=== PATIENT | male | born 1960 | race Caucasian/White ===

== ENCOUNTER 2022-12-08 09:49 | Emergency (ER) | payer BC, SELFPAY ==
[2022-12-08] VITALS (42 sets, daily range): BP systolic 120–163; BP diastolic 79–106; PULSE 69–93; RESP 18; TEMP 36.1–36.8; O2SAT 90–100; BMI 25.5
--- NOTE | 2022-12-08 10:28 | CRLHL7_ITS ---
For Patients: As a result of the Century Cures Act, medical imaging exams and procedure reports are released immediately into your electronic medical record. You may view this report before your referring provider. If you have questions, please contact your health care provider. CHEST 2 VIEWS INDICATION: Short of breath. IMPRESSION: Normal heart size and vascular pattern. Lungs are clear. No pneumothorax or pleural effusion. Dictated by Feliciano Ryan MD @ 12/08/2022 11:45:50 AM (Electronically Signed)
--- NOTE | 2022-12-08 10:32 | ED.CHESTPAIN ---
HPI - Chest Pain General Chief Complaint: Chest Pain Stated Complaint: Chest pain Time Seen by Provider: 12/08/22 10:22 Source: patient Mode of arrival: ambulatory Limitations: no limitations History of Present Illness HPI narrative: 62-year-old male presenting to the ER today with chest pain. He states that he was on his break at work when the chest pain developed. He stated that it got worse when he had to walk to his locker, he changed back into his uniform and then he walked up the stairs back to his work area and that is when the pain really kicked in. He was able to take a sublingual nitro and rest and in about 10 minutes the pain had subsided. He states that after he walked into the ER the pain came back a little bit but now that he has been resting it has subsided once again. The pain does not cause him to feel diaphoretic or short of breath. He does not feel dizzy or lightheaded. He states that he has coronary artery disease with a stent placed in 2003 and another placed in 2010 he has not had cardiology follow-up since 2010. He also has peripheral vascular disease with stenting in his leg and in his abdomen. He is on Plavix and Xarelto. Medical history is also significant for diabetes, peripheral neuropathy and tobacco use disorder. Patient rates his pain right now as a 1/10. He states that it has been years since he has had to take a sublingual nitro. Related Data Home Medications Medication Instructions Recorded Confirmed clopidogrel 75 mg tablet 75 mg PO DAILY 12/08/22 12/08/22 empagliflozin 10 mg tablet 10 mg PO DAILY 12/08/22 12/08/22 (Jardiance) ferrous sulfate 325 mg (65 mg 325 mg PO Q OTHER DAY 12/08/22 12/08/22 iron) tablet (Feosol) fexofenadine 60 mg tablet (Lilia 60 mg PO DAILY 12/08/22 12/08/22 Allergy) gabapentin 300 mg capsule 300 mg PO BID 12/08/22 12/08/22 glipizide 10 mg tablet, extended 10 mg PO DAILY 12/08/22 12/08/22 release 24 hr lisinopril 20 mg tablet 20 mg PO DAILY 12/08/22 12/08/22 pravastatin 40 mg tablet 40 mg PO DAILY 12/08/22 12/08/22 rivaroxaban 2.5 mg tablet (Xarelto) 2.5 mg PO BID 12/08/22 12/08/22 Allergies Allergy/AdvReac Type Severity Reaction Status Date / Time metformin AdvReac Intermediate Diarrhea Verified 12/08/22 10:11 Review of Systems Status of ROS Reports: 10 or more systems reviewed and unremarkable except as noted in History and below [facility] Social History Smoking Status: Current every day smoker What tobacco products do you use: cigarettes Do you use any of these nicotine containing products: None How often do you have a drink containing alcohol: 4 or more times a week How many standard drinks containing alcohol do you have on a typical day: 3 or 4 AUDIT-C Alcohol total score: 5 Non-prescribed substance use: denies use service: No Exam Narrative Exam Narrative: Well-nourished well-developed patient in no acute distress. Alert and oriented. Answers questions appropriately. Mood and affect are appropriate. Thoughts are goal oriented and rational. No tangential or magical thinking noted. Patient speaks in full sentences without needing to catch their breath. HEENT: Normocephalic atraumatic. Pupils are equally round reactive to light. Extraocular muscles are intact. Conjunctivae are moist without any icterus noted. Moist mucous membranes. Posterior pharynx is normal. Neck is soft without any lymphadenopathy or thyromegaly. No masses are appreciated. Cardiovascular: Heart is regular rate and rhythm S1 and S2 are present without any murmurs. Lungs: Clear to auscultation bilaterally no wheezes rhonchi or rales are appreciated. Patient takes deep breaths without any discomfort. Abdomen: Soft and nontender nondistended with normal bowel sounds. No guarding or rebound. No masses or organomegaly appreciated. Extremities: Bilateral lower extremities are without edema. Skin: Well perfused without any obvious rashes. Const Vital Signs, click to edit/add: Vital Signs - 24 hr 12/08/22 10:11 12/08/22 10:26 12/08/22 10:28 Temperature 97 F L Pulse Rate 76 Pulse Rate [Pulse Oximeter] 77 Respiratory Rate 18 Blood Pressure Blood Pressure [Right Upper Arm] 140/88 H Pulse Oximetry 97 100 97 Oxygen Delivery Method Room Air 12/08/22 10:30 12/08/22 10:32 12/08/22 10:43 Temperature Pulse Rate 83 81 91 Pulse Rate [Pulse Oximeter] Respiratory Rate Blood Pressure 149/105 H 120/80 Blood Pressure [Right Upper Arm] Pulse Oximetry 97 99 90 Oxygen Delivery Method 12/08/22 10:44 12/08/22 10:45 12/08/22 11:00 Temperature Pulse Rate 93 77 Pulse Rate [Pulse Oximeter] 93 Respiratory Rate 18 Blood Pressure Blood Pressure [Right Upper Arm] 120/80 Pulse Oximetry 94 93 96 Oxygen Delivery Method Room Air 12/08/22 11:01 12/08/22 11:17 12/08/22 11:21 Temperature Pulse Rate 82 74 78 Pulse Rate [Pulse Oximeter] Respiratory Rate Blood Pressure 136/79 141/84 H Blood Pressure [Right Upper Arm] Pulse Oximetry 96 97 95 Oxygen Delivery Method 12/08/22 11:30 12/08/22 11:41 12/08/22 11:45 Temperature Pulse Rate 74 74 78 Pulse Rate [Pulse Oximeter] Respiratory Rate Blood Pressure 145/80 H Blood Pressure [Right Upper Arm] Pulse Oximetry 97 97 99 Oxygen Delivery Method 12/08/22 12:00 12/08/22 12:00 12/08/22 12:01 Temperature Pulse Rate 79 75 Pulse Rate [Pulse Oximeter] 76 Respiratory Rate Blood Pressure 163/88 H Blood Pressure [Right Upper Arm] 163/88 H Pulse Oximetry 95 97 98 Oxygen Delivery Method Room Air 12/08/22 12:08 12/08/22 12:15 12/08/22 12:21 Temperature 98.3 F Pulse Rate 73 74 Pulse Rate [Pulse Oximeter] Respiratory Rate Blood Pressure 150/84 H Blood Pressure [Right Upper Arm] Pulse Oximetry 96 97 Oxygen Delivery Method 12/08/22 12:30 12/08/22 12:41 12/08/22 12:45 Temperature Pulse Rate 71 87 89 Pulse Rate [Pulse Oximeter] Respiratory Rate Blood Pressure 154/106 H Blood Pressure [Right Upper Arm] Pulse Oximetry 96 93 97 Oxygen Delivery Method 12/08/22 13:00 12/08/22 13:01 12/08/22 13:15 Temperature Pulse Rate 73 74 Pulse Rate [Pulse Oximeter] Respiratory Rate Blood Pressure 153/89 H Blood Pressure [Right Upper Arm] Pulse Oximetry 96 96 98 Oxygen Delivery Method 12/08/22 13:21 12/08/22 13:30 12/08/22 13:45 Temperature Pulse Rate 78 75 80 Pulse Rate [Pulse Oximeter] Respiratory Rate Blood Pressure 158/99 H Blood Pressure [Right Upper Arm] Pulse Oximetry 99 96 96 Oxygen Delivery Method 12/08/22 13:46 12/08/22 14:00 12/08/22 14:04 Temperature Pulse Rate 76 75 75 Pulse Rate [Pulse Oximeter] Respiratory Rate Blood Pressure Blood Pressure [Right Upper Arm] Pulse Oximetry 96 98 96 Oxygen Delivery Method 12/08/22 14:15 12/08/22 14:24 12/08/22 14:30 Temperature Pulse Rate 86 81 73 Pulse Rate [Pulse Oximeter] Respiratory Rate Blood Pressure Blood Pressure [Right Upper Arm] Pulse Oximetry 96 96 97 Oxygen Delivery Method 12/08/22 14:45 12/08/22 15:00 12/08/22 15:15 Temperature Pulse Rate 81 79 71 Pulse Rate [Pulse Oximeter] Respiratory Rate Blood Pressure Blood Pressure [Right Upper Arm] Pulse Oximetry 98 98 97 Oxygen Delivery Method 12/08/22 15:24 12/08/22 15:25 12/08/22 15:30 Temperature Pulse Rate 73 69 Pulse Rate [Pulse Oximeter] Respiratory Rate Blood Pressure 149/86 H Blood Pressure [Right Upper Arm] 149/86 H Pulse Oximetry 94 97 Oxygen Delivery Method 12/08/22 15:45 Temperature Pulse Rate 71 Pulse Rate [Pulse Oximeter] Respiratory Rate Blood Pressure Blood Pressure [Right Upper Arm] Pulse Oximetry 96 Oxygen Delivery Method Course Course Hospital Course: Patient is history and symptoms are certainly worrisome for coronary artery disease. Upon arrival he is given aspirin and sublingual nitro was ordered p.r.n.. EKG, read by me, shows normal sinus rhythm with a pulse of 83. Troponin is unremarkable. CBC showing mild pancytopenia. Shortly after arrival he did have increasing chest discomfort, sublingual nitro was given and his discomfort was relieved. Patient's lactate was 2.0, 1 L of normal saline was given. He remained hemodynamically stable. Repeat EKG unchanged showing normal sinus rhythm. Repeat troponin remained normal. I did consult with Dr. Mackenzie, cardiology at [facility], recommended the patient be transferred to a cardiac bed with potential angiogram secondary to unstable angina. 4-8 hour wait for a bed. Serial troponins at this time have all been normal and patient has been asymptomatic. [facility] Vital Signs Vital signs: Initial Vital Signs Temperature 97 F L 12/08/22 10:11 Temperature Source Temporal Artery Scan 12/08/22 10:11 Pulse Rate 77 12/08/22 10:11 Respiratory Rate 18 12/08/22 10:11 Blood Pressure 140/88 H 12/08/22 10:11 Blood Pressure Mean 105 12/08/22 10:11 Blood Pressure Position Sitting 12/08/22 10:11 Pulse Oximetry 97 12/08/22 10:11 Oxygen Delivery Method Room Air 12/08/22 10:11 Vital Signs Temperature 97 F L 12/08/22 10:11 Pulse Rate 77 12/08/22 10:11 Respiratory Rate 18 12/08/22 10:11 Blood Pressure 140/88 H 12/08/22 10:11 Pulse Oximetry 97 12/08/22 10:11 Oxygen Delivery Method Room Air 12/08/22 10:11 Temperature 98.3 F 12/08/22 12:08 Pulse Rate 71 12/08/22 15:45 Respiratory Rate 18 12/08/22 10:44 Blood Pressure 149/86 H 12/08/22 15:25 Pulse Oximetry 96 12/08/22 15:45 Oxygen Delivery Method Room Air 12/08/22 12:00 MDM - Chest Pain MDM Narrative Medical decision making narrative: 62-year-old male history of coronary artery disease, peripheral vascular disease, tobacco use disorder presenting with unstable angina. Patient will be transferred to [place] for further management. Medical Records Data Attestation: I reviewed the patient's medical records. Lab Data Attestation: I reviewed the patient's lab results. Labs: Lab Results 12/08/22 12/08/22 12/08/22 Range/Units 10:20 10:20 10:20 WBC 3.54 L (4.50-11.00) K/uL RBC 3.90 L (4.30-5.90) m/uL Hgb 13.1 L (13.5-17.5) gm/dL Hct 38.1 (37.0-53.0) % MCV 98 (80-100) fL MCH 34 (26-34) pg MCHC 34 (32-36) gm/dL RDW Coeff of Douglas 14.4 (11.5-15.5) % Plt Count 132 L (140-440) K/uL Neut % (Auto) 48.8 (42.0-72.0) % Lymph % (Auto) 30.2 (20-44) % Weston % (Auto) 16.7 H (0.0-11.0) % Eos % (Auto) 3.4 (0.0-7.0) % Baso % (Auto) 0.6 (0.0-3.0) % Neut # (Auto) 1.70 (1.7-7.0) K/uL Lymph # (Auto) 1.10 (0.90-2.90) K/uL Weston # (Auto) 0.60 (0.00-0.90) K/UL Eos # (Auto) 0.10 (0.00-0.50) K/uL Baso # (Auto) 0.00 (0.00-0.30) K/uL Abs Immat Gran (auto) 0.00 (0.00-0.30) K/uL Imm/Tot Granulo (auto) 0.3 % Sodium Cancelled 136 Potassium Cancelled 3.6 Chloride Cancelled Carbon Dioxide Anion Gap BUN Creatinine Estimated Creat Clear Estimated GFR Glucose Lactate (0.5-1.9) mmol/L Calcium Total Bilirubin (0.1-1.5) mg/dL Direct Bilirubin (0.0-0.5) mg/dL AST (12-35) U/L ALT (4-50) U/L Alkaline Phosphatase (40-150) U/L Troponin I (0.01-0.04) ng/mL Total Protein (6.0-8.3) g/dL Albumin (3.3-5.0) g/dL POC Troponin I (0.01-0.04) ng/ml 12/08/22 12/08/22 12/08/22 Range/Units 10:20 10:20 10:20 WBC (4.50-11.00) K/uL RBC (4.30-5.90) m/uL Hgb (13.5-17.5) gm/dL Hct (37.0-53.0) % MCV (80-100) fL MCH (26-34) pg MCHC (32-36) gm/dL RDW Coeff of Douglas (11.5-15.5) % Plt Count (140-440) K/uL Neut % (Auto) (42.0-72.0) % Lymph % (Auto) (20-44) % Weston % (Auto) (0.0-11.0) % Eos % (Auto) (0.0-7.0) % Baso % (Auto) (0.0-3.0) % Neut # (Auto) (1.7-7.0) K/uL Lymph # (Auto) (0.90-2.90) K/uL Weston # (Auto) (0.00-0.90) K/UL Eos # (Auto) (0.00-0.50) K/uL Baso # (Auto) (0.00-0.30) K/uL Abs Immat Gran (auto) (0.00-0.30) K/uL Imm/Tot Granulo (auto) % Sodium Potassium Chloride 105 Carbon Dioxide Cancelled 26 Anion Gap Cancelled BUN Cancelled 11 Creatinine Cancelled Estimated Creat Clear Estimated GFR Glucose Lactate (0.5-1.9) mmol/L Calcium Total Bilirubin (0.1-1.5) mg/dL Direct Bilirubin (0.0-0.5) mg/dL AST (12-35) U/L ALT (4-50) U/L Alkaline Phosphatase (40-150) U/L Troponin I (0.01-0.04) ng/mL Total Protein (6.0-8.3) g/dL Albumin (3.3-5.0) g/dL POC Troponin I (0.01-0.04) ng/ml 12/08/22 12/08/22 12/08/22 Range/Units 10:20 10:20 10:20 WBC (4.50-11.00) K/uL RBC (4.30-5.90) m/uL Hgb (13.5-17.5) gm/dL Hct (37.0-53.0) % MCV (80-100) fL MCH (26-34) pg MCHC (32-36) gm/dL RDW Coeff of Douglas (11.5-15.5) % Plt Count (140-440) K/uL Neut % (Auto) (42.0-72.0) % Lymph % (Auto) (20-44) % Weston % (Auto) (0.0-11.0) % Eos % (Auto) (0.0-7.0) % Baso % (Auto) (0.0-3.0) % Neut # (Auto) (1.7-7.0) K/uL Lymph # (Auto) (0.90-2.90) K/uL Weston # (Auto) (0.00-0.90) K/UL Eos # (Auto) (0.00-0.50) K/uL Baso # (Auto) (0.00-0.30) K/uL Abs Immat Gran (auto) (0.00-0.30) K/uL Imm/Tot Granulo (auto) % Sodium Potassium Chloride Carbon Dioxide Anion Gap BUN Creatinine 1.0 Estimated Creat Clear Cancelled 76.00 Estimated GFR Cancelled 86 Glucose Cancelled Lactate (0.5-1.9) mmol/L Calcium Total Bilirubin (0.1-1.5) mg/dL Direct Bilirubin (0.0-0.5) mg/dL AST (12-35) U/L ALT (4-50) U/L Alkaline Phosphatase (40-150) U/L Troponin I (0.01-0.04) ng/mL Total Protein (6.0-8.3) g/dL Albumin (3.3-5.0) g/dL POC Troponin I (0.01-0.04) ng/ml 12/08/22 12/08/22 12/08/22 Range/Units 10:20 10:20 10:29 WBC (4.50-11.00) K/uL RBC (4.30-5.90) m/uL Hgb (13.5-17.5) gm/dL Hct (37.0-53.0) % MCV (80-100) fL MCH (26-34) pg MCHC (32-36) gm/dL RDW Coeff of Douglas (11.5-15.5) % Plt Count (140-440) K/uL Neut % (Auto) (42.0-72.0) % Lymph % (Auto) (20-44) % Weston % (Auto) (0.0-11.0) % Eos % (Auto) (0.0-7.0) % Baso % (Auto) (0.0-3.0) % Neut # (Auto) (1.7-7.0) K/uL Lymph # (Auto) (0.90-2.90) K/uL Weston # (Auto) (0.00-0.90) K/UL Eos # (Auto) (0.00-0.50) K/uL Baso # (Auto) (0.00-0.30) K/uL Abs Immat Gran (auto) (0.00-0.30) K/uL Imm/Tot Granulo (auto) % Sodium Potassium Chloride Carbon Dioxide Anion Gap BUN Creatinine Estimated Creat Clear Estimated GFR Glucose 173 H Lactate 2.0 H (0.5-1.9) mmol/L Calcium Cancelled 8.6 Total Bilirubin 1.0 (0.1-1.5) mg/dL Direct Bilirubin 0.3 (0.0-0.5) mg/dL AST 33 (12-35) U/L ALT 21 (4-50) U/L Alkaline Phosphatase 89 (40-150) U/L Troponin I < 0.01 L (0.01-0.04) ng/mL Total Protein 7.0 (6.0-8.3) g/dL Albumin 3.5 (3.3-5.0) g/dL POC Troponin I 0.00 L (0.01-0.04) ng/ml 12/08/22 12/08/22 Range/Units 11:53 13:30 WBC (4.50-11.00) K/uL RBC (4.30-5.90) m/uL Hgb (13.5-17.5) gm/dL Hct (37.0-53.0) % MCV (80-100) fL MCH (26-34) pg MCHC (32-36) gm/dL RDW Coeff of Douglas (11.5-15.5) % Plt Count (140-440) K/uL Neut % (Auto) (42.0-72.0) % Lymph % (Auto) (20-44) % Weston % (Auto) (0.0-11.0) % Eos % (Auto) (0.0-7.0) % Baso % (Auto) (0.0-3.0) % Neut # (Auto) (1.7-7.0) K/uL Lymph # (Auto) (0.90-2.90) K/uL Weston # (Auto) (0.00-0.90) K/UL Eos # (Auto) (0.00-0.50) K/uL Baso # (Auto) (0.00-0.30) K/uL Abs Immat Gran (auto) (0.00-0.30) K/uL Imm/Tot Granulo (auto) % Sodium Potassium Chloride Carbon Dioxide Anion Gap BUN Creatinine Estimated Creat Clear Estimated GFR Glucose Lactate (0.5-1.9) mmol/L Calcium Total Bilirubin (0.1-1.5) mg/dL Direct Bilirubin (0.0-0.5) mg/dL AST (12-35) U/L ALT (4-50) U/L Alkaline Phosphatase (40-150) U/L Troponin I (0.01-0.04) ng/mL Total Protein (6.0-8.3) g/dL Albumin (3.3-5.0) g/dL POC Troponin I 0.00 L 0.02 (0.01-0.04) ng/ml Imaging Data Chest x-ray: Attestation: I have reviewed the pertinent imaging results. Radiologist's impression: CHEST 2 VIEWS INDICATION: Short of breath. IMPRESSION: Normal heart size and vascular pattern. Lungs are clear. No pneumothorax or pleural effusion. ECG Data Attestation: I personally reviewed and interpreted this ECG as follows: Discharge Plan Discharge Clinical Impression: Angina pectoris, unstable Patient Disposition: [facility] Condition: Stable Prescriptions: No Action pravastatin 40 mg tablet 40 mg PO DAILY glipizide 10 mg tablet extended release 24hr 10 mg PO DAILY lisinopril 20 mg tablet 20 mg PO DAILY clopidogrel 75 mg tablet 75 mg PO DAILY gabapentin 300 mg capsule 300 mg PO BID Jardiance 10 mg tablet 10 mg PO DAILY Xarelto 2.5 mg tablet 2.5 mg PO BID fexofenadine [Lilia Allergy] 60 mg tablet 60 mg PO DAILY ferrous sulfate [Feosol] 325 mg (65 mg iron) tablet 325 mg PO Q OTHER DAY Stand Alone Forms: MyHealth Info Instructions
--- OUTSIDE RECORDS SUMMARY | 2022-12-08 10:36 | XMS_ITS | Continuity of Care Document ---
Author Name Unknown Organization [facility] Address [address] [place] [address] Phone Care Team Providers Care Television Mechanic Name Role Phone Lucio Kapoor MD Unavailable Unavailable Allergies, Adverse Reactions, Alerts Substance Reaction Status Criticality No Known Allergies Active No Inform ation Medications Medication Instructions Dosage Effective Dates (start - stop) Status Comments METOPROLOL SUCCINATE (unknown strength) Not Available - Active PRAVASTATIN SODIUM (unknown strength) Not Available - Active GLIPIZIDE (unknown strength) Not Available - Active LISINOPRIL (unknown strength) Not Available - Active METFORMIN HCL (unknown strength) Not Available - Active PRILOSEC (unknown strength) Not Available - Active AJAY (unknown strength) Not Available - Active Procedures Procedure Date Postop Followup Visit X-Ray Exam Lwr Spine, Min 4 Views Low Back Disk Surgery/Decompress 2014 Pa Assist Low Back Disk Surgery/Decompre ss Office/Outpatient Visit,Est, Mod 2014 Office/Outpatient Visit,New, Mod 2014 Advance Directives Directive Yes / No Effective Date File Name No Information Encounters Encounter Description Practice Location Reason(s) For Visit Diagnoses Date Provider Providers Copied on Encounter [facility], [address], [place], [id number] , [place] tel:[phone] [facility] No Information Jun-0 3-201 7 Antwon Valdes. [facility], [address], [address], [place], [id number] , [place]. tel: [phone] [facility], [address], [place], [place], [id number] , [place] tel: [phone] [facility] Arthrodesis statusOverweigh t Antwon Stanleyothy. [facility], [address], [address], [place], [place], [id number] , [place]. tel: [phone] Referring Provider: Susan Vernon [facility] [address], [place], [address]. tel:[phone] [facility], [address], [place], [id number] , [place] tel: [phone] [facility] No Information Antwon Lucio. [facility], [address], [address], [place], [place], [id number] , [place]. tel: [phone] Referring Provider: Susan Vernon [facility] [address], [place], [address]. tel:[phone] Office/Outpa tient Visit,Est, Mod [facility], [address], [place], [place], [id number] , [place] tel: [phone] [facility] OVERWEIGHTHyper tension, UnspecifiedLumb ar HNPSpinal stenosis of lumbar region with neurogenic claudication Antwon Valdes. [facility] [place], [address], [address], [place], [place], [id number] , [place]. tel: [phone] Referring Provider: Susan Vernon [facility] [address], [place], [address]. tel:[phone] Office/Outpa tient Visit,New, Mod [facility], [address], [place], [place], [id number] , [place] tel: [phone] [facility] Bulging lumbar discSpinal stenosis of lumbar region with neurogenic claudicationLum bar DDD 201 5 Emily Carpenter. [facility], [address], [address], [place], [place], [id number] , [place]. [phone] Referring Provider: Susan Vernon, [facility] [address] [place], [address]. tel:[phone] Family History Family Member Type Diagnosis Age At Onset No Information Payers Payer name Insurance type Covered green party ID Authoriza tihansel(s) Preferred [employer] Admin [facility] [id number] Social History Type Description Quantity Date Captured Comments Sex Male Smoking Status No Information Chief Complaint And Reason For Visit No Information Reason For Referral Reason For Referral No Information History Of Present Illness Encounter Date Complaint History Of Prese nt Illness No Information Functional Status Date Functional Assessmen t No Information Instructions Date Instruction Additional Infor lori Weight Management Related to [facility] Weight management: R efer to Referral to General Practitioner timeframe: 1 Month. Related to Overweight Weight Management Related to Ove eit Exercise education Related to Un specified Essential Hypertension Assessments Type Assessment Date No Information Patient Care Teams Name Effective Dates (start - stop) Status Members No Information
[2022-12-08 10:37] LABS: Basophils Percent Auto 0.6 % (0.0-3.0); Eosinophils Percent Auto 3.4 % (0.0-7.0); Hematocrit 38.1 % (37.0-53.0); Hemoglobin* 13.1 gm/dL (13.5-17.5); Immature Granulocytes Pct Auto 0.3 %; Lymphocytes Percent Auto 30.2 % (20-44); Mean Corpuscular HGB Conc 34 gm/dL (32-36); Mean Corpuscular Hemoglobin 34 pg (26-34); Mean Corpuscular Volume 98 fL (80-100); Monocytes Percent Auto 16.7 % (0.0-11.0); Neutrophils Percent Auto 48.8 % (42.0-72.0); Platelet Count* 132 K/uL (140-440); RDW Coefficient of Variation % 14.4 % (11.5-15.5); White Blood Count* 3.54 K/uL (4.50-11.00)
--- OUTSIDE RECORDS SUMMARY | 2022-12-08 10:37 | XMS_ITS | Continuity of Care Document ---
Author Name Unknown Organization [facility] Address [address] [place] [address] Phone Care Team Providers Care Fishing Line Winding Machine Operator Name Role Phone Lucio Kapoor MD Unavailable [...] [facility], [address], [place], [id number] , [place] tel:[phone] [facility] No Information Jun-0 3-201 7 Antwon Valdes. [facility], [address], [address], [place], [id number] , [place]. tel: [phone] [facility], [address], [place], [place], [id number] , [place] tel: [phone] [facility] Arthrodesis statusOverweigh t Antwon Stanleyothy. [facility] [place], [address], [address], [place], [place], [id number] , [place]. tel: [phone] Referring Provider: Susan Vernon [facility] [address], [place], [address]. tel:[phone] [facility], [address], [place], [id number] , [place] tel: [phone] [facility] No Information Antwon Lucio. [facility] [place], [address], [address], [place], [place], [id number] , [place]. tel: [phone] Referring Provider: Susan Vernon [facility] [address], [place], [address]. tel:[phone] Office/Outpa tient Visit,Est, Mod [facility], [address], [place], [place], [id number] , [place] tel: [phone] [facility] OVERWEIGHTHyper tension, UnspecifiedLumb ar HNPSpinal stenosis of lumbar region with neurogenic claudication Antwon Valdes. [facility] [place], [address], [address], [place], [place], [id number] , [place]. tel: [phone] Referring Provider: Susan Vernon [facility] [address], [place], [address]. tel:[phone] Office/Outpa tient Visit,New, Mod [facility], [address], [place], [place], [id number] , [place] tel: [phone] [facility] Bulging lumbar discSpinal stenosis of lumbar region with neurogenic claudicationLum bar DDD 201 5 Emily Carpenter. [facility], [address], [address], [place], [place], [id number] , [place]. [phone] Referring Provider: Susan Vernon, [facility] [address] [place], [address]. tel:[phone] Family History Family Member Type Diagnosis Age At Onset No Information Payers Payer name Insurance type Covered democrat ID Authoriza tihansel(s) [employer] Admin [facility] [id number] Social History Type Description Quantity Date Captured [...] lori [facility] Management [facility]: R efer to Referral to General Practitioner timeframe: 1 Month. Related to Overweight Weight Management Related to Ove eit Exercise education Related to Un specified Essential Hypertension Assessments Type Assessment Date No Information Patient Care Teams Name Effective Dates (start - stop) Status Members No Information
[2022-12-08 10:39] LABS: Slide Review Reflex No
[2022-12-08] MEDS: NITROGLYCERIN 0.4 MG TAB.SUBL SUBLINGUAL (10:39)
--- NOTE | 2022-12-08 10:40 | ED.NURSE ---
pt was experiencing more chest pain, gave nitro.
[2022-12-08] MEDS: ASPIRIN 81 MG TAB.CHEW 324 MG PO (10:43)
[2022-12-08] MEDS: 0.9 % SODIUM CHLORIDE 1000 ml 1,000 ML IV (10:52)
[2022-12-08 10:53] LABS: Albumin* 3.5 g/dL (3.3-5.0); Chloride* 105 mmol/L (96-114); Sodium* 136 mmol/L (135-149)
[2022-12-08 10:54] LABS: Potassium* 3.6 mmol/L (3.6-5.1)
[2022-12-08 10:56] LABS: Alkaline Phosphatase* 89 U/L (40-150); Aspartate Amino Transferase* 33 U/L (12-35); Bilirubin Direct* 0.3 mg/dL (0.0-0.5); Blood Urea Nitrogen* 11 mg/dL (7-30); Carbon Dioxide* 26 mmol/L (20-32); Estimated Glomerular Filt Rate 86 ml/min; Glucose* 173 mg/dL (60-115)
[2022-12-08 10:57] LABS: Alanine Aminotransferase* 21 U/L (4-50); Calcium* 8.6 mg/dL (8.4-10.6)
[2022-12-08 11:30] LABS: Troponin I* < 0.01 ng/mL (0.01-0.04)
[2022-12-08 13:47] LABS: Troponin, Point-of-Care* 0.02 ng/ml (0.01-0.04)
--- NOTE | 2022-12-08 14:03 | ED.NURSE ---
Report called to Joie HOGUE at [facility].
--- NOTE | 2022-12-08 16:04 | ED.NURSE ---
Nasim called to give update on bed availability.
--- NOTE | 2022-12-08 16:49 | ED.NURSE ---
Pt was beginning to get agitated because he felt that he could go home and come back to the hospital in the morning, instead of waiting for the ambulance ride to [place]. He decided to leave AMA, pt was cooperative with allowing IV to be removed. He was counseled to come back to the ER if symptoms start to worsen.
== END 2022-12-08 16:39 | disposition left against medical advice (07) ==
PROVIDERS: Emergency Provider Family Medicine; PCP Family Medicine
DX: I20.0 Unstable angina (principal)
CPT/HCPCS: 36415; 71046; 80048; 80076; 83605; 84484; 85025; 93005; 94761; 96360; 99285; A9270; J7030

== ENCOUNTER 2024-06-02 13:05 | Inpatient (IN) | payer BC, SELFPAY ==
[2024-06-02] VITALS (30 sets, daily range): BP systolic 119–157; BP diastolic 72–105; PULSE 82–114; RESP 20–34; TEMP 36.9–37.6; O2SAT 87–95; BMI 23.6; BMI 22.9
--- OUTSIDE RECORDS SUMMARY | 2024-06-02 13:07 | XMS_ITS | Clinical Summary ---
Author Organization [employer] [facility] Address [place], [place] [address] Care Team Providers Care Credit Reporter Name Role Phone Frederick Duran MD Unavailable [phone] David Alcala MD Primary Care Provider [phone] Damon Belcher MD Unavailable [phone] Allergies Active Allergy Reactions Criticality Noted Date Comments Metformin Diarrhea Low 07/30/2021 Medications fexofenadine (DANITA) 180 mg tablet Take 1 tablet by mouth once daily. 30 tablet 11 10/31/19 10 Active ferrous sulfate, 65 mg elemental, tablet Take 325 mg by mouth once every other day. Active aspirin (ECOTRIN) 81 mg enteric coated tabletIndications :Popliteal artery occlusion, left (HC) Take 1 Tablet (81 mg) by mouth once daily. 0 11/06/19 22 Active nitroglycerin (NITROSTAT) 0.4 mg sublingual tabletIndications :Atherosclerosis of coronary artery, unspecified vessel or lesion type, unspecified whether angina present, unspecified whether [place] or transplanted heart,History of coronary artery stent placement 3 DOSE LIMIT PER CHEST PAIN EPISODE. 25 Tablet 3 02/21/20 23 Active clopidogreL (PLAVIX) 75 mg tabletIndications :Peripheral arterial disease (HC) Take 1 Tablet (75 mg) by mouth once daily. 90 Tablet 3 08/09/19 24 Active empagliflozin (Jardiance) 10 mg tabletIndications :Diabetes mellitus without complication (HC) Take 1 Tablet (10 mg) by mouth once daily. 90 Tablet 3 08/09/19 24 Active glipiZIDE extended-release (GLUCOTROL XL) 10 mg Extended-Release tabletIndications :Diabetes mellitus without complication (HC) Take 1 Tablet (10 mg) by mouth once daily before a meal. 90 Tablet 3 08/09/19 24 Active lisinopriL (PRINIVIL; ZESTRIL) 20 mg tabletIndications :Hypertension, unspecified type,History of coronary artery stent placement Take 1 Tablet (20 mg) by mouth once daily. 90 Tablet 3 10/16/19 24 Active pravastatin (PRAVACHOL) 40 mg tabletIndications :Diabetes mellitus without complication (HC),Hypertriglyc eridemia TAKE 1 TABLET BY MOUTH AT BEDTIME 90 Tablet 3 10/22/19 24 Active acetaminophen (TYLENOL EXTRA STRGTH) 500 mg tabletIndications :pain Take 2 Tablets (1,000 mg) by mouth every 6 hours if needed for Pain. Max acetaminophen dose: 4000mg in 24 hrs. 11/14/19 24 Active gabapentin (NEURONTIN) 300 mg capsuleIndication s:Displacement of intervertebral disc of lumbosacral region Take 1 capsule (300 mg) by mouth daily. Take a second capsule on work days. 180 Capsule 1 05/01/19 25 Active rivaroxaban (Xarelto) 2.5 mg tabletIndications :peripheral arterial occlusive disease Take 1 Tablet (2.5 mg) by mouth two times daily with meals. 180 Tablet 3 02/12/20 24 Active omeprazole (PRILOSEC) 20 mg Delayed-Release capsuleIndication s:Gastroesophagea l reflux disease without esophagitis Take 1 Capsule (20 mg) by mouth once daily before a meal. 90 Capsule 05/24/19 25 Active omeprazole (PRILOSEC) 20 mg Delayed-Release capsuleIndication s:Gastroesophagea l reflux disease without esophagitis Take 1 Capsule (20 mg) by mouth once daily before a meal. 90 Capsule 3 08/09/19 24 025 Discontin ued(*Avai lability/ Formulary change/Co st of medicatio n) Active Problems Problem Noted Date Diagnosed Date Chest pain 12/14/2022 Hypokalemia 11/13/2022 Normocytic anemia 05/29/2020 Abdominal aortic aneurysm (AAA) 05/27/2020 Peripheral arterial disease 05/26/2020 Overview (05/26/2020): May 2020: Occluded popliteal artery with cellulitis. Acquired trigger finger of left middle finger Overview (12/21/2018): October 2017: left middle finger trigger finger cortisone injection by Dr. Westbrook. Good benefit until March 2018, then recurrence. Nov 2018: Repeat left middle finger cortisone injection for trigger finger. 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 Kapoor Tobacco use disorder 12/22/2014 Overview (12/22/2014): 1 pack a day- for 30 years Hx of Rhabdomyolysis 07/27/2010 Overview (07/27/2010): With combination of high dose statin and lopid Drug-induced hepatitis 07/27/2010 Overview (06/26/2015): Secondary to statin+lopid Vitamin D deficiency 06/08/2010 Type 2 diabetes mellitus wit h diabetic peripheral angiopathy without gangrene, without long-term current use of insulin 11/20/2006 Overview (12/22/2014): 12/19/14 Hgb A1c: 6.3 Glucotrol and glipizide HTN (hypertension) 02/16/2005 Overview (12/22/2014): Metoprolol GERD 08/17/2004 CAD S/P percutaneous coronary angioplasty 2003 Overview (12/22/2014): 2003 PTCA and 2010 stent distal (LAD) Hyperlipidemia 11/12/2003 Overview (12/22/2014): Pravachol RHINITIS - ALLERGIC 12/16/2002 Overview (12/22/2014): danita Critical lower limb ischemia Popliteal artery occlusion, left PAD (peripheral artery disease) Resolved Problems Problem Noted Date Diagnosed Date Resolved Date Cellulitis of left lower extremity 05/27/2020 01/31/2023 Hyponatremia 07/27/2010 12/22/2014 Epistaxis 02/18/2005 10/04/2005 STATUS POST PERC TRANSLUM CORON ANGIO 11/12/2003 12/22/2014 Allergy, unspecified not elsewhere classified 11/16/19 00 12/22/2014 DISORDER, STOMACH FUNCTION NOS 11/16/1999 10/04/2005 ONYCHOMYCOSIS 10/04/2005 Encounters Date Type Department Care Team Description 05/23/2024 Refill [facility] [address] [place] [address] David Alcala MD Refill Request (Omeprazole/) 03/22/2024 8:30 AM [employer] SITE MANAGER Office Visit [facility] [address] [place] [address] Ruchi Espitia MD Follow Up (recurrent left popliteal artery occlusion atherectomy and angioplasty) 03/22/2024 6:48 AM [employer] SITE MANAGER - 03/22/2024 11:59 PM [employer] SITE MANAGER Hospital Encounter [facility] [address] [place] [address] Ruchi Espitia MD PAD (peripheral artery disease) (HC) 03/22/2024 Travel from Last 3 Months Immunizations Name Administration Dates Next Due Hepatitis B (Adult) 06/26/2015,01/14/2013 Influenza, IIV3 (Age >=3 years) 03/28/2010 Influenza, IIV4 01/09/2013 Pneumococcal Conj 20-valent (Prevnar 20) 023 Tdap 07/27/2022,05/21/2012 Zoster (Shingrix-RZV, recombinant) 07/27/2022, Family History Medical History Relation Name Comments COPD Father Dementia Mother Heart Disease Paternal Grandfather PA Relation Name Status Comments Father Mother Paternal Grandfather Social History Tobacco Use Types Packs/Day Years Used Date Smoking Tobacco: Every Day Cigarettes 1 46.4 Started: 12/22/1977 Passive Smoke Exposure: Current Smokeless Tobacco: Never Tobacco Cessation:Ready to Q uit: No; Counseling Given: Yes Comments:declined Alcohol Use Standard Drinks/Week Comments Yes 12 (1 standard drink = 0.6 oz pu re alcohol) PHQ-2 Answer Date Recorded PHQ-2 TOTAL SCORE 0 01/31/2023 Financial Resource Strain Answer Date R ecorded Difficulty of Paying Living Expenses Not on file 05/01/2021 Difficulty of Paying Living Expenses Not on file 05/01/2021 Interpersonal Safety Answer Date Record ed Are you being hit, kicked, p ushed or yelled at (see row info)? Unable to assess, family/SO in room. 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 Not on file Not on file Obstetrics History Last Filed Vital Signs Vital Sign Reading Time Taken Comments Blood Pressure 148/79 03/22/2024 8:23 AM [employer] SITE MANAGER Pulse 63 03/22/2024 8:20 AM [employer] SITE MANAGER Temperature 36.7 C (98 F) 11/14/2023 5:55 AM CDT Respiratory Rate 16 11/14/2023 12:0 4 PM CDT Oxygen Saturation 96% 03/22/2024 8:20 AM [employer] SITE MANAGER Inhaled Oxygen Concentration - - Weight 71.5 kg (157 lb 10.1 oz) 03/22/2024 8:20 AM [employer] SITE MANAGER Height 172.7 cm (5' 7.99) 03/22/2024 8:20 AM CS T Body Mass Index 23.97 03/22/2024 8:20 AM [employer] SITE MANAGER Plan of Treatment Upcoming Encounters Date Type Department Care Team (Late st Contact Info) Description 06/28/2024 7:00 AM [employer] SITE MANAGER Appointment [facility] [address] [place] [address] 06/28/2024 7:45 AM [employer] SITE MANAGER Appointment [facility] [address] [facility] [address] [place] [address] 06/28/2024 8:30 AM [employer] SITE MANAGER Office Visit [facility] [address] [place] [address] Ruchi Espitia MD [address] [place] [address] [place] [address] Health Maintenance Due Date Last Done Comments Colonoscopy through age 75 2007 RSV vaccine for adults or (1 - Risk 60-74 years 1-dose series) [address] (for lung CA) ag e 50-80 12/15/2023 12/14/2022 COVID-19 vaccine series (2023- season) 2023 Influenza for age 50-64 12/31/2023 02/15/20 13 (Completed outside of [facility]), 01/09/2013, 03/28/2010 Depression screening for age 12+ 02/01/2024 01/31/2023, 01/31/2023, 02/23/2021, Additional history exists BMI (ht and wt on same day) for age 18+ 03/22/2025 03/22/2024, 02/12/2024, 12/22/2023, Additional history exists Lipids for age 45-75 01/07/2028 01/06/2023, 01/06/2023, 02/22/2021, Additional history exists Tetanus booster 07/27/2032 07/27/2022, 05/21/2012 Hepatitis C screening for ag e 18-79 Completed 01/23/2020 Pneumococcal series for age 50+ Completed Tdap Completed 07/27/2022, 05/21/2012 Zoster (shingles) series for age 50+ Completed 07/27/2022, 01/23/2020 HIV for age 15-65 Completed 11/14/2022 Goals Goal Patient Goal Type Associated Problems Recent Progress Patient-Stated? Author BLOOD PRESSURE-MA INTAINS BP LESS THAN 130/80 Blood Pressure No Susan Vernon MD Procedures Procedure Name Priority Date/Time Associated Diagnosis Comments US ANKLE BRACHIAL INDEX BILATERAL Routine 03/22/2024 8:08 AM [employer] SITE MANAGER PAD (peripheral artery disease) (HC) US ARTERIAL LOWER EXTREMITY LEFT Routine 03/22/2024 8:07 AM [employer] SITE MANAGER PAD (peripheral artery disease) (HC) LIPID PANEL W REFLEX MEASURED LDL Routine 01/06/2023 2:09 PM CDT CAD S/P percutaneous coronary angioplasty RAPID HIV SCREEN Timed 11/14/2022 7:38 AM CDT ANTI HCV Routine 01/23/2020 9:44 AM CDT Need for hepatitis C screening test from Last 3 Months or Most Recently Relevant to Health Maintenance Results * US ANKLE BRACHIAL INDEX BILATERAL (03/22/2024 8:08 AM [employer] SITE MANAGER) Anatomical Region Laterality Modality ANKLES, ANKLE L, ANKLE R Ultraso und 03/22/2024 6:48 AM [employer] SITE MANAGER Narrative 03/22/2024 11:14 AM [employer] SITE MANAGER VASCULAR ULTRASOUND REPORT OLIVIA JIANG : 1960 Study Date: 03/22/2024 6:48:00 AM Age: 63 years Tech: STEPHANY Gender: M Referring MD: RUCHI ESPITIA Site: [facility] Study performed: Lower extremity resting JEANCARLOS, (bilateral). Indication for study: Follow-up HISTOPATH TECH/stent/bypass TECHNIQUE: Lower/upper extremity arteries were examined per exam protocol by duplex ultrasound, color-flow and spectral Doppler. Peak systolic velocities (PSV), Doppler waveform quality, velocity ratios and vessel size in cm, were documented at protocol specific sites. Physiologic data including segmental pressures, ankle/brachial index (JEANCARLOS), digit PPG recordings, laser Doppler flowmetry, transcutaneous oximetry, and digit temperatures were documented at sites per exam protocol and test requirements. IMPRESSION: 1. Resting ankle-brachial index is normal on the right at 1.13 and is normal on the left at 1.08. 2. Toe-brachial index is normal on the right at 0.77 and toe-brachial index is normal on the left at 0.75. COMPARISON: Compared to prior study 12/18/2023, there is no significant change. FINDINGS: Right toe/brachial index indicates normal range. Left toe/brachial index indicates normal range. Pressures +-----+ +--------+ +-----+ RIGHT (mmHg) LEFT (mmHg) +-----+ +--------+ +-----+ Index 159 Brachial 154 Index +-----+ +--------+ +-----+ 1.13 179 HISTOPATH TECH 172 1.08 +-----+ +--------+ +-----+ 1.03 164 DPA 163 1.03 +-----+ +--------+ +-----+ 0.77 123 Digit 1 120 0.75 +-----+ +--------+ +-----+ Ruchi Espitia MD. Electronically signed on 03/22/2024 11:14:45 AM This study was performed and interpreted by a service accredited by the Intersocietal Accreditation Commission (IAC/Vascular), [email or web address] Report generated by [employer]. Final Procedure Note Ruchi Espitia MD - 03/22/2024 VASCULAR ULTRASOUND REPORT OLIVIA JIANG : 1960 Study Date: 03/22/2024 6:48:00 AM Age: 63 years Tech: LMS Gender: M Referring MD: RUCHI ESPITIA Site: [facility] Study performed: Lower extremity resting JEANCARLOS, (bilateral). Indication for study: Follow-up HISTOPATH TECH/stent/bypass TECHNIQUE: Lower/upper extremity arteries were examined per exam protocol by duplexultrasound, color-flow and spectral Doppler. Peak systolic velocities(PSV), Doppler waveform quality, velocity ratios and vessel size in cm,were documented at protocol specific sites. Physiologic data includingsegmental pressures, ankle/brachial index (JEANCARLOS), digit PPG recordings,laser Doppler flowmetry, transcutaneous oximetry, and digit temperatureswere documented at sites per exam protocol and test requirements. IMPRESSION: 1. Resting ankle-brachial index is normal on the right at 1.13 and isnormal on the left at 1.08. 2. Toe-brachial index is normal on the right at 0.77 and toe-brachialindex is normal on the left at 0.75. COMPARISON: Compared to prior study 12/18/2023, there is no significant change. FINDINGS: Right toe/brachial index indicates normal range. Left toe/brachial index indicates normal range. Pressures +-----+ +--------+ +-----+ RIGHT (mmHg) LEFT (mmHg) +-----+ +--------+ +-----+ Index 159 Brachial 154 Index +-----+ +--------+ +-----+ 1.13 179 HISTOPATH TECH 172 1.08 +-----+ +--------+ +-----+ 1.03 164 DPA 163 1.03 +-----+ +--------+ +-----+ 0.77 123 Digit 1 120 0.75 +-----+ +--------+ +-----+ Ruchi Espitia MD. Electronically signed on 03/22/2024 11:14:45 AM This study was performed and interpreted by a service accredited by theIntersocietal Accreditation Commission (IAC/Vascular),[email or web address] Report generated by [employer]. Final us Ruchi Espitia MD US Final Result * US ARTERIAL LOWER EXTREMITY LEFT (03/22/2024 8:07 AM [employer] SITE MANAGER) Anatomical Region Laterality Modality LEGS, LEG L Ultrasound 03/22/2024 7:22 AM [employer] SITE MANAGER Narrative 03/22/2024 11:17 AM [employer] SITE MANAGER VASCULAR ULTRASOUND REPORT OLIVIA JIANG : 1960 Study Date: 03/22/2024 7:22:37 AM Age: 63 years Tech: LMS Gender: M Referring MD: RUCHI ESPITIA Site: [facility] Study performed: Lower extremity duplex US, (left), arterial. Indication for study: Follow-up HISTOPATH TECH/stent/bypass TECHNIQUE: Lower/upper extremity arteries were examined per exam protocol by duplex ultrasound, color-flow and spectral Doppler. Peak systolic velocities (PSV), Doppler waveform quality, velocity ratios and vessel size in cm, were documented at protocol specific sites. Physiologic data including segmental pressures, ankle/brachial index (JEANCARLOS), digit PPG recordings, laser Doppler flowmetry, transcutaneous oximetry, and digit temperatures were documented at sites per exam protocol and test requirements. IMPRESSION: 1. No evidence of inflow disease involving the left lower extremity. Patent left common iliac artery stent without stenosis. 2. Moderate (50-74%) stenosis of the left mid superficial femoral artery. 3. Patent left popliteal artery stent without hemodynamically significant stenosis. 4. Moderate (50-74%) stenosis of the left distal popliteal artery. COMPARISON: Compared to prior study 12/18/2023, there is no significant change. FINDINGS: Patent left popliteal stent with elevated velocities in the distal stent. Patent left common ililac artery stent with difficult visualization of stent edges. There is 50-74% stenosis in the left mid superficial femoral artery. There is 50-74% stenosis in the left distal popliteal artery. There is 50-74% stenosis in the left dorsalis pedis artery. +--------+ +--------+-----+ LEFT Velocity cm/s Stenosis Ratio +--------+ +--------+-----+ EIA PRX 106 EIA MID 123 EIA DST 104 +--------+ +--------+-----+ QA ENGINEER DST 81 +--------+ +--------+-----+ PFA 52 +--------+ +--------+-----+ SFA PRX 134 +--------+ +--------+-----+ SFA MID 256 50-74% 2.4 +--------+ +--------+-----+ SFA DST 117 +--------+ +--------+-----+ MAYRA DST 230 50-74% 2.3 +--------+ +--------+-----+ TPT 127 +--------+ +--------+-----+ HISTOPATH TECH DST 83 +--------+ +--------+-----+ MAIN MID 41 +--------+ +--------+-----+ MARY PRX 119 +--------+ +--------+-----+ MARY DST 94 +--------+ +--------+-----+ DPA 209 50-74% 2.2 +--------+ +--------+-----+ Criteria: Stenosis V. Ratio Mild <50% <2.0 Moderate 50-74% > or = 2.0 Severe 75-99% > or = 4.0 Occluded 100% no detectable flow STENT Stent Location Left: Popliteal stent. + + +---------+--------+-----+ LEFT Velocity cm/s Phasicity Stenosis Ratio + + +---------+--------+-----+ PRE Stent 59 + + +---------+--------+-----+ PRX Stent Edge 79 + + +---------+--------+-----+ PRX Stent 67 + + +---------+--------+-----+ MID Stent 160 + + +---------+--------+-----+ DST Stent 155 + + +---------+--------+-----+ DST Stent Edge 159 + + +---------+--------+-----+ POST Stent 177 + + +---------+--------+-----+ Stent Location Left #2: Common iliac artery. +---------+ +---------+--------+-----+ LEFT Velocity (cm/s) Phasicity Stenosis Ratio +---------+ +---------+--------+-----+ PRX Stent 131 +---------+ +---------+--------+-----+ MID Stent 125 +---------+ +---------+--------+-----+ DST Stent 101 +---------+ +---------+--------+-----+ Ruchi Espitia MD. Electronically signed on 03/22/2024 11:17:50 AM This study was performed and interpreted by a service accredited by the Intersocietal Accreditation Commission (IAC/Vascular), [email or web address] Report generated by [employer]. Final Procedure Note Ruchi Espitia MD - 03/22/2024 VASCULAR ULTRASOUND REPORT OLIVIA JIANG : 1960 Study Date: 03/22/2024 7:22:37 AM Age: 63 years Tech: [facility] Gender: M Referring MD: RUCHI ESPITIA Site: [facility] Study performed: Lower extremity duplex US, (left), arterial. Indication for study: Follow-up HISTOPATH TECH/stent/bypass TECHNIQUE: Lower/upper extremity arteries were examined per exam protocol by duplexultrasound, color-flow and spectral Doppler. Peak systolic velocities(PSV), Doppler waveform quality, velocity ratios and vessel size in cm,were documented at protocol specific sites. Physiologic data includingsegmental pressures, ankle/brachial index (JEANCARLOS), digit PPG recordings,laser Doppler flowmetry, transcutaneous oximetry, and digit temperatureswere documented at sites per exam protocol and test requirements. IMPRESSION: 1. No evidence of inflow disease involving the left lower extremity.Patent left common iliac artery stent without stenosis. 2. Moderate (50-74%) stenosis of the left mid superficial femoralartery. 3. Patent left popliteal artery stent without hemodynamically significantstenosis. 4. Moderate (50-74%) stenosis of the left distal popliteal artery. COMPARISON: Compared to prior study 12/18/2023, there is no significant change. FINDINGS: Patent left popliteal stent with elevated velocities in the distalstent. Patent left common ililac artery stent with difficult visualization ofstent edges. There is 50-74% stenosis in the left mid superficial femoral artery. Thereis 50- 74% stenosis in the left distal popliteal artery. There is 50-74%stenosis in the left dorsalis pedis artery. +--------+ +--------+-----+ LEFT Velocity cm/s Stenosis Ratio +--------+ +--------+-----+ EIA PRX 106 EIA MID 123 EIA DST 104 +--------+ +--------+-----+ QA ENGINEER DST 81 +--------+ +--------+-----+ PFA 52 +--------+ +--------+-----+ SFA PRX 134 +--------+ +--------+-----+ SFA MID 256 50-74% 2.4 +--------+ +--------+-----+ SFA DST 117 +--------+ +--------+-----+ MAYRA DST 230 50-74% 2.3 +--------+ +--------+-----+ TPT 127 +--------+ +--------+-----+ HISTOPATH TECH DST 83 +--------+ +--------+-----+ MAIN MID 41 +--------+ +--------+-----+ MARY PRX 119 +--------+ +--------+-----+ MARY DST 94 +--------+ +--------+-----+ DPA 209 50-74% 2.2 +--------+ +--------+-----+ Criteria: Stenosis V. Ratio Mild <50% <2.0 Moderate 50-74% > or = 2.0 Severe 75-99% > or = 4.0 Occluded 100% no detectable flow STENT Stent Location Left: Popliteal stent. + + +---------+--------+-----+ LEFT Velocity cm/s Phasicity Stenosis Ratio + + +---------+--------+-----+ PRE Stent 59 + + +---------+--------+-----+ PRX Stent Edge 79 + + +---------+--------+-----+ PRX Stent 67 + + +---------+--------+-----+ MID Stent 160 + + +---------+--------+-----+ DST Stent 155 + + +---------+--------+-----+ DST Stent Edge 159 + + +---------+--------+-----+ POST Stent 177 + + +---------+--------+-----+ Stent Location Left #2: Common iliac artery. +---------+ +---------+--------+-----+ LEFT Velocity (cm/s) Phasicity Stenosis Ratio +---------+ +---------+--------+-----+ PRX Stent 131 +---------+ +---------+--------+-----+ MID Stent 125 +---------+ +---------+--------+-----+ DST Stent 101 +---------+ +---------+--------+-----+ Ruchi Espitia MD. Electronically signed on 03/22/2024 11:17:50 AM This study was performed and interpreted by a service accredited by theIntersocietal Accreditation Commission (IAC/Vascular),[email or web address]/vascular Report generated by [employer]. Final us Ruchi Espitia MD US Final Result * (ABNORMAL) LIPID PANEL W REFLEX MEASURED LDL (01/06/2023 2:09 PM CDT) CHOLESTEROL,TOTAL 130 100 - 199 mg/dL 01/06/2023 3:03 PM [facility] Comment: Cholesterol, Total Reference Ranges Desirable <200 mg/dL Borderline 200-239 mg/dL High >=240 mg/dL TRIGLYCERIDES 413(H) <150 mg/dL 01/06/2023 3:03 PM [facility] HDL CHOLESTEROL 29(L) >40 mg/dL 3 3:03 PM [facility] NON-HDL CHOLESTEROL 101 <145 mg/dl 01/06/2023 3:03 PM [facility] CHOL/HDL RATIO 4.48 <4.50 01/06/2023 3:03 PM [facility] LDL CHOLESTEROL 3 3:03 PM [facility] Comment:Invalid LDL when Tri g >400. VLDL CHOLESTEROL COMMENT 01/06/2023 3:03 PM [facility] Comment:Unable to calculate VLDL. PROVIDER ORDERED STATUS RANDOM 01/06/2023 3:03 PM [facility] Blood BLOOD SPECIMEN / Unknown Venipuncture / Unknown 01/06/2023 2:09 PM CDT 01/06/2023 2:09 PM CDT us Isabel Jordan PA CHEMISTRY Final Res ult [facility] [place] [id number] [address] [place] [address] * RAPID HIV SCREEN (11/14/2022 7:38 AM CDT) RAPID HIV SCREEN Non-React perri Non-Reactiv e, Invalid 11/14/2022 8:20 AM CDT [facility] Comment:A NONREACTIVE test r esult means that HIV-1 or HIV-2 antibodies and HIV-1 p24 antigen were not detected in the specimen. Blood BLOOD SPECIMEN / Unknown Venipuncture / Unknown 11/14/2022 7:38 AM CDT 11/14/2022 7:47 AM CDT us Esa Lyles MD CHEMISTRY Final Result Performing Organization Address City/[facility]/ZIP Co de Phone Number [facility] [place] [id number] [address] [place] [address] * ANTI HCV (01/23/2020 9:44 AM CDT) Pathologist [facility] [facility] C ANTIBODY Non-React perri Non-React perri 01/23/2020 4:57 PM CDT [facility] Comment:Antibodies to HCV no t detected; does not exclude the possibility of exposure to HCV. Blood BLOOD SPECIMEN / Unknown Venipuncture / Unknown 01/23/2020 9:44 AM CDT 01/23/2020 9:44 AM CDT us Cass Samayoa MD SEND OUTS Final R esult [facility] [address] [place] [address], [place] from Last 3 Months or Most Recently Relevant to Health Maintenance Insurance [facility] Advance Directives * Full Code (Latest Code Status on File) Date Activated Date Inactivated Comments 12/19/2022 2:38 PM 12/19/2022 9:19 PM Question Answer Comments Code Status Discussion: Reviewed Preferences * Full Code Date Activated Date Inactivated Comments 12/14/2022 6:09 AM 12/15/2022 1:27 PM Question Answer Comments Code Status Discussion: Reviewed Preferences * Full Code Date Activated Date Inactivated Comments 11/13/2022 4:37 AM 11/17/2022 10:03 AM Question Answer Comments Code Status Discussion: Reviewed Preferences * Full Code Date Activated Date Inactivated Comments 05/27/2020 1:52 PM 05/29/2020 1:01 PM Question Answer Comments Code Status Discussion: Discussed * Full Code Date Activated Date Inactivated Comments 12/25/2014 6:00 PM 12/26/2014 12:58 PM Care Teams Credit Reporter Relationship Specialty [place] [address] [place] [address] PCP - General Family Practice 02/22/21 Frederick Duran MD [address] [place] [address] Consulting Physician Cardiovascular Disease 02/20/15 [place] [id number] [place] [address] Cardiovascular Disease 10/23/23
--- OUTSIDE RECORDS SUMMARY | 2024-06-02 13:07 | XMS_ITS | Continuity of Care Document ---
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 Role Phone Lucio Kapoor MD Unavailable Unavailable Allergies, Adverse Reactions, Alerts Substance Reaction Status Criticality No Known Allergies Active No Inform ation Medications Medication Instructions Dosage Effective Dates (start - stop) Status Comments AJAY (unknown strength) Not Available - Active PRILOSEC (unknown strength) Not Available - Active METFORMIN HCL (unknown strength) Not Available - Active LISINOPRIL (unknown strength) Not Available - Active GLIPIZIDE (unknown strength) Not Available - Active PRAVASTATIN SODIUM (unknown strength) Not Available - Active METOPROLOL SUCCINATE (unknown strength) Not Available - Active Procedures [...] Diagnoses Date Provider Providers Copied on Encounter [facility], [address], [place], [id number] , [place] tel:[phone] [facility] No Information Jun-0 3-201 7 Antwon Valdes. [facility], [address] [place] [address], [address], [place], [id number] , [place]. tel: [phone] [facility], [address], [place], [id number] , [place] tel: [phone] [facility] Arthrodesis statusOverweight Antwon Valdes. [facility], [address], [address], [place], [place], [id number] , [place]. tel: [phone] [facility], [address], [place], [place], [id number] , [place] tel: [phone] [facility] No Information Antwon Valdes. [facility], [facility] [address] [place] [address], [address], [place], [id number] , [place]. tel: [phone] Office/Outpa tient Visit,Est, Mod [facility], [address], [place], [id number] , [place] tel: [phone] [facility] OVERWEIGHTHyperte nsion, UnspecifiedLumbar HNPSpinal stenosis of lumbar region with neurogenic claudication Antwon Valdes. [facility], [address] [place] [address], [address], [place], [id number] , [place]. tel: [phone] Office/Outpa tient Visit,New, Mod [facility], [address], [place], [place], [id number] , [place] tel: [phone] [facility] Bulging lumbar discSpinal stenosis of lumbar region with neurogenic claudicationLumba r DDD 5 Panvica Jayden. [facility], [facility] [address] [place] [address], [address], [place], [place], [id number] , [place]. tel: [phone] Family History Family Member Type Diagnosis Age At Onset No Information Payers Payer name Insurance type Covered libertarian ID Authoriza tion(s) No Information Social History Type Description Quantity Date Captured Comments Sex Male Smoking Status No Information Chief Complaint And Reason For Visit No Information Reason For Referral Reason For Referral No Information History Of Present Illness Encounter Date Complaint History Of Prese nt Illness No Information Functional Status Date Functional Assessmen t No Information Instructions Date Instruction Additional Infor lori Weight management: R efer to Referral to General Practitioner timeframe: 1 Month. Related to Overweight Weight Management Related to Ove rweight Exercise education Related to Un specified Essential Hypertension Weight Management Related to Ove [facility] Assessments Type Assessment Date No Information Patient Care Teams Name Effective Dates (start - stop) Status Members No Information
--- NOTE | 2024-06-02 13:29 | CRLHL7_ITS ---
For Patients: As a result of the Century Cures Act, medical imaging exams and procedure reports are released immediately into your electronic medical record. You may view this report before your referring provider. If you have questions, please contact your health care provider. INDICATION: Weakness, cough TECHNIQUE: Chest radiograph 1 view COMPARISON: 12/08/2022 FINDINGS: Mediastinum: The mediastinum is normal in appearance. The cardiac silhouette is at upper limits of normal in size. Lung: Ill-defined left perihilar ground-glass opacities are noted. The left lateral costophrenic sulcus is partially excluded. No pneumothorax is identified. Bone and Soft tissue: Unremarkable for age. IMPRESSION: 1. Ill-defined left perihilar ground-glass opacities are noted. Findings may be due to asymmetric pulmonary edema or atypical infection. Dictated by Kiel Chavez MD @ 06/02/2024 1:52:59 PM Dictated by: Kiel Chavez MD @ 06/02/2024 13:53:00 (Electronically Signed)
[2024-06-02 13:45] LABS: HCO3 VBG 22 mmol/L (21-28); Lactate Sepsis w/Reflex* 3.5 mmol/L (0.5-1.9); PCO2 VBG 28 mmHG (40-50); PO2 VBG 51.5 mmHG (25-47); pH VBG 7.505 (7.32-7.43)
--- NOTE | 2024-06-02 13:45 | ED.GENADULT ---
HPI - General Adult General Date Seen: 06/02/24 Chief complaint: Weakness Stated complaint: weakness Time Seen by Provider: 06/02/24 13:06 Source: patient and family History of Present Illness HPI narrative: Patient is a 63-year-old male here with his for evaluation of weakness, fainting, possible fevers, diarrhea, cough. He lives at home with his , she says that they work opposite schedule so she actually has not been around him too much in the past few days. She says she has also been sick with fever and cough, she thinks maybe they both have norovirus. She has not had any diarrhea. Neither of them have had any vomiting beyond 1 episode of vomiting that he reported several days ago. She notes he seems weaker and somewhat confused today. He says he has woken up on the floor the past couple of mornings, it is unclear to me whether he is falling out of bed or getting out of bed and passing out. He says he is not feeling lightheaded when he stands up, and he always wakes up in the same place on the floor. He does have a history of coronary artery disease, seen most recently here in 2022 with unstable angina, transferred to [place] where he says 2 additional stents were placed. He has a history of DVT and PE, he is on Eliquis for that and takes Plavix as well. He does have a history of diabetes. Blood sugar here was 150. He specifically denies chest pain, shortness of breath, abdominal pain, urinary symptoms. He has some bruising on both knees and on his left great toe, does not have a lot of pain in those areas but notes that his sensation is diminished chronically due to his diabetes. He smokes cigarettes, denies other substance use aside from daily alcohol. He denies prior withdrawal. Related Data Home Medications ?Medication ?Instructions ?Recorded ?Confirmed clopidogrel 75 mg tablet 75 mg PO DAILY 12/08/22 06/02/24 empagliflozin 10 mg tablet 10 mg PO DAILY 12/08/22 06/02/24 (Jardiance) ferrous sulfate 325 mg (65 mg 325 mg PO Q OTHER DAY 12/08/22 06/02/24 iron) tablet (Feosol) fexofenadine 60 mg tablet (Lilia 60 mg PO DAILY 12/08/22 06/02/24 Allergy) gabapentin 300 mg capsule 300 mg PO BID PRN 12/08/22 06/02/24 glipizide 10 mg tablet, extended 10 mg PO DAILY 12/08/22 06/02/24 release 24 hr lisinopril 20 mg tablet 20 mg PO DAILY 12/08/22 06/02/24 pravastatin 40 mg tablet 40 mg PO DAILY 12/08/22 06/02/24 rivaroxaban 2.5 mg tablet (Xarelto) 2.5 mg PO BID 12/08/22 06/02/24 omeprazole 20 mg capsule,delayed 20 mg PO DAILY 06/02/24 06/02/24 release Allergies Allergy/AdvReac Type Severity Reaction Status Date / Time metformin AdvReac Intermediate Diarrhea Verified 06/02/24 13:09 Review of Systems Status of ROS: Reports: 10 or more systems reviewed and unremarkable except as noted in History and below [facility] Medical History (Updated 06/02/24 @ 17:42 by Leonor Yoder MD) Drug-induced hepatitis ?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.6 - Toxic liver disease with hepatitis, not elsewhere classified (ICD-10) ?T50.905A - Adverse effect of unspecified drugs, medicaments and biological substances, initial encounter (ICD-10) Acute anterior wall MS ?I21.09 - ST elevation (STEMI) myocardial infarction involving other coronary artery of anterior wall (ICD-10) History of rhabdomyolysis due to statin ?Z87.39 - Personal history of other diseases of the musculoskeletal system and connective tissue (ICD-10) Tobacco use disorder ?F17.200 - Nicotine dependence, unspecified, uncomplicated (ICD-10) Displacement of lumbar intervertebral disc without myelopathy ?M51.26 - Other intervertebral disc displacement, lumbar region (ICD-10) Critical lower limb ischemia ?I70.229 - Atherosclerosis of [place] arteries of extremities with rest pain, unspecified extremity (ICD-10) Popliteal artery occlusion, left ?I70.202 - Unspecified atherosclerosis of [place] arteries of extremities, left leg (ICD-10) Abdominal aortic aneurysm ?I71.40 - Abdominal aortic aneurysm, without rupture, unspecified (ICD-10) Normocytic anemia ?D64.9 - Anemia, unspecified (ICD-10) Type 2 diabetes mellitus with peripheral angiopathy ?E11.51 - Type 2 diabetes mellitus with diabetic peripheral angiopathy without gangrene (ICD-10) Hypertension ?I10 - Essential (primary) hypertension (ICD-10) GERD (gastroesophageal reflux disease) ?K21.9 - Gastro-esophageal reflux disease without esophagitis (ICD-10) Hyperlipidemia ?E78.5 - Hyperlipidemia, unspecified (ICD-10) CAD (coronary artery disease) ?I25.10 - Atherosclerotic heart disease of [place] coronary artery without angina pectoris (ICD-10) Surgical History (Updated 06/02/24 @ 16:59 by Leonor Yoder MD) H/O vasectomy ?Z98.52 - Vasectomy status (ICD-10) History of cerebral angiography ?Z98.890 - Other specified postprocedural states (ICD-10) History of PTCA ?Z98.61 - Coronary angioplasty status (ICD-10) History of coronary artery stent placement ?Z95.5 - Presence of coronary angioplasty implant and graft (ICD-10) History of back surgery ?Z98.890 - Other specified postprocedural states (ICD-10) Family History (Updated 06/02/24 @ 17:07 by Leonor Yoder MD) Mother Dementia Father COPD (chronic obstructive pulmonary disease) Paternal Grandfather Myocardial infarction Social History What is your current living situation?: I presently have a place to live Problems where you live: no known problems Problems where you live details: no In the past 12 months, utilities in danger of being shut off: no In past 12 months, lack of transportation kept you from medical appts, meetings, work, or getting things needed for daily living: no In the past 12 mos, have been you worried that your food would run out before you had money to buy more?: never true In the past 12 mos, the food you bought just didn't last and you didn't have money to buy more?: never true Highest level of school completed/degree received: high school graduate Smoking Status: Current every day smoker What tobacco products do you use: cigarettes Do you use any of these nicotine containing products: None How often do you have a drink containing alcohol: 4 or more times a week How many standard drinks containing alcohol do you have on a typical day: 5 or 6 How often do you have six or more drinks on one occasion: Daily or almost daily AUDIT-C Alcohol total score: 10 Non-prescribed substance use: denies use Caffeine: No How often does anyone, including family, friends and others, physically hurt you: never How often does anyone, including family, friends and others, insult or talk down to you: never How often does anyone, including family, friends and others, threaten you with harm: never How often does anyone, including family, friends and others, scream or curse at you: never service: No Exam Narrative: Exam Narrative: Vital signs reviewed In general, alert mid aged male, mildly labored breathing. Head: Normocephalic, atraumatic. Eyes: Sclera clear. Pupils equal and reactive. ENT: Mucous membranes moist. Neck: Supple without adenopathy. Heart: Regular rate and rhythm without murmur. Lungs: He is tachypneic, mildly labored although he denies shortness of breath. Breath sounds are somewhat decreased on the right compared to the left, no significant adventitious sounds aside from occasional wheeze on the right. Abdomen: Soft, nontender to palpation. Extremities: Well perfused, pulses intact. No significant edema. He has redness on both knees but no effusion, tenderness, range of motion is full. On his left great toe there is bruising noted at the base of his nail. Neurologic: He is alert, answers most questions correctly. He is oriented to person and place. He does seem mildly confused at time. Speech is fluent, moves all extremities equally. Skin: Warm, dry well perfused. Affect: Normal. Const: Vital Signs, click to edit/add: Vital Signs - 24 hr 06/02/24 13:08 06/02/24 13:09 06/02/24 13:09 Temperature 99.7 F H Pulse Rate 108 H 108 H Pulse Rate [Pulse Oximeter] 110 H Respiratory Rate 30 H Blood Pressure 121/76 Blood Pressure [Le ft Arm] Blood Pressure [Le ft Upper Arm] 121/76 Pulse Oximetry 93 95 95 Oxygen Delivery Me thod Room Air 06/02/24 13:15 06/02/24 13:29 06/02/24 13:30 Temperature Pulse Rate 114 H 107 H Pulse Rate [Pulse Oximeter] Respiratory Rate Blood Pressure Blood Pressure [Le ft Arm] Blood Pressure [Le ft Upper Arm] Pulse Oximetry 93 89 92 Oxygen Delivery Me thod 06/02/24 13:32 06/02/24 13:45 06/02/24 14:00 Temperature Pulse Rate 113 H 106 H 110 H Pulse Rate [Pulse Oximeter] Respiratory Rate 32 H Blood Pressure 137/74 Blood Pressure [Le ft Arm] Blood Pressure [Le ft Upper Arm] Pulse Oximetry 93 94 94 Oxygen Delivery Me od Room Air 06/02/24 14:02 06/02/24 14:15 06/02/24 14:30 Temperature Pulse Rate 108 H 106 H 106 H Pulse Rate [Pulse Oximeter] Respiratory Rate 32 H Blood Pressure 130/93 H Blood Pressure [Le ft Arm] Blood Pressure [Le ft Upper Arm] Pulse Oximetry 93 93 [facility] 06/02/24 14:32 06/02/24 14:45 06/02/24 15:08 Temperature Pulse Rate 104 H 103 H 105 H Pulse Rate [Pulse Oximeter] Respiratory Rate 32 H Blood Pressure 137/86 Blood Pressure [Le ft Arm] Blood Pressure [Le ft Upper Arm] Pulse Oximetry 91 90 94 Oxygen Delivery [facility] Room Air 06/02/24 15:10 06/02/24 15:15 06/02/24 15:30 Temperature Pulse Rate 102 H 101 H 103 H Pulse Rate [Pulse Oximeter] Respiratory Rate 32 H Blood Pressure 135/105 H Blood Pressure [Le ft Arm] Blood Pressure [Le ft Upper Arm] Pulse Oximetry 94 94 92 Oxygen Delivery [facility] Room Air 06/02/24 15:32 06/02/24 15:45 06/02/24 16:00 Temperature Pulse Rate 102 H 98 98 Pulse Rate [Pulse Oximeter] Respiratory Rate 32 H Blood Pressure 157/92 H Blood Pressure [Le ft Arm] Blood Pressure [Le ft Upper Arm] Pulse Oximetry 91 91 91 Oxygen Delivery Me [facility] Room Air 06/02/24 16:02 06/02/24 16:15 06/02/24 16:30 Temperature Pulse Rate 100 99 107 H Pulse Rate [Pulse Oximeter] Respiratory Rate 32 H Blood Pressure 148/77 H Blood Pressure [Le ft Arm] Blood Pressure [Le ft Upper Arm] Pulse Oximetry 91 89 87 L [facility] 06/02/24 16:45 06/02/24 17:07 Temperature 98.5 F Pulse Rate 97 Pulse Rate [Pulse Oximeter] 95 Respiratory Rate 34 H Blood Pressure Blood Pressure [Le ft Arm] 153/96 H Blood Pressure [Le ft Upper Arm] Pulse Oximetry 87 L 94 Oxygen Delivery Me thod Room Air Documenting provider has reviewed patient's vital signs: yes Course Course ED Course: Differential diagnosis is broad and includes infectious, cardiac, metabolic processes. Will place an IV and give a L normal saline. His temp is 99.7?, he is tachycardic and tachypneic. Consider sepsis from pulmonary, abdominal, urinary source. Evaluate for acute coronary syndrome, congestive heart failure, myocarditis. Evaluate for dehydration, DKA, or other metabolic conditions. Laboratory analysis is notable for a normal white blood cell count, left shift with 87% neutrophils, lactate of 3.5 and procalcitonin of 37. Point of care troponin is 0.15, will check that in 90 minutes. 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 An EKG showed a sinus tachycardia, ventricular rate of 109. There is significant baseline artifact but I do not see any obvious acute ST segment changes or concerning T-waves. A chest x-ray by my review showed some perihilar infiltrate or fluid, this is read by Radiology as asymmetric pulmonary edema versus atypical pneumonia. His LFTs are notable for a bilirubin of 2.2, direct bilirubin of 1.2, AST is 354 ALT is 56 and alk-phos is normal. Overall, this is likely related to alcohol, but a biliary source for his symptoms needs to be considered as well. I have ordered a CT of the chest abdomen pelvis to evaluate for possible infectious etiology, treating with broad-spectrum antibiotics, additional normal saline to total 2100 mL. Blood alcohol is negative. He is not showing signs of active withdrawal. Viral panel is pending at this time. His magnesium and potassium were both low, 2.8 potassium 1.1 magnesium. I have ordered replacement for both of these. His viral panel was positive for influenza A. His blood pressure after fluids is 157/92, tachycardia is resolved with a pulse of 98. He remains tachypneic. Repeat troponin was 0.26. I did discuss his case with cardiology on-call at [facility]. He agrees this is likely demand ischemia. Would recommend transfer for marked increase in troponin or change in his EF on echo. Otherwise, treat underlying source of infection/sepsis. He does have an elevated BNP here of 7700, no known diagnosis of congestive heart failure and no worsening shortness of breath with fluids, however we do not have an echo here on him. Given 2 g of magnesium IV, to 10 mg aliquots of potassium, Zosyn. I did do x-rays of his knees and toe. He has a fracture of his distal phalanx on the toe we lauren-taped that. Knees look negative by my review as well as Radiology review. Vital Signs Vital signs: Initial Vital Signs Pulse Rate 108 H 06/02/24 13:08 Pulse Oximetry 93 06/02/24 13:08 Vital Signs Pulse Rate 108 H 06/02/24 13:08 Pulse Oximetry 93 06/02/24 13:08 Temperature 98.5 F 06/02/24 19:00 Pulse Rate 95 06/02/24 19:00 Respiratory Rate 34 H 06/02/24 19:00 Blood Pressure 153/96 H 06/02/24 19:00 Pulse Oximetry 94 06/02/24 19:00 Oxygen Delivery Method Room Air 06/02/24 19:00 Medications Administered Medications: Discontinued Medications Generic Name Dose Route Start Last Admin Trade Name Freq PRN Reason Stop Dose Admin Sodium Chloride 1,000 mls @ 1,000 mls/hr 06/02/24 13:30 06/02/24 15:00 0.9 % Sodium Chloride 1000 Ml IV 06/02/24 14:29 Infused .Q1H VICTOR M Infusion Sodium Chloride 1,000 mls @ 1,000 mls/hr 06/02/24 14:30 06/02/24 15:10 0.9 % Sodium Chloride 1000 Ml IV 06/02/24 15:29 1,000 mls/hr .Q1H VICTOR M Administration Piperacillin Sod/Tazobactam 100 mls @ 100 mls/hr 06/02/24 14:29 06/02/24 16:35 Sod 3.375 gm/ Sodium Chloride IVPB 06/02/24 14:30 Infused ONCE ONE Infusion Potassium Chloride 10 meq in 100 mls @ 100 mls/hr 06/02/24 14:30 06/02/24 16:40 Potassium Chloride IVPB 06/02/24 16:59 100 mls/hr Q90M VICTOR M Administration Magnesium Sulfate 2 gm in 50 mls @ 25 mls/hr 06/02/24 14:32 06/02/24 17:06 Magnesium Iv IVPB 06/02/24 16:31 Infused ONCE ONE Infusion Medical Decision Making Lab Data Lab results reviewed: Yes I reviewed the patient's lab results Labs: Lab Results 06/02/24 06/02/24 06/02/24 Range/Units 13:35 13:50 15:25 WBC 8.39 (4.50-11.00) K/uL RBC 4.01 L (4.30-5.90) m/uL Hgb 14.2 (13.5-17.5) gm/dL Hct 38.7 (37.0-53.0) % MCV 97 (80-100) fL MCH 35 H (26-34) pg MCHC 37 H (32-36) gm/dL RDW Coeff of [place] 13.9 (11.5-15.5) % Plt Count 56 L (140-440) K/uL Neut % (Auto) 87.1 H (42.0-72.0) % Lymph % (Auto) 2.6 L (20-44) % Cannon % (Auto) 9.7 (0.0-11.0) % Eos % (Auto) 0.0 (0.0-7.0) % Baso % (Auto) 0.1 (0.0-3.0) % Neut # (Auto) 7.30 H (1.7-7.0) K/uL Lymph # (Auto) 0.20 L (0.90-2.90) K/uL Cannon # (Auto) 0.80 (0.00-0.90) K/UL Eos # (Auto) 0.00 (0.00-0.50) K/uL Baso # (Auto) 0.01 (0.00-0.30) K/uL Abs Immat Gran (auto) 0.04 (0.00-0.30) K/uL Imm/Tot Granulo (auto) 0.5 % VBG pH 7.505 H (7.32-7.43) VBG pCO2 28 L (40-50) mmHG VBG pO2 51.5 H (25-47) mmHG VBG HCO3 22 (21-28) mmol/L Sodium 129 L (135-149) mmol/L Potassium 2.8 L* (3.6-5.1) mmol/L Chloride 97 (96-114) mmol/L Carbon Dioxide 20 (20-32) mmol/L Anion Gap 12 (7-15) mEq/L BUN 11 (7-30) mg/dL Creatinine 1.1 (0.5-1.5) mg/dL Estimated Creat Clear 68.23 Estimated GFR 76 ml/min Glucose 146 H (60-115) mg/dL Lactate 3.5 H (0.5-1.9) mmol/L Calcium 7.6 L (8.4-10.6) mg/dL Magnesium 1.1 L (1.5-2.6) mg/dL Total Bilirubin 2.2 H (0.1-1.5) mg/dL Direct Bilirubin 1.2 H (0.0-0.5) mg/dL AST 354 H (12-35) U/L ALT 56 H (4-50) U/L Alkaline Phosphatase 132 (40-150) U/L C-Reactive Protein 5.5 H (0.5-1.0) mg/dL NT-Pro-B Natriuret Pep 7740 pg/mL Total Protein 6.5 (6.0-8.3) g/dL Albumin 3.2 L (3.3-5.0) g/dL Procalcitonin 37.30 H (<0.50) ng/mL Urine Color Yellow (Yellow) Urine Appearance Clear (Clear) Urine pH 6.0 (5.0-8.5) Ur Specific [place] 1.015 (1.000-1.030) Urine Protein 3+ A (Negative) Urine Glucose (UA) 1+ A (Negative) Urine Ketones Negative (Negative) Urine Blood 3+ A (Negative) Urine Nitrite Negative (Negative) Urine Bilirubin 1+ A (Negative) Urine Urobilinogen 0.2 (0.2-1.0) Ur Leukocyte Esterase Negative (Negative) Urine RBC 10-25 A (0-2) Urine WBC 2-5 (0-5) Ur Squamous Epith Cells None (None-Few) Other Sediment Moderate A (None) Urine Bacteria Moderate A (None) Coarse Granular Casts Moderate A (None) Urine Yeast Few A (None) Ethyl Alcohol < 0.01 L (0.01-0.03) % SARS-CoV-2 (PCR) Negative SARS-CoV-2 (Negative) Influenza Type A (PCR) POSITIVE PCR FLU A A (Negative) Influenza Type B (PCR) Negative PCR FLU B (Negative) RSV (PCR) Negative PCR RSV (Negative) POC Troponin I 0.15 H (0.01-0.04) ng/ml 06/02/24 06/02/24 Range/Units 15:45 15:46 WBC (4.50-11.00) K/uL RBC (4.30-5.90) m/uL Hgb (13.5-17.5) gm/dL Hct (37.0-53.0) % MCV (80-100) fL MCH (26-34) pg MCHC (32-36) gm/dL RDW Coeff of [place] (11.5-15.5) % Plt Count (140-440) K/uL Neut % (Auto) (42.0-72.0) % Lymph % (Auto) (20-44) % Cannon % (Auto) (0.0-11.0) % Eos % (Auto) (0.0-7.0) % Baso % (Auto) (0.0-3.0) % Neut # (Auto) (1.7-7.0) K/uL Lymph # (Auto) (0.90-2.90) K/uL [place] # (Auto) (0.00-0.90) K/UL Eos # (Auto) (0.00-0.50) K/uL Baso # (Auto) (0.00-0.30) K/uL Abs Immat Gran (auto) (0.00-0.30) K/uL Imm/Tot Granulo (auto) % VBG pH (7.32-7.43) VBG pCO2 (40-50) mmHG VBG pO2 (25-47) mmHG VBG HCO3 (21-28) mmol/L Sodium (135-149) mmol/L Potassium (3.6-5.1) mmol/L Chloride (96-114) mmol/L Carbon Dioxide (20-32) mmol/L Anion Gap (7-15) mEq/L BUN (7-30) mg/dL Creatinine (0.5-1.5) mg/dL Estimated Creat Clear Estimated GFR ml/min Glucose (60-115) mg/dL Lactate 1.8 (0.5-1.9) mmol/L Calcium (8.4-10.6) mg/dL Magnesium (1.5-2.6) mg/dL Total Bilirubin (0.1-1.5) mg/dL Direct Bilirubin (0.0-0.5) mg/dL AST (12-35) U/L ALT (4-50) U/L Alkaline Phosphatase (40-150) U/L C-Reactive Protein (0.5-1.0) mg/dL NT-Pro-B Natriuret Pep pg/mL Total Protein (6.0-8.3) g/dL Albumin (3.3-5.0) g/dL Procalcitonin (<0.50) ng/mL Urine Color (Yellow) Urine Appearance (Clear) Urine pH (5.0-8.5) Ur Specific [place] (1.000-1.030) Urine Protein (Negative) Urine Glucose (UA) (Negative) Urine Ketones (Negative) Urine Blood (Negative) Urine Nitrite (Negative) Urine Bilirubin (Negative) Urine Urobilinogen (0.2-1.0) Ur Leukocyte Esterase (Negative) Urine RBC (0-2) Urine WBC (0-5) Ur Squamous Epith Cells (None-Few) Other Sediment (None) Urine Bacteria (None) Coarse Granular Casts (None) Urine Yeast (None) Ethyl Alcohol (0.01-0.03) % SARS-CoV-2 (PCR) (Negative) Influenza Type A (PCR) (Negative) Influenza Type B (PCR) (Negative) RSV (PCR) (Negative) POC Troponin I 0.26 H (0.01-0.04) ng/ml Imaging Data Chest x-ray: Attestation: I have reviewed the pertinent imaging results. Radiologist's impression: [place] [address] Diagnostic Imaging Report Patient: Nolberto Frye MR#: [id number] : 1960 Acct:[id number] Loc: ED Service Date: 06/02/[address]: Ordering Physician: Shavonne Henderson M.D. Date of Service: 06/02/24 Procedure(s): XR chest 1V portable Accession Number(s): [id number] cc: Shavonne Henderson M.D.; David Alcala M.D.~ For Patients: As a result of the Cures Act, medical imaging exams and procedure reports are released immediately into your electronic medical record. You may view this report before your referring provider. If you have questions, please contact your health care provider. INDICATION: Weakness, cough TECHNIQUE: Chest radiograph 1 view COMPARISON: 12/08/2022 FINDINGS: Mediastinum: The mediastinum is normal in appearance. The cardiac silhouette is at upper limits of normal in size. Lung: Ill-defined left perihilar ground-glass opacities are noted. The left lateral costophrenic sulcus is partially excluded. No pneumothorax is identified. Bone and Soft tissue: Unremarkable for age. IMPRESSION: 1. Ill-defined left perihilar ground-glass opacities are noted. Findings may be due to asymmetric pulmonary edema or atypical infection. Dictated by Kiel Chavez MD @ 06/02/2024 1:52:59 PM Dictated by: Kiel Chavez MD @ 06/02/2024 13:53:00 CT Chest/Ab/Pelvis: Attestation: I have reviewed the pertinent imaging results. Radiologist's impression: [place] [address] Diagnostic Imaging Report Patient: Nolberto Frye MR#: [id number] : 1960 Acct:[id number] Loc: ED Service Date: 06/02/[address]: Ordering Physician: Shavonne Henderson M.D. Date of Service: 06/02/24 Procedure(s): CT chest abdomen pelv w con Accession Number(s): [id number] cc: Shavonne Henderson M.D.; David Alcala M.D.~ For Patients: As a result of the 21st Century Cures Act, medical imaging exams and procedure reports are released immediately into your electronic medical record. You may view this report before your referring provider. If you have questions, please contact your health care provider. INDICATION: Sepsis TECHNIQUE: CT chest, abdomen and pelvis acquired with 76 mL Isovue 370 contrast. Multiplanar axial, coronal, and sagittal reformats are included. MIP images. COMPARISON: None. FINDINGS: CHEST: Cardiovascular structures: Heart size is normal. Thoracic aorta and main pulmonary artery are normal in caliber. Dense coronary artery calcification. Mediastinum and jacobo: No mass or adenopathy. Lungs and pleura: Bilateral patchy ground-glass opacities with interlobular septal thickening. Tree-in-bud opacities best seen in the right lower lobe findings likely infectious/inflammatory Chest wall and axilla: No mass or adenopathy. ABDOMEN AND PELVIS: Liver: fatty appearance to the liver. Gallbladder and bile ducts: Cholelithiasis Pancreas: Unremarkable. Spleen: Unremarkable. Adrenal glands: Unremarkable. Kidneys: Left renal cyst. Perinephric stranding urothelial thickening bilaterally no obstructing stones are seen. Punctate nonobstructing left renal calculus. GI tract: Unremarkable. Diverticulosis. Vascular structures: Dense atherosclerotic calcification of the abdominal aorta with ectasia measuring up to 2.7 centimeters. Left common iliac stent. Lymph nodes: Unremarkable. Miscellaneous: Small fat containing inguinal hernias. Pelvic Organs: Enlarged prostate gland. Bones: No suspicious bone lesions. Unremarkable for age. IMPRESSION: 1. Patchy ground-glass opacities bilaterally with interlobular septal thickening. Tree-in-bud opacities right lower lobe findings likely infectious/inflammatory. 2. Bilateral perinephric stranding with urothelial thickening correlate for UTI. Please note that all CT scans at this facility use dose modulation, iterative reconstruction, and/or weight-based dosing when appropriate to reduce radiation dose to as low as reasonably achievable. Dictated by Katherine Melendez MD @ 06/02/2024 3:43:19 PM Bilateral knee x-rays: Attestation: I have reviewed the pertinent imaging results. Radiologist's impression: [place] [address] Diagnostic Imaging Report Patient: Nolberto Frye MR#: [id number] : 1960 Acct:[id number] Loc: ED Service Date: 06/02/[address]: Ordering Physician: Shavonne Henderson M.D. Date of Service: 06/02/24 Procedure(s): XR knee BI 1 or 2V Accession Number(s): [id number] cc: Shavonne Henderson M.D.; David Alcala M.D.~ For Patients: As a result of the Century Cures Act, medical imaging exams and procedure reports are released immediately into your electronic medical record. You may view this report before your referring provider. If you have questions, please contact your health care provider. INDICATION: Knee injury from Fall TECHNIQUE: Knee radiograph 4 views bilateral COMPARISON: None FINDINGS: Bone: No acute fractures or aggressive bone lesions are identified. Joint: The medial, lateral, and patellofemoral compartments are unremarkable. No significant knee effusion is seen. Soft tissue: Unremarkable. No radiopaque foreign bodies are seen. Severe vascular calcifications are noted bilaterallly with a metallic stent noted in the left popliteal artery. IMPRESSION: 1. No acute osseous injuries or abnormalities are noted. If there is concern for a patellar injury, assessment with sunrise view is recommended. Dictated by: Kiel Chavez MD @ 06/02/2024 14:39:49 Left great toe: Attestation: I have reviewed the pertinent imaging results. Radiologist's impression: [place] [address] Diagnostic Imaging Report Patient: Nolberto Frye MR#: [id number] : 1960 Acct:[id number] Loc: ED Service Date: 06/02/[address]: Ordering Physician: Shavonne Henderson M.D. Date of Service: 06/02/24 Procedure(s): XR great toe LT Accession Number(s): [id number] cc: Shavonne Henderson M.D.; David Alcala M.D.~ For Patients: As a result of the Cures Act, medical imaging exams and procedure reports are released immediately into your electronic medical record. You may view this report before your referring provider. If you have questions, please contact your health care provider. INDICATION: Toe Injury TECHNIQUE: Toe radiograph 3 views left COMPARISON: None FINDINGS: Bone: There is a transverse fracture at the base of the 1st distal phalanx. Minimal periostitis is present along the shaft of the 2nd proximal phalanx. 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 Soft tissue: Mild vascular calcifications are noted. No radiopaque foreign bodies are seen. IMPRESSION: 1. There is a transverse fracture at the base of the 1st distal phalanx. Dictated by Kiel Chavez MD @ 06/02/2024 2:38:02 PM Dictated by: Kiel Chavez MD @ 06/02/2024 14:38:16 Discharge Plan Discharge Clinical Impression: Sepsis, Pneumonia, Influenza A Patient Disposition: Admitted As Observation
[2024-06-02 13:46] LABS: Basophils Absolute Auto 0.01 K/uL (0.00-0.30); Basophils Percent Auto 0.1 % (0.0-3.0); Hematocrit 38.7 % (37.0-53.0); Hemoglobin* 14.2 gm/dL (13.5-17.5); Immature Granulocytes Abs Auto 0.04 K/uL (0.00-0.30); Immature Granulocytes Pct Auto 0.5 %; Lymphocytes Percent Auto 2.6 % (20-44); Mean Corpuscular HGB Conc 37 gm/dL (32-36); Mean Corpuscular Hemoglobin 35 pg (26-34); Mean Corpuscular Volume 97 fL (80-100); Monocytes Percent Auto 9.7 % (0.0-11.0); Neutrophils Percent Auto 87.1 % (42.0-72.0); Platelet Count* 56 K/uL (140-440); RDW Coefficient of Variation % 13.9 % (11.5-15.5); Red Blood Count 4.01 m/uL (4.30-5.90); White Blood Count* 8.39 K/uL (4.50-11.00)
--- NOTE | 2024-06-02 13:48 | CRLHL7_ITS ---
For Patients: As a result of the Century Cures Act, medical imaging exams and procedure reports are released immediately into your electronic medical record. You may view this report before your referring provider. If you have questions, please contact your health care provider. INDICATION: Knee injury from Fall TECHNIQUE: Knee radiograph 4 views bilateral COMPARISON: None FINDINGS: Bone: No acute fractures or aggressive bone lesions are identified. Joint: The medial, lateral, and patellofemoral compartments are unremarkable. No significant knee effusion is seen. Soft tissue: Unremarkable. No radiopaque foreign bodies are seen. Severe vascular calcifications are noted bilaterallly with a metallic stent noted in the left popliteal artery. IMPRESSION: 1. No acute osseous injuries or abnormalities are noted. If there is concern for a patellar injury, assessment with sunrise view is recommended. Dictated by: Kiel Chavez MD @ 06/02/2024 14:39:49 (Electronically Signed)
--- NOTE | 2024-06-02 13:48 | CRLHL7_ITS ---
For Patients: As a result of the Cures Act, medical imaging exams and procedure reports are released immediately into your electronic medical record. You may view this report before your referring provider. If you have questions, please contact your health care provider. INDICATION: Toe Injury TECHNIQUE: Toe radiograph 3 views left COMPARISON: None FINDINGS: Bone: There is a transverse fracture at the base of the 1st distal phalanx. Minimal periostitis is present along the shaft of the 2nd proximal phalanx. 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 Soft tissue: Mild vascular calcifications are noted. No radiopaque foreign bodies are seen. IMPRESSION: 1. There is a transverse fracture at the base of the 1st distal phalanx. Dictated by Kiel Chavez MD @ 06/02/2024 2:38:02 PM Dictated by: Kiel Chavez MD @ 06/02/2024 14:38:16 (Electronically Signed)
--- OUTSIDE RECORDS SUMMARY | 2024-06-02 13:48 | XMS_ITS | Continuity of Care Document ---
Author Organization [facility] Address [address] [place] [address] Phone Care Team Providers Care Neurological Physiotherapist Name Role Phone Lucio Kapoor MD Unavailable [...] Copied on Encounter [facility], [address], [place], [id number] , [place] tel:[phone] [facility] No Information Jun-[phone] Antwon Valdes. [facility], [address] [place] [address], [address], [place], [id number] , [place]. tel: [phone] [facility], [address], [place], [id number] , [place] tel: [phone] [facility] Arthrodesis statusOverweight Antwon Valdes. [facility] [place], [address], [address], [place], [place], [id number] , [place]. tel: [phone] [facility], [address], [place], [place], [id number] , [place] tel: [phone] [facility] No Information Antwon Valdes. [facility] [place], [facility] [address] [place] [address], [address], [place], [id number] , [place]. tel: [phone] Office/Outpa tient Visit,Est, Mod [facility], [address], [place], [id number] , [place] tel: [phone] [facility] OVERWEIGHTHyperte nsion, UnspecifiedLumbar HNPSpinal stenosis of lumbar region with neurogenic claudication Antwon Valdes. [facility] [place], [address] [place] [address], [address], [place], [id number] , [place]. tel: [phone] Office/Outpa tient Visit,New, Mod [facility], [address], [place], [place], [id number] , [place] tel: [phone] [facility] Bulging lumbar discSpinal stenosis of lumbar region with neurogenic claudicationLumba r DDD 5 Panvica Jayden. [facility] [place], [facility] [address] [place] [address], [address], [place], [place], [id number] , [place]. tel: [phone] Family History Family Member Type Diagnosis Age At Onset No Information Payers Payer name Insurance type Covered alliance party ID Authoriza tion(s) No Information Social History [...] Infor lori Weight Management Related to [facility] Weight management: R efer to Referral to General Practitioner timeframe: 1 Month. Related to Overweight Weight Management [facility] to [facility] Exercise education Related to Un specified Essential Hypertension Assessments Type Assessment Date No Information Patient Care Teams Name Effective Dates (start - stop) Status Members No Information
--- OUTSIDE RECORDS SUMMARY | 2024-06-02 13:48 | XMS_ITS | Clinical Summary ---
Author Organization [facility] Address [place], [place] [address] Care Team Providers Care Burr Picker Name Role Phone Frederick Duran MD Unavailable [phone] David Alcala MD Primary Care Provider [phone] Damon Belcher MD Unavailable [phone] Allergies Active Allergy Reactions Criticality Noted Date [...] type, unspecified whether angina present, unspecified whether [place] or transplanted heart,History of coronary artery stent [...] Type Department Care Team Description 05/23/2024 Refill [facility] [address] [place] [address] David Alcala MD Refill Request (Omeprazole/) 03/22/2024 8:30 AM FILM COATER Office Visit 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) 03/22/2024 6:48 AM FILM COATER - 03/22/2024 11:59 PM FILM COATER Hospital Encounter [facility] [address] [place] [address] Ruchi Espitia MD PAD (peripheral artery disease) (HC) 03/22/2024 Travel from Last 3 Months Immunizations Name Administration Dates Next Due Hepatitis B (Adult) 06/26/2015,01/14/2013 Influenza, IIV3 (Age >=3 years) 03/28/2010 Influenza, IIV4 01/09/2013 Pneumococcal Conj 20-valent (Prevnar 20) 023 Tdap 07/27/2022,05/21/2012 Zoster (Shingrix-RZV, recombinant) 07/27/2022, Family History Medical History Relation Name Comments COPD Father Dementia Mother Heart Disease Paternal Grandfather [place] Relation Name Status Comments Father Mother Paternal [...] on file Legal Sex Male 5:24 AM FILM COATER Gender Identity Not on file Sexual Orientation Not on file 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 Not on file Not on file Not on file Obstetrics History Last Filed Vital Signs Vital Sign Reading Time Taken Comments Blood Pressure 148/79 03/22/2024 8:23 AM FILM COATER Pulse 63 03/22/2024 8:20 AM FILM COATER Temperature 36.7 C (98 F) 11/14/2023 5:55 AM CDT Respiratory Rate 16 11/14/2023 12:0 4 PM CDT Oxygen Saturation 96% 03/22/2024 8:20 AM FILM COATER Inhaled Oxygen Concentration - - Weight 71.5 kg (157 lb 10.1 oz) 03/22/2024 8:20 AM FILM COATER Height 172.7 cm (5' 7.99) 03/22/2024 8:20 AM CS T Body Mass Index 23.97 03/22/2024 8:20 AM FILM COATER Plan of Treatment Upcoming Encounters Date Type Department Care Team (Late st Contact Info) Description 06/28/2024 7:00 AM FILM COATER Appointment [facility] [address] [place] [address] 06/28/2024 7:45 AM FILM COATER Appointment [facility] [address] [facility] [address] [place] [address] 06/28/2024 8:30 AM FILM COATER Office Visit [facility] [address] [place] [address] Ruchi Espitia MD [address] [place] [address] [place] [address] Health Maintenance Due Date Last Done Comments Colonoscopy through age 75 2007 RSV vaccine for adults or (1 - Risk 60-74 years 1-dose series) [address] (for lung CA) ag e 50-80 12/15/2023 12/14/2022 COVID-19 vaccine series (2023- season) 2023 Influenza for age 50-64 12/31/2023 02/15/20 13 (Completed outside of [facility]), 01/09/2013, 03/28/2010 Depression screening for age 12+ [...] BRACHIAL INDEX BILATERAL Routine 03/22/2024 8:08 AM FILM COATER PAD (peripheral artery disease) (HC) US ARTERIAL LOWER EXTREMITY LEFT Routine 03/22/2024 8:07 AM FILM COATER PAD (peripheral artery disease) (HC) LIPID PANEL W REFLEX MEASURED LDL Routine 01/06/2023 2:09 PM CDT CAD S/P percutaneous coronary angioplasty RAPID HIV SCREEN Timed 11/14/2022 7:38 AM CDT ANTI HCV Routine 01/23/2020 9:44 AM CDT Need for hepatitis C screening test from Last 3 Months or Most Recently Relevant to Health Maintenance Results * US ANKLE BRACHIAL INDEX BILATERAL (03/22/2024 8:08 AM FILM COATER) Anatomical Region Laterality Modality ANKLES, ANKLE L, ANKLE R Ultraso und 03/22/2024 6:48 AM FILM COATER Narrative 03/22/2024 11:14 AM FILM COATER VASCULAR ULTRASOUND REPORT OLIVIA JIANG : 1960 Study Date: 03/22/2024 6:48:00 AM Age: 63 years Tech: STEPHANY Gender: M Referring MD: RUCHI ESPITIA Site: [facility] Study performed: Lower extremity resting JEANCARLOS, (bilateral). Indication for study: Follow-up IT COMMUNICATIONS MANAGER/stent/bypass TECHNIQUE: Lower/upper extremity arteries were examined per [...] 154 Index +-----+ +--------+ +-----+ 1.13 179 IT COMMUNICATIONS MANAGER 172 1.08 +-----+ +--------+ +-----+ 1.03 164 DPA 163 1.03 +-----+ +--------+ +-----+ 0.77 123 Digit 1 120 0.75 +-----+ +--------+ +-----+ Ruchi Espitia MD. Electronically signed on 03/22/2024 11:14:45 AM This study was performed and interpreted by a service accredited by the Intersocietal Accreditation Commission (IAC/Vascular), www.intersocietal.org/vascular Report generated by [employer]. Final Procedure Note Ruchi Espitia MD - 03/22/2024 VASCULAR ULTRASOUND REPORT OLIVIA JIANG : 1960 Study Date: 03/22/2024 6:48:00 AM Age: 63 years Tech: LMS Gender: M Referring MD: RUCHI ESPITIA Site: [facility] Study performed: Lower extremity resting JEANCARLOS, (bilateral). Indication for study: Follow-up IT COMMUNICATIONS MANAGER/stent/bypass TECHNIQUE: Lower/upper extremity arteries were examined per [...] 154 Index +-----+ +--------+ +-----+ 1.13 179 IT COMMUNICATIONS MANAGER 172 1.08 +-----+ +--------+ +-----+ 1.03 164 DPA 163 1.03 +-----+ +--------+ +-----+ 0.77 123 Digit 1 120 0.75 +-----+ +--------+ +-----+ Ruchi Espitia MD. Electronically signed on 03/22/2024 11:14:45 AM This study was performed and interpreted by a service accredited by theIntersocietal Accreditation Commission (IAC/Vascular),www.intersocietal.org/vascular Report generated by [employer]. Final us Ruchi Espitia MD US Final Result * US ARTERIAL LOWER EXTREMITY LEFT (03/22/2024 8:07 AM FILM COATER) Anatomical Region Laterality Modality LEGS, LEG L Ultrasound 03/22/2024 7:22 AM FILM COATER Narrative 03/22/2024 11:17 AM FILM COATER VASCULAR ULTRASOUND REPORT OLIVIA JIANG : 1960 Study Date: 03/22/2024 7:22:37 AM Age: 63 years Tech: LMS Gender: M Referring MD: RUCHI ESPITIA Site: [facility] Study performed: Lower extremity duplex US, (left), arterial. Indication for study: Follow-up IT COMMUNICATIONS MANAGER/stent/bypass TECHNIQUE: Lower/upper extremity arteries were examined per [...] MID 123 EIA DST 104 +--------+ +--------+-----+ PLANT MAINTENANCE MECHANIC DST 81 +--------+ +--------+-----+ PFA 52 +--------+ +--------+-----+ SFA PRX 134 +--------+ +--------+-----+ SFA MID 256 50-74% 2.4 +--------+ +--------+-----+ SFA DST 117 +--------+ +--------+-----+ MAYRA DST 230 50-74% 2.3 +--------+ +--------+-----+ TPT 127 +--------+ +--------+-----+ IT COMMUNICATIONS MANAGER DST 83 +--------+ +--------+-----+ MAIN MID 41 [...] Accreditation Commission (IAC/Vascular), www.intersocietal.org/vascular Report generated by [employer]. Final Procedure Note Ruchi Espitia MD - 03/22/2024 VASCULAR ULTRASOUND REPORT OLIVIA JIANG : 1960 Study Date: 03/22/2024 7:22:37 AM Age: 63 years Tech: [facility] Gender: M Referring MD: RUCHI ESPITIA Site: [facility] V[facility] Study performed: Lower extremity duplex US, (left), arterial. Indication for study: Follow-up IT COMMUNICATIONS MANAGER/stent/bypass TECHNIQUE: Lower/upper extremity arteries were examined per [...] MID 123 EIA DST 104 +--------+ +--------+-----+ PLANT MAINTENANCE MECHANIC DST 81 +--------+ +--------+-----+ PFA 52 +--------+ +--------+-----+ SFA PRX 134 +--------+ +--------+-----+ SFA MID 256 50-74% 2.4 +--------+ +--------+-----+ SFA DST 117 +--------+ +--------+-----+ AMYRA DST 230 50-74% 2.3 +--------+ +--------+-----+ TPT 127 +--------+ +--------+-----+ IT COMMUNICATIONS MANAGER DST 83 +--------+ +--------+-----+ MAIN MID 41 [...] theIntersocietal Accreditation Commission (IAC/Vascular),www.intersocietal.org/vascular Report generated by [employer]. Final us Ruchi Espitia MD US Final Result * (ABNORMAL) LIPID PANEL W REFLEX MEASURED LDL (01/06/2023 2:09 PM CDT) CHOLESTEROL,TOTAL 130 100 - 199 mg/dL 01/06/2023 3:03 PM [facility] Comment: Cholesterol, Total Reference Ranges Desirable <200 mg/dL Borderline 200-239 mg/dL High >=240 mg/dL TRIGLYCERIDES 413(H) <150 mg/dL 01/06/2023 3:03 PM [facility] HDL CHOLESTEROL 29(L) >40 mg/dL 3 3:03 PM [facility] NON-HDL CHOLESTEROL 101 <145 mg/dl 01/06/2023 3:03 PM [facility] CHOL/HDL RATIO 4.48 <4.50 01/06/2023 3:03 PM [facility] LDL CHOLESTEROL 3 3:03 PM [facility] Comment:Invalid LDL when Tri g >400. VLDL CHOLESTEROL COMMENT 01/06/2023 3:03 PM [facility] Comment:Unable to calculate VLDL. PROVIDER ORDERED STATUS RANDOM 01/06/2023 3:03 PM [facility] Blood BLOOD SPECIMEN / Unknown Venipuncture / Unknown 01/06/2023 2:09 PM CDT 01/06/2023 2:09 PM CDT us Isabel Jordan PA CHEMISTRY Final Res ult [facility] [place] [address] [address] [address] [place] [address] * RAPID HIV SCREEN (11/14/2022 7:38 AM CDT) RAPID HIV SCREEN Non-React perri Non-Reactiv e, Invalid 11/14/2022 8:20 AM CDT [facility] Comment:A NONREACTIVE test r esult means that HIV-1 or HIV-2 antibodies and HIV-1 p24 antigen were not detected in the specimen. Blood BLOOD SPECIMEN / Unknown Venipuncture / Unknown 11/14/2022 7:38 AM CDT 11/14/2022 7:47 AM CDT us Esa Lyles MD CHEMISTRY Final Result Performing Organization Address City/[facility]/ZIP Co de Phone Number [facility] S[address] [address] [address] [address] [place] [address] * ANTI HCV (01/23/2020 9:44 AM CDT) Pathologist [facility] HEPATITIS C ANTIBODY Non-React perri Non-React perri 01/23/2020 4:57 PM CDT [facility] [employer] [facility] Comment:Antibodies to HCV no t detected; does not exclude the possibility of exposure to HCV. Blood BLOOD SPECIMEN / Unknown Venipuncture / Unknown 01/23/2020 9:44 AM CDT 01/23/2020 9:44 AM CDT us Cass Samayoa MD SEND OUTS Final R esult [facility] [address] [place] [address], [place] from Last 3 Months or Most Recently Relevant to Health Maintenance Insurance [facility] Advance Directives * Full Code (Latest Code [...] 6:00 PM 12/26/2014 12:58 PM Care Teams Burr Picker Relationship Specialty [place] [address] [place] [address] PCP - General Family Practice 02/22/21 Frederick Duran MD [address] [place] [address] Consulting Physician Cardiovascular Disease 02/20/15 [place] [address] [place] [address] Cardiovascular Disease 10/23/23
[2024-06-02] MEDS: 0.9 % SODIUM CHLORIDE 1000 ml 1,000 ML IV ×2 (13:58→15:10)
--- NOTE | 2024-06-02 13:58 | ED.NURSE ---
Dr. Henderson notified poc trop result.
[2024-06-02 14:03] LABS: Chloride* 97 mmol/L (96-114); Sodium* 129 mmol/L (135-149)
[2024-06-02 14:04] LABS: Albumin* 3.2 g/dL (3.3-5.0)
[2024-06-02 14:06] LABS: Creatinine* 1.1 mg/dL (0.5-1.5); Est. Creatinine Clearance* 68.23; Estimated Glomerular Filt Rate 76 ml/min
[2024-06-02 14:07] LABS: Anion Gap 12 mEq/L (7-15); Aspartate Amino Transferase* 354 U/L (12-35); Bilirubin Direct* 1.2 mg/dL (0.0-0.5); Bilirubin Total* 2.2 mg/dL (0.1-1.5); Blood Urea Nitrogen* 11 mg/dL (7-30); Calcium* 7.6 mg/dL (8.4-10.6); Carbon Dioxide* 20 mmol/L (20-32); Glucose* 146 mg/dL (60-115); Magnesium* 1.1 mg/dL (1.5-2.6); Total Protein* 6.5 g/dL (6.0-8.3)
[2024-06-02 14:08] LABS: Alanine Aminotransferase* 56 U/L (4-50); Alkaline Phosphatase* 132 U/L (40-150)
[2024-06-02 14:09] LABS: C Reactive Protein* 5.5 mg/dL (0.5-1.0)
[2024-06-02 14:12] LABS: Slide Review Reflex No
[2024-06-02 14:14] LABS: Troponin, Point-of-Care* 0.15 ng/ml (0.01-0.04)
[2024-06-02 14:24] LABS: Potassium* 2.8 mmol/L (3.6-5.1)
[2024-06-02 14:31] LABS: Ethanol* < 0.01 % (0.01-0.03)
--- NOTE | 2024-06-02 14:31 | CRLHL7_ITS ---
For Patients: As a result of the Century Cures Act, medical imaging exams and procedure reports are released immediately into your electronic medical record. You may view this report before your referring provider. If you have questions, please contact your health care provider. INDICATION: Sepsis TECHNIQUE: CT chest, abdomen and pelvis acquired with 76 mL Isovue 370 contrast. Multiplanar axial, coronal, and sagittal reformats are included. MIP images. COMPARISON: None. FINDINGS: CHEST: Cardiovascular structures: Heart size is normal. Thoracic aorta and main pulmonary artery are normal in caliber. Dense coronary artery calcification. Mediastinum and jacobo: No mass or adenopathy. Lungs and pleura: Bilateral patchy ground-glass opacities with interlobular septal thickening. Tree-in-bud opacities best seen in the right lower lobe findings likely infectious/inflammatory Chest wall and axilla: No mass or adenopathy. ABDOMEN AND PELVIS: Liver: fatty appearance to the liver. Gallbladder and bile ducts: Cholelithiasis Pancreas: Unremarkable. Spleen: Unremarkable. Adrenal glands: Unremarkable. Kidneys: Left renal cyst. Perinephric stranding urothelial thickening bilaterally no obstructing stones are seen. Punctate nonobstructing left renal calculus. GI tract: Unremarkable. Diverticulosis. Vascular structures: Dense atherosclerotic calcification of the abdominal aorta with ectasia measuring up to 2.7 centimeters. Left common iliac stent. Lymph nodes: Unremarkable. Miscellaneous: Small fat containing inguinal hernias. Pelvic Organs: Enlarged prostate gland. Bones: No suspicious bone lesions. Unremarkable for age. IMPRESSION: 1. Patchy ground-glass opacities bilaterally with interlobular septal thickening. Tree-in-bud opacities right lower lobe findings likely infectious/inflammatory. 2. Bilateral perinephric stranding with urothelial thickening correlate for UTI. Please note that all CT scans at this facility use dose modulation, iterative reconstruction, and/or weight-based dosing when appropriate to reduce radiation dose to as low as reasonably achievable. Dictated by Katherine Melendez MD @ 06/02/2024 3:43:19 PM (Electronically Signed)
[2024-06-02 14:46] LABS: PCR FLU A POSITIVE PCR FLU A (Negative); PCR FLU B Negative PCR FLU B (Negative); PCR RSV Negative PCR RSV (Negative); SARS PCR* Negative SARS-CoV-2 (Negative)
[2024-06-02 14:48] LABS: NT Pro B Type NatriureticPept* 7740 pg/mL
[2024-06-02] MEDS: MAGNESIUM IV 2 GM/50 ML PIGGYBACK IVPB (15:10)
[2024-06-02] MEDS: POTASSIUM CHLORIDE 10 MEQ/100 ML PIGGYBACK 100 MEQ IVPB ×2 (15:17→16:40)
[2024-06-02] MEDS: PIPERACILLIN/TAZOBACTAM 3.375 GM in 0.9 % SODIUM CHLORIDE Mini-bag 100 ML IVPB ×2 (15:35→21:38)
[2024-06-02 15:37] LABS: Appearance Urine Clear (Clear); Bilirubin Urine 1+ (Negative); Blood Urine 3+ (Negative); Color Urine Yellow (Yellow); Glucose Urine 1+ (Negative); Ketones Urine Negative (Negative); Leukocyte Esterase Urine Negative (Negative); Nitrite Urine Negative (Negative); Protein Urine 3+ (Negative); Specific Gravity Urine 1.015 (1.000-1.030); Urobilinogen Urine 0.2 (0.2-1.0)
[2024-06-02 15:49] LABS: Bacteria Urine Moderate; Other Sediment Urine Moderate
[2024-06-02 15:50] LABS: Coarse Granular Casts Urine Moderate
[2024-06-02 15:56] LABS: Lactate Sepsis 2 Hour 1.8 mmol/L (0.5-1.9)
[2024-06-02 16:06] LABS: Troponin, Point-of-Care* 0.26 ng/ml (0.01-0.04)
--- NOTE | 2024-06-02 16:55 | ED.NURSE ---
Report given to MS RN.
--- NOTE | 2024-06-02 17:38 | P.IMHP_ITS ---
Hospitalist- H&P: HPI History of Present Illness Time Seen by Provider: 17:20 Date Seen: 06/02/24 Chief complaint: weakness Narrative: Nolberto Frye is a 63 year old male with a history of coronary artery disease, hypertension, hyperlipidemia, critical lower limb ischemia from left popliteal artery occlusion for which he is on Eliquis and Plavix, anemia, type 2 diabetes mellitus, tobacco use disorder, and GERD who came to the ER for concerns of weakness and cough. He is a poor historian, but is able to give me some history. His lives with him, however she works a different shift than him and so they do not see each other much. Juan Diego tells me he started feeling nauseous on the evening and developed a cough around that time as well. Monday he had 1 emesis which was brown, but he had just had Dr. Beauchamp. He denies cof fee-ground emesis or bright red blood. He also developed diarrhea on Monday that was loose, without bright red blood or melena. He denies fevers or chills. He notes that the cough kept getting worse and for a few mornings he would wake up on the floor, having fallen sometime in the night out of bed. When he would get up to use the bathroom, he did not feel weak or dizzy and he did not have any falls while awake, moving around the house. This morning when he woke up, he was again on the floor and his could not help him get up because he was too weak. They called EMS. He denies chest pain or shortness of breath. He denies any pain in his extremities, but notes that he has significant neuropathy and does not feel much there anyway. notes patient appears to have some brain fog. Review of Systems Status of ROS: Reports: 10 or more systems reviewed and unremarkable except as noted in History and below [facility] Medical History (Updated 06/02/24 @ 20:44 by Leonor Yoder MD) Drug-induced hepatitis ?K71.6 - Toxic liver disease with hepatitis, not elsewhere classified (ICD- 10) ?T50.905A - Adverse effect of unspecified drugs, medicaments and biological substances, initial encounter (ICD-10) Acute anterior wall NV ?I21.09 - ST elevation (STEMI) myocardial infarction involving other coronary artery of anterior wall (ICD-10) History of rhabdomyolysis due to statin ?Z87.39 - Personal history of other diseases of the musculoskeletal system and connective tissue (ICD-10) Tobacco use disorder ?F17.200 - Nicotine dependence, unspecified, uncomplicated (ICD-10) Displacement of lumbar intervertebral disc without myelopathy ?M51.26 - Other intervertebral disc displacement, lumbar region (ICD-10) Critical lower limb ischemia ?I70.229 - Atherosclerosis of [place] arteries of extremities with rest pain, unspecified extremity (ICD-10) Popliteal artery occlusion, left ?I70.202 - Unspecified atherosclerosis of [place] arteries of extremities, left leg (ICD-10) Abdominal aortic aneurysm ?I71.40 - Abdominal aortic aneurysm, without rupture, unspecified (ICD-10) Normocytic anemia ?D64.9 - Anemia, unspecified (ICD-10) Type 2 diabetes mellitus with peripheral angiopathy ?E11.51 - Type 2 diabetes mellitus with diabetic peripheral angiopathy without gangrene (ICD-10) Hypertension ?I10 - Essential (primary) hypertension (ICD-10) GERD (gastroesophageal reflux disease) ?K21.9 - Gastro-esophageal reflux disease without esophagitis (ICD-10) Hyperlipidemia ?E78.5 - Hyperlipidemia, unspecified (ICD-10) CAD (coronary artery disease) ?I25.10 - Atherosclerotic heart disease of [place] coronary artery without angina pectoris (ICD-10) Surgical History (Updated 06/02/24 @ 16:59 by Leonor Yoder MD) H/O vasectomy ?Z98.52 - Vasectomy status (ICD-10) History of cerebral angiography ?Z98.890 - Other specified postprocedural states (ICD-10) History of PTCA ?Z98.61 - Coronary angioplasty status (ICD-10) History of coronary artery stent placement ?Z95.5 - Presence of coronary angioplasty implant and graft (ICD-10) History of back surgery ?Z98.890 - Other specified postprocedural states (ICD-10) Family History (Updated 06/02/24 @ 17:07 by Leonor Yoder MD) Mother Dementia Father COPD (chronic obstructive pulmonary disease) Paternal Grandfather Myocardial infarction Social History (Updated 06/02/24 @ 20:07 by Leonor Yoder MD) Narrative: , , Kyra, is here with him. 30+ pack year smoking history, currently smoking just over a pack per day. Drinks at least 6 drinks daily, some beer, some hard liquor. Never had DUI/DWI. Never tried quitting or had a period of sobriety. Denies any problems from alcohol. Last drink was last night. Denies recreational drug use. What is your current living situation?: I presently have a place to live Problems where you live: no known problems Problems where you live details: no In the past 12 months, utilities in danger of being shut off: no In past 12 months, lack of transportation kept you from medical appts, meetings, work, or getting things needed for daily living: no In the past 12 mos, have been you worried that your food would run out before you had money to buy more?: never true In the past 12 mos, the food you bought just didn't last and you didn't have money to buy more?: never true Highest level of school completed/degree received: high school graduate Smoking Status: Current every day smoker What tobacco products do you use: cigarettes Do you use any of these nicotine containing products: None How often do you have a drink containing alcohol: 4 or more times a week How many standard drinks containing alcohol do you have on a typical day: 5 or 6 How often do you have six or more drinks on one occasion: Daily or almost daily AUDIT-C Alcohol total score: 10 Non-prescribed substance use: denies use Caffeine: No How often does anyone, including family, friends and others, physically hurt you : never How often does anyone, including family, friends and others, insult or talk down to you: never How often does anyone, including family, friends and others, threaten you with harm: never How often does anyone, including family, friends and others, scream or curse at you: never service: No Meds Home Medications and Allergies Home Medications ?Medication ?Instructions ?Recorded ?Confirmed ?Type clopidogrel 75 mg tablet 75 mg PO DAILY 12/08/22 06/02/24 History empagliflozin 10 mg tablet 10 mg PO DAILY 12/08/22 06/02/24 History (Jardiance) ferrous sulfate 325 mg (65 mg 325 mg PO Q OTHER DAY 12/08/22 06/02/24 History iron) tablet (Feosol) fexofenadine 60 mg tablet (Lilia 60 mg PO DAILY 12/08/22 06/02/24 History Allergy) gabapentin 300 mg capsule 300 mg PO BID PRN 12/08/22 06/02/24 History glipizide 10 mg tablet, extended 10 mg PO DAILY 12/08/22 06/02/24 History release 24 hr lisinopril 20 mg tablet 20 mg PO DAILY 12/08/22 06/02/24 History pravastatin 40 mg tablet 40 mg PO DAILY 12/08/22 06/02/24 History rivaroxaban 2.5 mg tablet (Xarelto) 2.5 mg PO BID 12/08/22 06/02/24 History omeprazole 20 mg capsule,delayed 20 mg PO DAILY 06/02/24 06/02/24 History release Allergies Allergy/AdvReac Type Severity Reaction Status Date / Time metformin AdvReac Intermediate Diarrhea Verified 06/02/24 13:09 Exam Narrative: Exam Narrative: General: No acute distress despite being mildly tachypneic. Appears comfortable and able to talk in complete sentences without difficulty. Awake alert oriented x3. HEENT: Normocephalic atraumatic, pupils equally round and reactive to light and accommodation. Oropharynx clear. Mucous membranes are moist. No cervical lymphadenopathy, thyromegaly or carotid bruits. No JVD. Cardiovascular: Regular rate and rhythm. No murmurs, gallops, or rubs. Chest: Tachypneic, no accessory muscle use. Appears to be breathing comfortably. Rhonchi at the right base. No wheezes or crackles. Abdomen: Bowel sounds present. Soft, nondistended, nontender. No hepatosplenomegaly or masses. Extremities: No edema, no cyanosis or clubbing. Skin: Multiple bruises overall extremities. Skin abrasions on both elbows and knees, right knee has a long horizontal abrasion anteriorly. Knees are especially ecchymotic. Left great toe has ecchymosis and is lauren-taped to the 2nd toe. No jaundice, no pallor, no rashes. Neuro: Grossly intact. No focal deficits. Const: Vital Signs, click to edit/add: Vital Signs - 24 hr 06/02/24 13:08 06/02/24 13:09 06/02/24 13:09 Temperature 99.7 F H Pulse Rate 108 H 108 H Pulse Rate [Pulse Oximeter] 110 H Respiratory Rate 30 H Blood Pressure 121/76 Blood Pressure [Le ft Upper Arm] 121/76 Pulse Oximetry 93 95 95 Oxygen Delivery Me thod Room Air 06/02/24 13:15 06/02/24 13:29 06/02/24 13:30 Temperature Pulse Rate 114 H 107 H Pulse Rate [Pulse Oximeter] Respiratory Rate Blood Pressure Blood Pressure [Le ft Upper Arm] Pulse Oximetry 93 89 92 Oxygen Delivery Me thod 06/02/24 13:32 06/02/24 13:45 06/02/24 14:00 Temperature Pulse Rate 113 H 106 H 110 H Pulse Rate [Pulse Oximeter] Respiratory Rate 32 H Blood Pressure 137/74 Blood Pressure [Le ft Upper Arm] Pulse Oximetry 93 94 94 Oxygen Delivery Me od Room Air 06/02/24 14:02 06/02/24 14:15 06/02/24 14:30 Temperature Pulse Rate 108 H 106 H 106 H Pulse Rate [Pulse Oximeter] Respiratory Rate 32 H Blood Pressure 130/93 H Blood Pressure [Le ft Upper Arm] Pulse Oximetry 93 93 91 Oxygen Delivery Me od Room Air 06/02/24 14:32 06/02/24 14:45 06/02/24 15:08 Temperature Pulse Rate 104 H 103 H 105 H Pulse Rate [Pulse Oximeter] Respiratory Rate 32 H Blood Pressure 137/86 Blood Pressure [Le ft Upper Arm] Pulse Oximetry 91 90 94 Oxygen Delivery Me od Room Air 06/02/24 15:10 06/02/24 15:15 06/02/24 15:30 Temperature Pulse Rate 102 H 101 H 103 H Pulse Rate [Pulse Oximeter] Respiratory Rate 32 H Blood Pressure 135/105 H Blood Pressure [Le ft Upper Arm] Pulse Oximetry 94 94 92 Oxygen Delivery Me od Room Air 06/02/24 15:32 06/02/24 15:45 06/02/24 16:00 Temperature Pulse Rate 102 H 98 98 Pulse Rate [Pulse Oximeter] Respiratory Rate 32 H Blood Pressure 157/92 H Blood Pressure [Le ft Upper Arm] Pulse Oximetry 91 91 91 Oxygen Delivery Me od Room Air 06/02/24 16:02 06/02/24 16:15 06/02/24 16:30 Temperature Pulse Rate 100 99 107 H Pulse Rate [Pulse Oximeter] Respiratory Rate 32 H Blood Pressure 148/77 H Blood Pressure [Le ft Upper Arm] Pulse Oximetry 91 89 87 L Oxygen Delivery Me thod 06/02/24 16:45 Temperature Pulse Rate 97 Pulse Rate [Pulse Oximeter] Respiratory Rate Blood Pressure Blood Pressure [Le ft Upper Arm] Pulse Oximetry 87 L Oxygen Delivery [facility] Hospitalist - H&P: Result Labs Labs: Short CBC 06/02/24 Range/Units 13:35 WBC 8.39 (4.50-11.00) K/uL Hgb 14.2 (13.5-17.5) gm/dL Hct 38.7 (37.0-53.0) % Plt Count 56 L (140-440) K/uL BMP 06/02/24 13:35 Sodium 129 L Potassium 2.8 L* Chloride 97 Carbon Dioxide 20 BUN 11 Creatinine 1.1 Glucose 146 H Calcium 7.6 L Liver Function 06/02/24 Range/Units 13:35 Total Bilirubin 2.2 H (0.1-1.5) mg/dL Direct Bilirubin 1.2 H (0.0-0.5) mg/dL AST 354 H (12-35) U/L ALT 56 H (4-50) U/L Alkaline Phosphatase 132 (40-150) U/L Albumin 3.2 L (3.3-5.0) g/dL Urine 06/02/24 Range/Units 15:25 Urine Color Yellow (Yellow) Urine Appearance Clear (Clear) Urine pH 6.0 (5.0-8.5) Ur Specific [place] 1.015 (1.000-1.030) Urine Protein 3+ A (Negative) Urine Glucose (UA) 1+ A (Negative) 06/02/2024 EKG: Sinus tachycardia, 109 beats per minute. Inferior infarct, age undetermined. Ordering Physician: Shavonne Henderson M.D. Date of Service: 06/02/24 Procedure(s): XR chest 1V portable Accession Number(s): [id number] cc: Shavonne Henderson M.D.; David Alcala M.D.~ For Patients: As a result of the Century Cures Act, medical imaging exams and procedure reports are released immediately into your electronic medical record. You may view this report before your referring provider. If you have questions, please contact your health care provider. INDICATION: Weakness, cough TECHNIQUE: Chest radiograph 1 view COMPARISON: 12/08/2022 FINDINGS: Mediastinum: The mediastinum is normal in appearance. The cardiac silhouette is at upper limits of normal in size. Lung: Ill-defined left perihilar ground-glass opacities are noted. The left lateral costophrenic sulcus is partially excluded. No pneumothorax is identified. Bone and Soft tissue: Unremarkable for age. IMPRESSION: 1. Ill-defined left perihilar ground-glass opacities are noted. Findings may be due to asymmetric pulmonary edema or atypical infection. Dictated by Kiel Chavez MD @ 06/02/2024 1:52:59 PM Dictated by: Kiel Chavez MD @ 06/02/2024 13:53:00 (Electronically Signed) Ordering Physician: Shavonne Henderson M.D. Date of Service: 06/02/24 Procedure(s): XR knee BI 1 or 2V Accession Number(s): [id number] cc: Shavonne Henderson M.D.; David Alcala M.D.~ For Patients: As a result of the Cures Act, medical imaging exams and procedure reports are released immediately into your electronic medical record. You may view this report before your referring provider. If you have questions, please contact your health care provider. INDICATION: Knee injury from Fall TECHNIQUE: Knee radiograph 4 views bilateral COMPARISON: None FINDINGS: Bone: No acute fractures or aggressive bone lesions are identified. Joint: The medial, lateral, and patellofemoral compartments are unremarkable. No significant knee effusion is seen. Soft tissue: Unremarkable. No radiopaque foreign bodies are seen. Severe vascular calcifications are noted bilaterallly with a metallic stent noted in the left popliteal artery. IMPRESSION: 1. No acute osseous injuries or abnormalities are noted. If there is concern for a patellar injury, assessment with sunrise view is recommended. Dictated by: Kiel Chavez MD @ 06/02/2024 14:39:49 (Electronically Signed) Ordering Physician: Shavonne Henderson M.D. Date of Service: 06/02/24 Procedure(s): XR great toe LT Accession Number(s): [id number] cc: Shavonne Henderson M.D.; David Alcala M.D.~ For Patients: As a result of the Cures Act, medical imaging exams and procedure reports are released immediately into your electronic medical record. You may view this report before your referring provider. If you have questions, please contact your health care provider. INDICATION: Toe Injury TECHNIQUE: Toe radiograph 3 views left COMPARISON: None FINDINGS: Bone: There is a transverse fracture at the base of the 1st distal phalanx. Minimal periostitis is present along the shaft of the 2nd proximal phalanx. 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 Soft tissue: Mild vascular calcifications are noted. No radiopaque foreign bodies are seen. IMPRESSION: 1. There is a transverse fracture at the base of the 1st distal phalanx. Dictated by Kiel Chavez MD @ 06/02/2024 2:38:02 PM Dictated by: Kiel Chavez MD @ 06/02/2024 14:38:16 (Electronically Signed) Ordering Physician: Shavonne Henderson M.D. Date of Service: 06/02/24 Procedure(s): CT chest abdomen pelv w con Accession Number(s): [id number] cc: Shavonne Henderson M.D.; David Alcala M.D.~ For Patients: As a result of the Cures Act, medical imaging exams and procedure reports are released immediately into your electronic medical record. You may view this report before your referring provider. If you have questions, please contact your health care provider. INDICATION: Sepsis TECHNIQUE: CT chest, abdomen and pelvis acquired with 76 mL Isovue 370 contrast. Multiplanar axial, coronal, and sagittal reformats are included. MIP images. COMPARISON: None. FINDINGS: CHEST: Cardiovascular structures: Heart size is normal. Thoracic aorta and main pulmonary artery are normal in caliber. Dense coronary artery calcification. Mediastinum and jacobo: No mass or adenopathy. Lungs and pleura: Bilateral patchy ground-glass opacities with interlobular septal thickening. Tree-in-bud opacities best seen in the right lower lobe findings likely infectious/inflammatory Chest wall and axilla: No mass or adenopathy. ABDOMEN AND PELVIS: Liver: fatty appearance to the liver. Gallbladder and bile ducts: Cholelithiasis Pancreas: Unremarkable. Spleen: Unremarkable. Adrenal glands: Unremarkable. Kidneys: Left renal cyst. Perinephric stranding urothelial thickening bilaterally no obstructing stones are seen. Punctate nonobstructing left renal calculus. GI tract: Unremarkable. Diverticulosis. Vascular structures: Dense atherosclerotic calcification of the abdominal aorta with ectasia measuring up to 2.7 centimeters. Left common iliac stent. Lymph nodes: Unremarkable. Miscellaneous: Small fat containing inguinal hernias. Pelvic Organs: Enlarged prostate gland. Bones: No suspicious bone lesions. Unremarkable for age. IMPRESSION: 1. Patchy ground-glass opacities bilaterally with interlobular septal thickening. Tree-in-bud opacities right lower lobe findings likely infectious/inflammatory. 2. Bilateral perinephric stranding with urothelial thickening correlate for UTI. Please note that all CT scans at this facility use dose modulation, iterative reconstruction, and/or weight-based dosing when appropriate to reduce radiation dose to as low as reasonably achievable. Dictated by Katherine Melendez MD @ 06/02/2024 3:43:19 PM (Electronically Signed) Assessment and Plan Assessment and plan (1) Sepsis: Problem comment: - Severe sepsis: HR>90, RR>20, elevated lactate, no hypotension - source: Influenza a infection and suspected bacterial pneumonia - elevated lactate resolved after appropriate 2 L fluid bolus given in emergency department. Patient has elevated proBNP, so I will not be giving any further bolus at this time unless there is a change in condition - blood cultures and urine culture obtained in the emergency department - zosyn started in ER, will continue this Status: Acute (2) Acute hypoxemic respiratory failure: Problem comment: - secondary to influenza a and pneumonia - treat with supplemental oxygen and treat underlying causes as below Status: Acute (3) Influenza A: Problem comment: - Start tamiflu, no renal adjustment needed Status: Acute (4) Pneumonia: Problem comment: - suspect this is bacterial on top of influenza, however could be a viral pneumonia - patient was septic upon presentation and is therefore being treated with IV antibiotics - continue Zosyn for pneumonia with sepsis as there is also concern for the possibility of urinary tract infection. If he does well, could be transition to ceftriaxone and azithromycin tomorrow Status: Acute (5) Acute respiratory alkalosis: Problem comment: - treat as above and recheck VBG in the morning Status: Acute (6) Type 2 NV (myocardial infarction): Problem comment: - demand ischemia, peak troponin was 0.26 - patient is already on Plavix and Eliquis, so I will not had aspirin. Patient already takes pravastatin, however I am holding this due to elevated liver function tests. Support blood pressure if needed and treat sepsis to improve cardiac demand Status: Acute (7) CAD (coronary artery disease): Problem comment: - 2003 PTCA - 2010 stent distal (LAD) - 2022 four stents to LAD at [facility] Status: Chronic (8) Hypokalemia: Problem comment: - 2.8 on admission, 2.9 on recheck after 1 dose of IV potassium - treat hypo magnesemia - monitor on telemetry - patient now able to take oral, we will switch to oral potassium replacement and recheck in the morning Status: Acute (9) Hypomagnesemia: Problem comment: - present on admission, likely contributed to weakness, resolved with IV replacement given in the emergency department Status: Resolved (10) Type 2 diabetes mellitus with peripheral angiopathy: Problem comment: 01/2024 HgbA1C 5.3 Continue Jardiance and glipizide, add mealtimei and evening Accu-Cheks along with insulin sliding scale Status: Chronic (11) Chronic alcohol use: Problem comment: - no history of withdrawal or seizure - start CIWA protocol - discussed heavy alcohol use and concern for elevated liver function test as possible sequela of alcohol use, , recommended abstinence, patient is not ready to think about alcohol cessation Status: Chronic (12) Tobacco use disorder: Problem comment: - 1 pack a day- for 30 years - discussed tobacco cessation, patient is in pre contemplation stage - since troponin is now trending downward, will start nicotine patch to try to prevent irritability and desire to leave AMA Status: Chronic (13) Elevated LFTs: Problem comment: - suspect from acute illness, demand ischemia, and alcohol use - hold pravastatin Status: Acute (14) Critical lower limb ischemia: Problem comment: - PCP note 02/12/24 He is currently not taking Xarelto and was instructed to consult his vascular specialist about the necessity of continuing both Xarelto and Plavix. - Dr. Espitia (vascular surgeon) note 03/23/24 I consider him high risk. continue with aggressive medical therapy including dual antiplatelet therapy and low-dose (PAD dose) Xarelto at 2.5 mg twice daily. - continue Xarelto and Plavix Status: Chronic Plan Additionally patient has abnormal urinalysis and perinephric stranding bilaterally on CT. Patient also has cholelithiasis and elevated LFTs and nausea. Patient has no urinary symptoms and is on Zosyn for sepsis and pn eumonia. Await urine culture. I do not think this patient has cholecystitis as there is no CT evidence of it and he does not have an elevated white count or right upper quadrant pain. I think nausea is explained by influenza a and elevated LFTs are likely secondary to alcohol use, also probably compounded by pravastatin use and possibly also related to demand ischemia. Monitor LFTs and consider further imaging with right upper quadrant ultrasound if these are getting worse or if right upper quadrant pain develops. Total Time Spent Total Time Spent: Time spent: Today I spent 75 minutes seeing the patient, discussing the patient with ER staff, reviewing Expanse and EPIC notes/diagnostics, discussing the care plan with our care team that includes social work, PT/OT, pharmacy, RT, long-term and documenting my impressions and plan in the medical record. MEDICAL NECESSITY FOR HOSPITALIZATION Anticipated midnights in the hospital: 2-3 Admitting diagnosis: Sepsis, influenza a infection, pneumonia, severe electrolyte abnormalities, demand ischemia, acute hypoxemic respiratory failure Risk of morbidity and mortality: high Acuity is characterized as high and reflected in: This patient has history of severe coronary artery disease with multiple interventions for such along with history of critical limb ischemia and now has demand ischemia in the setting of sepsis, acute hypoxemic respiratory failure due to influenza a and pneumonia. Patient also has history of type 2 diabetes, current ongoing alcohol use and tobacco use. These comorbidities specifically would increase the risk during treatment and potentially prolonged treatment length. This patient will require hospital services as outlined in the assessment and plan in order to stabilize and be safely discharged to a lower level of care. Because of the risk and acuity as described above, this patient cannot be managed at a lower level of care. LENGTH OF STAY: 2 IP ? Anticipated LOS>2 midnights due to acuity of clinical presentation requiring inpatient level of care
[2024-06-02 18:40] LABS: Chloride* 103 mmol/L (96-114); Sodium* 132 mmol/L (135-149)
[2024-06-02 18:43] LABS: Anion Gap 9 mEq/L (7-15); Carbon Dioxide* 20 mmol/L (20-32); Est. Creatinine Clearance* 75.05; Estimated Glomerular Filt Rate 86 ml/min
[2024-06-02 18:44] LABS: Blood Urea Nitrogen* 11 mg/dL (7-30); Calcium* 7.5 mg/dL (8.4-10.6); Glucose* 147 mg/dL (60-115)
[2024-06-02 18:51] LABS: Potassium* 2.9 mmol/L (3.6-5.1)
[2024-06-02 18:56] LABS: Troponin I* 0.14 ng/mL (0.01-0.04)
[2024-06-02] MEDS: THIAMINE 100 MG TABLET PO (20:02)
[2024-06-02] MEDS: POTASSIUM BICARB 25 MEQ EFFERVESCENT TAB PO ×2 (20:02→21:49)
[2024-06-02] MEDS: OSELTAMIVIR PHOSPHATE 75 MG CAPSULE PO (21:40)
[2024-06-02] MEDS: NICOTINE 21 MG PATCH 1 PATCH TRANSDERMA (21:40)
[2024-06-02] MEDS: FERROUS SULFATE 325 MG TABLET PO (21:40)
--- NOTE | 2024-06-02 23:44 | PC.NURSE ---
Pt arrived to floor at 1707, alert, oriented and vitally stable. Upon arrival, pt had dried feces on buttocks, thighs and urine soaked bedding. Staff cleaned pt using wipes, replaced brief, changed gown and bedding. Pt states no pain. Cough is productive per pt. Pt moves via 1-2a pivot, tolerates ok, does get wobbly after standing. Bilaterally knees have abrasions, are red and swollen. Left great toe is broken, lauren taped. Bruising on right side, ribs and hip. Pt in bed with alarms on, appears to be resting, call light within reach.
[2024-06-03] VITALS (14 sets, daily range): BP systolic 127–164; BP diastolic 79–105; PULSE 80–114; RESP 20–30; TEMP 36.2–37.7; O2SAT 90–93
[2024-06-03] MEDS: PIPERACILLIN/TAZOBACTAM 3.375 GM in 0.9 % SODIUM CHLORIDE Mini-bag 100 ML IVPB ×4 (02:32→20:36)
[2024-06-03 06:08] LABS: HCO3 VBG 25 mmol/L (21-28); Ionized Calcium* 1.05 mmol/L (1.11-1.30); PCO2 VBG 33 mmHG (40-50); PO2 VBG 40.6 mmHG (25-47); pH VBG 7.498 (7.32-7.43)
[2024-06-03 06:24] LABS: Hematocrit 36.2 % (37.0-53.0); Hemoglobin* 12.8 gm/dL (13.5-17.5); Immature Granulocytes Abs Auto 0.06 K/uL (0.00-0.30); Mean Corpuscular HGB Conc 35 gm/dL (32-36); Mean Corpuscular Hemoglobin 35 pg (26-34); Mean Corpuscular Volume 98 fL (80-100); Monocytes Percent Auto 6.8 % (0.0-11.0); Neutrophils Percent Auto 84.2 % (42.0-72.0); Platelet Count* 50 K/uL (140-440); RDW Coefficient of Variation % 14.1 % (11.5-15.5); Red Blood Count 3.71 m/uL (4.30-5.90); Slide Review Reflex No; White Blood Count* 6.22 K/uL (4.50-11.00)
[2024-06-03 06:29] LABS: Albumin* 2.7 g/dL (3.3-5.0); Chloride* 102 mmol/L (96-114)
[2024-06-03 06:30] LABS: Sodium* 133 mmol/L (135-149)
--- NOTE | 2024-06-03 06:30 | PC.NURSE ---
End of shift [id number]: alert, orientated and cooperative. VSS. scoring 0s on CIWAS. Incontinent of bowel and bladder. Pt had multiple incontinent liquid stools overnight. Pt reports ?i don?t have any control?. multiple bruises and scrapes noted all over pt?s body. RYAN knees scrapped up and open to air. Denies pain. Pt does not use call light appropriately and sets off bed alarm.
[2024-06-03 06:32] LABS: Bilirubin Total* 1.7 mg/dL (0.1-1.5); Creatinine* 0.8 mg/dL (0.5-1.5); Est. Creatinine Clearance* 74.65; Estimated Glomerular Filt Rate 101 ml/min
[2024-06-03 06:33] LABS: Alanine Aminotransferase* 79 U/L (4-50); Alkaline Phosphatase* 107 U/L (40-150); Anion Gap 7 mEq/L (7-15); Aspartate Amino Transferase* 395 U/L (12-35); Blood Urea Nitrogen* 14 mg/dL (7-30); Calcium* 7.5 mg/dL (8.4-10.6); Carbon Dioxide* 24 mmol/L (20-32); Glucose* 89 mg/dL (60-115); Magnesium* 1.9 mg/dL (1.5-2.6); Total Protein* 5.7 g/dL (6.0-8.3)
[2024-06-03 06:58] LABS: C Reactive Protein* 15.1 mg/dL (0.5-1.0); Troponin I* 0.07 ng/mL (0.01-0.04)
--- NOTE | 2024-06-03 08:14 | P.IMPN_ITS ---
Progress Note: A&P Assessment and plan (1) Sepsis: Problem details: - Severe sepsis: HR>90, RR>20, elevated lactate, no hypotension - source: Influenza a infection and suspected bacterial pneumonia - elevated lactate resolved after appropriate 2 L fluid bolus given in emergency department. Patient has elevated proBNP, so I will not be giving any further bolus at this time unless there is a change in condition - blood cultures and urine culture pending - zosyn started in ER, will continue this Status: Acute (2) Acute hypoxemic respiratory failure: Problem details: - secondary to influenza a and pneumonia - BNP 7740, echocardiogram pending - treat with supplemental oxygen and treat underlying causes as below Status: Acute (3) Acute respiratory alkalosis: Problem details: - treat as above - VBG pH 7.498, pCO2 33, PO2 40.6, HC03 25 Status: Acute (4) Influenza A: Problem details: - Start tamiflu, no renal adjustment needed Status: Acute (5) Pneumonia: Problem details: - suspect this is bacterial on top of influenza, procalcitonin 37, strep pneumo/Legionella ordered - patient was septic upon presentation and is therefore being treated with IV antibiotics - continue Zosyn with plan to transition to ceftriaxone and azithromycin pending culture results - Mucinex, incentive spirometry, aerobika Status: Acute (6) Type 2 FL (myocardial infarction): Problem details: - demand ischemia, peak troponin was 0.26 -> 0.07 - patient is already on Plavix and Eliquis, so I will not had aspirin. Patient already takes pravastatin, however I am holding this due to elevated liver function tests. Support blood pressure if needed and treat sepsis to improve cardiac demand Status: Acute (7) CAD (coronary artery disease): Problem details: - 2003 PTCA - 2010 stent distal (LAD) - 2022 four stents to LAD at [facility] Status: Chronic (8) Hypokalemia: Problem details: - 2.8 on admission, 2.9 on recheck -> 3.0 - treat hypo magnesemia - monitor on telemetry - continue oral replacement, monitoring Status: Acute (9) Hypomagnesemia: Problem details: - present on admission, likely contributed to weakness, resolved with IV replacement given in the emergency department - 1.1 ->2.0 -> 1.9 - second dose IV mag given comorbidities, ongoing respiratory distress Status: Resolved (10) Type 2 diabetes mellitus with peripheral angiopathy: Problem details: 01/2024 HgbA1C 5.3 Continue Jardiance and glipizide, add mealtimei and evening Accu-Cheks along with insulin sliding scale Status: Chronic (11) Chronic alcohol use: Problem details: - no history of withdrawal or seizure - [facility] protocol - discussed heavy alcohol use and concern for elevated liver function test as possible sequela of alcohol use, recommended abstinence, patient is not ready to think about alcohol cessation Status: Chronic (12) Tobacco use disorder: Problem details: - 1 pack a day- for 30 years - discussed tobacco cessation, has no plans to quit - since troponin is now trending downward, will start nicotine patch to try to prevent irritability and desire to leave AMA Status: Chronic (13) Elevated LFTs: Problem details: - suspect from acute illness, demand ischemia, and alcohol use - CT shows fatty liver - total bilirubin trending down, AST/ALT elevated, monitor - hold pravastatin - outpatient follow-up with GI Status: Acute (14) Critical lower limb ischemia: Problem details: - PCP note 02/12/24 He is currently not taking Xarelto and was instructed to consult his vascular specialist about the necessity of continuing both Xarelto and Plavix. - Dr. Espitia (vascular surgeon) note 03/23/24 I consider him high risk. continue with aggressive medical therapy including dual antiplatelet therapy and low-dose (PAD dose) Xarelto at 2.5 mg twice daily. - continue Xarelto and Plavix Status: Chronic (15) Thrombocytopenia: Problem details: -acute on chronic, currently 50, likely in setting of chronic alcohol use, chronic anticoagulation -continue Xarelto for now -monitor Status: Acute (16) Bacteriuria: Problem details: -UA clear, nitrites and LE negative, WBC 2-5, moderate bacteria -CT shows Bilateral perinephric stranding with urothelial thickening correlate for UTI -UC pending, covered with antibiotics for now Status: Acute Time Spent With Patient Total time spent: Total time spent caring for the patient today was 45 minutes. This includes time spent for the visit reviewing the chart, time spent during the visit, time spent after the visit and documentation and planning in coordination of care. Subjective Date Seen: 06/03/24 Interval history: Patient is seen with at bedside. Reports feeling better than on admission. Did not sleep well so is still tired. Thinks his breathing is improving however remains tachypneic. Has had a dry and a productive cough. Denies chest pain. Has remained afebrile. Mild intermittent nausea without vomiting. Tolerating foods but oral medications make him nauseous. CIWA scores overnight 0. Noted to be mildly tremulous this morning. Electrolytes slowly improving. Exam Narrative: Exam Narrative: PHYSICAL EXAM General: Pleasant, conversant, NAD HEENT: Normocephalic, atraumatic, sclera white, EOMI, oral mucosa moist Cardiovascular: Mildly irregular. No pitting edema Pulmonary: Diffusely diminished, no expiratory wheezes, mild dyspnea Neurological: Alert, answering questions appropriately, cranial nerves intact, no focal findings Extremities: No gross joint deformity or swelling. AROMI. Neurovascularly intact Skin: Warm, dry. Const: Vital Signs, click to edit/add: Vital Signs - 24 hr 06/02/24 13:08 06/02/24 13:09 06/02/24 13:09 Temperature 99.7 F H Pulse Rate 108 H 108 H Pulse Rate [Pulse Oximeter] 110 H Respiratory Rate 30 H Blood Pressure 121/76 Blood Pressure [Le ft Arm] Blood Pressure [Le ft Upper Arm] 121/76 Pulse Oximetry 93 95 [facility] 06/02/24 13:15 06/02/24 13:29 06/02/24 13:30 Temperature Pulse Rate 114 H 107 H Pulse Rate [Pulse Oximeter] Respiratory Rate Blood Pressure Blood Pressure [Le ft Arm] Blood Pressure [Le ft Upper Arm] Pulse Oximetry 93 89 92 Oxygen Delivery Me thod 06/02/24 13:32 06/02/24 13:45 06/02/24 14:00 Temperature Pulse Rate 113 H 106 H 110 H Pulse Rate [Pulse Oximeter] Respiratory Rate 32 H Blood Pressure 137/74 Blood Pressure [Le ft Arm] Blood Pressure [Le ft Upper Arm] Pulse Oximetry 93 94 94 [facility] 06/02/24 14:02 06/02/24 14:15 06/02/24 14:30 Temperature Pulse Rate 108 H 106 H 106 H Pulse Rate [Pulse Oximeter] Respiratory Rate 32 H Blood Pressure 130/93 H Blood Pressure [Le ft Arm] Blood Pressure [Le ft Upper Arm] Pulse Oximetry 93 93 91 [facility] 06/02/24 14:32 06/02/24 14:45 06/02/24 15:08 Temperature Pulse Rate 104 H 103 H 105 H Pulse Rate [Pulse Oximeter] Respiratory Rate 32 H Blood Pressure 137/86 Blood Pressure [Le ft Arm] Blood Pressure [Le ft Upper Arm] Pulse Oximetry 91 90 94 [facility] 06/02/24 15:10 06/02/24 15:15 06/02/24 15:30 Temperature Pulse Rate 102 H 101 H 103 H Pulse Rate [Pulse Oximeter] Respiratory Rate 32 H Blood Pressure 135/105 H Blood Pressure [Le ft Arm] Blood Pressure [Le ft Upper Arm] Pulse Oximetry 94 94 92 [facility] 06/02/24 15:32 06/02/24 15:45 06/02/24 16:00 Temperature Pulse Rate 102 H 98 98 Pulse Rate [Pulse Oximeter] Respiratory Rate 32 H Blood Pressure 157/92 H Blood Pressure [Le ft Arm] Blood Pressure [Le ft Upper Arm] Pulse Oximetry 91 91 91 Oxygen Delivery [facility] Room Air 06/02/24 16:02 06/02/24 16:15 06/02/24 16:30 Temperature Pulse Rate 100 99 107 H Pulse Rate [Pulse Oximeter] Respiratory Rate 32 H Blood Pressure 148/77 H Blood Pressure [Le ft Arm] Blood Pressure [Le ft Upper Arm] Pulse Oximetry 91 89 87 L [facility] 06/02/24 16:45 06/02/24 17:07 06/02/24 17:07 Temperature 98.5 F Pulse Rate 97 Pulse Rate [Pulse Oximeter] 95 Respiratory Rate 34 H 34 H Blood Pressure Blood Pressure [Le ft Arm] 153/96 H Blood Pressure [Le ft Upper Arm] Pulse Oximetry 87 L 94 94 Oxygen Delivery [facility] Room Air Room Air 06/02/24 17:35 06/02/24 17:35 06/02/24 17:42 Temperature 98.5 F Pulse Rate 84 Pulse Rate [Pulse Oximeter] 95 Respiratory Rate 34 H Blood Pressure Blood Pressure [Le ft Arm] 153/96 H Blood Pressure [Le ft Upper Arm] Pulse Oximetry 94 94 Oxygen Delivery [facility] Room Air 06/02/24 19:00 06/02/24 23:30 06/02/24 23:31 Temperature 98.5 F 98.4 F 98.4 F Pulse Rate Pulse Rate [Pulse Oximeter] 95 82 82 Respiratory Rate 34 H 20 20 Blood Pressure Blood Pressure [Le ft Arm] 153/96 H 119/72 119/72 Blood Pressure [Le ft Upper Arm] Pulse Oximetry 94 93 93 Oxygen Delivery Me thod Room Air Room Air Room Air 06/03/24 00:23 06/03/24 00:36 06/03/24 03:08 Temperature 98.4 F Pulse Rate 86 Pulse Rate [Pulse Oximeter] 81 Respiratory Rate 20 30 H Blood Pressure Blood Pressure [Le ft Arm] 134/79 Blood Pressure [Le ft Upper Arm] Pulse Oximetry 93 91 Oxygen Delivery Me thod Room Air Room Air 06/03/24 03:09 06/03/24 07:46 Temperature 98.4 F Pulse Rate 82 Pulse Rate [Pulse Oximeter] 81 Respiratory Rate 30 H Blood Pressure Blood Pressure [Le ft Arm] 134/79 Blood Pressure [Le ft Upper Arm] Pulse Oximetry 91 Oxygen Delivery Me thod Room Air Labs Labs: Laboratory Results - last 24 hr 06/02/24 06/02/24 06/02/24 13:35 13:50 15:25 WBC 8.39 RBC 4.01 L Hgb 14.2 Hct 38.7 MCV 97 MCH 35 H MCHC 37 H RDW Coeff of [place] 13.9 Plt Count 56 L Neut % (Auto) 87.1 H Lymph % (Auto) 2.6 L [place] % (Auto) 9.7 Eos % (Auto) 0.0 Baso % (Auto) 0.1 Neut # (Auto) 7.30 H Lymph # (Auto) 0.20 L [place] # (Auto) 0.80 Eos # (Auto) 0.00 Baso # (Auto) 0.01 Abs Immat Gran (auto) 0.04 Imm/Tot Granulo (auto) 0.5 VBG pH 7.505 H VBG pCO2 28 L VBG pO2 51.5 H VBG HCO3 22 Sodium 129 L Potassium 2.8 L* Chloride 97 Carbon Dioxide 20 Anion Gap 12 BUN 11 Creatinine 1.1 Estimated Creat Clear 68.23 Estimated GFR 76 Glucose 146 H Lactate 3.5 H Calcium 7.6 L Ionized Calcium [place] Magnesium 1.1 L Total Bilirubin 2.2 H Direct Bilirubin 1.2 H AST 354 H ALT 56 H Alkaline Phosphatase 132 Troponin I C-Reactive Protein 5.5 H NT-Pro-B Natriuret Pep 7740 Total Protein 6.5 Albumin 3.2 L Procalcitonin 37.30 H Urine Color Yellow Urine Appearance Clear Urine pH 6.0 Ur Specific [place] 1.015 Urine Protein 3+ A Urine Glucose (UA) 1+ A Urine Ketones Negative Urine Blood 3+ A Urine Nitrite Negative Urine Bilirubin 1+ A Urine Urobilinogen 0.2 Ur Leukocyte Esterase Negative Urine RBC 10-25 A Urine WBC 2-5 Ur Squamous Epith Cells None Other Sediment Moderate A Urine Bacteria Moderate A Coarse Granular Casts Moderate A Urine Yeast Few A Ethyl Alcohol < 0.01 L SARS-CoV-2 (PCR) Negative SARS-CoV-2 Influenza Type A (PCR) POSITIVE PCR FLU A A Influenza Type B (PCR) Negative PCR FLU B RSV (PCR) Negative PCR RSV POC Troponin I 0.15 H 06/02/24 06/02/24 06/02/24 15:45 15:46 18:14 WBC RBC Hgb Hct MCV MCH MCHC RDW Coeff of [place] Plt Count Neut % (Auto) Lymph % (Auto) [place] % (Auto) Eos % (Auto) Baso % (Auto) Neut # (Auto) Lymph # (Auto) [place] # (Auto) Eos # (Auto) Baso # (Auto) Abs Immat Gran (auto) Imm/Tot Granulo (auto) VBG pH VBG pCO2 VBG pO2 VBG HCO3 Sodium 132 L Potassium 2.9 L* Chloride 103 Carbon Dioxide 20 Anion Gap 9 BUN 11 Creatinine 1.0 Estimated Creat Clear 75.05 Estimated GFR 86 Glucose 147 H Lactate 1.8 Calcium 7.5 L Ionized Calcium Mal[place] Magnesium 2.0 Total Bilirubin Direct Bilirubin AST ALT Alkaline Phosphatase Troponin I 0.14 H* C-Reactive Protein NT-Pro-B Natriuret Pep Total Protein Albumin Procalcitonin Urine Color Urine Appearance Urine pH Ur Specific [place] Urine Protein Urine Glucose (UA) Urine Ketones Urine Blood Urine Nitrite Urine Bilirubin Urine Urobilinogen Ur Leukocyte Esterase Urine RBC Urine WBC Ur Squamous Epith Cells Other Sediment Urine Bacteria Coarse Granular Casts Urine Yeast Ethyl Alcohol SARS-CoV-2 (PCR) Influenza Type A (PCR) Influenza Type B (PCR) RSV (PCR) POC Troponin I 0.26 H 06/03/24 05:54 WBC 6.22 RBC 3.71 L Hgb 12.8 L Hct 36.2 L MCV 98 MCH 35 H MCHC 35 RDW Coeff of [place] 14.1 Plt Count 50 L Neut % (Auto) 84.2 H Lymph % (Auto) 8.0 L [place] % (Auto) 6.8 Eos % (Auto) 0.0 Baso % (Auto) 0.0 Neut # (Auto) 5.20 Lymph # (Auto) 0.50 L [place] # (Auto) 0.40 Eos # (Auto) 0.00 Baso # (Auto) 0.00 Abs Immat Gran (auto) 0.06 Imm/Tot Granulo (auto) 1.0 VBG pH 7.498 H VBG pCO2 33 L VBG pO2 40.6 VBG HCO3 25 Sodium 133 L Potassium 3.0 L Chloride 102 Carbon Dioxide 24 Anion Gap 7 BUN 14 Creatinine 0.8 Estimated Creat Clear 74.65 Estimated GFR 101 Glucose 89 Lactate Calcium 7.5 L Ionized Calcium Mal[place] 1.05 L Magnesium 1.9 Total Bilirubin 1.7 H Direct Bilirubin AST 395 H ALT 79 H Alkaline Phosphatase 107 Troponin I 0.07 H* C-Reactive Protein 15.1 H NT-Pro-B Natriuret Pep Total Protein 5.7 L Albumin 2.7 L Procalcitonin Urine Color Urine Appearance Urine pH Ur Specific [place] Urine Protein Urine Glucose (UA) Urine Ketones Urine Blood Urine Nitrite Urine Bilirubin Urine Urobilinogen Ur Leukocyte Esterase Urine RBC Urine WBC Ur Squamous Epith Cells Other Sediment Urine Bacteria Coarse Granular Casts Urine Yeast Ethyl Alcohol SARS-CoV-2 (PCR) Influenza Type A (PCR) Influenza Type B (PCR) RSV (PCR) POC Troponin I
[2024-06-03] MEDS: lisinopriL 20 MG TABLET PO (08:27)
[2024-06-03] MEDS: FOLIC ACID 1 MG TABLET PO (08:27)
[2024-06-03] MEDS: glipiZIDE XL 5 MG TAB 10 MG PO (08:27)
[2024-06-03] MEDS: OMEPRAZOLE 20 MG CAPSULE DR PO (08:27)
[2024-06-03] MEDS: THIAMINE 100 MG TABLET PO (08:27)
[2024-06-03] MEDS: EMPAGLIFLOZIN 10 MG TABLET PO (08:28)
[2024-06-03] MEDS: SODIUM CHLORIDE 0.9 % (FLUSH) 10 ML SYRINGE 5 ML IVF ×2 (08:28→20:36)
[2024-06-03] MEDS: OSELTAMIVIR PHOSPHATE 75 MG CAPSULE PO ×2 (08:28→20:35)
[2024-06-03] MEDS: CLOPIDOGREL 75 MG TABLET PO (08:28)
[2024-06-03] MEDS: MAGNESIUM IV 2 GM/50 ML PIGGYBACK IVPB (10:03)
[2024-06-03 11:35] LABS: Legionella pneumo Ag Urine L. pneumo Negative (Negative); S pneumo Ag Urine S. pneumo Negative (Negative)
[2024-06-03] MEDS: guaiFENesin 600 MG TAB.ER.12H PO ×2 (11:49→20:35)
[2024-06-03] MEDS: FUROSEMIDE 10 MG/ML inj 40 MG IVP (11:49)
--- NOTE | 2024-06-03 14:12 | NUTR.NU ---
RDN with diet education related to current diet order. Patient admitted for influenza A positive, pneumonia, and sepsis. Past medical history includes but not limited to coronary artery disease, hypertension, hyperlipidemia, type 2 diabetes mellitus, tobacco use disorder, and GERD. Current weight 150lb; height 5ft 8in; BMI 22.8 kg/m2. Per patient, weight has been stable recently. Current diet order is Heart Healthy. Meal intakes of 25% and 85% since admit. RDN visited with patient whom reports his appetite is improving. He was offered diet education related to heart healthy diet, however he declined at this time. RDN will continue to monitor and follow-up prn.
--- NOTE | 2024-06-03 19:40 | PC.NURSE ---
End of shift [id number] - Pt alert, oriented, agreeable. Appears easily agitated, but calms quickly with conversation. Stated to RN that he would prefer to be home and not in the hospital. Pt up with x2 assist at start of shift, PT encouraged use of walker and pt transitioned to assist of x1 with walker/gait belt. Pt needed frequent reminders about using the call light for ambulation, pt largely non-receptive to education. Able to stand at bedside and use urinal independently at start of shift, experienced episode of decreased ability to manage bedside urinal during shift. No other cognitive or behavioral changes noted at that time. Pt appeared to regain independence with bedside urinal and became receptive to staff assistance for ambulating to bathroom at end of shift. Tolerating RA and regular diet. Denied pain, SOB, n/v. Family at bedside during shift. Appears to be resting comfortably at end of shift with call light within reach.
[2024-06-03 20:14] LABS: CDIFFEPI 027 PRESUMPTIVE NEGATIVE (Negative)
[2024-06-03] MEDS: NICOTINE 21 MG PATCH 1 PATCH TRANSDERMA (20:37)
[2024-06-03 20:42] LABS: C.Difficile POSITIVE (Negative)
--- NOTE | 2024-06-03 22:50 | PC.NURSE ---
End of shift [id number]: Pt AxOx4, cooperative, and pleasant. Scored 0 on CIWA. A1 GB W. Bed alarm in place due to impulsivity. Pt denies pain/SOB/nausea. Tolerating RA well. Pt appears resting watching television with call light in reach. ?
[2024-06-03] MEDS: ACETAMINOPHEN 500 MG TABLET PO (23:20)
[2024-06-04] VITALS (23 sets, daily range): BP systolic 105–153; BP diastolic 60–93; PULSE 81–105; RESP 24–50; TEMP 36.3–37.7; O2SAT 90–97
[2024-06-04] MEDS: PIPERACILLIN/TAZOBACTAM 3.375 GM in 0.9 % SODIUM CHLORIDE Mini-bag 100 ML IVPB ×4 (02:24→20:42)
[2024-06-04] MEDS: SODIUM CHLORIDE 0.9 % (FLUSH) 10 ML SYRINGE 5 ML IVF ×6 (03:16→22:29)
[2024-06-04] MEDS: LORazepam 2 MG/ML inj IVP ×9 (03:17→22:29)
[2024-06-04 07:09] LABS: HCO3 VBG 25 mmol/L (21-28); PCO2 VBG 32 mmHG (40-50); PO2 VBG 55.2 mmHG (25-47); pH VBG 7.505 (7.32-7.43)
[2024-06-04 07:12] LABS: Hematocrit 37.8 % (37.0-53.0); Hemoglobin* 13.5 gm/dL (13.5-17.5); Mean Corpuscular HGB Conc 36 gm/dL (32-36); Mean Corpuscular Hemoglobin 35 pg (26-34); Mean Corpuscular Volume 97 fL (80-100); White Blood Count* 5.41 K/uL (4.50-11.00)
--- NOTE | 2024-06-04 07:26 | PC.NURSE ---
Addendum entered by Maria Esther Chauhan 06/04/24 07:50: around 0715 pt started trying to get out of bed again, and was disoriented, CIWA scored 13, PRN Adivan given. Original Note: End of shift note [id number]: Pt was alert and oriented x3 at beginning of shift, around 0250 pt started to become restless and anxious. Got pt up A1 with walker to recliner which helped but then 15-20 mins later pt started fidgeting with tele, phone and items on pt?s table and setting off chair alarm, was confused and had garbled/incoherent speech?per CIWA protocol scoring 9-13 PRN Adivan was given x2 throughout shift. Pt is currently back in bed, when transferring pt from recliner back to bed pt gait was unsteady and pt had difficulties following directions required A2. Pt had minimal output overnight, updated MD Llamas and on coming RN. going to order IV fluids.
[2024-06-04 07:29] LABS: Chloride* 99 mmol/L (96-114)
[2024-06-04 07:30] LABS: Sodium* 132 mmol/L (135-149)
[2024-06-04 07:32] LABS: Alkaline Phosphatase* 118 U/L (40-150); Anion Gap 9 mEq/L (7-15); Aspartate Amino Transferase* 342 U/L (12-35); Bilirubin Direct* 1.3 mg/dL (0.0-0.5); Carbon Dioxide* 24 mmol/L (20-32); Creatinine* 0.8 mg/dL (0.5-1.5); Estimated Glomerular Filt Rate 101 ml/min; Total Protein* 6.4 g/dL (6.0-8.3)
[2024-06-04 07:33] LABS: Alanine Aminotransferase* 93 U/L (4-50); Blood Urea Nitrogen* 13 mg/dL (7-30); Calcium* 7.9 mg/dL (8.4-10.6); Glucose* 55 mg/dL (60-115)
[2024-06-04 07:43] LABS: Platelet Count* 48 K/uL (140-440); Slide Review Reflex Yes
[2024-06-04 08:04] LABS: C Reactive Protein* 15.4 mg/dL (0.5-1.0)
[2024-06-04] MEDS: POTASSIUM CHLORIDE 10 MEQ CAPSULE ER 60 MEQ PO (09:02)
[2024-06-04] MEDS: FOLIC ACID 1 MG TABLET PO (09:07)
[2024-06-04] MEDS: guaiFENesin 600 MG TAB.ER.12H PO ×2 (09:07→20:42)
[2024-06-04] MEDS: glipiZIDE XL 5 MG TAB 10 MG PO (09:07)
[2024-06-04] MEDS: MULTIVITAMIN/MINERALS 1 TABLET 1 TAB PO (09:07)
[2024-06-04] MEDS: OSELTAMIVIR PHOSPHATE 75 MG CAPSULE PO ×2 (09:07→20:43)
[2024-06-04] MEDS: THIAMINE 100 MG TABLET PO (09:07)
[2024-06-04] MEDS: CLOPIDOGREL 75 MG TABLET PO (09:08)
[2024-06-04] MEDS: OMEPRAZOLE 20 MG CAPSULE DR PO (09:08)
[2024-06-04] MEDS: lisinopriL 20 MG TABLET PO (09:08)
[2024-06-04] MEDS: EMPAGLIFLOZIN 10 MG TABLET PO (09:08)
[2024-06-04 09:20] LABS: Slide Review Acceptable Review (Acceptable)
[2024-06-04] MEDS: POTASSIUM CHLORIDE 10 MEQ CAPSULE ER 40 MEQ PO ×2 (10:17→17:29)
[2024-06-04] MEDS: VANCOMYCIN 125 MG CAPSULE PO ×4 (10:19→20:43)
[2024-06-04] MEDS: 0.9 % SODIUM CHLORIDE 500 ML 500 ML IV (13:11)
--- NOTE | 2024-06-04 13:21 | P.IMPN_ITS ---
Progress Note: A&P Assessment and plan (1) Sepsis: Problem details: - Severe sepsis: HR>90, RR>20, elevated lactate, no hypotension - source: Influenza a infection and suspected bacterial pneumonia - elevated lactate resolved after appropriate 2 L fluid bolus given in emergency department. Patient has elevated proBNP, so I will not be giving any further bolus at this time unless there is a change in condition - blood cultures and urine culture pending - zosyn started in ER, will continue this Status: Acute (2) Acute hypoxemic respiratory failure: Problem details: - secondary to influenza a and pneumonia - BNP 7740, echocardiogram pending - treat with supplemental oxygen and treat underlying causes as below Status: Acute (3) Influenza A: Problem details: - Start tamiflu, no renal adjustment needed Status: Acute (4) Pneumonia: Problem details: - suspect this is bacterial on top of influenza, procalcitonin 37, strep pneumo/Legionella ordered - patient was septic upon presentation and is therefore being treated with IV antibiotics - continue Zosyn with plan to transition to ceftriaxone and azithromycin pending culture results - Mucinex, incentive spirometry, aerobika Status: Acute (5) C. difficile diarrhea: Problem details: +ve C diff Started PO vanco 125 QID on 06/04. Status: Acute (6) Acute respiratory alkalosis: Problem details: - treat as above - VBG pH 7.498, pCO2 33, PO2 40.6, HC03 25 Status: Acute (7) Type 2 WV (myocardial infarction): Problem details: - demand ischemia, peak troponin was 0.26 -> 0.07 - patient is already on Plavix and Eliquis, so I will not had aspirin. Patient already takes pravastatin, however I am holding this due to elevated liver function tests. Support blood pressure if needed and treat sepsis to improve cardiac demand Status: Acute (8) CAD (coronary artery disease): Problem details: - 2003 PTCA - 2011 stent distal (LAD) - 2022 four stents to LAD at [facility] Status: Chronic (9) Hypokalemia: Problem details: - 2.8 on admission, 2.9 on recheck -> 3.0 - treat hypo magnesemia - monitor on telemetry - continue oral replacement, monitoring Status: Acute (10) Hypomagnesemia: Problem details: - present on admission, likely contributed to weakness, resolved with IV replacement given in the emergency department - 1.1 ->2.0 -> 1.9 - second dose IV mag given comorbidities, ongoing respiratory distress Status: Resolved (11) Type 2 diabetes mellitus with peripheral angiopathy: Problem details: 01/2024 HgbA1C 5.3 Continue Jardiance and glipizide, add mealtimei and evening Accu-Cheks along with insulin sliding scale Status: Chronic (12) Chronic alcohol use: Problem details: - no history of withdrawal or seizure - [facility] protocol - discussed heavy alcohol use and concern for elevated liver function test as possible sequela of alcohol use, recommended abstinence, patient is not ready to think about alcohol cessation Status: Chronic (13) Tobacco use disorder: Problem details: - 1 pack a day- for 30 years - discussed tobacco cessation, has no plans to quit - since troponin is now trending downward, will start nicotine patch to try to prevent irritability and desire to leave AMA Status: Chronic (14) Elevated LFTs: Problem details: - suspect from acute illness, demand ischemia, and alcohol use - CT shows fatty liver - total bilirubin trending down, AST/ALT elevated, monitor - hold pravastatin - outpatient follow-up with GI Status: Acute (15) Critical lower limb ischemia: Problem details: - PCP note 02/12/24 He is currently not taking Xarelto and was instructed to consult his vascular specialist about the necessity of continuing both Xarelto and Plavix. - Dr. Espitia (vascular surgeon) note 03/23/24 I consider him high risk. continue with aggressive medical therapy including dual antiplatelet therapy and low-dose (PAD dose) Xarelto at 2.5 mg twice daily. - continue Xarelto and Plavix Status: Chronic (16) Thrombocytopenia: Problem details: -acute on chronic, currently 50, likely in setting of chronic alcohol use, chronic anticoagulation -continue Xarelto for now -monitor Status: Acute (17) Bacteriuria: Problem details: -UA clear, nitrites and LE negative, WBC 2-5, moderate bacteria -CT shows Bilateral perinephric stranding with urothelial thickening correlate for UTI -UC pending, covered with antibiotics for now Status: Acute Time Spent With Patient Total time spent: Today I spent 50 minutes seeing the patient, reviewing Expanse and EPIC notes/diagnostics, discussing the care plan with our care time that includes social work, PT/OT, pharmacy, RT, chcf and documenting my impressions and plan in the medical record. Subjective Date Seen: 06/04/24 Interval history: Patient is seen with at bedside. Pt has been agitated overnight w/ high CIWA scores: 9, 13 and is having alcohol withdrawals, ativan given. C diff +ve All questions answered. Exam Narrative: Exam Narrative: Physical exam GENERAL: sleepy (took ativan), no acute distress. HEAD AND NECK: Atraumatic, normocephalic CARDIOVASCULAR: RRR. Normal S1, S2. No murmurs. RESPIRATORY: Clear to auscultation B/L. Good air entry B/L. GASTROINTESTINAL: Not distended, not tender to palpation. Const: Vital Signs, click to edit/add: Vital Signs - 24 hr 06/03/24 17:25 06/03/24 17:25 06/03/24 17:25 Temperature Pulse Rate 114 H Pulse Rate [Pulse Oximeter] 86 Respiratory Rate 28 H 28 H Blood Pressure [Le ft Arm] 127/100 H Pulse Oximetry 91 91 Oxygen Delivery De thod Room Air Room Air 06/03/24 19:00 06/03/24 19:40 06/03/24 23:15 Temperature 97.2 F L 99.8 F H Pulse Rate Pulse Rate [Pulse Oximeter] 94 99 Respiratory Rate 22 26 H Blood Pressure [Le ft Arm] 136/99 H 150/90 H Pulse Oximetry 93 92 90 Oxygen Delivery De thod Room Air Room Air 06/03/24 23:20 06/03/24 23:20 06/03/24 23:20 Temperature 99.8 F H 99.8 F H Pulse Rate 97 Pulse Rate [Pulse Oximeter] 99 Respiratory Rate 26 H Blood Pressure [Le ft Arm] 150/90 H Pulse Oximetry 90 Oxygen Delivery De thod Room Air 06/03/24 23:20 06/03/24 23:20 06/04/24 02:25 Temperature 97.6 F Pulse Rate Pulse Rate [Pulse Oximeter] 99 Respiratory Rate 26 H 26 H Blood Pressure [Le ft Arm] Pulse Oximetry 90 Oxygen Delivery De thod Room Air 06/04/24 02:48 06/04/24 02:48 06/04/24 03:55 Temperature 97.6 F 97.6 F 97.7 F Pulse Rate Pulse Rate [Pulse Oximeter] 97 97 86 Respiratory Rate 24 24 28 H Blood Pressure [Le ft Arm] 131/82 131/82 127/77 Pulse Oximetry 93 93 93 Oxygen Delivery Me thod Room Air Room Air Room Air 06/04/24 05:05 06/04/24 06:10 06/04/24 06:59 Temperature 97.7 F Pulse Rate Pulse Rate [Pulse Oximeter] 89 81 Respiratory Rate 24 26 H 30 H Blood Pressure [Le ft Arm] 130/60 Pulse Oximetry 92 Oxygen Delivery Me thod 06/04/24 07:00 06/04/24 07:00 06/04/24 08:52 Temperature 97.8 F Pulse Rate Pulse Rate [Pulse Oximeter] 100 100 Respiratory Rate 30 H 30 H 30 H Blood Pressure [Le ft Arm] 147/88 H Pulse Oximetry 93 97 Oxygen Delivery Me od Room Air Room Air 06/04/24 09:00 06/04/24 10:00 06/04/24 10:07 Temperature 97.4 F L 97.4 F L 97.4 F L Pulse Rate Pulse Rate [Pulse Oximeter] 98 98 98 Respiratory Rate 24 24 25 H Blood Pressure [Le ft Arm] 131/77 131/77 131/77 Pulse Oximetry 92 92 92 [facility] Room [facility] Room Air 06/04/24 11:00 06/04/24 12:00 06/04/24 13:00 Temperature 99.6 F 97.8 F 97.8 F Pulse Rate Pulse Rate [Pulse Oximeter] 104 H 105 H 105 H Respiratory Rate 30 H 30 H 30 H Blood Pressure [Le ft Arm] 146/79 H 153/93 H 153/93 H Pulse Oximetry 91 92 92 Oxygen Delivery Me thod Room Air Room Air Room Air Labs Labs: Laboratory Results - last 24 hr 06/03/24 06/04/24 Unknown 07:03 WBC 5.41 RBC 3.90 L Hgb 13.5 Hct 37.8 MCV 97 MCH 35 H MCHC 36 Plt Count 48 L* Diff Slide Review Acceptable Review VBG pH 7.505 H VBG pCO2 32 L VBG pO2 55.2 H VBG HCO3 25 Sodium 132 L Potassium Chloride 99 Carbon Dioxide 24 Anion Gap 9 BUN 13 Creatinine 0.8 Estimated Creat Clear 70.70 Estimated GFR 101 Glucose 55 L Calcium 7.9 L Magnesium 2.0 Total Bilirubin 2.0 H Direct Bilirubin 1.3 H AST 342 H ALT 93 H Alkaline Phosphatase 118 C-Reactive Protein 15.4 H Total Protein 6.4 Albumin 3.0 L Procalcitonin 42.30 H Stl C. diff Tox B Gene POSITIVE A* Stl C. diff [id number] PRESUMPTIVE NEGATIVE
[2024-06-04 16:48] LABS: INR 1.02 (0.91-1.10)
[2024-06-04 16:49] LABS: Potassium* 3.1 mmol/L (3.6-5.1)
--- NOTE | 2024-06-04 18:49 | PC.NURSE ---
Ciwa's done Q1. PRN Ativan administered w/relief. See eMAR. Patient unable to be awake to eat, when awake has no interest in food. BG completed, sliding scale used, no insulin administered. Patient up to chair and commode throughout shift. Patient had 1 large loose BM, incont. and brief changed throughout shift.
[2024-06-04] MEDS: DEXTROSE 50 % SYRINGE IVP (19:37)
[2024-06-04] MEDS: FERROUS SULFATE 325 MG TABLET PO (20:42)
[2024-06-04] MEDS: NICOTINE 21 MG PATCH 1 PATCH TRANSDERMA (20:44)
[2024-06-05] VITALS (28 sets, daily range): BP systolic 120–156; BP diastolic 69–101; PULSE 80–106; RESP 30–52; TEMP 36.3–37.3; O2SAT 88–96
[2024-06-05] MEDS: DEXTROSE 50 % SYRINGE IVP (00:11)
[2024-06-05 00:18] LABS: HCO3 VBG 26 mmol/L (21-28); Ionized Calcium* 1.08 mmol/L (1.11-1.30); PCO2 VBG 33 mmHG (40-50); pH VBG 7.497 (7.32-7.43)
[2024-06-05 00:43] LABS: Albumin* 2.8 g/dL (3.3-5.0)
[2024-06-05 00:44] LABS: Chloride* 107 mmol/L (96-114); Potassium* 3.3 mmol/L (3.6-5.1); Sodium* 135 mmol/L (135-149)
[2024-06-05 00:46] LABS: Alkaline Phosphatase* 119 U/L (40-150); Anion Gap 3 mEq/L (7-15); Aspartate Amino Transferase* 249 U/L (12-35); Blood Urea Nitrogen* 11 mg/dL (7-30); Carbon Dioxide* 25 mmol/L (20-32); Creatinine* 0.8 mg/dL (0.5-1.5); Estimated Glomerular Filt Rate 101 ml/min; Total Protein* 6.1 g/dL (6.0-8.3)
[2024-06-05 00:47] LABS: Alanine Aminotransferase* 81 U/L (4-50); Calcium* 8.1 mg/dL (8.4-10.6); Glucose* 53 mg/dL (60-115)
[2024-06-05] MEDS: 5 % DEXTROSE IN LAC RINGER'S 1,000 ML 125 ML IV ×3 (00:51→10:30)
[2024-06-05] MEDS: LORazepam 2 MG/ML inj IVP ×5 (01:23→10:26)
[2024-06-05] MEDS: CALCIUM GLUC 1,000MG/50 ML 1,000 MG/50 ML BAG 100 MG IVPB ×2 (01:59→10:26)
[2024-06-05] MEDS: PIPERACILLIN/TAZOBACTAM 3.375 GM in 0.9 % SODIUM CHLORIDE Mini-bag 100 ML IVPB ×4 (02:44→21:18)
[2024-06-05] MEDS: SODIUM CHLORIDE 0.9 % (FLUSH) 10 ML SYRINGE 5 ML IVF ×3 (02:44→08:27)
[2024-06-05] MEDS: VANCOMYCIN 1.25 GM/250 ML 1.25 GM/250 ML PIGGYBACK IVPB (03:55)
[2024-06-05 06:46] LABS: Ionized Calcium* 1.09 mmol/L (1.11-1.30)
[2024-06-05 07:03] LABS: Mean Corpuscular HGB Conc 34 gm/dL (32-36); Mean Corpuscular Hemoglobin 35 pg (26-34); Mean Corpuscular Volume 101 fL (80-100); Red Blood Count 3.46 m/uL (4.30-5.90); White Blood Count* 3.65 K/uL (4.50-11.00)
[2024-06-05 07:10] LABS: Platelet Count* 49 K/uL (140-440); Slide Review Reflex No
[2024-06-05 07:45] LABS: Albumin* 2.7 g/dL (3.3-5.0)
[2024-06-05 07:46] LABS: Chloride* 109 mmol/L (96-114); Potassium* 3.3 mmol/L (3.6-5.1); Sodium* 136 mmol/L (135-149)
[2024-06-05 07:48] LABS: Anion Gap 5 mEq/L (7-15); Aspartate Amino Transferase* 215 U/L (12-35); Bilirubin Direct* 1.2 mg/dL (0.0-0.5); Bilirubin Total* 1.9 mg/dL (0.1-1.5); Carbon Dioxide* 22 mmol/L (20-32); Creatinine* 0.8 mg/dL (0.5-1.5); Est. Creatinine Clearance* 71.23; Estimated Glomerular Filt Rate 101 ml/min; Total Protein* 5.8 g/dL (6.0-8.3)
[2024-06-05 07:49] LABS: Alanine Aminotransferase* 75 U/L (4-50); Alkaline Phosphatase* 102 U/L (40-150); Blood Urea Nitrogen* 9 mg/dL (7-30); Calcium* 8.1 mg/dL (8.4-10.6); Glucose* 121 mg/dL (60-115)
[2024-06-05 08:32] LABS: ABG PCO2 35 mmHG (35-45); Base Excess ABG 1.8 mmol/L (-3.0-3.0); HCO3 ABG 25 mmol/L (21-28); Oxygen Saturation ABG 92 % (92-100); PO2 ABG 57.5 mmHG (80-105); TCO2 ABG 23 mmol/l (21-30); pH ABG 7.47 (7.35-7.45)
[2024-06-05] MEDS: POTASSIUM CHLORIDE 10 MEQ/100 ML PIGGYBACK 100 MEQ IVPB ×4 (08:38→11:50)
[2024-06-05] MEDS: FUROSEMIDE 10 MG/ML inj 40 MG IVP (08:38)
[2024-06-05] MEDS: PHENobarbitaL 260 MG in 0.9 % SODIUM CHLORIDE 100 ml 100 ML 208 MG IVPB (08:39)
--- NOTE | 2024-06-05 08:39 | PC.NURSE ---
End of shift note [id number]: Pt oriented to self only. Afebrile. Upon initial assessment around 2314, RN noted pt's RR was 48-50 per min and CIWA was 11, updated MD Yoder on pt condition change due to RR being in the 30s the day prior, orders given to take a blood sugar. Pt's blood sugar was 58, orders given to give Dextrose 50% 25mg, calcium gluconate, and start D5 in lactated ringers. Chest x-ray and VBG labs also ordered. Pt's CIWA scores have been 5-13 throughout night managed with Adivan per protocol and scheduled Adivan. Pt was placed on 1.5L of O2 to maintains stats of 90% and above. Pt was repositioned throughout night. Pt did not void until around 0740. RN and on coming RN in room pt went around 250 ml.
--- NOTE | 2024-06-05 09:26 | CRLHL7_ITS ---
For Patients: As a result of the Century Cures Act, medical imaging exams and procedure reports are released immediately into your electronic medical record. You may view this report before your referring provider. If you have questions, please contact your health care provider. Indication: RULE OUT PNEUMOTHORAX Technique: AP view of the chest. Comparison: 06/05/2024. Findings: Low lung volumes. Normal cardiomediastinal silhouette aside from coronary artery calcification. Similar to slightly increased moderate to severe bilateral airspace opacities and interstitial prominence. No pleural effusions or visualized pneumothorax. Impression: Similar to slightly increased moderate to severe bilateral airspace opacities and interstitial prominence. Findings may represent multifocal infection, pulmonary edema, or diffuse alveolar damage. Dictated by Steve Boggs MD @ 06/05/2024 10:20:39 AM (Electronically Signed)
[2024-06-05 11:17] LABS: Lactate* 1.2 mmol/L (0.5-1.9)
[2024-06-05 12:03] LABS: Troponin I* 0.02 ng/mL (0.01-0.04)
[2024-06-05] MEDS: metroNIDAZOLE 500 MG/100 ML PIGGYBACK 100 MG IVPB ×2 (12:56→20:01)
--- NOTE | 2024-06-05 15:41 | PM.DS1 ---
DS: Providers Provider Date Seen: 06/05/24 Date of admission: 06/02/24 17:35 Primary care physician: David Alcala MD Admitting Clinician: Leonor Yoder MD Consults: 06/02/24 18:15 Consult to Occupational Therapy [CONS] Routine Comment: Reason(s) for OT Consult:: Evaluate and Treat Any Restrictions?:: No Restrictions Consult to Physical Therapy [CONS] Routine Comment: Reason(s) for PT Consult:: Evaluate and Treat Any Restrictions?:: No Restrictions Attending Physician on discharge: Marcy Do MD DS: Diagnosis Discharge Diagnosis (1) Sepsis: Status: Acute Problem details: - Severe sepsis: HR>90, RR>20, elevated lactate, no hypotension - source: Influenza a infection and suspected bacterial pneumonia - elevated lactate resolved after appropriate 2 L fluid bolus given in emergency department. Patient has elevated proBNP, so I will not be giving any further bolus at this time unless there is a change in condition - blood cultures and urine culture pending - zosyn started in ER, will continue this - CXR worsening airspace disease 2/5 just aftermidnight, clinically worsening EtOH withdrawal, Vancomycin added (2) Acute hypoxemic respiratory failure: Status: Acute Problem details: - secondary to influenza a and pneumonia - BNP 7740, echocardiogram pending - treat with supplemental oxygen and treat underlying causes as below - CXR worsening airspace disease 2/5 just aftermidnight, clinically worsening EtOH withdrawal, Vancomycin added - Pt has been hyperventelating for about 48 hrs, ABGs 06/05 #:30 PM: 7.48/37/71/27/96% - Put on Bipap on 06/05 am (3) Influenza A: Status: Acute Problem details: - Start tamiflu, no renal adjustment needed (4) Pneumonia: Status: Acute Problem details: - suspect this is bacterial on top of influenza, procalcitonin 37, strep pneumo/Legionella ordered - patient was septic upon presentation and is therefore being treated with IV antibiotics - continue Zosyn with plan to transition to ceftriaxone and azithromycin pending culture results - Mucinex, incentive spirometry, aerobika - CXR worsening airspace disease 2/5 just aftermidnight, clinically worsening EtOH withdrawal, Vancomycin added (5) C. difficile diarrhea: Status: Acute Problem details: +ve C diff Started PO vanco 125 QID on 06/04. 06/05 Pt sedated on Bipap, Cannot give oral meds, started metronidazole IV (6) Critical lower limb ischemia: Status: Chronic Problem details: - PCP note 02/12/24 He is currently not taking Xarelto and was instructed to consult his vascular specialist about the necessity of continuing both Xarelto and Plavix. - Dr. Espitia (vascular surgeon) note 03/23/24 I consider him high risk. continue with aggressive medical therapy including dual antiplatelet therapy and low-dose (PAD dose) Xarelto at 2.5 mg twice daily. - Holding Xarelto and Plavix 06/05 for PLT 49 -1 unit plt transfusiom on 06/05 and then start heparin drip (without bolus). (7) Acute respiratory alkalosis: Status: Acute Problem details: - treat as above (8) Type 2 CT (myocardial infarction): Status: Acute Problem details: - demand ischemia, peak troponin was 0.26 -> 0.07 - patient is already on Plavix and Eliquis, so I will not had aspirin. Patient already takes pravastatin, however I am holding this due to elevated liver function tests. Support blood pressure if needed and treat sepsis to improve cardiac demand (9) CAD (coronary artery disease): Status: Chronic Problem details: - 2003 PTCA - 2010 stent distal (LAD) - 2022 four stents to LAD at [facility] (10) Hypokalemia: Status: Acute Problem details: - 2.8 on admission, 2.9 on recheck -> 3.0 - treat hypo magnesemia - monitor on telemetry - continue oral replacement, monitoring (11) Hypomagnesemia: Status: Resolved Problem details: - present on admission, likely contributed to weakness, resolved with IV replacement given in the emergency department - 1.1 ->2.0 -> 1.9 - second dose IV mag given comorbidities, ongoing respiratory distress (12) Type 2 diabetes mellitus with peripheral angiopathy: Status: Chronic Problem details: 01/2024 HgbA1C 5.3 Continue Jardiance and glipizide, add mealtimei and evening Accu-Cheks along with insulin sliding scale (13) Chronic alcohol use: Status: Chronic Problem details: - no history of withdrawal or seizure - [facility] protocol - discussed heavy alcohol use and concern for elevated liver function test as possible sequela of alcohol use, recommended abstinence, patient is not ready to think about alcohol cessation -Started scheduled ativan on 06/04 -One dose of phenobarb 260 2/5 AM (14) Tobacco use disorder: Status: Chronic Problem details: - 1 pack a day- for 30 years - discussed tobacco cessation, has no plans to quit - since troponin is now trending downward, will start nicotine patch to try to prevent irritability and desire to leave AMA (15) Elevated LFTs: Status: Acute Problem details: - suspect from acute illness, demand ischemia, and alcohol use - CT shows fatty liver - total bilirubin trending down, AST/ALT elevated, monitor - hold pravastatin - outpatient follow-up with GI (16) Thrombocytopenia: Status: Acute Problem details: -acute on chronic, currently 50, likely in setting of chronic alcohol use, chronic anticoagulation -continue Xarelto for now -monitor (17) Bacteriuria: Status: Acute Problem details: -UA clear, nitrites and LE negative, WBC 2-5, moderate bacteria -CT shows Bilateral perinephric stranding with urothelial thickening correlate for UTI -UC pending, covered with antibiotics for now DS: Summary Hospital Course Hospital Course: Pt admitted for pneumonia the, flu a and C diff diarrhea. We started treatment with IV antibiotics and CIWA protocol with scheduled Ativan but patient developed severe EtOH withdrawal, Hyperventilating, currently, impending respiratory failure, may need intubation and treatment with propofol (currently on Bipap). I contacted [facility] ICU provider as we dont have the appropriate level of care, pt is 1st on their waiting list. Time Spent with Patient Time attestation: Total time spent providing and/or coordinating discharge services: 75 min Exam Narrative: Exam Narrative: Physical exam GENERAL: Patient is in respiratory distress, hyperventilating on BiPAP HEAD AND NECK: Atraumatic, normocephalic CARDIOVASCULAR: Tachycardic. Normal S1, S2. No murmurs. RESPIRATORY: Coarse breating on auscultation B/L. Good air entry B/L. GASTROINTESTINAL: Not distended NEUROLOGY: Sedated MSK: Warm LE B/L, +ve pulses, normal color Const: Vital Signs, click to edit/add: Vital Signs - 24 hr 06/04/24 17:00 06/04/24 17:59 06/04/24 19:00 Temperature 99.6 F 99.6 F 99.9 F H Pulse Rate Pulse Rate [Pulse Oximeter] 104 H 96 94 Respiratory Rate 30 H 24 48 H Blood Pressure [Le ft Arm] 153/73 H 134/83 134/86 Pulse Oximetry 92 90 91 Oxygen Delivery Me thod Room Air Room Air Room Air Oxygen Flow Rate Fraction of Inspir ed Oxygen 06/04/24 19:00 06/04/24 20:00 06/04/24 22:00 Temperature 99.8 F H 99.5 F Pulse Rate Pulse Rate [Pulse Oximeter] 101 H 93 Respiratory Rate 50 H 48 H Blood Pressure [Le ft Arm] 135/85 105/71 Pulse Oximetry 91 90 93 Oxygen Delivery Me thod Room Air Room Air Oxygen Flow Rate Fraction of Inspir ed Oxygen 06/04/24 23:00 06/04/24 23:00 06/04/24 23:00 Temperature Pulse Rate 92 Pulse Rate [Pulse Oximeter] Respiratory Rate 50 H 50 H Blood Pressure [Le ft Arm] Pulse Oximetry 90 Oxygen Delivery Me thod Nasal Cannula Oxygen Flow Rate 1 Fraction of Inspir ed Oxygen 06/04/24 23:30 06/05/24 00:00 06/05/24 01:00 Temperature 98.6 F 97.8 F 97.6 F Pulse Rate Pulse Rate [Pulse Oximeter] 95 102 H 90 Respiratory Rate 50 H 52 H 48 H Blood Pressure [Le ft Arm] 124/78 125/83 120/69 Pulse Oximetry 91 88 91 Oxygen Delivery Me thod Room Air Room Air Room Air Oxygen Flow Rate Fraction of Inspir ed Oxygen 06/05/24 02:00 06/05/24 03:00 06/05/24 04:00 Temperature 98.9 F 98.3 F 99.1 F Pulse Rate Pulse Rate [Pulse Oximeter] 91 91 93 Respiratory Rate 48 H 50 H 48 H Blood Pressure [Le ft Arm] 129/79 123/92 H 128/96 H Pulse Oximetry 92 90 90 Oxygen Delivery Me thod Nasal Cannula Nasal Cannula Nasal Cannula Oxygen Flow Rate 1 1 1.5 Fraction of Inspir ed Oxygen 06/05/24 05:00 06/05/24 06:00 06/05/24 07:00 Temperature 98.2 F 98.3 F Pulse Rate Pulse Rate [Pulse Oximeter] 80 83 90 Respiratory Rate 48 H 42 H 48 H Blood Pressure [Le ft Arm] 122/78 132/84 140/101 H Pulse Oximetry 90 91 93 Oxygen Delivery Me thod Nasal Cannula Room Air Room Air Oxygen Flow Rate 1.5 1.5 Fraction of Inspir ed Oxygen 06/05/24 08:15 06/05/24 08:21 06/05/24 08:21 Temperature 97.4 F L Pulse Rate 80 Pulse Rate [Pulse Oximeter] 83 Respiratory Rate 40 H 40 H Blood Pressure [Le ft Arm] 152/84 H Pulse Oximetry 92 92 Oxygen Delivery Me thod Room Air Room Air Oxygen Flow Rate Fraction of Inspir ed Oxygen 06/05/24 08:30 06/05/24 08:30 06/05/24 08:30 Temperature Pulse Rate Pulse Rate [Pulse Oximeter] Respiratory Rate 38 H Blood Pressure [Le ft Arm] Pulse Oximetry 92 Oxygen Delivery Me thod Room Air BiPAP Oxygen Flow Rate Fraction of Inspir ed Oxygen 40 21 40 06/05/24 10:33 06/05/24 10:47 06/05/24 12:00 Temperature Pulse Rate Pulse Rate [Pulse Oximeter] 91 97 Respiratory Rate 36 H 30 H Blood Pressure [Le ft Arm] 143/84 H 132/86 Pulse Oximetry 95 92 Oxygen Delivery Me thod BiPAP BiPAP Oxygen Flow Rate Fraction of Inspir ed Oxygen 35 06/05/24 14:00 Temperature Pulse Rate Pulse Rate [Pulse Oximeter] 99 Respiratory Rate 38 H Blood Pressure [Le ft Arm] 123/75 Pulse Oximetry 94 Oxygen Delivery Me thod BiPAP Oxygen Flow Rate Fraction of Inspir ed Oxygen DS: Data Data Completed and Pending Labs on day of discharge: Labs from last 24 hours 06/05/24 06/05/24 06/05/24 11:11 08:25 05:59 WBC 3.65 L RBC 3.46 L Hgb 12.0 L Hct 35.0 L MCV 101 H MCH 35 H MCHC 34 Plt Count 49 L* INR ABG pH 7.47 H ABG pCO2 35 ABG pO2 57.5 L ABG HCO3 25 ABG Total CO2 23 ABG O2 Saturation 92 ABG Base Excess 1.8 VBG pH VBG pCO2 VBG pO2 VBG HCO3 Sodium 136 Potassium 3.3 L Chloride 109 Carbon Dioxide 22 Anion Gap 5 L BUN 9 Creatinine 0.8 Estimated Creat Clear 71.23 Estimated GFR 101 Glucose 121 H Lactate 1.2 Calcium 8.1 L Ionized Calcium Mala 1.09 L Total Bilirubin 1.9 H Direct Bilirubin 1.2 H AST 215 H ALT 75 H Alkaline Phosphatase 102 Troponin I 0.02 Total Protein 5.8 L Albumin 2.7 L Blood Type A Positive Antibody Screen NEGATIVE 06/05/24 06/04/24 00:15 16:11 WBC RBC Hgb Hct MCV MCH MCHC Plt Count INR 1.02 ABG pH ABG pCO2 ABG pO2 ABG HCO3 ABG Total CO2 ABG O2 Saturation ABG Base Excess VBG pH 7.497 H VBG pCO2 33 L VBG pO2 55.0 H VBG HCO3 26 Sodium 135 Potassium 3.3 L 3.1 L Chloride 107 Carbon Dioxide 25 Anion Gap 3 L BUN 11 Creatinine 0.8 Estimated Creat Clear 70.70 Estimated GFR 101 Glucose 53 L Lactate Calcium 8.1 L Ionized Calcium Mala 1.08 L Total Bilirubin 2.0 H Direct Bilirubin AST 249 H ALT 81 H Alkaline Phosphatase 119 Troponin I Total Protein 6.1 Albumin 2.8 L Blood Type Antibody Screen Preliminary micro results at discharge 06/02/24 14:50 Blood Culture - Preliminary Blood NO GROWTH AFTER 72 HOURS 06/02/24 13:35 Blood Culture - Preliminary Blood NO GROWTH AFTER 72 HOURS Imaging Chest x-ray: My impression: For Patients: As a result of the Century Cures Act, medical imaging exams and procedure reports are released immediately into your electronic medical record. You may view this report before your referring provider. If you have questions, please contact your health care provider. Indication: RULE OUT PNEUMOTHORAX Technique: AP view of the chest. Comparison: 06/05/2024. Findings: Low lung volumes. Normal cardiomediastinal silhouette aside from coronary artery calcification. Similar to slightly increased moderate to severe bilateral airspace opacities and interstitial prominence. No pleural effusions or visualized pneumothorax. Impression: Similar to slightly increased moderate to severe bilateral airspace opacities and interstitial prominence. Findings may represent multifocal infection, pulmonary edema, or diffuse alveolar damage. Dictated by Steve Boggs MD @ 06/05/2024 10:20:39 AM Discharge Plan Discharge Disposition: [facility] Date of Admission: 06/02/24 17:35 Attending Provider on Discharge: Marcy Do Primary Care Provider: David Alcala Discharge Orders: Transfer of Care to Other Hospital (ORDER); Ordered 06/05/24 Ordered By: Marcy Do Additional Instructions: Severe EtOH withdrawal, Hyperventilating, pending respiratory failure, may need intubation and treatment with propofol (currently on Bipap). C diff +ve Oxygen: Yes Oxygen Delivery Method: Bipap Services not available here: ICU level of care, mechanical ventilation
[2024-06-05 15:44] LABS: ABG PCO2 37 mmHG (35-45); Base Excess ABG 3.7 mmol/L (-3.0-3.0); HCO3 ABG 27 mmol/L (21-28); Oxygen Saturation ABG 96 % (92-100); PO2 ABG 71.2 mmHG (80-105); TCO2 ABG 24 mmol/l (21-30); pH ABG 7.48 (7.35-7.45)
[2024-06-05] MEDS: THIAMINE 250 MG in 0.9 % SODIUM CHLORIDE 100 ml 100 ML 102.5 MG IVPB (16:17)
[2024-06-05] MEDS: LORazepam 2 MG/ML inj 1 MG IVP (16:33)
[2024-06-05] MEDS: VANCOMYCIN 1 GM/200 ML 1 GM/200 ML PIGGYBACK IVPB (16:39)
[2024-06-05 16:51] LABS: Partial Thromboplastin Time* 30 Seconds (23-33)
[2024-06-05 16:54] LABS: Hematocrit 40.8 % (37.0-53.0); Hemoglobin* 13.8 gm/dL (13.5-17.5); Mean Corpuscular HGB Conc 34 gm/dL (32-36); Mean Corpuscular Hemoglobin 34 pg (26-34); Mean Corpuscular Volume 101 fL (80-100); Platelet Count* 57 K/uL (140-440); Red Blood Count 4.03 m/uL (4.30-5.90); White Blood Count* 4.93 K/uL (4.50-11.00)
[2024-06-05 17:11] LABS: Slide Review Reflex No
[2024-06-05] MEDS: HEPARIN 25,000 UNIT/500 ML BAG 23 UNIT IV (18:44)
[2024-06-05 20:53] LABS: ABG PCO2 38 mmHG (35-45); Base Excess ABG 2.1 mmol/L (-3.0-3.0); HCO3 ABG 26 mmol/L (21-28); Oxygen Saturation ABG 95 % (92-100); PO2 ABG 69.4 mmHG (80-105); TCO2 ABG 23 mmol/l (21-30); pH ABG 7.45 (7.35-7.45)
--- NOTE | 2024-06-05 22:46 | PC.NURSE ---
Patient maintaining oxygen saturations in the mid 90's on BiPAP. See BiPAP intervention for details. Pt responding only to painful stimuli. Platelets infused. Heparin drip started. New IV started in pt's right Forearm. Lower extremities are warm to the touch with Pedal pulses present and thready.
--- NOTE | 2024-06-05 22:48 | PC.NURSE ---
Report given to NurseKatina at [place]. Patient will go to the [facility]. Unit PB 20. Rm 2030. Katina Suarez called to update of patient leaving our facility at [id number].
== END 2024-06-05 22:30 | disposition short-term general hospital (02) | DRG 720 ==
LOC: ED 16:48 → MEDSURG 17:06
PROVIDERS: Internal Medicine; Physician Assistant; Student in an Organized Health Care Education/Training Program; Admitting Provider Family Medicine; Emergency Provider Emergency Medicine; PCP Family Medicine; Visit Provider Family Medicine
DX: A41.9 Sepsis, unspecified organism (principal); J10.08 Influenza due to other identified influenza virus with other specified pneumonia; J15.9 Unspecified bacterial pneumonia; R65.20 Severe sepsis without septic shock; J96.01 Acute respiratory failure with hypoxia; E87.3 Alkalosis; F10.239 Alcohol dependence with withdrawal, unspecified; R06.4 Hyperventilation; A04.72 Enterocolitis due to Clostridium difficile, not specified as recurrent; K70.0 Alcoholic fatty liver; I21.A1 Myocardial infarction type 2; R82.71 Bacteriuria; E11.51 Type 2 diabetes mellitus with diabetic peripheral angiopathy without gangrene; R74.01 Elevation of levels of liver transaminase levels; E87.6 Hypokalemia; E83.42 Hypomagnesemia; D64.9 Anemia, unspecified; I10 Essential (primary) hypertension; F17.210 Nicotine dependence, cigarettes, uncomplicated; K21.9 Gastro-esophageal reflux disease without esophagitis; Z86.718 Personal history of other venous thrombosis and embolism; Z86.711 Personal history of pulmonary embolism; Z79.01 Long term (current) use of anticoagulants; E78.5 Hyperlipidemia, unspecified; I25.10 Atherosclerotic heart disease of native coronary artery without angina pectoris; I71.40 Abdominal aortic aneurysm, without rupture, unspecified; Z95.5 Presence of coronary angioplasty implant and graft
CPT/HCPCS: 36415; 36430; 36600; 51701; 71045; 71260; 73560; 73660; 74177; 80048; 80053; 80076; 81001; 82077; 82330; 82803; 82962; 83605; 83735; 83880; 84132; 84145; 84484; 85025; 85027; 85610; 85730; 86140; 86850; 86900; 86901; 87040; 87086; 87449; 87493; 87631; 87899; 93005; 93306; 94660; 94761; 97161; 97166; 97530; 97535; 99285; A9153; A9270; J0613; J1644; J1836; J1940; J2060; J2543; J2560; J3372; J3411; J3475; J3480; J7030; P9073; Q9967; S4990

== ENCOUNTER 2024-06-05 22:30 | Outpatient (CLI) | payer BC, SELFPAY | END 2024-06-05 22:31 | disposition home or self-care (01) | LOC: AMB 06-11 10:06 | PROVIDERS: PCP Family Medicine; Visit Provider Family Medicine | DX: A41.9 Sepsis, unspecified organism (principal); J96.01 Acute respiratory failure with hypoxia; J18.9 Pneumonia, unspecified organism; R06.03 Acute respiratory distress | CPT/HCPCS: A0425; A0434 ==

== ENCOUNTER 2024-07-06 09:04 | Emergency (ER) | payer BC, SELFPAY ==
--- OUTSIDE RECORDS SUMMARY | 2024-07-06 09:07 | XMS_ITS | Clinical Summary ---
Author Organization [facility] Address [facility] [place] [address] Care Team Providers Care Accounting Administrative Assistant Name Role Phone Frederick Duran MD Unavailable [phone] David Alcala MD Primary Care Provider [phone] Damon Belcher MD Unavailable [phone] [facility] Unavailable [phone] Allergies Active Allergy Reactions Criticality Noted Date Comments Metformin Diarrhea Low 07/30/2021 Medications fexofenadine (DANITA) 180 mg tablet Take 1 tablet by mouth once daily. 30 tablet 11 10/31/19 10 Active Additional Information Patient not taking.Informant: Patient's Recall, Reported on 07/01/2024 ferrous sulfate, 65 mg elemental, tablet Take 325 mg by mouth once every other day. Active aspirin (ECOTRIN) 81 mg enteric coated tabletIndications :Popliteal artery occlusion, left Take 1 Tablet (81 mg) by mouth once daily. 0 11/06/19 22 Active nitroglycerin (NITROSTAT) 0.4 mg sublingual tabletIndications :Atherosclerosis of coronary artery, unspecified vessel or lesion type, unspecified whether angina present, unspecified whether [place] or transplanted heart,History of coronary artery stent placement 3 DOSE LIMIT PER CHEST PAIN EPISODE. 25 Tablet 3 02/21/20 23 Active lisinopriL (PRINIVIL; ZESTRIL) 20 mg tabletIndications [...] meals. 180 Tablet 3 02/12/20 24 Active multivitamin pediatric chewable tabletIndications :Alcohol use Administer 1 Tablet via nasogastric tube once daily. 30 Tablet 5 9:59 AM MALT ROASTER 06/21/19 25 025 Active QUEtiapine (SEROQUEL) 50 mg tabletIndications :Insomnia, unspecified type Take 1 Tablet (50 mg) by mouth at bedtime. 90 Tablet 3 06/26/19 25 Active omeprazole (PRILOSEC) 20 mg Delayed-Release capsuleIndication s:Gastroesophagea l reflux disease without esophagitis Take 1 Capsule (20 mg) by mouth once daily before a meal. 90 Capsule 3 08/13/19 25 Active clopidogreL (PLAVIX) 75 mg tabletIndications :Peripheral arterial disease Take 1 Tablet (75 mg) by mouth once daily. 90 Tablet 3 07/31/19 25 Active empagliflozin (Jardiance) 10 mg tabletIndications :Diabetes mellitus without complication (HC) Take 1 Tablet (10 mg) by mouth once daily. 90 Tablet 3 07/31/19 25 Active glipiZIDE extended-release (GLUCOTROL XL) 10 mg Extended-Release tabletIndications :Diabetes mellitus without complication (HC) Take 1 Tablet (10 mg) by mouth once daily before a meal. 90 Tablet 3 07/31/19 25 Active clopidogreL (PLAVIX) 75 mg tabletIndications :Peripheral arterial disease Take 1 Tablet (75 mg) by mouth once daily. 90 Tablet 3 08/09/19 24 025 Discontin ued(Reord er (E-cancel not sent)) empagliflozin (Jardiance) 10 mg tabletIndications :Diabetes mellitus without complication (HC) Take 1 Tablet (10 mg) by mouth once daily. 90 Tablet 3 08/09/19 24 025 Discontin ued(Reord er (E-cancel not sent)) glipiZIDE extended-release (GLUCOTROL XL) 10 mg Extended-Release tabletIndications :Diabetes mellitus without complication (HC) Take 1 Tablet (10 mg) by mouth once daily before a meal. 90 Tablet 3 08/09/19 24 025 Discontin ued(Reord er (E-cancel not sent)) omeprazole (PRILOSEC) 20 mg Delayed-Release capsuleIndication s:Gastroesophagea l reflux disease without esophagitis Take 1 Capsule (20 mg) by mouth once daily before a meal. 90 Capsule 05/24/19 25 025 Discontin ued(Reord er (E-cancel not sent)) QUEtiapine (SEROQUEL) 50 mg tabletIndications :Insomnia, unspecified type Take 1 Tablet (50 mg) by mouth at bedtime. 30 Tablet 5 9:59 AM MALT ROASTER 06/21/19 25 025 Discontin ued(Reord er (E-cancel not sent)) nystatin powder (MYCOSTATIN) powderIndications :Fungal skin infection Apply 1 Strip topically to affected area(s) two times daily. 60 g 3 06/24/19 25 025 Discontin ued(*Aurea ent states no longer taking) Active Problems Problem Noted Date Diagnosed Date Acute hypoxemic respiratory failure 06/06/2024 Influenza A 06/06/2024 Pneumonia of both lungs due to infectious organi sm 06/06/2024 Coronary artery disease invo lving [place] coronary artery of [place] heart without angina pectoris 06/06/2024 Chest pain 12/14/2022 Hypokalemia 11/13/2022 Normocytic anemia [...] angioplasty 2003 Overview (12/22/2014): 2003 PTCA and 2011 stent distal (LAD) Hyperlipidemia 11/12/2003 Overview (12/22/2014): [...] Encounters Date Type Department Care Team Description 07/05/2024 5:00 AM MALT ROASTER Home Care Visit [address] [address] Shavonne Tomas RN SN - WOUND/OSTOMY CHART CONSULT 07/03/2024 Nurse Triage [facility] [address] [place] [address] David Alcala MD Diarrhea 07/02/2024 9:30 AM MALT ROASTER Home Care Visit [address] [address] Jennifer Cruz RN SN - HOME VISIT 07/02/[address] [address] Jennifer Cruz RN Home Care (Diarrhea) 07/01/2024 2:35 PM MALT ROASTER Phone Office Visit [facility] [address] [place] [address] David Alcala MD Form ([facility] ); Phone Visit (No vitals taken ) 07/01/2024 1:00 PM MALT ROASTER Home Care Visit [address] [address] Qi Aponte, PT PT - HOME VISIT 07/01/2024 Travel 06/28/2024 2:00 PM MALT ROASTER Home Care Visit [address] [address] Qi Aponte, PT PT - HOME VISIT 06/28/2024 8:30 AM MALT ROASTER Office Visit [facility] [address] [place] [address] Ruchi Espitia MD Follow Up (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) 06/28/2024 6:57 AM MALT ROASTER - 06/28/2024 11:59 PM MALT ROASTER Hospital Encounter [facility] [address] [place] [address] Ruchi Espitia MD PAD (peripheral artery disease) 06/28/2024 Orders Only [facility] [address] [place] [address] Princess Walker <No scans attached> 06/28/2024 Travel 06/27/2024 12:00 PM MALT ROASTER Home Care Visit [address] [address] Jennifer Cruz RN SN - HOME VISIT 06/27/2024 Telephone [facility] [address] [facility] [place] [address] David Alcala MD Form (ATTENDING PHYSICIAN'S STATEMENT) 06/26/2024 10:50 AM MALT ROASTER Office Visit [facility] [address] [place] [address] David Alcala MD Hospital F/U ([facility] on 06/02/2024) 06/26/2024 Travel 06/25/2024 9:00 AM MALT ROASTER Home Care Visit [address] [address] Pratima Higuera, PT PT - INITIAL ASSESSMENT 06/24/2024 7:15 AM MALT ROASTER Home Care Visit [address] [address] Shavonne Tomas, RN SN - WOUND/OSTOMY CHART CONSULT 06/24/[address] [address] Shavonne Tomas plastic cnc machine operator (Antifungal Powder needed) 06/24/2024 Patient Outreach [facility] [address] [place] [address] Jeni Tidwell, RN Primary RN Care Management; Hospital F/U (Acute hypoxemic respiratory failure/DOD: 06/21/24/LACE+: 63) 06/23/2024 9:30 AM MALT ROASTER Home Care Visit [address] [address] Flakita Naqvi RN SN - OASIS START OF CARE 06/23/2024 Plan of Care Documentation [address] [address] 06/19/2024 Travel 06/05/2024 11:42 PM MALT ROASTER - 06/21/2024 5:06 PM MALT ROASTER Hospital Encounter [facility] [address] [place] [address] Lesli Shannon, DO Smith, Chuy Womack, [facility] Nitish Landis MD Wolfe, Adam Charles, MD [facility] David Cohen MD Rose, Andrew, MD Insomnia, unspecified type (Primary Dx); Alcohol use; Acute hypoxemic respiratory failure (HC) Discharge Disposition: Home Health 06/05/2024 Orders Only [facility] Scanner 1 scan: (1-Ord) [facility], CHEST 1VIEW PORTABLE, 06/05/2024 06/05/2024 Orders Only [facility] Scanner 1 scan: (1-Ord) [place], CHEST 1VW, 06/05/2024 06/03/2024 11:00 AM MALT ROASTER Ancillary Procedure [facility] [address] [place] [address] 06/02/2024 Orders Only [facility] Scanner 1 scan: (1-Ord) [place], CHEST ABDOMEN PELV W CON, 06/02/2024 06/02/2024 Orders Only [facility] Scanner 1 scan: (1-Ord) [place], XR KNEE BI 1 OR 2V, 06/02/2024 06/02/2024 Orders Only [facility] Scanner 1 scan: (1-Ord) [place], XR GREAT TOE LT, 06/02/2024 06/02/2024 Orders Only [facility] Scanner 1 scan: (1-Ord) [place], XR CHEST 1V PORTABLE, 06/02/2024 05/23/2024 Refill [facility] [address] [facility] [place] [address] David Alcala MD Refill Request (Omeprazole/) from Last 3 Months Immunizations Immunization Administration Dates Next Due Hepatitis B (Adult) 06/26/2015,01/14/2013 Influenza, IIV3 (Age >=3 years) 03/28/2010 Influenza, IIV4 01/09/2013 Pneumococcal Conj 20-valent (Prevnar 20) 023 Tdap 07/27/2022,05/21/2012 Zoster (Shingrix-RZV, recombinant) 07/27/2022, Family History Medical History Relation Name Comments COPD Father Dementia Mother Heart Disease Paternal Grandfather ID Relation Name Status Comments Father Mother Paternal Grandfather Social History Tobacco Use Types Packs/Day Years Used Date Smoking Tobacco: Every Day Cigarettes 1 46.5 Started: 12/22/1977 Passive Smoke Exposure: Current Smokeless Tobacco: Never Tobacco Cessation:Ready to Q uit: No; Counseling Given: Yes Comments:declined Alcohol Use Standard Drinks/Week Comments Yes 12 (1 standard drink = 0.6 oz pu re alcohol) PHQ-2 Answer Date Recorded PHQ-2 TOTAL SCORE 0 07/01/2024 Social Connections Answer Date Recorded Do you often feel lonely or isolated from those around you? 0 06/19/2024 Financial Resource Strain Answer Date R ecorded Difficulty of Paying Living Expenses 3 06/19/2024 Difficulty of Paying Living Expenses Not on file 06/19/2024 Food Insecurity Answer Date Recorded Do you worry your food will run out before you are able to buy more? 1 06/19/2024 Transportation Needs Answer Date Record ed Does lack of transportation keep you from medica l appointments? 1 06/19/2024 Does lack of transportation keep you from work, meetings or getting things that you need? 1 06/19/2024 Housing Stability Answer Date Recorded What is your housing situation today? 1 06/19/2024 Interpersonal Safety Answer Date Record ed Are you being hit, kicked, p ushed or yelled at (see row info)? No 06/19/2024 Interpersonal Safety Abuse 12 - 18 Not on file 06/19/2024 Interpersonal Safety Ambulatory Vulnerability No t on file 06/19/2024 Utilities Answer Date Recorded Do you have trouble paying f or utilities (for example, heat, electricity, water, phone)? 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 file Not on file Not on file Obstetrics History Last Filed Vital Signs Vital Sign Reading Time Taken Comments Blood Pressure 120/70 07/02/2024 10:11 AM MALT ROASTER Pulse 86 07/02/2024 10:11 AM MALT ROASTER Temperature 36.6 C (97.8 F) 07/02/2024 10:11 AM MALT ROASTER Respiratory Rate 14 06/28/2024 8:28 AM MALT ROASTER Oxygen Saturation 97% 07/02/2024 10: 11 AM MALT ROASTER Inhaled Oxygen Concentration - - Weight 63.5 kg (139 lb 14.4 oz) 025 10:11 AM MALT ROASTER Height 172.7 cm (5' 8) 06/23/2024 9:30 AM MALT ROASTER Body Mass Index 21.27 06/23/2024 9:30 AM MALT ROASTER Plan of Treatment Upcoming Encounters Date Type Department Care Team (Late st Contact Info) Description 07/08/2024 12:00 PM CDT Home Care Visit [facility] [address] [place], [place] [id number] Qi Aponte T, PT [address] [place], [place] [id number] 07/09/2024 10:30 AM CDT Home Care Visit [address] [address] Jennifer Cruz RN [address] [place] [phone] 07/11/2024 12:00 PM CDT Home Care Visit [address] [address] Qi Aponte, PT [address] [place] [phone] 07/12/2024 4:00 AM CDT Home Care Visit [address] [address] Jennifer Cruz RN [address] [place] [phone] 07/18/2024 4:00 AM CDT Home Care Visit [address] [address] Jennifer Cruz RN [address] [place] [phone] 07/25/2024 4:00 AM CDT Home Care Visit [address] [address] Jennifer Cruz RN [address] [place] [phone] Health Maintenance Due Date Last Done Comments Colonoscopy through age 75 2007 RSV vaccine for adults or (1 - Risk 60-74 years 1-dose series) 2022 ([place]) Influenza for age 50-64 12/31/2023 (Completed outside of [facility]), 01/09/2013, 03/28/2010 COVID-19 vaccine series (2023- season) 2023 BMI (ht and wt on same day) for age 18+ 03/22/2025 03/22/2024, 02/12/2024, 12/22/2023, Additional history exists Low Dose CT (for lung CA) ag e 50-80 06/06/2025 06/06/2024, 12/14/2022 Depression screening for age 12+ 07/03/2025 07/03/2024, 07/02/2024, 07/01/2024, Additional history exists Lipids for age 45-75 [...] Name Priority Date/Time Associated Diagnosis Comments US ARTERIAL LOWER EXTREMITY LEFT Routine 06/28/2024 8:24 AM MALT ROASTER PAD (peripheral artery disease) US ANKLE BRACHIAL INDEX BILATERAL Routine 06/28/2024 8:12 AM MALT ROASTER PAD (peripheral artery disease) GLUCOSE METER Timed 06/21/2024 11:27 AM MALT ROASTER GLUCOSE METER Timed 06/21/2024 8:10 AM MALT ROASTER PHOSPHORUS Early AM 06/21/2024 7:02 AM MALT ROASTER MAGNESIUM Early AM 06/21/2024 7:02 AM MALT ROASTER HEMOGLOBIN Early AM 06/21/2024 7:02 AM MALT ROASTER BASIC METABOLIC PANEL Early AM 06/21/2024 7:02 AM MALT ROASTER GLUCOSE METER Timed 06/20/2024 9:58 PM MALT ROASTER GLUCOSE METER Timed 06/20/2024 5:14 PM MALT ROASTER POTASSIUM Timed 06/20/2024 3:59 PM MALT ROASTER PHOSPHORUS Timed 06/20/2024 3:59 PM MALT ROASTER MAGNESIUM Timed 06/20/2024 3:59 PM MALT ROASTER GLUCOSE METER Timed 06/20/2024 1:13 PM MALT ROASTER GLUCOSE METER Timed 06/20/2024 6:50 AM MALT ROASTER GLUCOSE METER Timed 06/19/2024 10:08 PM MALT ROASTER GLUCOSE METER Timed 06/19/2024 5:05 PM MALT ROASTER GLUCOSE METER Timed 06/19/2024 11:54 AM MALT ROASTER POTASSIUM Early AM 06/19/2024 10:28 AM MALT ROASTER GLUCOSE METER Timed 06/19/2024 8:22 AM MALT ROASTER PHOSPHORUS Early AM 06/19/2024 7:44 AM MALT ROASTER MAGNESIUM Early AM 06/19/2024 7:44 AM MALT ROASTER GLUCOSE METER Timed 06/19/2024 6:25 AM MALT ROASTER GLUCOSE METER Timed 06/19/2024 2:08 AM MALT ROASTER GLUCOSE METER Timed 2024 10:38 PM MALT ROASTER GLUCOSE METER Timed 2024 5:21 PM MALT ROASTER GLUCOSE METER Timed 2024 2:53 PM MALT ROASTER MAGNESIUM Early AM 2024 10:01 AM MALT ROASTER POTASSIUM Early AM 2024 10:01 AM MALT ROASTER PHOSPHORUS Early AM 2024 10:01 AM MALT ROASTER GLUCOSE METER Timed 2024 9:43 AM MALT ROASTER GLUCOSE METER Timed 2024 2:12 AM MALT ROASTER GLUCOSE METER Timed 2024 12:08 AM MALT ROASTER GLUCOSE METER Timed 06/17/2024 8:22 PM MALT ROASTER GLUCOSE METER Timed 06/17/2024 6:02 PM MALT ROASTER GLUCOSE METER Timed 06/17/2024 12:50 PM MALT ROASTER GLUCOSE METER Timed 06/17/2024 10:37 AM MALT ROASTER POTASSIUM Early AM 06/17/2024 7:54 AM MALT ROASTER PHOSPHORUS Early AM 06/17/2024 7:54 AM MALT ROASTER MAGNESIUM Early AM 06/17/2024 7:54 AM MALT ROASTER GLUCOSE METER Timed 06/17/2024 5:56 AM MALT ROASTER GLUCOSE METER Timed 06/17/2024 1:42 AM MALT ROASTER GLUCOSE METER Timed 06/16/2024 10:29 PM MALT ROASTER GLUCOSE METER Timed 06/16/2024 5:47 PM MALT ROASTER GLUCOSE METER Timed 06/16/2024 2:02 PM MALT ROASTER GLUCOSE METER Timed 06/16/2024 9:51 AM MALT ROASTER POTASSIUM Early AM 06/16/2024 5:56 AM MALT ROASTER MAGNESIUM Early AM 06/16/2024 5:56 AM MALT ROASTER PHOSPHORUS Early AM 06/16/2024 5:56 AM MALT ROASTER GLUCOSE METER Timed 06/16/2024 5:55 AM MALT ROASTER GLUCOSE METER Timed 06/16/2024 2:20 AM MALT ROASTER GLUCOSE METER Timed 06/15/2024 10:55 PM MALT ROASTER GLUCOSE METER Timed 06/15/2024 7:39 PM MALT ROASTER GLUCOSE METER Timed 06/15/2024 6:18 PM MALT ROASTER GLUCOSE METER Timed 06/15/2024 2:09 PM MALT ROASTER GLUCOSE METER Timed 06/15/2024 9:48 AM MALT ROASTER POTASSIUM Early AM 06/15/2024 6:40 AM MALT ROASTER PHOSPHORUS Early AM 06/15/2024 6:40 AM MALT ROASTER MAGNESIUM Early AM 06/15/2024 6:40 AM MALT ROASTER GLUCOSE METER Timed 06/15/2024 5:45 AM MALT ROASTER GLUCOSE METER Timed 06/15/2024 12:07 AM MALT ROASTER GLUCOSE METER Timed 06/14/2024 7:56 PM MALT ROASTER GLUCOSE METER Timed 06/14/2024 5:07 PM MALT ROASTER GLUCOSE METER Timed 06/14/2024 2:30 PM MALT ROASTER GLUCOSE METER Timed 06/14/2024 11:10 AM MALT ROASTER POTASSIUM Early AM 06/14/2024 11:00 AM MALT ROASTER PHOSPHORUS Early AM 06/14/2024 7:20 AM MALT ROASTER MAGNESIUM Early AM 06/14/2024 7:20 AM MALT ROASTER GLUCOSE METER Timed 06/14/2024 7:03 AM MALT ROASTER GLUCOSE METER Timed 06/14/2024 2:37 AM MALT ROASTER GLUCOSE METER Timed 06/13/2024 10:57 PM MALT ROASTER GLUCOSE METER Timed 06/13/2024 8:45 PM MALT ROASTER GLUCOSE METER Timed 06/13/2024 5:32 PM MALT ROASTER GLUCOSE METER Timed 06/13/2024 2:41 PM MALT ROASTER GLUCOSE METER Timed 06/13/2024 10:05 AM MALT ROASTER PHOSPHORUS Early AM 06/13/2024 6:53 AM MALT ROASTER POTASSIUM Early AM 06/13/2024 6:53 AM MALT ROASTER MAGNESIUM Early AM 06/13/2024 6:53 AM MALT ROASTER GLUCOSE METER Timed 06/13/2024 6:50 AM MALT ROASTER GLUCOSE METER Timed 06/13/2024 2:57 AM MALT ROASTER GLUCOSE METER Timed 06/13/2024 12:35 AM MALT ROASTER POTASSIUM Timed 06/12/2024 9:58 PM MALT ROASTER GLUCOSE METER Timed 06/12/2024 9:22 PM MALT ROASTER GLUCOSE METER Timed 06/12/2024 6:05 PM MALT ROASTER PHOSPHORUS Timed 06/12/2024 5:32 PM MALT ROASTER GLUCOSE METER Timed 06/12/2024 2:00 PM MALT ROASTER GLUCOSE METER Timed 06/12/2024 10:27 AM MALT ROASTER POTASSIUM Early AM 06/12/2024 6:25 AM MALT ROASTER PHOSPHORUS Early AM 06/12/2024 6:25 AM MALT ROASTER MAGNESIUM Early AM 06/12/2024 6:25 AM MALT ROASTER GLUCOSE METER Timed 06/12/2024 5:41 AM MALT ROASTER GLUCOSE METER Timed 06/12/2024 1:09 AM MALT ROASTER GLUCOSE METER Timed 06/11/2024 10:38 PM MALT ROASTER GLUCOSE METER Timed 06/11/2024 6:46 PM MALT ROASTER GLUCOSE METER Timed 06/11/2024 1:26 PM MALT ROASTER GLUCOSE METER Timed 06/11/2024 8:29 AM MALT ROASTER SCAN-CARDIAC STRIP 06/11/2024 7: 00 AM MALT ROASTER GLUCOSE METER Timed 06/11/2024 6:49 AM MALT ROASTER BASIC METABOLIC PANEL AL[place]ERT 06/11/2024 4:45 AM MALT ROASTER PHOSPHORUS Early AM 06/11/2024 4:45 AM MALT ROASTER MAGNESIUM Early AM 06/11/2024 4:45 AM MALT ROASTER CALCIUM IONIZED HOSPITAL DRAW ONLY Early AM 06/11/2024 4:45 AM MALT ROASTER POTASSIUM Early AM 06/11/2024 4:45 AM MALT ROASTER GLUCOSE METER Timed 06/11/2024 2:29 AM MALT ROASTER GLUCOSE METER Timed 06/10/2024 10:33 PM MALT ROASTER [facility] DRAW ONLY Timed 06/10/2024 7:08 PM MALT ROASTER GLUCOSE METER Timed 06/10/2024 5:59 PM MALT ROASTER SCAN-CARDIAC STRIP 06/10/2024 3: 27 PM MALT ROASTER CBC W PLT NO DIFF AL[place]ERT 06/10/2024 2:3 9 PM MALT ROASTER HEMOGLOBIN Timed 06/10/2024 2:39 PM MALT ROASTER GLUCOSE METER Timed 06/10/2024 1:49 PM MALT ROASTER GLUCOSE METER Timed 06/10/2024 8:21 AM MALT ROASTER BASIC METABOLIC PANEL AL[place]ERT 06/10/2024 5:53 AM MALT ROASTER POTASSIUM ALBERT 06/10/2024 5:53 AM MALT ROASTER CBC W PLT NO DIFF Early AM 06/10/2024 5:5 3 AM MALT ROASTER PHOSPHORUS Early AM 06/10/2024 5:53 AM MALT ROASTER MAGNESIUM Timed 06/10/2024 5:53 AM MALT ROASTER GLUCOSE METER Timed 06/10/2024 4:09 AM MALT ROASTER GLUCOSE METER Timed 06/09/2024 11:37 PM MALT ROASTER SCAN-CARDIAC STRIP 06/09/2024 11 :00 PM MALT ROASTER GLUCOSE METER Timed 06/09/2024 8:11 PM MALT ROASTER GLUCOSE METER Timed 06/09/2024 4:39 PM MALT ROASTER GLUCOSE METER Timed 06/09/2024 1:05 PM MALT ROASTER [facility] DRAW ONLY Timed 06/09/2024 12:08 PM MALT ROASTER POTASSIUM Timed 06/09/2024 12:08 PM MALT ROASTER GLUCOSE METER Timed 06/09/2024 8:01 AM MALT ROASTER BASIC METABOLIC PANEL AL[place]ERT 06/09/2024 4:44 AM MALT ROASTER PHOSPHORUS Timed 06/09/2024 4:44 AM MALT ROASTER MAGNESIUM Early AM 06/09/2024 4:44 AM MALT ROASTER POTASSIUM Early AM 06/09/2024 4:44 AM MALT ROASTER CK TOTAL Timed 06/09/2024 4:44 AM MALT ROASTER TRIGLYCERIDES Timed 06/09/2024 4:44 AM MALT ROASTER GLUCOSE METER Timed 06/09/2024 4:24 AM MALT ROASTER GLUCOSE METER Timed 06/08/2024 11:58 PM MALT ROASTER GLUCOSE METER Timed 06/08/2024 7:57 PM MALT ROASTER [facility] DRAW ONLY Timed 06/08/2024 4:56 PM MALT ROASTER GLUCOSE METER Timed 06/08/2024 3:49 PM MALT ROASTER SPUTUM CULTURE, STAIN Today 06/08/2024 3:43 PM MALT ROASTER GLUCOSE METER Timed 06/08/2024 11:44 AM MALT ROASTER PHOSPHORUS Timed 06/08/2024 11:25 AM MALT ROASTER GLUCOSE METER Timed 06/08/2024 8:43 AM MALT ROASTER BASIC METABOLIC PANEL Early AM 06/08/2024 5:29 AM MALT ROASTER CBC W PLT NO DIFF Early AM 06/08/2024 5:2 9 AM MALT ROASTER [facility] DRAW ONLY Early AM 06/08/2024 5:29 AM MALT ROASTER PHOSPHORUS Early AM 06/08/2024 5:29 AM MALT ROASTER MAGNESIUM Early AM 06/08/2024 5:29 AM MALT ROASTER GLUCOSE METER Timed 06/08/2024 4:04 AM MALT ROASTER GLUCOSE METER Timed 06/08/2024 12:39 AM MALT ROASTER GLUCOSE METER Timed 06/07/2024 7:31 PM MALT ROASTER SCAN-CARDIAC STRIP 06/07/2024 7: 08 PM MALT ROASTER GLUCOSE METER Timed 06/07/2024 4:21 PM MALT ROASTER POTASSIUM Timed 06/07/2024 2:44 PM MALT ROASTER SCAN CORRESP-LABORATORY RESULTS 06/07/2024 12:55 PM MALT ROASTER SCAN CORRESP-IMAGING 06/07/2024 12:55 PM MALT ROASTER SCAN CORRESP-EKG RESULTS 06/07/2024 12:54 PM MALT ROASTER GLUCOSE METER Timed 06/07/2024 12:36 PM MALT ROASTER [facility] DRAW ONLY Timed 06/07/2024 10:27 AM MALT ROASTER GLUCOSE METER Timed 06/07/2024 10:06 AM MALT ROASTER SCAN-CARDIAC STRIP 06/07/2024 7: 12 AM MALT ROASTER BASIC METABOLIC PANEL Early AM 06/07/2024 4:44 AM MALT ROASTER CBC W PLT NO DIFF Early AM 06/07/2024 4:4 4 AM MALT ROASTER MAGNESIUM Early AM 06/07/2024 4:44 AM MALT ROASTER PHOSPHORUS Early AM 06/07/2024 4:44 AM MALT ROASTER CK TOTAL Timed 06/07/2024 4:44 AM MALT ROASTER TRIGLYCERIDES Timed 06/07/2024 4:44 AM MALT ROASTER GLUCOSE METER Timed 06/07/2024 3:57 AM MALT ROASTER GLUCOSE METER Timed 06/07/2024 12:28 AM MALT ROASTER SCAN-CARDIAC STRIP 06/06/2024 11 :23 PM MALT ROASTER [facility] IONIZED [facility] DRAW ONLY Today 06/06/2024 11:08 PM MALT ROASTER MAGNESIUM Timed 06/06/2024 11:08 PM MALT ROASTER GLUCOSE METER Timed 06/06/2024 7:55 PM MALT ROASTER GLUCOSE METER Timed 06/06/2024 4:35 PM MALT ROASTER SCAN-CARDIAC STRIP 06/06/2024 2: 58 PM MALT ROASTER TROPONIN T (HS) ONE TIME Timed 06/06/2024 12:12 PM MALT ROASTER GLUCOSE METER Timed 06/06/2024 11:18 AM MALT ROASTER TROPONIN T (HS) ACUTE W/2HR REFLEX STAT 06/06/2024 9:29 AM MALT ROASTER GLUCOSE METER Timed 06/06/2024 8:24 AM MALT ROASTER MRSA/SA PCR Today 06/06/2024 8:23 AM MALT ROASTER SPUTUM CULTURE, STAIN Today 06/06/2024 8:15 AM MALT ROASTER SCAN-CARDIAC STRIP 06/06/2024 8: 00 AM MALT ROASTER US ABDOMEN LIMITED RUQ PORTABLE Routine 06/06/2024 7:51 AM MALT RO[employer]ER BLOOD GAS,VENOUS STAT 06/06/2024 6:10 AM M[employer] RO[employer]ER PHOSPHORUS ALBERT 06/06/2024 6:09 AM M[facility] RO[employer]ER POTASSIUM Timed 06/06/2024 6:09 AM M[employer] RO[employer]ER AMMONIA Today 06/06/2024 6:09 AM M[employer] RO[employer]ER TROPONIN T (HS) ONE TIME Timed 06/06/2024 6:09 AM M[facility] RO[employer]ER BLOOD CULTURE STAT 06/06/2024 6:[address] CHEST WO STAT 06/06/2024 5:[address] HEAD BRAIN WO STAT 06/06/2024 5:23 AM M[employer] RO[employer]ER GLUCOSE METER Timed 06/06/2024 4:20 AM M[employer] RO[employer]ER XR ABDOMEN 1 VIEW PORTABLE STAT 06/06/2024 4:16 AM MALT RO[employer]ER LEGIONELLA AND PNEUMOCOCCAL URINE ANTIGEN Add On 06/06/2024 3:51 AM M[employer] RO[employer]ER URINALYSIS MICROSCOPIC Timed 3:51 AM M[employer] RO[employer]ER URINE CULTURE Today 06/06/2024 3:51 AM M[employer] RO[employer]ER UA W/ SEDIMENT EXAM REFLEXED PER CRITERIA Today 06/06/2024 3:51 AM M[employer] RO[employer]ER XR ABDOMEN 1 VIEW PORTABLE STAT 06/06/2024 3:36 AM MALT RO[employer]ER INTUBATION Routine 06/06/2024 2:35 AM M[employer] RO[employer]ER GLUCOSE METER Timed 06/06/2024 1:56 AM M[employer] RO[employer]ER CBC WITH AUTO DIFFERENTIAL STAT 06/06/2024 1:37 AM M[employer] RO[employer]ER HEMOGLOBIN A1C Today 06/06/2024 1:37 AM M[employer] RO[employer]ER PROCALCITONIN Today 06/06/2024 1:37 AM M[employer] RO[employer]ER LACTATE VENOUS STAT 06/06/2024 1:37 AM M[employer] RO[employer]ER BLOOD GAS,VENOUS Today 06/06/2024 1:37 AM M[employer] RO[employer]ER PROTIME-INR STAT 06/06/2024 1:37 AM MALT ROASTER BLOOD CULTURE STAT 06/06/2024 1:37 AM MALT ROASTER CBC WITH AUTO DIFFERENTIAL STAT 06/06/2024 1:37 AM MALT ROASTER GLUCOSE METER Timed 06/06/2024 12:49 AM MALT ROASTER TROPONIN T (HS) ACUTE W/2HR REFLEX STAT 06/06/2024 12:49 AM MALT ROASTER PHENOBARBITAL Today 06/06/2024 12:49 AM MALT ROASTER CK TOTAL STAT 06/06/2024 12:49 AM MALT ROASTER LIPASE STAT 06/06/2024 12:49 AM MALT ROASTER CALCIUM IONIZED HOSPITAL DRAW ONLY STAT 06/06/2024 12:49 AM MALT ROASTER HEPATIC FUNCTION PANEL STAT 12:49 AM MALT ROASTER PHOSPHORUS STAT 06/06/2024 12:49 AM MALT ROASTER MAGNESIUM STAT 06/06/2024 12:49 AM MALT ROASTER BASIC METABOLIC PANEL STAT 06/06/2024 12:49 AM MALT ROASTER XR CHEST 1 VIEW PORTABLE STAT 06/06/2024 12:40 AM MALT ROASTER EKG 12 LEAD STAT 06/06/2024 12:37 AM MALT ROASTER SCAN-RADIOLOGY REPORT 06/06/2024 12:00 AM MALT ROASTER SCAN-RADIOLOGY REPORT 06/05/2024 12:00 AM MALT ROASTER SCAN-RADIOLOGY REPORT 06/05/2024 12:00 AM MALT ROASTER ECHO TTE COMPLETE WO CONTRAST Routine 06/03/2024 9:40 AM MALT ROASTER Elevated troponin History of CAD (coronary artery disease) History of ID (myocardial infarction) SCAN-CT INTERPRETATION 12:00 AM MALT ROASTER SCAN-RADIOLOGY REPORT 06/02/2024 12:00 AM MALT ROASTER SCAN-RADIOLOGY REPORT 06/02/2024 12:00 AM MALT ROASTER SCAN-RADIOLOGY REPORT 06/02/2024 12:00 AM MALT ROASTER LIPID PANEL W REFLEX MEASURED LDL Routine 01/06/2023 2:09 PM CDT CAD S/P percutaneous coronary angioplasty RAPID HIV SCREEN Timed 11/14/2022 7:38 AM CDT ANTI HCV Routine 01/23/2020 9:44 AM CDT Need for hepatitis C screening test from Last 3 Months or Most Recently Relevant to Health Maintenance Results * US ARTERIAL LOWER EXTREMITY LEFT (06/28/2024 8:24 AM MALT ROASTER) Anatomical Region Laterality Modality LEGS, LEG L Ultrasound 06/28/2024 7:02 AM MALT ROASTER Narrative 06/28/2024 11:50 AM MALT ROASTER VASCULAR ULTRASOUND REPORT OLIVIA JIANG : 1960 Study Date: 06/28/2024 7:02:10 AM Age: 64 years Tech: MJM/EMS Gender: M Referring MD: RUCHI ESPITIA Site: [facility] Study performed: Lower extremity duplex US, (left). Indication for study: Follow-up known PAD TECHNIQUE: Lower/upper extremity arteries were examined per [...] inflow disease involving the left lower extremity. 2. Evaluation of the lower left extremity shows 50-74% stenosis in the mid superficial femoral artery. 3. Patent left popliteal artery stent with >50% stenosis at distal stent. 4. Tibial vessels are patent without evidence of stenosis left lower extremity. COMPARISON: Compared to prior study 03/22/2024,. FINDINGS: No evidence of inflow disease involving the left lower extremity. Patent left popliteal artery stent with >50% stenosis at distal stent. Left distal tibial arteries demonstrate multiphasic flow. There is 50-74% stenosis in the left mid superficial femoral artery. +--------+ +--------+-----+ LEFT Velocity cm/s Stenosis Ratio +--------+ +--------+-----+ EIA DST 105 +--------+ +--------+-----+ MOLDER SETTER DST 76 +--------+ +--------+-----+ PFA 69 +--------+ +--------+-----+ SFA PRX 112 +--------+ +--------+-----+ SFA MID 198 50-74% 3.7 +--------+ +--------+-----+ SFA DST 84 +--------+ +--------+-----+ MAYRA MID 184 +--------+ +--------+-----+ MAYRA DST 165 1.6 +--------+ +--------+-----+ TPT 64 +--------+ +--------+-----+ ASSEMBLING FABRICATOR DST 58 +--------+ +--------+-----+ MAIN DST 33 +--------+ +--------+-----+ MARY DST 76 +--------+ +--------+-----+ DPA 31 +--------+ +--------+-----+ Criteria: Stenosis V. Ratio Mild <50% <2.0 Moderate 50-74% > or = 2.0 Severe 75-99% > or = 4.0 Occluded 100% no detectable flow STENT Stent Location Left: Popliteal artery. + + +---------+--------+-----+ LEFT Velocity cm/s Phasicity Stenosis Ratio + + +---------+--------+-----+ PRE Stent 52 + + +---------+--------+-----+ PRX Stent Edge 64 + + +---------+--------+-----+ PRX Stent 71 + + +---------+--------+-----+ MID Stent 57 + + +---------+--------+-----+ DST Stent 149 >50% 3.5 + + +---------+--------+-----+ DST Stent Edge 134 + + +---------+--------+-----+ POST Stent 184 1.4 + + +---------+--------+-----+ Damon Perez MD. Electronically signed on 06/28/2024 11:50:47 AM This study was performed and interpreted by a service accredited by the Intersocietal Accreditation Commission (IAC/Vascular), [email or web address] Report generated by [employer]. Final Procedure Note Damon Perez MD - 06/28/2024 VASCULAR ULTRASOUND REPORT OLIVIA JIANG : 1960 Study Date: 06/28/2024 7:02:10 AM Age: 64 years Tech: MJM/EMS Gender: M Referring MD: RUCHI ESPITIA Site: [facility] Study performed: Lower extremity duplex US, (left). Indication for study: Follow-up known PAD TECHNIQUE: Lower/upper extremity arteries were examined per [...] inflow disease involving the left lower extremity. 2. Evaluation of the lower left extremity shows 50-74% stenosis in themid superficial femoral artery. 3. Patent left popliteal artery stent with >50% stenosis at distalstent. 4. Tibial vessels are patent without evidence of stenosis left lowerextremity. COMPARISON: Compared to prior study 03/22/2024,. FINDINGS: No evidence of inflow disease involving the left lower extremity. Patentleft popliteal artery stent with >50% stenosis at distal stent. Leftdistal tibial arteries demonstrate multiphasic flow. There is 50-74% stenosis in the left mid superficial femoral artery. +--------+ +--------+-----+ LEFT Velocity cm/s Stenosis Ratio +--------+ +--------+-----+ EIA DST 105 +--------+ +--------+-----+ MOLDER SETTER DST 76 +--------+ +--------+-----+ PFA 69 +--------+ +--------+-----+ SFA PRX 112 +--------+ +--------+-----+ SFA MID 198 50-74% 3.7 +--------+ +--------+-----+ SFA DST 84 +--------+ +--------+-----+ MAYRA MID 184 +--------+ +--------+-----+ MAYRA DST 165 1.6 +--------+ +--------+-----+ TPT 64 +--------+ +--------+-----+ ASSEMBLING FABRICATOR DST 58 +--------+ +--------+-----+ MAIN DST 33 +--------+ +--------+-----+ MARY DST 76 +--------+ +--------+-----+ DPA 31 +--------+ +--------+-----+ Criteria: Stenosis V. Ratio Mild <50% <2.0 Moderate 50-74% > or = 2.0 Severe 75-99% > or = 4.0 Occluded 100% no detectable flow STENT Stent Location Left: Popliteal artery. + + +---------+--------+-----+ LEFT Velocity cm/s Phasicity Stenosis Ratio + + +---------+--------+-----+ PRE Stent 52 + + +---------+--------+-----+ PRX Stent Edge 64 + + +---------+--------+-----+ PRX Stent 71 + + +---------+--------+-----+ MID Stent 57 + + +---------+--------+-----+ DST Stent 149 >50% 3.5 + + +---------+--------+-----+ DST Stent Edge 134 + + +---------+--------+-----+ POST Stent 184 1.4 + + +---------+--------+-----+ Damon Perez MD. Electronically signed on 06/28/2024 11:50:47 AM This study was performed and interpreted by a service accredited by theIntersocietal Accreditation Commission (IAC/Vascular),[email or web address] Report generated by [employer]. Final us Ruchi Espitia MD Final Result * US ANKLE BRACHIAL INDEX BILATERAL (06/28/2024 8:12 AM MALT ROASTER) Anatomical Region Laterality Modality ANKLES, ANKLE L, ANKLE R Ultraso und 06/28/2024 6:54 AM MALT ROASTER Narrative 06/28/2024 11:48 AM MALT ROASTER VASCULAR ULTRASOUND REPORT OLIVIA JIANG : 1960 Study Date: 06/28/2024 6:54:00 AM Age: 64 years Tech: MJM/EMS Gender: M Referring : RUCHI ESPITIA Site: [facility] Study performed: Lower extremity resting JEANCARLOS, TBI, (bilateral). Indication for study: Follow-up known PAD TECHNIQUE: Lower/upper extremity arteries were examined per [...] index is normal on the right at 1.10 and is normal on the left at 1.04. 2. Toe-brachial index is abnormal on the right at 0.57 and toe-brachial index is normal on the left at 0.81. 3. Multiphasic arterial Doppler waveforms at the dorsalis pedis and posterior tibial distribution, bilaterally. COMPARISON: Compared to prior study 03/22/2024, there is no significant change. FINDINGS: Abnormal toe brachial index on the right. Left toe/brachial index indicates normal range. Pressures +-----+ +--------+ +-----+ RIGHT (mmHg) LEFT (mmHg) +-----+ +--------+ +-----+ Index 124 Brachial 124 Index +-----+ +--------+ +-----+ 1.10 136 ASSEMBLING FABRICATOR 129 1.04 +-----+ +--------+ +-----+ 1.10 137 DPA 128 1.03 +-----+ +--------+ +-----+ 0.57 71 Digit 1 101 0.81 +-----+ +--------+ +-----+ Damon Perez MD. Electronically signed on 06/28/2024 11:48:23 AM This study was performed and interpreted by a service accredited by the Intersocietal Accreditation Commission (IAC/Vascular), [email or web address] Report generated by [employer]. Final Procedure Note Damon Perez MD - 06/28/2024 VASCULAR ULTRASOUND REPORT OLIVIA JIANG : 1960 Study Date: 06/28/2024 6:54:00 AM Age: 64 years Tech: MJM/EMS Gender: M Referring MD: RUCHI ESPITIA Site: [facility] Study performed: Lower extremity resting JEANCARLOS, TBI, (bilateral). Indication for study: Follow-up known PAD TECHNIQUE: Lower/upper extremity arteries were examined per [...] index is normal on the right at 1.10 and isnormal on the left at 1.04. 2. Toe-brachial index is abnormal on the right at 0.57 and toe-brachialindex is normal on the left at 0.81. 3. Multiphasic arterial Doppler waveforms at the dorsalis pedis andposterior tibial distribution, bilaterally. COMPARISON: Compared to prior study 03/22/2024, there is no significant change. FINDINGS: Abnormal toe brachial index on the right. Left toe/brachial index indicates normal range. Pressures +-----+ +--------+ +-----+ RIGHT (mmHg) LEFT (mmHg) +-----+ +--------+ +-----+ Index 124 Brachial 124 Index +-----+ +--------+ +-----+ 1.10 136 ASSEMBLING FABRICATOR 129 1.04 +-----+ +--------+ +-----+ 1.10 137 DPA 128 1.03 +-----+ +--------+ +-----+ 0.57 71 Digit 1 101 0.81 +-----+ +--------+ +-----+ Damon Perez MD. Electronically signed on 06/28/2024 11:48:23 AM This study was performed and interpreted by a service accredited by theIntersocietal Accreditation Commission (IAC/Vascular),[email or web address] Report generated by [employer]. Final us Ruchi Espitia MD US Final Result * (ABNORMAL) GLUCOSE METER (06/21/2024 11:27 AM MALT ROASTER) Only the most recent of94 resultswithin the time period is included. GLUCOSE METER 244(H) 65 - 100 mg/dL 06/21/2024 11:34 AM MALT ROASTER [facility] [employer] [facility] Blood BLOOD SPECIMEN / Unknown 06/21/2024 11:27 AM MALT ROASTER 06/21/2024 11:34 AM MALT ROASTER Sven Zeng MD CHEMISTRY Final Result [facility] [address] [place] [address], * (ABNORMAL) Hemoglobin AM (06/21/2024 7:02 AM MALT ROASTER) Only the most recent of2 resultswithin the time period is included. HEMOGLOBIN 10.1(L) 13.5 - 17.5 g/dL 06/21/2024 7:50 AM MALT ROASTER [facility] MCV 99 80 - 100 fL 06/21/2024 7:50 AM MALT ROASTER [facility] Blood BLOOD SPECIMEN / Unknown Non-Lab Venipuncture / Unknown 06/21/2024 7:02 AM MALT ROASTER 06/21/2024 7:43 AM MALT ROASTER Sven Zeng MD HEMATOLOGY Final Result Performing Organization Address City/[facility] Co de Phone Number [facility] [address] [place] [address], [place] * (ABNORMAL) PHOSPHORUS (06/21/2024 7:02 AM MALT ROASTER) Only the most recent of19 resultswithin the time period is included. PHOSPHORUS 5.6(H) 2.5 - 4.5 mg/dL 06/21/2024 8:20 AM MALT ROASTER [facility] Blood BLOOD SPECIMEN / Unknown Non-Lab Venipuncture / Unknown 06/21/2024 7:02 AM MALT ROASTER 06/21/2024 7:43 AM MALT ROASTER us Sven Zeng MD CHEMISTRY Final Result Performing Organization Address [facility] Co de Phone Number [facility] [address] [place] [address], [place] * MAGNESIUM (06/21/2024 7:02 AM MALT ROASTER) Only the most recent of17 resultswithin the time period is included. MAGNESIUM 2.2 1.6 - 2.4 mg/dL 06/21/2024 8:20 AM MALT ROASTER [facility] Blood BLOOD SPECIMEN / Unknown Non-Lab Venipuncture / Unknown 06/21/2024 7:02 AM MALT ROASTER 06/21/2024 7:43 AM MALT ROASTER us Sven Zeng MD CHEMISTRY Final Result Performing Organization Address [facility] Co de Phone Number [facility] [address] [address], [place] * (ABNORMAL) Basic metabolic panel AM (06/21/2024 7:02 AM [facility]) Only the most recent of7 resultswithin the time period is included. SODIUM 134(L) 136 - 145 mmol/L 06/21/2024 8:20 AM [facility] POTASSIUM 4.8 3.5 - 5.1 mmol/L 06/21/2024 8:20 AM [facility] CHLORIDE 101 98 - 107 mmol/L 06/21/2024 8:20 AM [facility] CO2,TOTAL 21(L) 22 - 29 mmol/L 06/21/2024 8:20 AM [facility] ANION GAP 12 5 - 18 06/21/2024 8:20 AM [facility] GLUCOSE 109(H) 70 - 99 mg/dL 06/21/2024 8:20 AM [facility] CALCIUM 9.1 8.8 - 10.4 mg/dL 06/21/2024 8:20 AM [facility] Comment: Reference ranges for this test were updated on 03/05/2024 to reflect our healthy population more accurately. Reference range changes are not retroactively applied to results, but previous results using the same methodology can be interpreted in the context of the new reference range. BUN 37(H) 8 - 23 mg/dL 06/21/2024 8:20 AM [facility] CREATININE 1.13 0.70 - 1.20 mg/dL 06/21/2024 8:20 AM [facility] BUN/CREAT RATIO 33(H) 10 - 20 8:20 AM [facility] eGFR 73(L) >90 mL/min/1. 73m2 06/21/2024 8:20 AM [facility] Comment:As of 2021, eG FR is calculated by the CKD-EPI creatinine equation without race adjustment. eGFR can be influenced by muscle mass, exercise, and diet. The reported eGFR is an estimation only and is only applicable if the renal function is stable. Blood BLOOD SPECIMEN / Unknown Non-Lab Venipuncture / Unknown 06/21/2024 7:02 AM MALT ROASTER 06/21/2024 7:43 AM MALT ROASTER us Sven Zeng MD CHEMISTRY Final Result Performing Organization Address City/[facility]/ZIP Co de Phone Number [facility] [address] [address], [place] * (ABNORMAL) POTASSIUM (06/20/2024 3:59 PM MALT ROASTER) Only the most recent of16 resultswithin the time period is included. POTASSIUM 5.5(H) 3.5 - 5.1 mmol/L 06/20/2024 4:33 PM MALT ROASTER [facility] Blood BLOOD SPECIMEN / Unknown Butterfly / Unknown 06/20/2024 3:59 PM MALT ROASTER 06/20/2024 4:07 PM MALT ROASTER Chuy Smith [facility] CHEMISTRY Final R esult Performing Organization Address [facility] Co de Phone Number [facility] [address] [place] [address], [place] * SCAN-CARDIAC STRIP (06/11/2024 7:00 AM MALT ROASTER) Scanner OTHER Final Result * (ABNORMAL) CALCIUM IONIZED HOSPITAL DRAW ONLY (06/11/2024 4:45 AM MALT ROASTER) Only the most recent of8 resultswithin the time period is included. CALCIUM,IONIZE D 1.11(L) 1.15 - 1.27 mmol/L 06/11/2024 5:12 AM MALT ROASTER [facility] [employer] [facility] Blood BLOOD SPECIMEN / Unknown Butterfly / Unknown 06/11/2024 4:45 AM MALT ROASTER 06/11/2024 5:00 AM MALT ROASTER Alexander Beasley MD CHEMISTRY Final Resu lt Performing Organization Address City/[facility]/ZIP Co de Phone Number [facility] [address] [place] [address], [place] * SCAN-CARDIAC STRIP (06/10/2024 3:27 PM MALT ROASTER) us Scanner OTHER Final Result * (ABNORMAL) CBC W PLT NO DIFF (06/10/2024 2:39 PM MALT ROASTER) Only the most recent of4 resultswithin the time period is included. WHITE BLOOD COUNT 4.8 4.5 - 11.0 thou/cu mm 06/11/2024 6:04 AM [facility] RED BLOOD COUNT 3.16(L) 4.30 - 5.90 mil/cu mm 06/11/2024 6:04 AM [facility] HEMOGLOBIN 10.7(L) 13.5 - 17.5 g/dL 06/11/2024 6:04 AM [facility] HEMATOCRIT 32.4(L) 37.0 - 53.0 % 06/11/2024 6:04 AM [facility] MCV 102(H) 80 - 100 fL 06/11/2024 6:04 AM [facility] MCH 34.2(H) 26.0 - 34.0 pg 06/11/2024 6:04 AM [facility] MCHC 33.3 32.0 - 36.0 g/dL 06/11/2024 6:04 AM [facility] RDW 14.4 11.5 - 15.5 % 06/11/2024 6:04 AM [facility] PLATELET COUNT 155 140 - 440 thou/cu mm 06/11/2024 6:04 AM [facility] MPV 11.4(H) 6.5 - 11.0 fL 06/11/2024 6:04 AM [facility] NRBC 0.0 % 06/11/2024 6:04 AM [facility] ABS NRBC 0.0 thou /cu mm 06/11/2024 6:04 AM [facility] Blood BLOOD SPECIMEN / Unknown Butterfly / Unknown 06/10/2024 2:39 PM MALT ROASTER 06/10/2024 2:47 PM MALT ROASTER Alexander Beasley MD HEMATOLOGY Final Resu lt Performing Organization Address [facility] Co de Phone Number [facility] [address] [place] [address], [place] * SCAN-CARDIAC STRIP (06/09/2024 11:00 PM MALT ROASTER) Scanner OTHER Final Result * (ABNORMAL) TRIGLYCERIDES propofol (06/09/2024 4:44 AM MALT ROASTER) Only the most recent of2 resultswithin the time period is included. TRIGLYCERIDES 198(H) <150 mg/dL 06/09/2024 5:31 AM MALT ROASTER [facility] PROVIDER ORDERED STATUS RANDOM 06/09/2024 5:31 AM MALT ROASTER [facility] Blood BLOOD SPECIMEN / Unknown Butterfly / Unknown 06/09/2024 4:44 AM MALT ROASTER 06/09/2024 5:04 AM MALT ROASTER Chuy Smith [facility] CHEMISTRY Final R esult Performing Organization Address [facility] Co de Phone Number [facility] [address] [place] [address], [place] * CK TOTAL propofol (06/09/2024 4:44 AM MALT ROASTER) Only the most recent of3 resultswithin the time period is included. CK,TOTAL 54 39 - 308 IU/L 06/09/2024 5:31 AM MALT ROASTER [facility] Blood BLOOD SPECIMEN / Unknown Butterfly / Unknown 06/09/2024 4:44 AM MALT ROASTER 06/09/2024 5:04 AM MALT ROASTER Chuy Smith [facility] CHEMISTRY Final R esult Performing Organization Address City/[facility]/ZIP Co de Phone Number [facility] [address] [address], [place] * SPUTUM CULTURE, STAIN (06/08/2024 3:43 PM MALT ROASTER) Only the most recent of2 resultswithin the time period is included. CULTURE Usual crista 06/10/2024 7:22 AM MALT ROASTER [facility] GRAM STAIN 3+ PMNs 06/10/2024 7:22 AM MALT ROASTER [facility] GRAM STAIN 1+ RBCs 06/10/2024 7:22 AM MALT ROASTER [facility] GRAM STAIN No Epithelial cells 06/10/2024 7:22 AM MALT ROASTER [facility] GRAM STAIN No organisms seen 06/10/2024 7:22 AM MALT ROASTER [facility] Sputum SPECIMEN FROM ENDOTRACHEAL TUBE / Unknown Non-Blood / Unknown 06/08/2024 3:43 PM MALT ROASTER 06/08/2024 3:51 PM MALT ROASTER us Chuy Smith [facility] MICROBIOLOGY Final R esult Performing Organization Address [facility] Co de Phone Number [facility] [address] [address], [place] * SCAN-CARDIAC STRIP (06/07/2024 7:08 PM MALT ROASTER) us Scanner OTHER Final Result * SCAN CORRESP-LABORATORY RESULTS (06/07/2024 12:55 PM MALT ROASTER) Narrative 06/07/2024 12:55 PM MALT ROASTER Ordered by an unspecified provider. us Other Clinical Staff OTHER Final Resul t * SCAN CORRESP-IMAGING (06/07/2024 12:55 PM MALT ROASTER) Anatomical Region Laterality Modality Other Narrative 06/07/2024 12:55 PM MALT ROASTER Ordered by an unspecified provider. us Other Clinical Staff OTHER Final Resul t * SCAN CORRESP-EKG RESULTS (06/07/2024 12:54 PM MALT ROASTER) Narrative 06/07/2024 12:54 PM MALT ROASTER Ordered by an unspecified provider. us Other Clinical Staff OTHER Final Resul t * SCAN-CARDIAC STRIP (06/07/2024 7:12 AM MALT ROASTER) us Scanner OTHER Final Result * SCAN-CARDIAC STRIP (06/06/2024 11:23 PM MALT ROASTER) us Scanner OTHER Final Result * SCAN-CARDIAC STRIP (06/06/2024 2:58 PM MALT ROASTER) us Scanner OTHER Final Result * (ABNORMAL) TROPONIN T (HS) ONE TIME (06/06/2024 12:12 PM MALT ROASTER) Only the most recent of2 resultswithin the time period is included. TROPONIN T HS 19(H) 6-15 ng/L ng/L 06/06/2024 1:16 PM MALT ROASTER [facility] Blood BLOOD SPECIMEN / Unknown Butterfly / Unknown 06/06/2024 12:12 PM MALT ROASTER 06/06/2024 12:31 PM MALT ROASTER us Nitish Landis MD CHEMISTRY Final Result [facility] [address] [place] [address], * (ABNORMAL) TROPONIN T (HS) ACUTE W/2HR REFLEX (06/06/2024 9:29 AM MALT ROASTER) Only the most recent of2 resultswithin the time period is included. TROPONIN T HS 20(H) 6-15 ng/L ng/L 06/06/2024 10:00 AM MALT ROASTER [facility] Blood BLOOD SPECIMEN / Unknown Venipuncture / Unknown 06/06/2024 9:29 AM MALT ROASTER 06/06/2024 9:35 AM MALT ROASTER Narrative [facility] - 06/06/2024 10:00 AM MALT ROASTER hs-cTnT (Elecsys Troponin T Gen 5) concentration (s) above the sex-specific 99th percentile (16 ng/L or greater for males or 11 ng/L or greater for females) are indicative of myocardial injury. If initial hs-cTnT <=100 ng/L at presentation, a 0h/2h ABSOLUTE (ng/L) delta change (rising or falling) of >=10 ng/L suggests a significant change, whereas a 0h/2h delta change <=3 ng/L suggests no significant change. If initial hs-cTnT >100 ng/L at presentation, a 0h/2h/ RELATIVE (percent, %) delta change of 20% is suggested to distinguish patients with acute vs. chronic myocardial injury. There are multiple etiologies that can cause hs-cTnT increases above the 99th percentile (myocardial injury) other than acute myocardial infarction. Clinical context and careful clinical evaluation are critical for diagnosis and risk-stratification. The diagnosis of acute myocardial infarction requires a rising and/or falling pattern in hs-cTnT concentrations with at least one value above the sex-specific 99th percentile PLUS at least one of the following clinical criteria: ischemic symptoms, new or presumed new significant ST-T wave changes or new LBBB, development of pathological Q waves, imaging evidence of new loss of viable myocardium or new regional wall motion abnormality, or identification of intracoronary atherothrombosis or an acute angiographic culprit on coronary angiography. In appropriate low-risk patients with a non-ischemic electrocardiogram without active chest pain with a symptom onset >3-hours without recurrence, a single initial hs-cTnT<6 ng/L identifies patient with a very low risk in emergency department patient population. us Nitish Landis MD CHEMISTRY Final Result [facility] [address] [place] [address], * (ABNORMAL) MRSA/SA PCR (06/06/2024 8:23 AM MALT ROASTER) Pathologist [facility] MRSA DNA PCR Negative Negative 06/06/2024 10:09 AM MALT ROASTER [facility] STAPHYLOCOCCUS AUREUS PCR Positive(A) Negative 06/06/2024 10:09 AM MALT ROASTER [facility] [facility] Other SPECIMEN FROM INTERNAL NOSE / Unknown Non-Blood / Unknown 06/06/2024 8:23 AM MALT ROASTER 06/06/2024 8:34 AM MALT ROASTER Narrative [facility] - 06/06/2024 10:09 AM MALT ROASTER S. aureus detected; NOT MRSA. Test result does not preclude MRSA nasal colonization. False negative for MRSA could be obtained if MRSA present in the sample is below threshold of detection. us Chuy Smith [facility] MICROBIOLOGY Final R esult [facility] [address] [place] [address], [place] * SCAN-CARDIAC STRIP (06/06/2024 8:00 AM MALT ROASTER) us Scanner OTHER Final Result * US ABDOMEN LIMITED RUQ PORTABLE (06/06/2024 7:51 AM MALT ROASTER) Anatomical Region Laterality Modality Abdomen, LIVER, PANCREAS, GALLBLADDER, SPLEEN Ultrasound 06/06/2024 8:40 AM MALT ROASTER Impressions 06/06/2024 8:40 AM MALT ROASTER 1. Fatty liver 2. Cholelithiasis. 3. Normal bile ducts. 4. Distal abdominal aorta 3.0 cm in diameter. Dictated by Remberto Braxton MD @ 06/06/2024 8:40:03 AM (Electronically Signed) Narrative 06/06/2024 8:40 AM MALT ROASTER For Patients: As a result of the Century Cures Act, medical imaging exams and procedure reports are released immediately into your electronic medical record. You may view this report before your referring provider. If you have questions, please contact your health care provider. INDICATION: Abnormal liver function tests TECHNIQUE: Conventional two-dimensional grayscale ultrasound of the right upper quadrant. COMPARISON: None FINDINGS: Small stones are demonstrated in the gallbladder. No gallbladder wall thickening or pericholecystic fluid is demonstrated. The patient is reportedly not tender over the gallbladder. No biliary ductal dilation is evident. The common bile duct measures 4 mm. Fatty change is demonstrated in the liver. The liver is normal in size and shape. The pancreas is within normal limits. The right kidney is unremarkable. The distal abdominal aorta up to 3.0 cm in diameter. Procedure Note Remberto Braxton MD - 06/06/2024 For Patients: As a result of the Century Cures Act, medical imagingexams and procedure reports are released immediately into your electronicmedical record. You may view this report before your referring provider.If you have questions, please contact your health care provider. INDICATION: Abnormal liver function tests TECHNIQUE: Conventional two-dimensional grayscale ultrasound of the right upperquadrant. COMPARISON: None FINDINGS: Small stones are demonstrated in the gallbladder. No gallbladder wallthickening or pericholecystic fluid is demonstrated. The patient isreportedly not tender over the gallbladder. No biliary ductal dilation is evident. The common bile duct measures 4mm. Fatty change is demonstrated in the liver. The liver is normal in size andshape. The pancreas is within normal limits. The right kidney is unremarkable. The distal abdominal aorta up to 3.0 cm in diameter. IMPRESSION: 1. Fatty liver 2. Cholelithiasis. 3. Normal bile ducts. 4. Distal abdominal aorta 3.0 cm in diameter. Dictated by Remberto Braxton MD @ 06/06/2024 8:40:03 AM (Electronically Signed) Chuy Smith [facility] US Final R esult * (ABNORMAL) BLOOD GAS,VENOUS (06/06/2024 6:10 AM MALT ROASTER) Only the most recent of2 resultswithin the time period is included. PH, VENOUS 7.38 7.32 - 7.43 06/06/2024 6:26 AM MALT ROASTER [facility] PCO2, VENOUS 43 41 - 51 mmHg 06/06/2024 6:26 AM MALT ROASTER [facility] PO2, VENOUS 60(H) 35 - 40 mmHg 06/06/2024 6:26 AM MALT ROASTER [facility] HCO3,VENOUS 25 22 - 29 mmol/L 06/06/2024 6:26 AM MALT ROASTER [facility] BASE EXCESS, VENOUS, POCT 0.0 -2.0 - 3.0 06/06/2024 6:26 AM MALT ROASTER [facility] O2 SATURATION, VENOUS 90(H) 70 - 75 % 06/06/2024 6:26 AM MALT ROASTER [facility] PATIENT TEMPERATURE 37.0 Degrees C 06/06/2024 6:26 AM [facility] Blood VENOUS BLOOD SPECIMEN / Unknown Butterfly / Unknown 06/06/2024 6:10 AM MALT ROASTER 06/06/2024 6:22 AM MALT ROASTER [facility] Final R esult [facility] [address] [place] [address], [place] * Blood Culture (06/06/2024 6:09 AM MALT ROASTER) Only the most recent of2 resultswithin the time period is included. CULTURE No Growth. 06/11/2024 11:06 AM MALT ROASTER [facility] Blood BLOOD SPECIMEN / Unknown Butterfly / Unknown 06/06/2024 6:09 AM MALT ROASTER 06/06/2024 6:23 AM MALT ROASTER Narrative [facility] - 06/11/2024 11:06 AM MALT ROASTER Low volume blood culture received; possible false negative culture. Chuy Vu Valdovinosguilherme [facility] MICROBIOLOGY Final R esult Performing Organization Address City/[facility]/ZIP Co de Phone Number [facility] [address] [place] [address], [place] * AMMONIA (06/06/2024 6:09 AM MALT ROASTER) AMMONIA 40 11 - 51 umol/L 06/06/2024 6:50 AM MALT ROASTER [facility] Blood BLOOD SPECIMEN / Unknown Butterfly / Unknown 06/06/2024 6:09 AM MALT ROASTER 06/06/2024 6:22 AM MALT ROASTER Narrative [facility] - 06/06/2024 6:50 AM MALT ROASTER 1. Sulfasalazine and its metabolite Sulfapyridine at therapeutic concentrations may lead to falsely low results. 2. Temozolomide and its metabolite MTIC may lead to falsely elevated results, and its metabolite AIC may lead to falsely low results. us Chuy Smith [facility] CHEMISTRY Final R esult [facility] [address] [place] [address], [place] * CT CHEST WO (06/06/2024 5:23 AM MALT ROASTER) Anatomical Region Laterality Modality CHEST, THORAX, HEART Computed To mography 06/06/2024 5:57 AM MALT ROASTER Impressions 06/06/2024 5:57 AM MALT ROASTER 1. Tiny effusions bilaterally. Bilateral patchy ground-glass opacities more so upper lobe predominance with basilar bronchial wall thickening and ill-defined centrilobular opacities. Findings likely infectious/inflammatory. Please note that all CT scans at this facility use dose modulation, iterative reconstruction, and/or weight-based dosing when appropriate to reduce radiation dose to as low as reasonably achievable. Dictated by Katherine Melendez MD @ 06/06/2024 5:57:14 AM (Electronically Signed) Narrative 06/06/2024 5:57 AM MALT ROASTER For Patients: As a result of the Cures Act, medical imaging exams and procedure reports are released immediately into your electronic medical record. You may view this report before your referring provider. If you have questions, please contact your health care provider. INDICATION: Pneumonia complications suspected TECHNIQUE: CT chest without contrast. COMPARISON: CT 12/14/2022 FINDINGS: Lungs and pleura: Centrilobular emphysema. Tiny effusions bilaterally bilateral patchy ground-glass opacities basilar bronchial wall thickening wi with nodular opacities in the lower lobes left greater than right. Right basilar atelectasis left basilar atelectasis/consolidation. Heart and vasculature: 4.1 centimeter ascending thoracic aortic aneurysm. Dense coronary artery calcification. The heart is minimally prominent. Lymph nodes/mediastinum: No mediastinal, hilar, or axillary adenopathy. Chest wall: No masses. Upper abdomen: No significant findings. Bones: Unremarkable for age. Procedure Note Katherine Melendez MD - 06/06/2024 For Patients: As a result of the Century Cures Act, medical imagingexams and procedure reports are released immediately into your electronicmedical record. You may view this report before your referring provider.If you have questions, please contact your health care provider. INDICATION: Pneumonia complications suspected TECHNIQUE: CT chest without contrast. COMPARISON: CT 12/14/2022 FINDINGS: Lungs and pleura: Centrilobular emphysema. Tiny effusions bilaterallybilateral patchy ground-glass opacities basilar bronchial wall thickeningwi with nodular opacities in the lower lobes left greater than right.Right basilar atelectasis left basilar atelectasis/consolidation. Heart and vasculature: 4.1 centimeter ascending thoracic aortic aneurysm.Dense coronary artery calcification. The heart is minimally prominent. Lymph nodes/mediastinum: No mediastinal, hilar, or axillary adenopathy. Chest wall: No masses. Upper abdomen: No significant findings. Bones: Unremarkable for age. IMPRESSION: 1. Tiny effusions bilaterally. Bilateral patchy ground-glass opacitiesmore so upper lobe predominance with basilar bronchial wall thickening andill-defined centrilobular opacities. Findings likelyinfectious/inflammatory. Please note that all CT scans at this facility use dose modulation,iterative reconstruction, and/or weight-based dosing when appropriate toreduce radiation dose to as low as reasonably achievable. Dictated by Katherine Melendez MD @ 06/06/2024 5:57:14 AM (Electronically Signed) us Chuy Womack Bonifaciombguilherme [facility] CT Final R esult * CT HEAD BRAIN WO (06/06/2024 5:23 AM MALT ROASTER) Anatomical Region Laterality Modality HEAD, BRAIN Computed Tomogra phy 06/06/2024 5:46 AM MALT ROASTER Impressions 06/06/2024 5:46 AM MALT ROASTER No acute intracranial abnormality. Please note that all CT scans at this facility use dose modulation, iterative reconstruction, and/or weight-based dosing when appropriate to reduce radiation dose to as low as reasonably achievable. Dictated by Kim Klein MD @ 06/06/2024 5:46:26 AM (Electronically Signed) Narrative 06/06/2024 5:46 AM MALT ROASTER For Patients: As a result of the Cures Act, medical imaging exams and procedure reports are released immediately into your electronic medical record. You may view this report before your referring provider. If you have questions, please contact your health care provider. INDICATION: . TECHNIQUE: CT head without contrast. COMPARISON: None. FINDINGS: MASS EFFECT & VENTRICLES: No shift. The lateral ventricles are grossly symmetric. The ventricles, sulci and cisterns are normal. BRAIN: Mild cerebral volume loss. No acute transcortical infarct or hemorrhage is seen. Streak artifact from devices surrounding the head slightly limits evaluation. VASCULATURE: Calcification of the cavernous carotids and V4 segments of the vertebral arteries. EXTRA-AXIAL: Extra-axial spaces are normal. EXTRA-CRANIAL: Skull and facial bones are normal. Moderate scattered sinus mucosal thickening and mucous retention cysts. Mastoids are clear. Orbits are normal. Nasoenteric tube is present. Endotracheal tube is present. Procedure Note Kim Klein MD - 06/06/2024 For Patients: As a result of the Cures Act, medical imagingexams and procedure reports are released immediately into your electronicmedical record. You may view this report before your referring provider.If you have questions, please contact your health care provider. INDICATION: . TECHNIQUE: CT head without contrast. COMPARISON: None. FINDINGS: MASS EFFECT & VENTRICLES: No shift. The lateral ventricles are grosslysymmetric. The ventricles, sulci and cisterns are normal. BRAIN: Mild cerebral volume loss. No acute transcortical infarct orhemorrhage is seen. Streak artifact from devices surrounding the headslightly limits evaluation. VASCULATURE: Calcification of the cavernous carotids and V4 segments ofthe vertebral arteries. EXTRA-AXIAL: Extra-axial spaces are normal. EXTRA-CRANIAL: Skull and facial bones are normal. Moderate scatteredsinus mucosal thickening and mucous retention cysts. Mastoids are clear.Orbits are normal. Nasoenteric tube is present. Endotracheal tube ispresent. IMPRESSION: No acute intracranial abnormality. Please note that all CT scans at this facility use dose modulation,iterative reconstruction, and/or weight-based dosing when appropriate toreduce radiation dose to as low as reasonably achievable. Dictated by Kim Klein MD @ 06/06/2024 5:46:26 AM (Electronically Signed) us Chuy Munozyambu [facility] CT Final R esult * XR ABDOMEN 1 VIEW PORTABLE (06/06/2024 4:16 AM MALT ROASTER) Only the most recent of2 resultswithin the time period is included. Anatomical Region Laterality Modality Abdomen Digital Radiogra phy 06/06/2024 4:41 AM MALT ROASTER Narrative 06/06/2024 4:41 AM MALT ROASTER For Patients: As a result of the Cures Act, medical imaging exams and procedure reports are released immediately into your electronic medical record. You may view this report before your referring provider. If you have questions, please contact your health care provider. Indication: Enteric tube Technique: Abdomen radiograph 1 view. Comparison: Same day abdominal radiograph Findings: Bowel: Nonobstructive bowel gas pattern. Enteric tube is in unchanged position with tip in the gastric body and side port just past the GE junction. The amount of colonic stool is within normal limits. Other: No sign of free air. Osseous structures are unremarkable for age. Impression: Enteric tube is in unchanged position with side port just past the GE junction. Consider advancing by at least 5 centimeters. Dictated by Kim Klein MD @ 06/06/2024 4:41:29 AM (Electronically Signed) Procedure Note Kim Klein MD - 06/06/2024 For Patients: As a result of the Cures Act, medical imagingexams and procedure reports are released immediately into your electronicmedical record. You may view this report before your referring provider.If you have questions, please contact your health care provider. Indication: Enteric tube Technique: Abdomen radiograph 1 view. Comparison: Same day abdominal radiograph Findings: Bowel: Nonobstructive bowel gas pattern. Enteric tube is in unchangedposition with tip in the gastric body and side port just past the GEjunction. The amount of colonic stool is within normal limits. Other: No sign of free air. Osseous structures are unremarkable for age. Impression: Enteric tube is in unchanged position with side port just past the GEjunction. Consider advancing by at least 5 centimeters. Dictated by Kim Klein MD @ 06/06/2024 4:41:29 AM (Electronically Signed) Chuy Vu Smith [facility] GENERAL IMAGING Final R esult * LEGIONELLA AND PNEUMOCOCCAL URINE ANTIGEN (06/06/2024 3:51 AM MALT ROASTER) STREP PNEUMO ANTIGEN Negative 06/06/2024 1:58 PM MALT ROASTER [facility] Comment:Presumptive negative for pneumococcal pneumonia, suggesting no current or recent pneumococcal infection. Infection due to S. pneumoniae cannot be ruled out since the antigen present in the sample may be below the detection limit of the test. LEGIONELLA ANTIGEN Negative 06/06/2024 1:58 PM [facility]ALT ROASTER [facility] Comment:Negative for L.pneum ophila serogroup 1 antigen, suggesting no recent or current infection. Infection due to Legionella cannot be ruled out since other serogroups and species may cause disease, antigen may not be present in urine in early infection, and the level of antigen present may be below the detection limit of the test. Low test sensitivity in patients with mild pneumonia. Urine URINE SPECIMEN / Unknown Non-Blood / Unknown 06/06/2024 3:51 AM MALT ROASTER 06/06/2024 4:38 AM MALT ROASTER Nitish Landis MD MICROBIOLOGY Final Result [facility] [address] [place] [address], [place] * (ABNORMAL) URINALYSIS MICROSCOPIC (06/06/2024 3:51 AM MALT ROASTER) RBC 11-25(A) 0-2, None Seen /HPF 06/06/2024 5:09 AM MALT ROASTER [facility] WBC 0-2 0-2, 3-5, None Seen /HPF 06/06/2024 5:09 AM MALT ROASTER [facility] BACTERIA None Seen None Seen, Rare, Few Bacteria/ HPF 06/06/2024 5:09 AM MALT ROASTER [facility] EPITHELIAL CELLS None Seen None Seen, Few Epi/HPF 06/06/2024 5:09 AM MALT ROASTER [facility] HYALINE CASTS 6-10(A) 0-2, 3-5 /LPF 06/06/2024 5:09 AM MALT ROASTER [facility] Urine URINE SPECIMEN / Unknown Non-Blood / Unknown 06/06/2024 3:51 AM MALT ROASTER 06/06/2024 4:38 AM MALT ROASTER [facility] URINE Final R esult Performing Organization Address [facility] Co de Phone Number [facility] [address] [place] [address], [place] * Urine Culture (06/06/2024 3:51 AM MALT ROASTER) CULTURE No growth (<1,000 CFU/mL) 06/07/2024 8:54 AM MALT ROASTER [facility] Urine URINE SPECIMEN / Unknown Non-Blood / Unknown 06/06/2024 3:51 AM MALT ROASTER 06/06/2024 4:38 AM MALT ROASTER Chuy Womack Bonifacioguilherme [facility] MICROBIOLOGY Final R esult Performing Organization Address [facility] de Phone Number [facility] [address] [place] [address], [place] * (ABNORMAL) Urinalysis W Reflex Microscopic if Positive (06/06/2024 3:51 AM MALT ROASTER) COLOR Yellow Yellow Color 06/06/2024 5:09 AM MALT ROASTER [facility] CLARITY Clear Clear Clarity 06/06/2024 5:09 AM MALT ROASTER [facility] SPECIFIC GRAVITY,URINE >=1.030(A) 1.010, 1.015, 1.020, 1.025 06/06/2024 5:09 AM MALT ROASTER [facility] PH,URINE 5.5 6.0, 7.0, 8.0, 5.5, 6.5, 7.5, 8.5 06/06/2024 5:09 AM MALT ROASTER [facility] UROBILINOGEN,QU ALITATIVE Normal Normal EU/dl 06/06/2024 5:[address] [facility] PROTEIN, URINE >=300(A) Negative mg/dL 06/06/2024 5:[address] [facility] GLUCOSE, URINE >=1000(A) Negative mg/dL 06/06/2024 5:[address] [facility] KETONES,URINE 15(A) Negative mg/dL 06/06/2024 5:[address] [facility] BILIRUBIN,URINE Abnormal(A) Negative 06/06/19 25 5:[address] [facility] Comment:A variety of metabol ites and/or medications may result in a positive bilirubin result. Clinical correlation is recommended. OCCULT BLOOD,URINE Large(A) Negative 06/06/2024 5:[address] [facility] NITRITE Negative Negative 06/06/2024 5:[address] [facility] LEUKOCYTE ESTERASE Trace(A) Negative 06/06/2024 5:[address] [facility] Urine URINE SPECIMEN / Unknown Non-Blood / Unknown 06/06/2024 3:51 AM MALT ROASTER 06/06/2024 4:38 AM MALT ROASTER us Chuy Tillman URINE Final R esult [facility] [address] [place] [id number], * INTUBATION (06/06/2024 2:35 AM MALT ROASTER) Narrative Chuy Smith [facility] - 06/06/2024 2:35 AM MALT ROASTER Chuy Smith [facility] 06/06/2024 2:36 AM INTUBATION Date/Time: 06/06/2024 2:35 AM Performed by: Chuy Smith [facility] Authorized by: Chuy Smith [facility] Indication/Diagnosis: Hypoxemic respiratory failure, decreased LOC and airway protection ICU Airway Protocol used: Yes Pre-Procedure Assessment Mallampati Class: I - soft palate, uvula, fauces, pillars visible Mouth Opening: Full} Thyromental Distance: Normal Neck ROM: Full Teeth: Missing Technique: Rapid sequence intubation Oxygenation Strategy: NIPPV Medications: Etomidate (mg) and Fentanyl (mcg) Etomidate Dose (mg): 20 Fentanyl Dose (mcg): 25 Neuromuscular Blockers: Rocuronium (mg) Rocuronium Dose (mg): 60 Ventilation attempted between induction and intubation?: Yes Mask Ventilation: Easy Laryngoscopy via: Glidescope Mac Blade Size: 3 Cricoid Pressure: No Laryngoscopy Attempts: 1 Cormack-Lehane Grade View: 1 ETT Type: Oral ETT with subglottic suction ETT Size: 7.5 (Add'l sizes): 7.5 Secured At (cm): 22 Measured From: Lips Airway Adjuncts: None Post-Procedure Assessment Airway Confirmation via: CO2 detection, capnography, auscultation and CXR Pre-induction Sp02%: 98 Corbin SpO2%: 96 Procedure Noteable for: Uneventful Placement Verification: auscultation, end tidal CO2 and chest x-ray Difficulty: 0 (not difficult) Chuy Stephonthong Sarah [facility] RESPIRATORY CARE ORD Fi nal Result * (ABNORMAL) CBC WITH AUTO DIFFERENTIAL (06/06/2024 1:37 AM MALT ROASTER) WHITE BLOOD COUNT 5.3 4.5 - 11.0 thou/cu mm 06/06/2024 2:17 AM [facility] RED BLOOD COUNT 3.48(L) 4.30 - 5.90 mil/cu mm 06/06/2024 2:17 AM [facility] HEMOGLOBIN 12.0(L) 13.5 - 17.5 g/dL 06/06/2024 2:17 AM [facility] HEMATOCRIT 35.2(L) 37.0 - 53.0 % 06/06/2024 2:17 AM [facility] MCV 101(H) 80 - 100 fL 06/06/2024 2:17 AM [facility] MCH 34.5(H) 26.0 - 34.0 pg 06/06/2024 2:17 AM [facility] MCHC 34.1 32.0 - 36.0 g/dL 06/06/2024 2:17 AM [facility] RDW 14.8 11.5 - 15.5 % 06/06/2024 2:17 AM [facility] PLATELET COUNT 62(L) 140 - 440 thou/cu mm 06/06/2024 2:17 AM [facility] MPV 11.1(H) 6.5 - 11.0 fL 06/06/2024 2:17 AM [facility] NRBC 0.0 % 06/06/2024 2:17 AM [facility] ABS NRBC 0.0 thou /cu mm 06/06/2024 2:17 AM [facility] % NEUT 78.4 % 06/06/2024 2:17 AM [facility] % LYMPH 7.8 % 06/06/2024 2:17 AM [facility] % MONO 12.3 % 06/06/2024 2:17 AM [facility] % EOS 0.4 % 06/06/2024 2:17 AM [facility] % BASO 0.2 % 06/06/2024 2:17 AM [facility] % IMMATURE GRAN (METAS,MYELOS,CT OS) 0.9 % 06/06/2024 2:17 AM [facility] ABSOLUTE NEUTROPHILS 4.2 1.7 - 7.0 thou/cu mm 06/06/2024 2:17 AM [facility] ABSOLUTE LYMPHOCYTES 0.4(L) 0.9 - 2.9 thou/cu mm 06/06/2024 2:17 AM [facility] ABSOLUTE MONOCYTES 0.7 <0.9 thou/cu mm 06/06/2024 2:17 AM [facility] ABSOLUTE EOSINOPHILS 0.0 <0.5 thou/cu mm 06/06/2024 2:17 AM MALT ROASTER [facility] ABSOLUTE BASOPHILS 0.0 <0.3 thou/cu mm 06/06/2024 2:17 AM [facility] RO[facility] ABSOLUTE IMMATURE GRANULOCYTES(MET ,MYELOS,PROS) 0.1 <0.3 thou/cu mm 06/06/2024 2:17 AM MALT ROASTER [facility] Blood BLOOD SPECIMEN / Unknown Butterfly / Unknown 06/06/2024 1:37 AM MALT ROASTER 06/06/2024 1:46 AM MALT ROASTER Chuy Smith [facility] HEMATOLOGY Final R esult Performing Organization Address City/[facility] Co de Phone Number [facility] [address] [place] [address], [place] * HEMOGLOBIN A1C (06/06/2024 1:37 AM MALT ROASTER) HEMOGLOBIN A1C SCREENING 5.4 <=6.4 % 06/06/2024 3:47 PM MALT ROASTER [facility] Blood BLOOD SPECIMEN / Unknown Butterfly / Unknown 06/06/2024 1:37 AM MALT ROASTER 06/06/2024 1:46 AM MALT ROASTER Narrative [facility] - 06/06/2024 3:47 PM MALT ROASTER (<5.7%) Normal (5.7% to 6.4%) Indicates prediabetes (>=6.5%) Confirms diabetes Falsely low levels may be seen with: Recent Transfusion, Recent Significant Blood Loss, Hemolytic Diseases, or Falsely elevated levels may be seen with: Untreated Anemias, Splenectomy Chuy Smith [facility] CHEMISTRY Final R esult Performing Organization Address City/[facility]/ZIP Co de Phone Number [facility] [address] [place] [address], [place] * LACTATE VENOUS (06/06/2024 1:37 AM MALT ROASTER) LACTATE,VENOUS 1.3 0.5 - 2.0 mmol/L 06/06/2024 2:15 AM MALT ROASTER [place] [facility] Blood BLOOD SPECIMEN / Unknown Butterfly / Unknown 06/06/2024 1:37 AM MALT ROASTER 06/06/2024 1:46 AM MALT ROASTER us Chuy Vu Smith [facility] CHEMISTRY Final R esult [facility] [address] [place] [address], * (ABNORMAL) PROCALCITONIN (06/06/2024 1:37 AM MALT ROASTER) PROCALCITONIN 13.10(H) ng/ml 06/06/2024 2:26 AM MALT ROASTER [facility] Blood BLOOD SPECIMEN / Unknown Butterfly / Unknown 06/06/2024 1:37 AM MALT ROASTER 06/06/2024 1:46 AM MALT ROASTER Narrative [facility] - 06/06/2024 2:26 AM MALT ROASTER Procalcitonin for initial assessment of Lower Respiratory Tract Infection: Results Interpretation <0.10 ng/mL Antibiotic therapy strongly discoraged. Indicates absent of bacterial infection. * 0.10 - 0.25 ng/mL Antibiotic therapy discouraged. Bacterial infection unlikely. * 0.26 - 0.50 ng/mL Antibiotic therapy encouraged. Bacterial infection possible. >0.50 ng/mL Antibiotic therapy strongly encouraged. Suggestive of presence of bacterial infection. *Antibiotic therapy should be considered regardless of PCT result if the patient is clinically unstable, is at high risk for adverse outcome, has strong evidence of bacterial pathogen, or the clinical context indicates antibiotic therapy is warranted. If antibiotics are withheld, reassess if symptoms persist/worsen and/or repeat PCT measurement within 6-24 hours. In order to assess treatment success and to support a decision to discontinue antibiotic therapy, follow up samples should be tested once every 1-2 days, based upon physician discretion taking into account patient's evolution and progress. Procalcitonin for initial assessment of severe sepsis risk: Results Interpretation <0.5 ng/ml A PCT level below 0.5 ng/ml on the first day of ICU admission is associated with a low risk for progression to severe sepsis and/or septic shock. > 2.0 ng/mL A PCT level above 2.0 ng/mL on the first day of ICU admission is associated with a high risk for progression to severe sepsis and/or septic shock. Note: Concentrations < 0.5 ng/mL do not exclude an infection, on account of localized infections (without systemic signs) which can be associated with such low concentrations, or a systemic infection in its initial stages(< 6 hours). Furthermore, increased procalcitonin can occur without infection. PCT concentrations between 0.5 and 2.0 ng/mL should be interpreted taking into account the patient's history. It is recommended to retest PCT within 6-24 hours if any concentrations < 2 ng/mL are obtained. Chuy Smith [facility] SEND OUTS Final R esult [facility] [address] [place] [address], * Protime - INR (06/06/2024 1:37 AM MALT ROASTER) INR 1.1 <1.3 06/06/2024 2:12 AM MALT ROASTER [facility] PROTIME 12.1 10.6 - 12.4 sec 06/06/2024 2:12 AM MALT ROASTER [facility] Blood BLOOD SPECIMEN / Unknown Butterfly / Unknown 06/06/2024 1:37 AM MALT ROASTER 06/06/2024 1:46 AM MALT ROASTER [facility] LAB[facility]ATORY - 06/06/2024 2:12 AM MALT ROASTER Therapeutic Range 2.0-3.0 for most anticoagulated patients 2.5-3.5 or 4.0 for high risk patients The INR is only used for patients on stable oral anticoagulant therapy. It makes no significant contribution to the diagnosis or treatment of patients whose Protime is prolonged for other reasons. INR results are increased when heparin levels exceed 1.0 U/mL, which corresponds to an aPTT >125 seconds if the patient is on UFH. Chuy Smith [facility] HEMATOLOGY Final R esult [facility] [address] [place] [address], [place] * LIPASE (06/06/2024 12:49 AM MALT ROASTER) LIPASE 48.4 13.0 - 60.0 IU/L 06/06/2024 1:29 AM MALT ROASTER [facility] Blood BLOOD SPECIMEN / Unknown Venipuncture / Unknown 06/06/2024 12:49 AM MALT ROASTER 06/06/2024 12:57 AM MALT ROASTER Chuy Womack Bonifacioguilherme [facility] CHEMISTRY Final R esult Performing Organization Address City/[facility] Co de Phone Number [facility] [address] [place] [address], [place] * (ABNORMAL) PHENOBARBITAL (06/06/2024 12:49 AM MALT ROASTER) Pathologist [facility] PHENOBARBITAL 5.6(L) 10.0 - 30.0 ug/mL 06/06/2024 1:32 AM MALT ROASTER [facility] DATE OF LAST DOSE Not Given 025 1:32 AM MALT ROASTER [facility] TIME OF LAST DOSE Not Given 025 1:32 AM MALT ROASTER [facility] Blood BLOOD SPECIMEN / Unknown Venipuncture / Unknown 06/06/2024 12:49 AM MALT ROASTER 06/06/2024 12:57 AM MALT ROASTER Chuy Womack Bonifacioguilherme [facility] CHEMISTRY Final R esult Performing Organization Address City/[facility]/ZIP Co de Phone Number [facility] [address] [place] [address], [place] * (ABNORMAL) Hepatic Function Panel (06/06/2024 12:49 AM MALT ROASTER) Pathologist [facility] ALBUMIN 2.7(L) 4.0 - 4.9 g/dL 06/06/2024 1:29 AM MALT ROASTER [facility] PROTEIN,TOTAL 6.8 6.0 - 8.0 g/dL 06/06/2024 1:29 AM MALT ROASTER [facility] BILIRUBIN,TOTAL 1.9(H) 0.0 - 1.2 mg/dL 06/06/2024 1:29 AM MALT ROASTER [facility] BILIRUBIN,DIRECT 1.0(H) 0.0 - 0.2 mg/dL 06/06/2024 1:29 AM MALT ROASTER [facility] BILIRUBIN,INDIRE CT 0.9(H) 0.2 - 0.8 mg/dL 06/06/2024 1:29 AM MALT ROASTER [facility] ALK PHOSPHATASE 120 40 - 129 IU/L 06/06/2024 1:29 AM [facility] ALT (SGPT) 67(H) 10 - 50 IU/L 06/06/2024 1:29 AM [facility] AST (SGOT) 169(H) 10 - 50 IU/L 06/06/2024 1:29 AM [facility] Blood BLOOD SPECIMEN / Unknown Venipuncture / Unknown 06/06/2024 12:49 AM MALT ROASTER 06/06/2024 12:57 AM MALT ROASTER us Chuy Smith [facility] CHEMISTRY Final R esult [facility] [address] [place] [address], [place] * XR CHEST 1 VIEW PORTABLE (06/06/2024 12:40 AM MALT ROASTER) Anatomical Region Laterality Modality HEART, THORAX, CHEST Digital Rad iography 06/06/2024 12:4 7 AM MALT ROASTER Impressions 06/06/2024 12:47 AM MALT ROASTER 1. Endotracheal tube in satisfactory position. 2. Subtle bilateral patchy airspace opacities may be infectious or inflammatory. Dictated by Eloisa Thurston MD @ 06/06/2024 12:47:00 AM (Electronically Signed) Narrative 06/06/2024 12:47 AM MALT ROASTER For Patients: As a result of the Cures Act, medical imaging exams and procedure reports are released immediately into your electronic medical record. You may view this report before your referring provider. If you have questions, please contact your health care provider. INDICATION: ETT placement. Evaluate lung infiltrate. TECHNIQUE: Chest 1 view. COMPARISON: Chest radiograph 12/14/2022. FINDINGS: Lines and tubes: Endotracheal tube with tip 4.0 cm above the tootie. Overlying cardiac monitoring leads. Cardiovascular: Heart size and vasculature are normal in caliber and appearance. Lungs and pleural spaces: There are subtle patchy airspace opacities throughout both lungs. No sign of pleural effusion. No pneumothorax identified. Bones and soft tissues: No significant findings. Procedure Note Eloisa Thurston MD - 06/06/2024 For Patients: As a result of the Cures Act, medical imagingexams and procedure reports are released immediately into your electronicmedical record. You may view this report before your referring provider.If you have questions, please contact your health care provider. INDICATION: ETT placement. Evaluate lung infiltrate. TECHNIQUE: Chest 1 view. COMPARISON: Chest radiograph 12/14/2022. FINDINGS: Lines and tubes: Endotracheal tube with tip 4.0 cm above the tootie.Overlying cardiac monitoring leads. Cardiovascular: Heart size and vasculature are normal in caliber andappearance. Lungs and pleural spaces: There are subtle patchy airspace opacitiesthroughout both lungs. No sign of pleural effusion. No pneumothoraxidentified. Bones and soft tissues: No significant findings. IMPRESSION: 1. Endotracheal tube in satisfactory position. 2. Subtle bilateral patchy airspace opacities may be infectious orinflammatory. Dictated by Eloisa Thurston MD @ 06/06/2024 12:47:00 AM (Electronically Signed) us Chuy Smith [facility] GENERAL IMAGING Final R esult * 12 Lead EKG (06/06/2024 12:37 AM MALT ROASTER) Interpretation Unusual P axis, possible ectopic atrial rhythm Poor R-wave progression ; consider anterior infarct, lead placement, or normal variant QTcB >= 480 msec Abnormal ECG When compared with ECG of 14-Dec-2022 05:49, Ectopic atrial rhythm has replaced Sinus rhythm ST no longer depressed in Anterior leads Nonspecific T wave abnormality now evident in Inferior leads T wave inversion no longer evident in Anterolateral leads BEYOND NOW Ventricular Rate 91 BPM BEYOND NOW Atrial Rate 91 BPM BEYOND NOW P-R Interval 184 ms BEYOND NOW QRS Duration 80 ms BEYOND NOW QT 396 ms BEYOND NOW QTc 487 ms BEYOND NOW P [place] 204 degrees BEYOND NOW R [place] 31 degrees BEYOND NOW T [place] 37 degrees BEYOND NOW 06/06/2024 12:3 7 AM MALT ROASTER 06/06/2024 9:05 PM MALT ROASTER us Chuy Smith [facility] EKG ORD Final R esult BEYOND NOW [place], [place] * SCAN-RADIOLOGY REPORT (06/06/2024 12:00 AM MALT ROASTER) Only the most recent of6 resultswithin the time period is included. Anatomical Region Laterality Modality Other Narrative 06/06/2024 12:00 AM MALT ROASTER Ordered by an unspecified provider. us Other Clinical Staff OTHER Final Resul t * ECHO TTE COMPLETE WO CONTRAST (06/03/2024 9:40 AM MALT ROASTER) AORTIC VALVE MEAN PG 3 mmHg LVEDD 3.7 cm EJECTION FRACTION 65 - 70% Anatomical Region Laterality Modality Ultrasound 06/03/2024 9:14 AM MALT ROASTER Narrative 06/03/2024 10:50 AM MALT ROASTER ECHOCARDIOGRAM OLIVIA JIANG : 1960 63 years Study Date: 06/03/2024 9:14:42 AM Gender: M BP: 151/91 mmHg Height: 173.00 cm BSA: 1.81 m Weight: 68.00 kg Tech: BEVERLY Referring MD: ADARSH SYKES Site: [facility] Reading Location: Mobile-IP Patient Location: Inpatient. Procedure: 2D, Color Doppler and Spectral Doppler. Indication for study: Elevated troponin; History of CAD (coronary artery disease); History of ID (myocardial infarction) Cardiac Rhythm: Regular.Study quality: Fair. Imaging limitations: This study was subject to imaging limitations due to a prominent lung artifact. Final Impressions: 1. Normal LV size, normal wall thickness, normal global systolic function with an estimated EF of 65 - 70%. 2. Right ventricular cavity size is normal, global systolic RV function is normal. 3. The aortic valve is probably bicuspid, no stenosis and no regurgitation. 4. The ascending aorta is dilated with a maximal diameter of 4.0 cm. Chamber Sizes and Function Normal left ventricular size, normal wall thickness, normal global systolic function with an estimated EF of 65 - 70%. No resting regional wall motion abnormality visualized. Left atrial size is normal. Right ventricular cavity size is normal, global systolic RV function is normal. The right atrium is normal. The pulmonary artery is not well visualized. The sinus of Valsalva is normal sized. The ascending aorta is dilated. Valves, RV Pressures and Diastolic Function The aortic valve is probably bicuspid, no stenosis and no regurgitation. The mitral valve is normal in structure, trace mitral regurgitation. Normal diastolic function. The tricuspid valve is normal in structure. Tricuspid regurgitation is trace regurgitation. Unable to assess right ventricular systolic pressure. The pulmonic valve is not well visualized. No pulmonary regurgitation. Masses, Effusion, Shunts There is no pericardial effusion. The inferior vena cava is normal sized, respiratory size variation greater than 50%. No left to right shunting was detected by limited color flow Doppler interrogation of the interatrial septum. MEASUREMENTS AND CALCULATIONS 2-D Measurements and LV Function: LVID (d) 3.7 cm LV FS% (2D) 39 % LVID (s) 2.2 cm LVOT diameter 2.2 cm IVS (d) 0.9 cm HR 86 bpm LVPW (d) 1.0 cm RV Max 4C (d) 2.9 cm Ao Sinus 3.5 cm Asc Ao 4.0 cm LA 3.7 cm Diastology: Tissue Doppler e', Septum 0.07 m/s e', Lateral 0.10 m/s Aortic Valve: Vmax 1.3 m/s BINA (V) 3.50 cm VTI 0.19 m BINA (I) 3.99 cm LVOT V max 1.1 m/s Max PG 6 mmHg LVOT VTI 0.19 m Mean PG 3 mmHg SV 75 ml Dim Index 1.02 SV index 41 ml/m CO 6.4 l/min CI 3.5 l/min/m Tricuspid Valve and estimated PA pressures: TAPSE 2.3 cm . This study was interpreted by an [facility] accredited facility. CC: HIM (med records) [facility], Med/Surg - IP [facility]. Final Procedure Note Julio Escamilla MD - 06/03/2024 ECHOCARDIOGRAM OLIVIA JIANG : 1960 63 years Study Date: 06/03/2024 9:14:42 AM Gender: M BP: 151/91 mmHg Height: 173.00 cm BSA: 1.81 m Weight: 68.00 kg Tech: BEVERLY Referring MD: ADARSH SYKES Site: [facility] Reading Location: Mobile- Patient Location: Inpatient. Procedure: 2D, Color Doppler and Spectral Doppler. Indication for study: Elevated troponin; History of CAD (coronary arterydisease); History of ID (myocardial infarction) Cardiac Rhythm: Regular.Study quality: Fair. Imaging limitations: This study was subject to imaging limitations due toa prominent lung artifact. Final Impressions: 1. Normal LV size, normal wall thickness, normal global systolic functionwith an estimated EF of 65 - 70%. 2. Right ventricular cavity size is normal, global systolic RV functionis normal. 3. The aortic valve is probably bicuspid, no stenosis and noregurgitation. 4. The ascending aorta is dilated with a maximal diameter of 4.0 cm. Chamber Sizes and Function Normal left ventricular size, normal wall thickness, normal globalsystolic function with an estimated EF of 65 - 70%. No resting regionalwall motion abnormality visualized. Left atrial size is normal. Rightventricular cavity size is normal, global systolic RV function is normal.The right atrium is normal. The pulmonary artery is not well visualized.The sinus of Valsalva is normal sized. The ascending aorta is dilated. Valves, RV Pressures and Diastolic Function The aortic valve is probably bicuspid, no stenosis and no regurgitation.The mitral valve is normal in structure, trace mitral regurgitation.Normal diastolic function. The tricuspid valve is normal in structure.Tricuspid regurgitation is trace regurgitation. Unable to assess rightventricular systolic pressure. The pulmonic valve is not well visualized.No pulmonary regurgitation. Masses, Effusion, Shunts There is no pericardial effusion. The inferior vena cava is normal sized,respiratory size variation greater than 50%. No left to right shunting wasdetected by limited color flow Doppler interrogation of the interatrialseptum. MEASUREMENTS AND CALCULATIONS 2-D Measurements and LV Function: LVID (d) 3.7 cm LV FS% (2D) 39 % LVID (s) 2.2 cm LVOT diameter 2.2 cm IVS (d) 0.9 cm HR 86 bpm LVPW (d) 1.0 cm RV Max 4C (d) 2.9 cm Ao Sinus 3.5 cm Asc Ao 4.0 cm LA 3.7 cm Diastology: Tissue Doppler e', Septum 0.07 m/s e', Lateral 0.10 m/s Aortic Valve: Vmax 1.3 m/s BINA (V) 3.50 cm VTI 0.19 m BINA (I) 3.99 cm LVOT V max 1.1 m/s Max PG 6 mmHg LVOT VTI 0.19 m Mean PG 3 mmHg SV 75 ml Dim Index 1.02 SV index 41 ml/m CO 6.4 l/min CI 3.5 l/min/m Tricuspid Valve and estimated PA pressures: TAPSE 2.3 cm . This study was interpreted by an [facility] accredited facility. CC: [facility] (med records) [facility], Med/Surg - IP [facility]. Final us Adarsh Sykes MD ECHO ORD Final Result * SCAN-CT INTERPRETATION (06/02/2024 12:00 AM MALT ROASTER) Anatomical Region Laterality Modality Other us Scanner OTHER Final Result * (ABNORMAL) LIPID PANEL W REFLEX MEASURED LDL (01/06/2023 2:09 PM CDT) CHOLESTEROL,TOTAL 130 100 - 199 mg/dL 01/06/2023 3:03 PM CDT [facility] Comment: Cholesterol, Total Reference Ranges Desirable <200 mg/dL Borderline 200-239 mg/dL High >=240 mg/dL TRIGLYCERIDES 413(H) <150 mg/dL 01/06/2023 3:03 PM CDT [facility] HDL CHOLESTEROL 29(L) >40 mg/dL 3:03 PM T [facility] NON-HDL CHOLESTEROL 101 <145 mg/dl 01/06/2023 3:03 PM T [facility] CHOL/HDL RATIO 4.48 <4.50 01/06/2023 3:03 PM T [facility] LDL CHOLESTEROL 3:03 PM T [facility] Comment:Invalid LDL when Tri g >400. VLDL CHOLESTEROL COMMENT 01/06/2023 3:03 PM T [facility] Comment:Unable to calculate VLDL. PROVIDER ORDERED STATUS RANDOM 01/06/2023 3:03 PM T [facility] Blood BLOOD SPECIMEN / Unknown Venipuncture / Unknown 01/06/2023 2:09 PM CDT 01/06/2023 2:09 PM CDT Isabel MAGDALENO CHEMISTRY Final Result Performing Organization Address City/[facility]/ZIP Co de Phone Number [facility] SENDOUT INTERNAL ZIP [address] [place] [address] * RAPID HIV SCREEN (11/14/2022 7:38 AM CDT) [facility] RAPID HIV SCREEN Non-React perri Non-Reactiv e, Invalid 11/14/2022 8:20 AM CDT [facility] Comment:A NONREACTIVE test r esult means that HIV-1 or HIV-2 antibodies and HIV-1 p24 antigen were not detected in the specimen. Blood BLOOD SPECIMEN / Unknown Venipuncture / Unknown 11/14/2022 7:38 AM CDT 11/14/2022 7:47 AM CDT Esa Lyles MD CHEMISTRY Final Result [facility] SENDOUT INTERNAL ZIP [address] [address] [place] [address] * ANTI HCV (01/23/2020 9:44 AM CDT) HEPATITIS C ANTIBODY Non-React perri Non-React perri 01/23/2020 4:57 PM CDT [facility] Comment:Antibodies to HCV no t detected; does not exclude the possibility of exposure to HCV. Blood BLOOD SPECIMEN / Unknown Venipuncture / Unknown 01/23/2020 9:44 AM CDT 01/23/2020 9:44 AM CDT us Cass Samayoa MD SEND OUTS Final R esult [facility] [address] [place] [address], [place] from Last 3 Months or Most Recently Relevant to Health Maintenance Additional Health Concerns Infection Onset Date Last Indicated CLOSTRIDIUM DIFFICILE Comment:Order Enteric Precautions + C diff test on 06/02/24 (at [facility]); patient to remain in Enteric Precautions for duration of 06/05/24 hospitalization. Enteric Precautions are not required on subsequent admissions provided: 1) >3 weeks since positive C diff test; 2) diarrhea resolved; and 3) patient has completed CDI antibiotics (excluding vanco taper). C. 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 Healthcare Directive 06/25/2024 025 * Full Code (Latest Code Status on File) Date Activated Date Inactivated Comments 06/20/2024 11:40 AM 06/21/2024 7:11 PM Question Answer Comments Code Status Discussion: Reviewed Preferences * Full Code Date Activated Date Inactivated Comments 06/06/2024 12:18 AM 06/20/2024 11:39 AM Question Answer Comments Code Status Discussion: Unable to Assess Preferences, Provider to review later * Full Code Date Activated Date Inactivated Comments 12/19/2022 2:38 PM 12/19/2022 9:19 PM Question Answer Comments Code Status Discussion: Reviewed Preferences * Full Code Date Activated Date Inactivated Comments 12/14/2022 6:09 AM 12/15/2022 1:27 PM Question Answer Comments Code Status Discussion: Reviewed Preferences * Full Code Date Activated Date Inactivated Comments 11/13/2022 4:37 AM 11/17/2022 10:03 AM Question Answer Comments Code Status Discussion: Reviewed Preferences Care Teams Accounting Administrative Assistant Relationship Specialty [place] [address] [place] [address] PCP - General Family Practice 02/22/21 Frederick Duran MD [address] [place] [address] Consulting Physician Cardiovascular Disease 02/20/15 [place] [address] [place] [address] Cardiovascular Disease 10/23/23 [facility], [facility] [address] [place], [place] [id number] 06/21/24
--- OUTSIDE RECORDS SUMMARY | 2024-07-06 09:07 | XMS_ITS | Continuity of Care Document ---
Author Organization [facility] Address [address] [place] [address] Phone Care Team Providers Care Pharmacy Resident Name Role Phone Lucio Kapoor MD Unavailable [...] Copied on Encounter [facility], [address], [place], [id number] , [place] tel:[phone] [facility] No Information Jun-0 3-201 7 Antwon Valdes. [facility], [address] [place] [address], [address], [place], [id number] , [place]. tel: [phone] [facility], [address], [place], [id number] , [place] tel: [phone] [facility] Arthrodesis statusOverweight Antwon Valdes. [facility], [address], [address], [place], [place], [id number] , [place]. tel: [phone] [facility], [address], [place], [place], [id number] , [place] tel: [phone] [facility] No Information Antwon Valdes. [facility], [facility] [address] [place] [address], [address], [place], [id number] , [place]. tel: [phone] Office/Outpa tient Visit,Est, Mod [facility], [address], [place], [id number] , [place] tel: [phone] [facility] OVERWEIGHTHyperte nsion, UnspecifiedLumbar HNPSpinal stenosis of lumbar region with neurogenic claudication Antwon Valdes. [facility], [address] [place] [address], [address], [place], [id number] , [place]. tel: [phone] Office/Outpa tient Visit,New, Mod [facility], [address], [place], [place], [id number] , [place] tel: [phone] [facility] Bulging lumbar discSpinal stenosis of lumbar region with neurogenic claudicationLumba r DDD 5 Panvica Jayden. [facility], [facility] [address] [place] [address], [address], [place], [place], [id number] , [place]. tel: [phone] Family History Family Member Type Diagnosis Age At Onset No Information Payers Payer name Insurance type Covered green party ID Authoriza tion(s) No Information Social [...] Infor lori Weight Management Related to [facility] Weight management: R efer to Referral to General Practitioner timeframe: 1 Month. Related to Overweight Weight Management [facility] Exercise education Related to Un specified Essential Hypertension Assessments Type Assessment Date No Information Patient Care Teams Name Effective Dates (start - stop) Status Members No Information
[2024-07-06 09:11] VITALS: BP 122/75; PULSE 98; RESP 18; TEMP 37.1; O2SAT 97; BMI 21.1
--- OUTSIDE RECORDS SUMMARY | 2024-07-06 09:37 | XMS_ITS | Clinical Summary ---
Author Organization [facility] Address [facility] [place] [address] Care Team Providers Care Admitting Representative Name Role Phone Frederick Duran MD Unavailable [phone] David Alcala MD Primary Care Provider [phone] Damon Belcher MD Unavailable [phone] [facility] Unavailable [phone] Allergies Active Allergy Reactions Criticality Noted Date [...] type, unspecified whether angina present, unspecified whether grindstone or transplanted heart,History of coronary artery stent [...] once daily. 30 Tablet 5 9:59 AM ANIMAL LABORATORY TECHNICIAN 06/21/19 25 025 Active QUEtiapine (SEROQUEL) 50 [...] at bedtime. 30 Tablet 5 9:59 AM ANIMAL LABORATORY TECHNICIAN 06/21/19 25 025 Discontin ued(Reord er (E-cancel [...] sm 06/06/2024 Coronary artery disease invo lving grindstone coronary artery of grindstone heart without angina pectoris 06/06/2024 Chest pain [...] Department Care Team Description 07/05/2024 5:00 AM ANIMAL LABORATORY TECHNICIAN Home Care Visit [address] [address] Shavonne Tomas RN SN - WOUND/OSTOMY CHART CONSULT 07/03/2024 Nurse Triage [facility] [address] [place] [address] David Alcala MD Diarrhea 07/02/2024 9:30 AM ANIMAL LABORATORY TECHNICIAN Home Care Visit [address] [address] Jennifer Cruz RN SN - HOME VISIT 07/02/[address] [address] Jennifer Cruz RN Home Care (Diarrhea) 07/01/2024 2:35 PM ANIMAL LABORATORY TECHNICIAN Phone Office [place] [facility] [address] [place] [address] David Alcala MD Form ([facility] ); Phone Visit (No vitals taken ) 07/01/2024 1:00 PM ANIMAL LABORATORY TECHNICIAN Home Care Visit [address] [address] Qi Aponte, PT PT - HOME VISIT 07/01/2024 Travel 06/28/2024 2:00 PM ANIMAL LABORATORY TECHNICIAN Home Care Visit [address] [address] Qi Aponte, PT PT - HOME VISIT 06/28/2024 8:30 AM ANIMAL LABORATORY TECHNICIAN Office Visit [facility] [address] [place] [address] Ruchi Espitia MD Follow Up (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) 06/28/2024 6:57 AM ANIMAL LABORATORY TECHNICIAN - 06/28/2024 11:59 PM ANIMAL LABORATORY TECHNICIAN Hospital Encounter [facility] [address] [place] [address] Ruchi Espitia MD PAD (peripheral artery disease) 06/28/2024 Orders Only [facility] [address] [place] [address] Princess Walker <No scans attached> 06/28/2024 Travel 06/27/2024 12:00 PM ANIMAL LABORATORY TECHNICIAN Home Care Visit [address] [address] Jennifer Cruz RN SN - HOME VISIT 06/27/2024 Telephone [facility] [address] [place] [address] David Alcala MD Form (ATTENDING PHYSICIAN'S STATEMENT) 06/26/2024 10:50 AM ANIMAL LABORATORY TECHNICIAN Office [place] [facility] [address] [place] [address] David Alcala MD Hospital F/U ([facility] on 06/02/2024) 06/26/2024 Travel 06/25/2024 9:00 AM ANIMAL LABORATORY TECHNICIAN Home Care Visit [address] [address] Pratima Higuera, PT PT - INITIAL ASSESSMENT 06/24/2024 7:15 AM ANIMAL LABORATORY TECHNICIAN Home Care Visit [address] [address] Shavonne Tomas, RN SN - WOUND/OSTOMY CHART CONSULT 06/24/[address] [address] Shavonne Tomas manager report (Antifungal Powder needed) 06/24/2024 Patient Outreach [facility] [address] [place] [address] Jeni Tidwell, RN Primary RN Care Management; Hospital F/U (Acute hypoxemic respiratory failure/DOD: 06/21/24/LACE+: 63) 06/23/2024 9:30 AM ANIMAL LABORATORY TECHNICIAN Home Care Visit [address] [address] Flakita Naqvi RN SN - OASIS START OF CARE 06/23/2024 Plan of Care Documentation [address] [address] 06/19/2024 Travel 06/05/2024 11:42 PM ANIMAL LABORATORY TECHNICIAN - 06/21/2024 5:06 PM ANIMAL LABORATORY TECHNICIAN Hospital Encounter [facility] [address] [place] [address] Lesli Shannon, DO Smiht, Chuy Womack, [facility] Nitish Landis MD Wolfe, Adam Charles, MD [facility], [facility] Hospitalists Of David Cohen MD Rose, Andrew, MD Insomnia, unspecified type (Primary Dx); Alcohol use; Acute hypoxemic respiratory failure (HC) Discharge Disposition: Home Health 06/05/2024 Orders Only [facility] Scanner 1 scan: (1-Ord) [facility], CHEST 1VIEW PORTABLE, 06/05/2024 06/05/2024 Orders Only [facility] Scanner 1 scan: (1-Ord) [facility], CHEST 1VW, 06/05/2024 06/03/2024 11:00 AM ANIMAL LABORATORY TECHNICIAN Ancillary Procedure [facility] [address] [place] [address] 06/02/2024 Orders Only [facility] Scanner 1 scan: (1-Ord) [facility], CHEST ABDOMEN PELV W CON, 06/02/2024 06/02/2024 Orders Only [facility] Scanner 1 scan: (1-Ord) [facility], XR KNEE BI 1 OR 2V, 06/02/2024 06/02/2024 Orders Only [facility] Scanner 1 scan: (1-Ord) [facility], XR GREAT TOE LT, 06/02/2024 06/02/2024 Orders Only [facility] Scanner 1 scan: (1-Ord) RANDAL, XR CHEST 1V PORTABLE, 06/02/2024 05/23/2024 Refill [facility] [address] [facility] [place] [address] David Alcala MD Refill Request (Omeprazole/) from Last 3 Months Immunizations Immunization Administration Dates Next Due Hepatitis B (Adult) 06/26/2015,01/14/2013 Influenza, IIV3 (Age >=3 years) 03/28/2010 Influenza, IIV4 01/09/2013 Pneumococcal Conj 20-valent (Prevnar 20) 023 Tdap 07/27/2022,05/21/2012 Zoster (Shingrix-RZV, recombinant) 07/27/2022, Family History Medical History Relation Name Comments COPD Father Dementia Mother Heart Disease Paternal Grandfather VA Relation Name Status Comments Father Mother Paternal [...] on file Legal Sex Male 5:24 AM ANIMAL LABORATORY TECHNICIAN Gender Identity Not on file Sexual Orientation Not on file 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 Not on file Not on file Not on file Obstetrics History Last Filed Vital Signs Vital Sign Reading Time Taken Comments Blood Pressure 120/70 07/02/2024 10:11 AM ANIMAL LABORATORY TECHNICIAN Pulse 86 07/02/2024 10:11 AM ANIMAL LABORATORY TECHNICIAN Temperature 36.6 C (97.8 F) 07/02/2024 10:11 AM ANIMAL LABORATORY TECHNICIAN Respiratory Rate 14 06/28/2024 8:28 AM ANIMAL LABORATORY TECHNICIAN Oxygen Saturation 97% 07/02/2024 10: 11 AM ANIMAL LABORATORY TECHNICIAN Inhaled Oxygen Concentration - - Weight 63.5 kg (139 lb 14.4 oz) 025 10:11 AM ANIMAL LABORATORY TECHNICIAN Height 172.7 cm (5' 8) 06/23/2024 9:30 AM ANIMAL LABORATORY TECHNICIAN Body Mass Index 21.27 06/23/2024 9:30 AM ANIMAL LABORATORY TECHNICIAN Plan of Treatment Upcoming Encounters Date Type Department Care Team (Late st Contact Info) Description 07/08/2024 12:00 PM CDT Home Care Visit [facility] [address] [place], [place] [id number] Qi Aponte T, PT [address] [place], [place] [phone] 07/09/2024 10:30 AM CDT Home Care Visit [address] [address] Jennifer Cruz RN [address] [place] [address] 07/11/2024 12:00 PM CDT Home Care Visit [address] [address] Qi Aponte, PT [address] [place] [phone] 07/12/2024 4:00 AM CDT Home Care Visit [address] [address] Jennifer Cruz RN [address] [place] [address] 07/18/2024 4:00 AM CDT Home Care Visit [address] [address] Jennifer Cruz RN [address] [place] [phone] 07/25/2024 4:00 AM CDT Home Care Visit [address] [address] Jennifer Cruz RN [address] [place] [phone] Health Maintenance Due Date Last Done Comments Colonoscopy through age 75 2007 RSV vaccine for adults or (1 - Risk 60-74 years 1-dose series) 2022 ([place]) Influenza for age 50-64 12/31/2023 (Completed outside of [facility]), 01/09/2013, 03/28/2010 COVID-19 vaccine series (2023- [...] LOWER EXTREMITY LEFT Routine 06/28/2024 8:24 AM ANIMAL LABORATORY TECHNICIAN PAD (peripheral artery disease) US ANKLE BRACHIAL INDEX BILATERAL Routine 06/28/2024 8:12 AM ANIMAL LABORATORY TECHNICIAN PAD (peripheral artery disease) GLUCOSE METER Timed 06/21/2024 11:27 AM ANIMAL LABORATORY TECHNICIAN GLUCOSE METER Timed 06/21/2024 8:10 AM ANIMAL LABORATORY TECHNICIAN PHOSPHORUS Early AM 06/21/2024 7:02 AM ANIMAL LABORATORY TECHNICIAN MAGNESIUM Early AM 06/21/2024 7:02 AM ANIMAL LABORATORY TECHNICIAN HEMOGLOBIN Early AM 06/21/2024 7:02 AM ANIMAL LABORATORY TECHNICIAN BASIC METABOLIC PANEL Early AM 06/21/2024 7:02 AM ANIMAL LABORATORY TECHNICIAN GLUCOSE METER Timed 06/20/2024 9:58 PM ANIMAL LABORATORY TECHNICIAN GLUCOSE METER Timed 06/20/2024 5:14 PM ANIMAL LABORATORY TECHNICIAN POTASSIUM Timed 06/20/2024 3:59 PM ANIMAL LABORATORY TECHNICIAN PHOSPHORUS Timed 06/20/2024 3:59 PM ANIMAL LABORATORY TECHNICIAN MAGNESIUM Timed 06/20/2024 3:59 PM ANIMAL LABORATORY TECHNICIAN GLUCOSE METER Timed 06/20/2024 1:13 PM ANIMAL LABORATORY TECHNICIAN GLUCOSE METER Timed 06/20/2024 6:50 AM ANIMAL LABORATORY TECHNICIAN GLUCOSE METER Timed 06/19/2024 10:08 PM ANIMAL LABORATORY TECHNICIAN GLUCOSE METER Timed 06/19/2024 5:05 PM ANIMAL LABORATORY TECHNICIAN GLUCOSE METER Timed 06/19/2024 11:54 AM ANIMAL LABORATORY TECHNICIAN POTASSIUM Early AM 06/19/2024 10:28 AM ANIMAL LABORATORY TECHNICIAN GLUCOSE METER Timed 06/19/2024 8:22 AM ANIMAL LABORATORY TECHNICIAN PHOSPHORUS Early AM 06/19/2024 7:44 AM ANIMAL LABORATORY TECHNICIAN MAGNESIUM Early AM 06/19/2024 7:44 AM ANIMAL LABORATORY TECHNICIAN GLUCOSE METER Timed 06/19/2024 6:25 AM ANIMAL LABORATORY TECHNICIAN GLUCOSE METER Timed 06/19/2024 2:08 AM ANIMAL LABORATORY TECHNICIAN GLUCOSE METER Timed 2024 10:38 PM ANIMAL LABORATORY TECHNICIAN GLUCOSE METER Timed 2024 5:21 PM ANIMAL LABORATORY TECHNICIAN GLUCOSE METER Timed 2024 2:53 PM ANIMAL LABORATORY TECHNICIAN MAGNESIUM Early AM 2024 10:01 AM ANIMAL LABORATORY TECHNICIAN POTASSIUM Early AM 2024 10:01 AM ANIMAL LABORATORY TECHNICIAN PHOSPHORUS Early AM 2024 10:01 AM ANIMAL LABORATORY TECHNICIAN GLUCOSE METER Timed 2024 9:43 AM ANIMAL LABORATORY TECHNICIAN GLUCOSE METER Timed 2024 2:12 AM ANIMAL LABORATORY TECHNICIAN GLUCOSE METER Timed 2024 12:08 AM ANIMAL LABORATORY TECHNICIAN GLUCOSE METER Timed 06/17/2024 8:22 PM ANIMAL LABORATORY TECHNICIAN GLUCOSE METER Timed 06/17/2024 6:02 PM ANIMAL LABORATORY TECHNICIAN GLUCOSE METER Timed 06/17/2024 12:50 PM ANIMAL LABORATORY TECHNICIAN GLUCOSE METER Timed 06/17/2024 10:37 AM ANIMAL LABORATORY TECHNICIAN POTASSIUM Early AM 06/17/2024 7:54 AM ANIMAL LABORATORY TECHNICIAN PHOSPHORUS Early AM 06/17/2024 7:54 AM ANIMAL LABORATORY TECHNICIAN MAGNESIUM Early AM 06/17/2024 7:54 AM ANIMAL LABORATORY TECHNICIAN GLUCOSE METER Timed 06/17/2024 5:56 AM ANIMAL LABORATORY TECHNICIAN GLUCOSE METER Timed 06/17/2024 1:42 AM ANIMAL LABORATORY TECHNICIAN GLUCOSE METER Timed 06/16/2024 10:29 PM ANIMAL LABORATORY TECHNICIAN GLUCOSE METER Timed 06/16/2024 5:47 PM ANIMAL LABORATORY TECHNICIAN GLUCOSE METER Timed 06/16/2024 2:02 PM ANIMAL LABORATORY TECHNICIAN GLUCOSE METER Timed 06/16/2024 9:51 AM ANIMAL LABORATORY TECHNICIAN POTASSIUM Early AM 06/16/2024 5:56 AM ANIMAL LABORATORY TECHNICIAN MAGNESIUM Early AM 06/16/2024 5:56 AM ANIMAL LABORATORY TECHNICIAN PHOSPHORUS Early AM 06/16/2024 5:56 AM ANIMAL LABORATORY TECHNICIAN GLUCOSE METER Timed 06/16/2024 5:55 AM ANIMAL LABORATORY TECHNICIAN GLUCOSE METER Timed 06/16/2024 2:20 AM ANIMAL LABORATORY TECHNICIAN GLUCOSE METER Timed 06/15/2024 10:55 PM ANIMAL LABORATORY TECHNICIAN GLUCOSE METER Timed 06/15/2024 7:39 PM ANIMAL LABORATORY TECHNICIAN GLUCOSE METER Timed 06/15/2024 6:18 PM ANIMAL LABORATORY TECHNICIAN GLUCOSE METER Timed 06/15/2024 2:09 PM ANIMAL LABORATORY TECHNICIAN GLUCOSE METER Timed 06/15/2024 9:48 AM ANIMAL LABORATORY TECHNICIAN POTASSIUM Early AM 06/15/2024 6:40 AM ANIMAL LABORATORY TECHNICIAN PHOSPHORUS Early AM 06/15/2024 6:40 AM ANIMAL LABORATORY TECHNICIAN MAGNESIUM Early AM 06/15/2024 6:40 AM ANIMAL LABORATORY TECHNICIAN GLUCOSE METER Timed 06/15/2024 5:45 AM ANIMAL LABORATORY TECHNICIAN GLUCOSE METER Timed 06/15/2024 12:07 AM ANIMAL LABORATORY TECHNICIAN GLUCOSE METER Timed 06/14/2024 7:56 PM ANIMAL LABORATORY TECHNICIAN GLUCOSE METER Timed 06/14/2024 5:07 PM ANIMAL LABORATORY TECHNICIAN GLUCOSE METER Timed 06/14/2024 2:30 PM ANIMAL LABORATORY TECHNICIAN GLUCOSE METER Timed 06/14/2024 11:10 AM ANIMAL LABORATORY TECHNICIAN POTASSIUM Early AM 06/14/2024 11:00 AM ANIMAL LABORATORY TECHNICIAN PHOSPHORUS Early AM 06/14/2024 7:20 AM ANIMAL LABORATORY TECHNICIAN MAGNESIUM Early AM 06/14/2024 7:20 AM ANIMAL LABORATORY TECHNICIAN GLUCOSE METER Timed 06/14/2024 7:03 AM ANIMAL LABORATORY TECHNICIAN GLUCOSE METER Timed 06/14/2024 2:37 AM ANIMAL LABORATORY TECHNICIAN GLUCOSE METER Timed 06/13/2024 10:57 PM ANIMAL LABORATORY TECHNICIAN GLUCOSE METER Timed 06/13/2024 8:45 PM ANIMAL LABORATORY TECHNICIAN GLUCOSE METER Timed 06/13/2024 5:32 PM ANIMAL LABORATORY TECHNICIAN GLUCOSE METER Timed 06/13/2024 2:41 PM ANIMAL LABORATORY TECHNICIAN GLUCOSE METER Timed 06/13/2024 10:05 AM ANIMAL LABORATORY TECHNICIAN PHOSPHORUS Early AM 06/13/2024 6:53 AM ANIMAL LABORATORY TECHNICIAN POTASSIUM Early AM 06/13/2024 6:53 AM ANIMAL LABORATORY TECHNICIAN MAGNESIUM Early AM 06/13/2024 6:53 AM ANIMAL LABORATORY TECHNICIAN GLUCOSE METER Timed 06/13/2024 6:50 AM ANIMAL LABORATORY TECHNICIAN GLUCOSE METER Timed 06/13/2024 2:57 AM ANIMAL LABORATORY TECHNICIAN GLUCOSE METER Timed 06/13/2024 12:35 AM ANIMAL LABORATORY TECHNICIAN POTASSIUM Timed 06/12/2024 9:58 PM ANIMAL LABORATORY TECHNICIAN GLUCOSE METER Timed 06/12/2024 9:22 PM ANIMAL LABORATORY TECHNICIAN GLUCOSE METER Timed 06/12/2024 6:05 PM ANIMAL LABORATORY TECHNICIAN PHOSPHORUS Timed 06/12/2024 5:32 PM ANIMAL LABORATORY TECHNICIAN GLUCOSE METER Timed 06/12/2024 2:00 PM ANIMAL LABORATORY TECHNICIAN GLUCOSE METER Timed 06/12/2024 10:27 AM ANIMAL LABORATORY TECHNICIAN POTASSIUM Early AM 06/12/2024 6:25 AM ANIMAL LABORATORY TECHNICIAN PHOSPHORUS Early AM 06/12/2024 6:25 AM ANIMAL LABORATORY TECHNICIAN MAGNESIUM Early AM 06/12/2024 6:25 AM ANIMAL LABORATORY TECHNICIAN GLUCOSE METER Timed 06/12/2024 5:41 AM ANIMAL LABORATORY TECHNICIAN GLUCOSE METER Timed 06/12/2024 1:09 AM ANIMAL LABORATORY TECHNICIAN GLUCOSE METER Timed 06/11/2024 10:38 PM ANIMAL LABORATORY TECHNICIAN GLUCOSE METER Timed 06/11/2024 6:46 PM ANIMAL LABORATORY TECHNICIAN GLUCOSE METER Timed 06/11/2024 1:26 PM ANIMAL LABORATORY TECHNICIAN GLUCOSE METER Timed 06/11/2024 8:29 AM ANIMAL LABORATORY TECHNICIAN SCAN-CARDIAC STRIP 06/11/2024 7: 00 AM ANIMAL LABORATORY TECHNICIAN GLUCOSE METER Timed 06/11/2024 6:49 AM ANIMAL LABORATORY TECHNICIAN BASIC METABOLIC PANEL ALBERT 06/11/2024 4:45 AM ANIMAL LABORATORY TECHNICIAN PHOSPHORUS Early AM 06/11/2024 4:45 AM ANIMAL LABORATORY TECHNICIAN MAGNESIUM Early AM 06/11/2024 4:45 AM ANIMAL LABORATORY TECHNICIAN [facility] D[facility] Early AM 06/11/2024 4:45 AM ANIMAL LABORATORY TECHNICIAN POTASSIUM Early AM 06/11/2024 4:45 AM ANIMAL LABORATORY TECHNICIAN GLUCOSE METER Timed 06/11/2024 2:29 AM ANIMAL LABORATORY TECHNICIAN GLUCOSE METER Timed 06/10/2024 10:33 PM ANIMAL LABORATORY TECHNICIAN [facility] D[facility] ONLY Timed 06/10/2024 7:08 PM ANIMAL LABORATORY TECHNICIAN GLUCOSE METER Timed 06/10/2024 5:59 PM ANIMAL LABORATORY TECHNICIAN SCAN-CARDIAC STRIP 06/10/2024 3: 27 PM ANIMAL LABORATORY TECHNICIAN CBC W PLT NO DIFF ALBERT 06/10/2024 2:3 9 PM ANIMAL LABORATORY TECHNICIAN HEMOGLOBIN Timed 06/10/2024 2:39 PM ANIMAL LABORATORY TECHNICIAN GLUCOSE METER Timed 06/10/2024 1:49 PM ANIMAL LABORATORY TECHNICIAN GLUCOSE METER Timed 06/10/2024 8:21 AM ANIMAL LABORATORY TECHNICIAN BASIC METABOLIC PANEL ALBERT 06/10/2024 5:53 AM ANIMAL LABORATORY TECHNICIAN POTASSIUM ALBERT 06/10/2024 5:53 AM ANIMAL LABORATORY TECHNICIAN CBC W PLT NO DIFF Early AM 06/10/2024 5:5 3 AM ANIMAL LABORATORY TECHNICIAN PHOSPHORUS Early AM 06/10/2024 5:53 AM ANIMAL LABORATORY TECHNICIAN MAGNESIUM Timed 06/10/2024 5:53 AM ANIMAL LABORATORY TECHNICIAN GLUCOSE METER Timed 06/10/2024 4:09 AM ANIMAL LABORATORY TECHNICIAN GLUCOSE METER Timed 06/09/2024 11:37 PM ANIMAL LABORATORY TECHNICIAN SCAN-CARDIAC STRIP 06/09/2024 11 :00 PM ANIMAL LABORATORY TECHNICIAN GLUCOSE METER Timed 06/09/2024 8:11 PM ANIMAL LABORATORY TECHNICIAN GLUCOSE METER Timed 06/09/2024 4:39 PM ANIMAL LABORATORY TECHNICIAN GLUCOSE METER Timed 06/09/2024 1:05 PM ANIMAL LABORATORY TECHNICIAN [facility] D[facility] Timed 06/09/2024 12:08 PM ANIMAL LABORATORY TECHNICIAN POTASSIUM Timed 06/09/2024 12:08 PM ANIMAL LABORATORY TECHNICIAN GLUCOSE METER Timed 06/09/2024 8:01 AM ANIMAL LABORATORY TECHNICIAN BASIC METABOLIC PANEL ALBERT 06/09/2024 4:44 AM ANIMAL LABORATORY TECHNICIAN PHOSPHORUS Timed 06/09/2024 4:44 AM ANIMAL LABORATORY TECHNICIAN MAGNESIUM Early AM 06/09/2024 4:44 AM ANIMAL LABORATORY TECHNICIAN POTASSIUM Early AM 06/09/2024 4:44 AM ANIMAL LABORATORY TECHNICIAN CK TOTAL Timed 06/09/2024 4:44 AM ANIMAL LABORATORY TECHNICIAN TRIGLYCERIDES Timed 06/09/2024 4:44 AM ANIMAL LABORATORY TECHNICIAN GLUCOSE METER Timed 06/09/2024 4:24 AM ANIMAL LABORATORY TECHNICIAN GLUCOSE METER Timed 06/08/2024 11:58 PM ANIMAL LABORATORY TECHNICIAN GLUCOSE METER Timed 06/08/2024 7:57 PM ANIMAL LABORATORY TECHNICIAN [facility] D[facility] ONLY Timed 06/08/2024 4:56 PM ANIMAL LABORATORY TECHNICIAN GLUCOSE METER Timed 06/08/2024 3:49 PM ANIMAL LABORATORY TECHNICIAN SPUTUM CULTURE, STAIN Today 06/08/2024 3:43 PM ANIMAL LABORATORY TECHNICIAN GLUCOSE METER Timed 06/08/2024 11:44 AM ANIMAL LABORATORY TECHNICIAN PHOSPHORUS Timed 06/08/2024 11:25 AM ANIMAL LABORATORY TECHNICIAN GLUCOSE METER Timed 06/08/2024 8:43 AM ANIMAL LABORATORY TECHNICIAN BASIC METABOLIC PANEL Early AM 06/08/2024 5:29 AM ANIMAL LABORATORY TECHNICIAN CBC W PLT NO DIFF Early AM 06/08/2024 5:2 9 AM ANIMAL LABORATORY TECHNICIAN [facility] D[facility] Early AM 06/08/2024 5:29 AM ANIMAL LABORATORY TECHNICIAN PHOSPHORUS Early AM 06/08/2024 5:29 AM ANIMAL LABORATORY TECHNICIAN MAGNESIUM Early AM 06/08/2024 5:29 AM ANIMAL LABORATORY TECHNICIAN GLUCOSE METER Timed 06/08/2024 4:04 AM ANIMAL LABORATORY TECHNICIAN GLUCOSE METER Timed 06/08/2024 12:39 AM ANIMAL LABORATORY TECHNICIAN GLUCOSE METER Timed 06/07/2024 7:31 PM ANIMAL LABORATORY TECHNICIAN SCAN-CARDIAC STRIP 06/07/2024 7: 08 PM ANIMAL LABORATORY TECHNICIAN GLUCOSE METER Timed 06/07/2024 4:21 PM ANIMAL LABORATORY TECHNICIAN POTASSIUM Timed 06/07/2024 2:44 PM ANIMAL LABORATORY TECHNICIAN SCAN CORRESP-LABORATORY RESULTS 06/07/2024 12:55 PM ANIMAL LABORATORY TECHNICIAN SCAN CORRESP-IMAGING 06/07/2024 12:55 PM ANIMAL LABORATORY TECHNICIAN SCAN CORRESP-EKG RESULTS 06/07/2024 12:54 PM ANIMAL LABORATORY TECHNICIAN GLUCOSE METER Timed 06/07/2024 12:36 PM ANIMAL LABORATORY TECHNICIAN [facility] DRAW ONLY Timed 06/07/2024 10:27 AM ANIMAL LABORATORY TECHNICIAN GLUCOSE METER Timed 06/07/2024 10:06 AM ANIMAL LABORATORY TECHNICIAN SCAN-CARDIAC STRIP 06/07/2024 7: 12 AM ANIMAL LABORATORY TECHNICIAN BASIC METABOLIC PANEL Early AM 06/07/2024 4:44 AM ANIMAL LABORATORY TECHNICIAN CBC W PLT NO DIFF Early AM 06/07/2024 4:4 4 AM ANIMAL LABORATORY TECHNICIAN MAGNESIUM Early AM 06/07/2024 4:44 AM ANIMAL LABORATORY TECHNICIAN PHOSPHORUS Early AM 06/07/2024 4:44 AM ANIMAL LABORATORY TECHNICIAN CK TOTAL Timed 06/07/2024 4:44 AM ANIMAL LABORATORY TECHNICIAN TRIGLYCERIDES Timed 06/07/2024 4:44 AM ANIMAL LABORATORY TECHNICIAN GLUCOSE METER Timed 06/07/2024 3:57 AM ANIMAL LABORATORY TECHNICIAN GLUCOSE METER Timed 06/07/2024 12:28 AM ANIMAL LABORATORY TECHNICIAN SCAN-CARDIAC STRIP 06/06/2024 11 :23 PM ANIMAL LABORATORY TECHNICIAN [facility] D[facility] ONLY Today 06/06/2024 11:08 PM ANIMAL LABORATORY TECHNICIAN MAGNESIUM Timed 06/06/2024 11:08 PM ANIMAL LABORATORY TECHNICIAN GLUCOSE METER Timed 06/06/2024 7:55 PM ANIMAL LABORATORY TECHNICIAN GLUCOSE METER Timed 06/06/2024 4:35 PM ANIMAL LABORATORY TECHNICIAN SCAN-CARDIAC STRIP 06/06/2024 2: 58 PM ANIMAL LABORATORY TECHNICIAN TROPONIN T (HS) ONE TIME Timed 06/06/2024 12:12 PM ANIMAL LABORATORY TECHNICIAN GLUCOSE METER Timed 06/06/2024 11:18 AM ANIMAL LABORATORY TECHNICIAN TROPONIN T (HS) ACUTE W/2HR REFLEX STAT 06/06/2024 9:29 AM ANIMAL LABORATORY TECHNICIAN GLUCOSE METER Timed 06/06/2024 8:24 AM ANIMAL LABORATORY TECHNICIAN MRSA/SA PCR Today 06/06/2024 8:23 AM ANIMAL LABORATORY TECHNICIAN SPUTUM CULTURE, STAIN Today 06/06/2024 8:15 AM ANIMAL LABORATORY TECHNICIAN SCAN-CARDIAC STRIP 06/06/2024 8: 00 AM ANIMAL LABORATORY TECHNICIAN US ABDOMEN LIMITED RUQ PORTABLE Routine 06/06/2024 7:51 AM ANIMAL LABORATORY TECHNICIAN BLOOD GAS,VENOUS STAT 06/06/2024 6:10 AM ANIMAL LABORATORY TECHNICIAN PHOSPHORUS ALBERT 06/06/2024 6:09 AM ANIMAL LABORATORY TECHNICIAN POTASSIUM Timed 06/06/2024 6:09 AM ANIMAL LABORATORY TECHNICIAN AMMONIA Today 06/06/2024 6:09 AM ANIMAL LABORATORY TECHNICIAN TROPONIN T (HS) ONE TIME Timed 06/06/2024 6:09 AM ANIMAL LABORATORY TECHNICIAN BLOOD CULTURE STAT 06/06/2024 6:09 AM ANIMAL LABORATORY TECHNICIAN CT CHEST WO STAT 06/06/2024 5:23 [address] ANIMAL LABORATORY TECHNICIAN CT HEAD BRAIN WO STAT 06/06/2024 5:23 AM ANIMAL LABORATORY TECHNICIAN GLUCOSE METER Timed 06/06/2024 4:20 AM ANIMAL LABORATORY TECHNICIAN XR ABDOMEN 1 VIEW PORTABLE STAT 06/06/2024 4:16 AM ANIMAL LABORATORY TECHNICIAN LEGIONELLA AND PNEUMOCOCCAL URINE ANTIGEN Add On 06/06/2024 3:51 AM ANIMAL LABORATORY TECHNICIAN URINALYSIS MICROSCOPIC Timed 3:51 AM ANIMAL LABORATORY TECHNICIAN URINE CULTURE Today 06/06/2024 3:51 AM ANIMAL LABORATORY TECHNICIAN UA W/ SEDIMENT EXAM REFLEXED PER CRITERIA Today 06/06/2024 3:51 AM ANIMAL LABORATORY TECHNICIAN XR ABDOMEN 1 VIEW PORTABLE STAT 06/06/2024 3:36 AM ANIMAL LABORATORY TECHNICIAN INTUBATION Routine 06/06/2024 2:35 AM ANIMAL LABORATORY TECHNICIAN GLUCOSE METER Timed 06/06/2024 1:56 AM ANIMAL LABORATORY TECHNICIAN CBC WITH AUTO DIFFERENTIAL STAT 06/06/2024 1:37 AM ANIMAL LABORATORY TECHNICIAN HEMOGLOBIN A1C Today 06/06/2024 1:37 AM ANIMAL LABORATORY TECHNICIAN PROCALCITONIN Today 06/06/2024 1:37 AM ANIMAL LABORATORY TECHNICIAN LACTATE VENOUS STAT 06/06/2024 1:37 AM ANIMAL LABORATORY TECHNICIAN BLOOD GAS,VENOUS Today 06/06/2024 1:37 AM ANIMAL LABORATORY TECHNICIAN PROTIME-INR STAT 06/06/2024 1:37 AM ANIMAL LABORATORY TECHNICIAN BLOOD CULTURE STAT 06/06/2024 1:37 AM ANIMAL LABORATORY TECHNICIAN CBC WITH AUTO DIFFERENTIAL STAT 06/06/2024 1:37 AM ANIMAL LABORATORY TECHNICIAN GLUCOSE METER Timed 06/06/2024 12:49 AM ANIMAL LABORATORY TECHNICIAN TROPONIN T (HS) ACUTE W/2HR REFLEX STAT 06/06/2024 12:49 AM ANIMAL LABORATORY TECHNICIAN PHENOBARBITAL Today 06/06/2024 12:49 AM ANIMAL LABORATORY TECHNICIAN CK TOTAL STAT 06/06/2024 12:49 AM ANIMAL LABORATORY TECHNICIAN LIPASE STAT 06/06/2024 12:49 AM ANIMAL LABORATORY TECHNICIAN [facility] DRAW ONLY STAT 06/06/2024 12:49 AM ANIMAL LABORATORY TECHNICIAN HEPATIC FUNCTION PANEL STAT 12:49 AM ANIMAL LABORATORY TECHNICIAN PHOSPHORUS STAT 06/06/2024 12:49 AM ANIMAL LABORATORY TECHNICIAN MAGNESIUM STAT 06/06/2024 12:49 AM ANIMAL LABORATORY TECHNICIAN BASIC METABOLIC PANEL STAT 06/06/2024 12:49 AM ANIMAL LABORATORY TECHNICIAN XR CHEST 1 VIEW PORTABLE STAT 06/06/2024 12:40 AM ANIMAL LABORATORY TECHNICIAN EKG 12 LEAD STAT 06/06/2024 12:37 AM ANIMAL LABORATORY TECHNICIAN SCAN-RADIOLOGY REPORT 06/06/2024 12:00 AM ANIMAL LABORATORY TECHNICIAN SCAN-RADIOLOGY REPORT 06/05/2024 12:00 AM ANIMAL LABORATORY TECHNICIAN SCAN-RADIOLOGY REPORT 06/05/2024 12:00 AM ANIMAL LABORATORY TECHNICIAN ECHO TTE COMPLETE WO CONTRAST Routine 06/03/2024 9:40 AM ANIMAL LABORATORY TECHNICIAN Elevated troponin History of CAD (coronary artery disease) History of VA (myocardial infarction) SCAN-CT INTERPRETATION 12:00 AM ANIMAL LABORATORY TECHNICIAN SCAN-RADIOLOGY REPORT 06/02/2024 12:00 AM ANIMAL LABORATORY TECHNICIAN SCAN-RADIOLOGY REPORT 06/02/2024 12:00 AM ANIMAL LABORATORY TECHNICIAN SCAN-RADIOLOGY REPORT 06/02/2024 12:00 AM ANIMAL LABORATORY TECHNICIAN LIPID PANEL W REFLEX MEASURED LDL Routine 01/06/2023 2:09 PM CDT CAD S/P percutaneous coronary angioplasty RAPID HIV SCREEN Timed 11/14/2022 7:38 AM CDT ANTI HCV Routine 01/23/2020 9:44 AM CDT Need for hepatitis C screening test from Last 3 Months or Most Recently Relevant to Health Maintenance Results * US ARTERIAL LOWER EXTREMITY LEFT (06/28/2024 8:24 AM ANIMAL LABORATORY TECHNICIAN) Anatomical Region Laterality Modality LEGS, LEG L Ultrasound 06/28/2024 7:02 AM ANIMAL LABORATORY TECHNICIAN Narrative 06/28/2024 11:50 AM ANIMAL LABORATORY TECHNICIAN VASCULAR ULTRASOUND REPORT OLIVIA JIANG : 1960 Study Date: 06/28/2024 7:02:10 AM Age: 64 years Tech: MJM/EMS Gender: M Referring MD: RUCHI ESPITIA Site: [facility] Study performed: Lower extremity duplex US, (left). [...] +--------+ +--------+-----+ EIA DST 105 +--------+ +--------+-----+ SUPERVISOR POLISHING DST 76 +--------+ +--------+-----+ PFA 69 +--------+ +--------+-----+ SFA PRX 112 +--------+ +--------+-----+ SFA MID 198 50-74% 3.7 +--------+ +--------+-----+ SFA DST 84 +--------+ +--------+-----+ MAYRA MID 184 +--------+ +--------+-----+ MAYRA DST 165 1.6 +--------+ +--------+-----+ TPT 64 +--------+ +--------+-----+ DEVELOPER SUPPORT ENGINEER DST 58 +--------+ +--------+-----+ MAIN DST 33 [...] Accreditation Commission (IAC/Vascular), [email or web address]/vascular Report generated by [employer]. Final Procedure Note Damon Perez MD - 06/28/2024 VASCULAR ULTRASOUND REPORT OLIVIA JIANG : 1960 Study Date: 06/28/2024 7:02:10 AM Age: 64 years Tech: MJM/EMS Gender: M Referring MD: RUCHI ESPITIA Site: [facility] Study performed: Lower extremity duplex US, (left). [...] +--------+ +--------+-----+ EIA DST 105 +--------+ +--------+-----+ SUPERVISOR POLISHING DST 76 +--------+ +--------+-----+ PFA 69 +--------+ +--------+-----+ SFA PRX 112 +--------+ +--------+-----+ SFA MID 198 50-74% 3.7 +--------+ +--------+-----+ SFA DST 84 +--------+ +--------+-----+ MAYRA MID 184 +--------+ +--------+-----+ MAYRA DST 165 1.6 +--------+ +--------+-----+ TPT 64 +--------+ +--------+-----+ DEVELOPER SUPPORT ENGINEER DST 58 +--------+ +--------+-----+ MAIN DST 33 [...] theIntersocietal Accreditation Commission (IAC/Vascular),[email or web address]/vascular Report generated by [employer]. Final us Ruchi Espitia MD Final Result * US ANKLE BRACHIAL INDEX BILATERAL (06/28/2024 8:12 AM ANIMAL LABORATORY TECHNICIAN) Anatomical Region Laterality Modality ANKLES, ANKLE L, ANKLE R Ultraso und 06/28/2024 6:54 AM ANIMAL LABORATORY TECHNICIAN Narrative 06/28/2024 11:48 AM ANIMAL LABORATORY TECHNICIAN VASCULAR ULTRASOUND REPORT OLIVIA JIANG : 1960 Study Date: 06/28/2024 6:54:00 AM Age: 64 years Tech: MJM/EMS Gender: M Referring : RUCHI ESPITIA Site: [facility] Vascular [facility] Study performed: Lower extremity resting JEANCARLOS, TBI, [...] 124 Index +-----+ +--------+ +-----+ 1.10 136 DEVELOPER SUPPORT ENGINEER 129 1.04 +-----+ +--------+ +-----+ 1.10 137 DPA 128 1.03 +-----+ +--------+ +-----+ 0.57 71 Digit 1 101 0.81 +-----+ +--------+ +-----+ Damon Perez MD. Electronically signed on 06/28/2024 11:48:23 AM This study was performed and interpreted by a service accredited by the Intersocietal Accreditation Commission (IAC/Vascular), [email or web address]/vascular Report generated by [employer]. Final Procedure Note Damon Perez MD - 06/28/2024 VASCULAR ULTRASOUND REPORT OLIVIA JIANG : 1960 Study Date: 06/28/2024 6:54:00 AM Age: 64 years Tech: MJM/EMS Gender: M Referring MD: RUCHI ESPITIA Site: [facility] Vascular [facility] Study performed: Lower extremity resting JEANCARLOS, TBI, [...] 124 Index +-----+ +--------+ +-----+ 1.10 136 DEVELOPER SUPPORT ENGINEER 129 1.04 +-----+ +--------+ +-----+ 1.10 137 DPA 128 1.03 +-----+ +--------+ +-----+ 0.57 71 Digit 1 101 0.81 +-----+ +--------+ +-----+ Damon Perez MD. Electronically signed on 06/28/2024 11:48:23 AM This study was performed and interpreted by a service accredited by theIntersocietal Accreditation Commission (IAC/Vascular),[email or web address] Report generated by [employer]. Final us Ruchi Espitia MD US Final Result * (ABNORMAL) GLUCOSE METER (06/21/2024 11:27 AM ANIMAL LABORATORY TECHNICIAN) Only the most recent of94 resultswithin the time period is included. GLUCOSE METER 244(H) 65 - 100 mg/dL 06/21/2024 11:34 AM ANIMAL LABORATORY TECHNICIAN [facility] Blood BLOOD SPECIMEN / Unknown 06/21/2024 11:27 AM ANIMAL LABORATORY TECHNICIAN 06/21/2024 11:34 AM ANIMAL LABORATORY TECHNICIAN Sven Zeng MD CHEMISTRY Final Result [facility] [address] [place] [address], * (ABNORMAL) Hemoglobin AM (06/21/2024 7:02 AM ANIMAL LABORATORY TECHNICIAN) Only the most recent of2 resultswithin the time period is included. HEMOGLOBIN 10.1(L) 13.5 - 17.5 g/dL 06/21/2024 7:50 AM ANIMAL LABORATORY TECHNICIAN [facility] MCV 99 80 - 100 fL 06/21/2024 7:50 AM ANIMAL LABORATORY TECHNICIAN [facility] Blood BLOOD SPECIMEN / Unknown Non-Lab Venipuncture / Unknown 06/21/2024 7:02 AM ANIMAL LABORATORY TECHNICIAN 06/21/2024 7:43 AM ANIMAL LABORATORY TECHNICIAN Sven Zeng MD HEMATOLOGY Final Result Performing Organization Address City/[facility] [[email or web address]] Co de Phone Number [facility] [address] [place] [address], [place] * (ABNORMAL) PHOSPHORUS (06/21/2024 7:02 AM ANIMAL LABORATORY TECHNICIAN) Only the most recent of19 resultswithin the time period is included. PHOSPHORUS 5.6(H) 2.5 - 4.5 mg/dL 06/21/2024 8:20 AM ANIMAL LABORATORY TECHNICIAN [facility] Blood BLOOD SPECIMEN / Unknown Non-Lab Venipuncture / Unknown 06/21/2024 7:02 AM ANIMAL LABORATORY TECHNICIAN 06/21/2024 7:43 AM ANIMAL LABORATORY TECHNICIAN us Sven Zeng MD CHEMISTRY Final Result Performing Organization Address [facility] [[email or web address]] Co de Phone Number [facility] [address] [place] [address], [place] * MAGNESIUM (06/21/2024 7:02 AM ANIMAL LABORATORY TECHNICIAN) Only the most recent of17 resultswithin the time period is included. MAGNESIUM 2.2 1.6 - 2.4 mg/dL 06/21/2024 8:20 AM ANIMAL LABORATORY TECHNICIAN [facility] Blood BLOOD SPECIMEN / Unknown Non-Lab Venipuncture / Unknown 06/21/2024 7:02 AM ANIMAL LABORATORY TECHNICIAN 06/21/2024 7:43 AM ANIMAL LABORATORY TECHNICIAN us Sven Zeng MD CHEMISTRY Final Result Performing Organization Address [facility] [[email or web address]] Co de Phone Number [facility] [address] [address], [place] * (ABNORMAL) Basic metabolic panel AM (06/21/2024 7:02 AM [facility]) Only the most recent of7 resultswithin the time period is included. SODIUM 134(L) 136 - 145 mmol/L 06/21/2024 8:20 AM [facility] POTASSIUM 4.8 3.5 - 5.1 mmol/L 06/21/2024 8:20 AM [facility] CHLORIDE 101 98 - 107 mmol/L 06/21/2024 8:20 AM [facility] CO2,TOTAL 21(L) 22 - 29 mmol/L 06/21/2024 8:20 AM [facility] ANION GAP 12 5 - 18 06/21/2024 8:20 AM [facility] GLUCOSE 109(H) 70 - 99 mg/dL 06/21/2024 8:20 AM [facility] CALCIUM 9.1 8.8 - 10.4 mg/dL 06/21/2024 8:20 AM [facility] Comment: Reference ranges for this test were updated on 03/05/2024 to reflect our healthy population more accurately. Reference range changes are not retroactively applied to results, but previous results using the same methodology can be interpreted in the context of the new reference range. BUN 37(H) 8 - 23 mg/dL 06/21/2024 8:20 AM [facility] CREATININE 1.13 0.70 [...] Non-Lab Venipuncture / Unknown 06/21/2024 7:02 AM ANIMAL LABORATORY TECHNICIAN 06/21/2024 7:43 AM ANIMAL LABORATORY TECHNICIAN us Sven Zeng MD CHEMISTRY Final Result Performing Organization Address City/[facility]/ZIP Co de Phone Number [facility] [address] [address], [place] * (ABNORMAL) POTASSIUM (06/20/2024 3:59 PM ANIMAL LABORATORY TECHNICIAN) Only the most recent of16 resultswithin the time period is included. POTASSIUM 5.5(H) 3.5 - 5.1 mmol/L 06/20/2024 4:33 PM ANIMAL LABORATORY TECHNICIAN [facility] Blood BLOOD SPECIMEN / Unknown Butterfly / Unknown 06/20/2024 3:59 PM ANIMAL LABORATORY TECHNICIAN 06/20/2024 4:07 PM ANIMAL LABORATORY TECHNICIAN [facility] CHEMISTRY Final R esult Performing Organization Address [facility] [[email or web address]] Co de Phone Number [facility] [address] [place] [address], [place] * SCAN-CARDIAC STRIP (06/11/2024 7:00 AM ANIMAL LABORATORY TECHNICIAN) Scanner OTHER Final Result * (ABNORMAL) CALCIUM IONIZED HOSPITAL DRAW ONLY (06/11/2024 4:45 AM ANIMAL LABORATORY TECHNICIAN) Only the most recent of8 resultswithin the time period is included. CALCIUM,IONIZE D 1.11(L) 1.15 - 1.27 mmol/L 06/11/2024 5:12 AM ANIMAL LABORATORY TECHNICIAN [facility] Blood BLOOD SPECIMEN / Unknown Butterfly / Unknown 06/11/2024 4:45 AM ANIMAL LABORATORY TECHNICIAN 06/11/2024 5:00 AM ANIMAL LABORATORY TECHNICIAN Alexander Beasley MD CHEMISTRY Final Resu lt Performing Organization Address City/[facility]/ZIP Co de Phone Number [facility] [address] [place] [address], [place] * SCAN-CARDIAC STRIP (06/10/2024 3:27 PM ANIMAL LABORATORY TECHNICIAN) us Scanner OTHER Final Result * (ABNORMAL) CBC W PLT NO DIFF (06/10/2024 2:39 PM ANIMAL LABORATORY TECHNICIAN) Only the most recent of4 resultswithin the time period is included. WHITE BLOOD COUNT 4.8 4.5 - 11.0 thou/cu mm 06/11/2024 6:04 AM [facility] RED BLOOD COUNT 3.16(L) 4.30 - 5.90 mil/cu mm 06/11/2024 6:04 AM [facility] HEMOGLOBIN 10.7(L) 13.5 - 17.5 g/dL 06/11/2024 6:04 AM [facility] HEMATOCRIT 32.4(L) 37.0 - 53.0 % 06/11/2024 6:04 AM [facility] MCV 102(H) 80 - 100 fL 06/11/2024 6:04 AM [facility] MCH 34.2(H) 26.0 - 34.0 pg 06/11/2024 6:04 AM [facility] MCHC 33.3 32.0 - 36.0 g/dL 06/11/2024 6:04 AM [facility] RDW 14.4 11.5 - 15.5 % 06/11/2024 6:04 AM [facility] PLATELET COUNT 155 140 - 440 thou/cu mm 06/11/2024 6:04 AM [facility] MPV 11.4(H) 6.5 - 11.0 fL 06/11/2024 6:04 AM [facility] NRBC 0.0 % 06/11/2024 6:04 AM [facility] ABS NRBC 0.0 thou /cu mm 06/11/2024 6:04 AM [facility] Blood BLOOD SPECIMEN / Unknown Butterfly / Unknown 06/10/2024 2:39 PM ANIMAL LABORATORY TECHNICIAN 06/10/2024 2:47 PM ANIMAL LABORATORY TECHNICIAN Alexander Beasley MD HEMATOLOGY Final Resu lt Performing Organization Address [facility] [[email or web address]] Co de Phone Number [facility] [address] [place] [address], [place] * SCAN-CARDIAC STRIP (06/09/2024 11:00 PM ANIMAL LABORATORY TECHNICIAN) Scanner OTHER Final Result * (ABNORMAL) TRIGLYCERIDES propofol (06/09/2024 4:44 AM ANIMAL LABORATORY TECHNICIAN) Only the most recent of2 resultswithin the time period is included. TRIGLYCERIDES 198(H) <150 mg/dL 06/09/2024 5:31 AM ANIMAL LABORATORY TECHNICIAN [facility] PROVIDER ORDERED STATUS RANDOM 06/09/2024 5:31 AM ANIMAL LABORATORY TECHNICIAN [facility] Blood BLOOD SPECIMEN / Unknown Butterfly / Unknown 06/09/2024 4:44 AM ANIMAL LABORATORY TECHNICIAN 06/09/2024 5:04 AM ANIMAL LABORATORY TECHNICIAN [facility] CHEMISTRY Final R esult Performing Organization Address [facility] [[email or web address]] Co de Phone Number [facility] [address] [place] [id number], [place] * CK TOTAL propofol (06/09/2024 4:44 AM ANIMAL LABORATORY TECHNICIAN) Only the most recent of3 resultswithin the time period is included. CK,TOTAL 54 39 - 308 IU/L 06/09/2024 5:31 AM ANIMAL LABORATORY TECHNICIAN [facility] Blood BLOOD SPECIMEN / Unknown Butterfly / Unknown 06/09/2024 4:44 AM ANIMAL LABORATORY TECHNICIAN 06/09/2024 5:04 AM ANIMAL LABORATORY TECHNICIAN [facility]uy [facility] CHEMISTRY Final R esult Performing Organization Address City/[facility]/ZIP Co de Phone Number [facility] [address] [address], [place] * SPUTUM CULTURE, STAIN (06/08/2024 3:43 PM ANIMAL LABORATORY TECHNICIAN) Only the most recent of2 resultswithin the time period is included. CULTURE Usual crista 06/10/2024 7:22 AM ANIMAL LABORATORY TECHNICIAN [facility] GRAM STAIN 3+ PMNs 06/10/2024 7:22 AM ANIMAL LABORATORY TECHNICIAN [facility] GRAM STAIN 1+ RBCs 06/10/2024 7:22 AM ANIMAL LABORATORY TECHNICIAN [facility] GRAM STAIN No Epithelial cells 06/10/2024 7:22 AM ANIMAL LABORATORY TECHNICIAN [facility] GRAM STAIN No organisms seen 06/10/2024 7:22 AM ANIMAL LABORATORY TECHNICIAN [facility] Sputum SPECIMEN FROM ENDOTRACHEAL TUBE / Unknown Non-Blood / Unknown 06/08/2024 3:43 PM ANIMAL LABORATORY TECHNICIAN 06/08/2024 3:51 PM ANIMAL LABORATORY TECHNICIAN us Chuy Smith [facility] MICROBIOLOGY Final R esult Performing Organization Address [facility] [[email or web address]] Co de Phone Number [facility] [address] [address], [place] * SCAN-CARDIAC STRIP (06/07/2024 7:08 PM ANIMAL LABORATORY TECHNICIAN) us Scanner OTHER Final Result * SCAN CORRESP-LABORATORY RESULTS (06/07/2024 12:55 PM ANIMAL LABORATORY TECHNICIAN) Narrative 06/07/2024 12:55 PM ANIMAL LABORATORY TECHNICIAN Ordered by an unspecified provider. us Other Clinical Staff OTHER Final Resul t * SCAN CORRESP-IMAGING (06/07/2024 12:55 PM ANIMAL LABORATORY TECHNICIAN) Anatomical Region Laterality Modality Other Narrative 06/07/2024 12:55 PM ANIMAL LABORATORY TECHNICIAN Ordered by an unspecified provider. us Other Clinical Staff OTHER Final Resul t * SCAN CORRESP-EKG RESULTS (06/07/2024 12:54 PM ANIMAL LABORATORY TECHNICIAN) Narrative 06/07/2024 12:54 PM ANIMAL LABORATORY TECHNICIAN Ordered by an unspecified provider. us Other Clinical Staff OTHER Final Resul t * SCAN-CARDIAC STRIP (06/07/2024 7:12 AM ANIMAL LABORATORY TECHNICIAN) us Scanner OTHER Final Result * SCAN-CARDIAC STRIP (06/06/2024 11:23 PM ANIMAL LABORATORY TECHNICIAN) us Scanner OTHER Final Result * SCAN-CARDIAC STRIP (06/06/2024 2:58 PM ANIMAL LABORATORY TECHNICIAN) us Scanner OTHER Final Result * (ABNORMAL) TROPONIN T (HS) ONE TIME (06/06/2024 12:12 PM ANIMAL LABORATORY TECHNICIAN) Only the most recent of2 resultswithin the time period is included. TROPONIN T HS 19(H) 6-15 ng/L ng/L 06/06/2024 1:16 PM ANIMAL LABORATORY TECHNICIAN [facility] Blood BLOOD SPECIMEN / Unknown Butterfly / Unknown 06/06/2024 12:12 PM ANIMAL LABORATORY TECHNICIAN 06/06/2024 12:31 PM ANIMAL LABORATORY TECHNICIAN us Nitish Landis MD CHEMISTRY Final Result [facility] [address] [place] [address], * (ABNORMAL) TROPONIN T (HS) ACUTE W/2HR REFLEX (06/06/2024 9:29 AM ANIMAL LABORATORY TECHNICIAN) Only the most recent of2 resultswithin the time period is included. TROPONIN T HS 20(H) 6-15 ng/L ng/L 06/06/2024 10:00 AM ANIMAL LABORATORY TECHNICIAN [facility] Blood BLOOD SPECIMEN / Unknown Venipuncture / Unknown 06/06/2024 9:29 AM ANIMAL LABORATORY TECHNICIAN 06/06/2024 9:35 AM ANIMAL LABORATORY TECHNICIAN Narrative [facility] - 06/06/2024 10:00 AM ANIMAL LABORATORY TECHNICIAN hs-cTnT (Elecsys Troponin T Gen 5) concentration [...] us Nitish Landis MD CHEMISTRY Final Result [facility] [address] [place] [address], * (ABNORMAL) MRSA/SA PCR (06/06/2024 8:23 AM ANIMAL LABORATORY TECHNICIAN) Pathologist [facility] MRSA DNA PCR Negative Negative 06/06/2024 10:09 AM ANIMAL LABORATORY TECHNICIAN [facility]- NTRAL LABORATORY STAPHYLOCOCCUS AUREUS PCR Positive(A) Negative 06/06/2024 10:09 AM ANIMAL LABORATORY TECHNICIAN [facility] Other SPECIMEN FROM INTERNAL NOSE / Unknown Non-Blood / Unknown 06/06/2024 8:23 AM ANIMAL LABORATORY TECHNICIAN 06/06/2024 8:34 AM ANIMAL LABORATORY TECHNICIAN Narrative [facility] - 06/06/2024 10:09 AM ANIMAL LABORATORY TECHNICIAN S. aureus detected; NOT MRSA. Test result does not preclude MRSA nasal colonization. False negative for MRSA could be obtained if MRSA present in the sample is below threshold of detection. us Chuy Smith [facility] MICROBIOLOGY Final R esult [facility] [address] [place] [address], [place] * SCAN-CARDIAC STRIP (06/06/2024 8:00 AM ANIMAL LABORATORY TECHNICIAN) us Scanner OTHER Final Result * US ABDOMEN LIMITED RUQ PORTABLE (06/06/2024 7:51 AM ANIMAL LABORATORY TECHNICIAN) Anatomical Region Laterality Modality Abdomen, LIVER, PANCREAS, GALLBLADDER, SPLEEN Ultrasound 06/06/2024 8:40 AM ANIMAL LABORATORY TECHNICIAN Impressions 06/06/2024 8:40 AM ANIMAL LABORATORY TECHNICIAN 1. Fatty liver 2. Cholelithiasis. 3. Normal bile ducts. 4. Distal abdominal aorta 3.0 cm in diameter. Dictated by Remberto Braxton MD @ 06/06/2024 8:40:03 AM (Electronically Signed) Narrative 06/06/2024 8:40 AM ANIMAL LABORATORY TECHNICIAN For Patients: As a result of the [...] 06/06/2024 8:40:03 AM (Electronically Signed) [facility]uy [facility] [place] Final R esult * (ABNORMAL) BLOOD GAS,VENOUS (06/06/2024 6:10 AM ANIMAL LABORATORY TECHNICIAN) Only the most recent of2 resultswithin the time period is included. PH, VENOUS 7.38 7.32 - 7.43 06/06/2024 6:26 AM ANIMAL LABORATORY TECHNICIAN [facility] PCO2, VENOUS 43 41 - 51 mmHg 06/06/2024 6:26 AM ANIMAL LABORATORY TECHNICIAN [facility] PO2, VENOUS 60(H) 35 - 40 mmHg 06/06/2024 6:26 AM ANIMAL LABORATORY TECHNICIAN [facility] HCO3,VENOUS 25 22 - 29 mmol/L 06/06/2024 6:26 AM ANIMAL LABORATORY TECHNICIAN [facility] BASE EXCESS, VENOUS, POCT 0.0 -2.0 - 3.0 06/06/2024 6:26 AM ANIMAL LABORATORY TECHNICIAN [facility] O2 SATURATION, VENOUS 90(H) 70 - 75 % 06/06/2024 6:26 AM ANIMAL LABORATORY TECHNICIAN [facility] PATIENT TEMPERATURE 37.0 Degrees C 06/06/2024 6:26 AM [facility] Blood VENOUS BLOOD SPECIMEN / Unknown Butterfly / Unknown 06/06/2024 6:10 AM ANIMAL LABORATORY TECHNICIAN 06/06/2024 6:22 AM ANIMAL LABORATORY TECHNICIAN [facility] Final R esult [facility] [address] [place] [address], [place] * Blood Culture (06/06/2024 6:09 AM ANIMAL LABORATORY TECHNICIAN) Only the most recent of2 resultswithin the time period is included. CULTURE No Growth. 06/11/2024 11:06 AM ANIMAL LABORATORY TECHNICIAN [facility] Blood BLOOD SPECIMEN / Unknown Butterfly / Unknown 06/06/2024 6:09 AM ANIMAL LABORATORY TECHNICIAN 06/06/2024 6:23 AM ANIMAL LABORATORY TECHNICIAN Narrative [facility] - 06/11/2024 11:06 AM ANIMAL LABORATORY TECHNICIAN Low volume blood culture received; possible false negative culture. Chuy Vu Valdovinosguilherme [facility] MICROBIOLOGY Final R esult Performing Organization Address City/[facility]/ZIP Co de Phone Number [facility] [address] [place] [address], [place] * AMMONIA (06/06/2024 6:09 AM ANIMAL LABORATORY TECHNICIAN) AMMONIA 40 11 - 51 umol/L 06/06/2024 6:50 AM ANIMAL LABORATORY TECHNICIAN [facility] Blood BLOOD SPECIMEN / Unknown Butterfly / Unknown 06/06/2024 6:09 AM ANIMAL LABORATORY TECHNICIAN 06/06/2024 6:22 AM ANIMAL LABORATORY TECHNICIAN Narrative [facility] - 06/06/2024 6:50 AM ANIMAL LABORATORY TECHNICIAN 1. Sulfasalazine and its metabolite Sulfapyridine at therapeutic concentrations may lead to falsely low results. 2. Temozolomide and its metabolite MTIC may lead to falsely elevated results, and its metabolite AIC may lead to falsely low results. us Chuy Smith [facility] CHEMISTRY Final R esult [facility] [address] [place] [address], [place] * CT CHEST WO (06/06/2024 5:23 AM ANIMAL LABORATORY TECHNICIAN) Anatomical Region Laterality Modality CHEST, THORAX, HEART Computed To mography 06/06/2024 5:57 AM ANIMAL LABORATORY TECHNICIAN Impressions 06/06/2024 5:57 AM ANIMAL LABORATORY TECHNICIAN 1. Tiny effusions bilaterally. Bilateral patchy ground-glass [...] AM (Electronically Signed) Narrative 06/06/2024 5:57 AM ANIMAL LABORATORY TECHNICIAN For Patients: As a result of the [...] AM (Electronically Signed) us Chuy Womack Bonifaciombguilherme [facility] CT Final R esult * CT HEAD BRAIN WO (06/06/2024 5:23 AM ANIMAL LABORATORY TECHNICIAN) Anatomical Region Laterality Modality HEAD, BRAIN Computed Tomogra phy 06/06/2024 5:46 AM ANIMAL LABORATORY TECHNICIAN Impressions 06/06/2024 5:46 AM ANIMAL LABORATORY TECHNICIAN No acute intracranial abnormality. Please note that all CT scans at this facility use dose modulation, iterative reconstruction, and/or weight-based dosing when appropriate to reduce radiation dose to as low as reasonably achievable. Dictated by Kim Klein MD @ 06/06/2024 5:46:26 AM (Electronically Signed) Narrative 06/06/2024 5:46 AM ANIMAL LABORATORY TECHNICIAN For Patients: As a result of the [...] 5:46:26 AM (Electronically Signed) us [facility] CT Final R esult * XR ABDOMEN 1 VIEW PORTABLE (06/06/2024 4:16 AM ANIMAL LABORATORY TECHNICIAN) Only the most recent of2 resultswithin the time period is included. Anatomical Region Laterality Modality Abdomen Digital Radiogra phy 06/06/2024 4:41 AM ANIMAL LABORATORY TECHNICIAN Narrative 06/06/2024 4:41 AM ANIMAL LABORATORY TECHNICIAN For Patients: As a result of the [...] 4:41:29 AM (Electronically Signed) Chuy Vu Smith [facility] GENERAL IMAGING Final R esult * LEGIONELLA AND PNEUMOCOCCAL URINE ANTIGEN (06/06/2024 3:51 AM ANIMAL LABORATORY TECHNICIAN) STREP PNEUMO ANTIGEN Negative 06/06/2024 1:58 PM ANIMAL LABORATORY TECHNICIAN [facility] Comment:Presumptive negative for pneumococcal pneumonia, suggesting no current or recent pneumococcal infection. Infection due to S. pneumoniae cannot be ruled out since the antigen present in the sample may be below the detection limit of the test. LEGIONELLA ANTIGEN Negative 06/06/2024 1:58 PM ANIMAL LABORATORY TECHNICIAN [facility] Comment:Negative for L.pneum ophila serogroup [...] Unknown Non-Blood / Unknown 06/06/2024 3:51 AM ANIMAL LABORATORY TECHNICIAN 06/06/2024 4:38 AM ANIMAL LABORATORY TECHNICIAN Nitish Landis MD MICROBIOLOGY Final Result [facility] [address] [place] [address], [place] * (ABNORMAL) URINALYSIS MICROSCOPIC (06/06/2024 3:51 AM ANIMAL LABORATORY TECHNICIAN) RBC 11-25(A) 0-2, None Seen /HPF 06/06/2024 5:09 AM ANIMAL LABORATORY TECHNICIAN [facility] WBC 0-2 0-2, 3-5, None Seen /HPF 06/06/2024 5:09 AM ANIMAL LABORATORY TECHNICIAN [facility] BACTERIA None Seen None Seen, Rare, Few Bacteria/ HPF 06/06/2024 5:09 AM ANIMAL LABORATORY TECHNICIAN [facility] EPITHELIAL CELLS None Seen None Seen, Few Epi/HPF 06/06/2024 5:09 AM ANIMAL LABORATORY TECHNICIAN [facility] HYALINE CASTS 6-10(A) 0-2, 3-5 /LPF 06/06/2024 5:09 AM ANIMAL LABORATORY TECHNICIAN [facility] Urine URINE SPECIMEN / Unknown Non-Blood / Unknown 06/06/2024 3:51 AM ANIMAL LABORATORY TECHNICIAN 06/06/2024 4:38 AM ANIMAL LABORATORY TECHNICIAN [facility] URINE Final R esult Performing Organization Address [facility] [[email or web address]] Co de Phone Number [facility] [address] [place] [address], [place] * Urine Culture (06/06/2024 3:51 AM ANIMAL LABORATORY TECHNICIAN) CULTURE No growth (<1,000 CFU/mL) 06/07/2024 8:54 AM ANIMAL LABORATORY TECHNICIAN [facility] Urine URINE SPECIMEN / Unknown Non-Blood / Unknown 06/06/2024 3:51 AM ANIMAL LABORATORY TECHNICIAN 06/06/2024 4:38 AM ANIMAL LABORATORY TECHNICIAN Chuy Womack [facility] MICROBIOLOGY Final R esult Performing Organization Address [facility] de Phone Number [facility] [address] [place] [address], [place] * (ABNORMAL) Urinalysis W Reflex Microscopic if Positive (06/06/2024 3:51 AM ANIMAL LABORATORY TECHNICIAN) COLOR Yellow Yellow Color 06/06/2024 5:09 AM ANIMAL LABORATORY TECHNICIAN [facility] CLARITY Clear Clear Clarity 06/06/2024 5:09 AM ANIMAL LABORATORY TECHNICIAN [facility] SPECIFIC GRAVITY,URINE >=1.030(A) 1.010, 1.015, 1.020, 1.025 06/06/2024 5:09 AM ANIMAL LABORATORY TECHNICIAN [facility] PH,URINE 5.5 6.0, 7.0, 8.0, 5.5, 6.5, 7.5, 8.5 06/06/2024 5:09 AM ANIMAL LABORATORY TECHNICIAN [facility] UROBILINOGEN,QU ALITATIVE Normal Normal EU/dl 06/06/2024 5:09 AM [facility] PROTEIN, URINE >=300(A) Negative mg/dL 06/06/2024 5:09 AM [facility] GLUCOSE, URINE >=1000(A) Negative mg/dL 06/06/2024 5:09 AM [facility] KETONES,URINE 15(A) Negative mg/dL 06/06/2024 5:09 AM [facility] BILIRUBIN,URINE Abnormal(A) Negative 06/06/19 25 5:09 AM [facility] Comment:A variety of metabol ites and/or medications may result in a positive bilirubin result. Clinical correlation is recommended. OCCULT BLOOD,URINE Large(A) Negative 06/06/2024 5:09 AM [facility] NITRITE Negative Negative 06/06/2024 5:09 AM [facility] LEUKOCYTE ESTERASE Trace(A) Negative 06/06/2024 5:09 AM [facility] Urine URINE SPECIMEN / Unknown Non-Blood / Unknown 06/06/2024 3:51 AM ANIMAL LABORATORY TECHNICIAN 06/06/2024 4:38 AM ANIMAL LABORATORY TECHNICIAN us Chuy Tillman URINE Final R esult [facility] [address] [place] [address], * INTUBATION (06/06/2024 2:35 AM ANIMAL LABORATORY TECHNICIAN) Narrative Chuy Smith [facility] - 06/06/2024 2:35 AM ANIMAL LABORATORY TECHNICIAN Chuy Smith [facility] 06/06/2024 2:36 AM INTUBATION [...] Difficulty: 0 (not difficult) Chuy Stephonthong [facility] RESPIRATORY CARE ORD Fi nal Result * (ABNORMAL) CBC WITH AUTO DIFFERENTIAL (06/06/2024 1:37 AM ANIMAL LABORATORY TECHNICIAN) WHITE BLOOD COUNT 5.3 4.5 - 11.0 thou/cu mm 06/06/2024 2:17 AM [facility] RED BLOOD COUNT 3.48(L) 4.30 - 5.90 mil/cu mm 06/06/2024 2:17 AM [facility] HEMOGLOBIN 12.0(L) 13.5 - 17.5 g/dL 06/06/2024 2:17 AM [facility] HEMATOCRIT 35.2(L) 37.0 - 53.0 % 06/06/2024 2:17 AM [facility] MCV 101(H) 80 - 100 fL 06/06/2024 2:17 AM [facility] MCH 34.5(H) 26.0 - 34.0 pg 06/06/2024 2:17 AM [facility] MCHC 34.1 32.0 - 36.0 g/dL 06/06/2024 2:17 AM [facility] RDW 14.8 11.5 - 15.5 % 06/06/2024 2:17 AM [facility] PLATELET COUNT 62(L) 140 - 440 thou/cu mm 06/06/2024 2:17 AM [facility] MPV 11.1(H) 6.5 - 11.0 fL 06/06/2024 2:17 AM [facility] NRBC 0.0 % 06/06/2024 2:17 AM [facility] ABS NRBC 0.0 thou /cu mm 06/06/2024 2:17 AM [facility] % NEUT 78.4 % 06/06/2024 2:17 AM [facility] % LYMPH 7.8 % 06/06/2024 2:17 AM [facility] % MONO 12.3 % 06/06/2024 2:17 AM [facility] % EOS 0.4 % 06/06/2024 2:17 AM [facility] % BASO 0.2 % 06/06/2024 2:17 AM [facility] % IMMATURE GRAN (METAS,MYELOS,WI OS) 0.9 % 06/06/2024 2:17 AM [facility] ABSOLUTE NEUTROPHILS 4.2 1.7 - 7.0 thou/cu mm 06/06/2024 2:17 AM [facility] ABSOLUTE LYMPHOCYTES 0.4(L) 0.9 - 2.9 thou/cu mm 06/06/2024 2:17 AM [facility] ABSOLUTE MONOCYTES 0.7 <0.9 thou/cu mm 06/06/2024 2:17 AM [facility] ABSOLUTE EOSINOPHILS 0.0 <0.5 thou/cu mm 06/06/2024 2:17 AM ANIMAL LABORATORY TECHNICIAN [facility] ABSOLUTE BASOPHILS 0.0 <0.3 thou/cu mm 06/06/2024 2:17 AM ANIMAL LABORATORY TECHNICIAN [facility] ABSOLUTE IMMATURE GRANULOCYTES(MET ,MYELOS,PROS) 0.1 <0.3 thou/cu mm 06/06/2024 2:17 AM ANIMAL LABORATORY TECHNICIAN [facility] Blood BLOOD SPECIMEN / Unknown Butterfly / Unknown 06/06/2024 1:37 AM ANIMAL LABORATORY TECHNICIAN 06/06/2024 1:46 AM ANIMAL LABORATORY TECHNICIAN Chuy Smith [facility] HEMATOLOGY Final R esult Performing Organization Address City/[facility] [[email or web address]] Co de Phone Number [facility] [address] [place] [address], [place] * HEMOGLOBIN A1C (06/06/2024 1:37 AM ANIMAL LABORATORY TECHNICIAN) HEMOGLOBIN A1C SCREENING 5.4 <=6.4 % 06/06/2024 3:47 PM ANIMAL LABORATORY TECHNICIAN [facility] Blood BLOOD SPECIMEN / Unknown Butterfly / Unknown 06/06/2024 1:37 AM ANIMAL LABORATORY TECHNICIAN 06/06/2024 1:46 AM ANIMAL LABORATORY TECHNICIAN Narrative [facility] - 06/06/2024 3:47 PM ANIMAL LABORATORY TECHNICIAN (<5.7%) Normal (5.7% to 6.4%) Indicates prediabetes (>=6.5%) Confirms diabetes Falsely low levels may be seen with: Recent Transfusion, Recent Significant Blood Loss, Hemolytic Diseases, or Falsely elevated levels may be seen with: Untreated Anemias, Splenectomy Chuy Smith [facility] CHEMISTRY Final R esult Performing Organization Address City/[facility]/ZIP Co de Phone Number [facility] [address] [place] [address], [place] * LACTATE VENOUS (06/06/2024 1:37 AM ANIMAL LABORATORY TECHNICIAN) LACTATE,VENOUS 1.3 0.5 - 2.0 mmol/L 06/06/2024 2:15 AM ANIMAL LABORATORY TECHNICIAN [facility] Blood BLOOD SPECIMEN / Unknown Butterfly / Unknown 06/06/2024 1:37 AM ANIMAL LABORATORY TECHNICIAN 06/06/2024 1:46 AM ANIMAL LABORATORY TECHNICIAN us Chuy Vu [facility] CHEMISTRY Final R esult [facility] [address] [place] [address], * (ABNORMAL) PROCALCITONIN (06/06/2024 1:37 AM ANIMAL LABORATORY TECHNICIAN) PROCALCITONIN 13.10(H) ng/ml 06/06/2024 2:26 AM ANIMAL LABORATORY TECHNICIAN [facility] Blood BLOOD SPECIMEN / Unknown Butterfly / Unknown 06/06/2024 1:37 AM ANIMAL LABORATORY TECHNICIAN 06/06/2024 1:46 AM ANIMAL LABORATORY TECHNICIAN Narrative [facility] - 06/06/2024 2:26 AM ANIMAL LABORATORY TECHNICIAN Procalcitonin for initial assessment of Lower Respiratory [...] < 2 ng/mL are obtained. Chuy Smith [facility] SEND OUTS Final R esult [facility] [address] [place] [address], * Protime - INR (06/06/2024 1:37 AM ANIMAL LABORATORY TECHNICIAN) INR 1.1 <1.3 06/06/2024 2:12 AM ANIMAL LABORATORY TECHNICIAN [facility] PROTIME 12.1 10.6 - 12.4 sec 06/06/2024 2:12 AM ANIMAL LABORATORY TECHNICIAN [facility] Blood BLOOD SPECIMEN / Unknown Butterfly / Unknown 06/06/2024 1:37 AM ANIMAL LABORATORY TECHNICIAN 06/06/2024 1:46 AM ANIMAL LABORATORY TECHNICIAN [facility] - 06/06/2024 2:12 AM ANIMAL LABORATORY TECHNICIAN Therapeutic Range 2.0-3.0 for most anticoagulated patients [...] the patient is on UFH. Chuy Smith [facility] HEMATOLOGY Final R esult [facility] [address] [place] [address], [place] * LIPASE (06/06/2024 12:49 AM ANIMAL LABORATORY TECHNICIAN) LIPASE 48.4 13.0 - 60.0 IU/L 06/06/2024 1:29 AM ANIMAL LABORATORY TECHNICIAN [facility] Blood BLOOD SPECIMEN / Unknown Venipuncture / Unknown 06/06/2024 12:49 AM ANIMAL LABORATORY TECHNICIAN 06/06/2024 12:57 AM ANIMAL LABORATORY TECHNICIAN Chuy Womack [facility] CHEMISTRY Final R esult Performing Organization Address City/[facility] [[email or web address]] Co de Phone Number [facility] [address] [place] [address], [place] * (ABNORMAL) PHENOBARBITAL (06/06/2024 12:49 AM ANIMAL LABORATORY TECHNICIAN) Pathologist [facility] PHENOBARBITAL 5.6(L) 10.0 - 30.0 ug/mL 06/06/2024 1:32 AM ANIMAL LABORATORY TECHNICIAN [facility] DATE OF LAST DOSE Not Given 025 1:32 AM ANIMAL LABORATORY TECHNICIAN [facility] TIME OF LAST DOSE Not Given 025 1:32 AM ANIMAL LABORATORY TECHNICIAN [facility] Blood BLOOD SPECIMEN / Unknown Venipuncture / Unknown 06/06/2024 12:49 AM ANIMAL LABORATORY TECHNICIAN 06/06/2024 12:57 AM ANIMAL LABORATORY TECHNICIAN Chuy Womack [facility] CHEMISTRY Final R esult Performing Organization Address City/[facility]/ZIP Co de Phone Number [facility] [address] [place] [address], [place] * (ABNORMAL) Hepatic Function Panel (06/06/2024 12:49 AM ANIMAL LABORATORY TECHNICIAN) Pathologist [facility] ALBUMIN 2.7(L) 4.0 - 4.9 g/dL 06/06/2024 1:29 AM ANIMAL LABORATORY TECHNICIAN [facility] PROTEIN,TOTAL 6.8 6.0 - 8.0 g/dL 06/06/2024 1:29 AM ANIMAL LABORATORY TECHNICIAN [facility] BILIRUBIN,TOTAL 1.9(H) 0.0 - 1.2 mg/dL 06/06/2024 1:29 AM ANIMAL LABORATORY TECHNICIAN [facility] BILIRUBIN,DIRECT 1.0(H) 0.0 - 0.2 mg/dL 06/06/2024 1:29 AM ANIMAL LABORATORY TECHNICIAN [facility] BILIRUBIN,INDIRE CT 0.9(H) 0.2 - 0.8 mg/dL 06/06/2024 1:29 AM ANIMAL LABORATORY TECHNICIAN [facility] ALK PHOSPHATASE 120 40 - 129 IU/L 06/06/2024 1:29 AM [facility] ALT (SGPT) 67(H) 10 - 50 IU/L 06/06/2024 1:29 AM [facility] AST (SGOT) 169(H) 10 - 50 IU/L 06/06/2024 1:29 AM [facility] Blood BLOOD SPECIMEN / Unknown Venipuncture / Unknown 06/06/2024 12:49 AM ANIMAL LABORATORY TECHNICIAN 06/06/2024 12:57 AM ANIMAL LABORATORY TECHNICIAN us Chuy Smith [facility] CHEMISTRY Final R esult [facility] [address] [place] [address], [place] * XR CHEST 1 VIEW PORTABLE (06/06/2024 12:40 AM ANIMAL LABORATORY TECHNICIAN) Anatomical Region Laterality Modality HEART, THORAX, CHEST Digital Rad iography 06/06/2024 12:4 7 AM ANIMAL LABORATORY TECHNICIAN Impressions 06/06/2024 12:47 AM ANIMAL LABORATORY TECHNICIAN 1. Endotracheal tube in satisfactory position. 2. Subtle bilateral patchy airspace opacities may be infectious or inflammatory. Dictated by Eloisa Thurston MD @ 06/06/2024 12:47:00 AM (Electronically Signed) Narrative 06/06/2024 12:47 AM ANIMAL LABORATORY TECHNICIAN For Patients: As a result of the [...] 12:47:00 AM (Electronically Signed) us Chuy Smith [facility] GENERAL IMAGING Final R esult * 12 Lead EKG (06/06/2024 12:37 AM ANIMAL LABORATORY TECHNICIAN) Interpretation Unusual P axis, possible ectopic atrial [...] NOW QTc 487 ms BEYOND NOW P [place] 204 degrees BEYOND NOW R [place] 31 degrees BEYOND NOW T [place] 37 degrees BEYOND NOW 06/06/2024 12:3 7 AM ANIMAL LABORATORY TECHNICIAN 06/06/2024 9:05 PM ANIMAL LABORATORY TECHNICIAN us Chuy Smith [facility] EKG ORD Final R esult BEYOND NOW [place], [place] * SCAN-RADIOLOGY REPORT (06/06/2024 12:00 AM ANIMAL LABORATORY TECHNICIAN) Only the most recent of6 resultswithin the time period is included. Anatomical Region Laterality Modality Other Narrative 06/06/2024 12:00 AM ANIMAL LABORATORY TECHNICIAN Ordered by an unspecified provider. us Other Clinical Staff OTHER Final Resul t * ECHO TTE COMPLETE WO CONTRAST (06/03/2024 9:40 AM ANIMAL LABORATORY TECHNICIAN) AORTIC VALVE MEAN PG 3 mmHg LVEDD 3.7 cm EJECTION FRACTION 65 - 70% Anatomical Region Laterality Modality Ultrasound 06/03/2024 9:14 AM ANIMAL LABORATORY TECHNICIAN Narrative 06/03/2024 10:50 AM ANIMAL LABORATORY TECHNICIAN ECHOCARDIOGRAM OLIVIA JIANG : 1960 63 years Study Date: 06/03/2024 9:14:42 AM Gender: M BP: 151/91 mmHg Height: 173.00 cm BSA: 1.81 m Weight: 68.00 kg Tech: BEVERLY Referring MD: ADARSH SYKES Site: [facility] Reading Location: Mobile-IP Patient Location: Inpatient. Procedure: 2D, Color Doppler and Spectral Doppler. Indication for study: Elevated troponin; History of CAD (coronary artery disease); History of VA (myocardial infarction) Cardiac Rhythm: Regular.Study quality: Fair. [...] . This study was interpreted by an [facility] accredited facility. CC: [facility] (med records) [facility], Med/Surg - IP [facility]. Final Procedure Note Julio Escamilla MD - 06/03/2024 ECHOCARDIOGRAM OLIVIA JIANG : 1960 63 years Study Date: 06/03/2024 9:14:42 AM Gender: M BP: 151/91 mmHg Height: 173.00 cm BSA: 1.81 m Weight: 68.00 kg Tech: BEVERLY Referring MD: ADARSH SYKES Site: [facility] Reading Location: Mobile- Patient Location: Inpatient. Procedure: 2D, Color Doppler and Spectral Doppler. Indication for study: Elevated troponin; History of CAD (coronary arterydisease); History of VA (myocardial infarction) Cardiac Rhythm: Regular.Study quality: Fair. [...] . This study was interpreted by an [facility] accredited facility. CC: [facility] (med records) [facility], Med/Surg - IP [facility]. Final us Adarsh Sykes MD ECHO ORD Final Result * SCAN-CT INTERPRETATION (06/02/2024 12:00 AM ANIMAL LABORATORY TECHNICIAN) Anatomical Region Laterality Modality Other us Scanner OTHER Final Result * (ABNORMAL) LIPID PANEL W REFLEX MEASURED LDL (01/06/2023 2:09 PM CDT) CHOLESTEROL,TOTAL 130 100 - 199 mg/dL 01/06/2023 3:03 PM CDT [facility] Comment: Cholesterol, Total Reference Ranges Desirable <200 mg/dL Borderline 200-239 mg/dL High >=240 mg/dL TRIGLYCERIDES 413(H) <150 mg/dL 01/06/2023 3:03 PM CDT [facility] HDL CHOLESTEROL 29(L) >40 mg/dL 3:03 PM T [facility] NON-HDL CHOLESTEROL 101 <145 mg/dl 01/06/2023 3:03 PM T [facility] CHOL/HDL RATIO 4.48 <4.50 01/06/2023 3:03 PM T [facility] LDL CHOLESTEROL 3:03 PM T [facility] Comment:Invalid LDL when Tri g >400. VLDL CHOLESTEROL COMMENT 01/06/2023 3:03 PM T [facility] Comment:Unable to calculate VLDL. PROVIDER ORDERED STATUS RANDOM 01/06/2023 3:03 PM T [facility] Blood BLOOD SPECIMEN / Unknown Venipuncture / Unknown 01/06/2023 2:09 PM CDT 01/06/2023 2:09 PM CDT Isabel MAGDALENO CHEMISTRY Final Result Performing Organization Address City/[facility]/ZIP Co de Phone Number [facility] SENDOUT INTERNAL ZIP [address] [place] [address] * RAPID HIV SCREEN (11/14/2022 7:38 AM CDT) [facility] RAPID HIV SCREEN Non-React perri Non-Reactiv e, Invalid 11/14/2022 8:20 AM CDT [facility] Comment:A NONREACTIVE test r esult means that HIV-1 or HIV-2 antibodies and HIV-1 p24 antigen were not detected in the specimen. Blood BLOOD SPECIMEN / Unknown Venipuncture / Unknown 11/14/2022 7:38 AM CDT 11/14/2022 7:47 AM CDT Esa Lyles MD CHEMISTRY Final Result [facility] SENDOUT [place]NAL ZIP [id number] [address] [place] [address] * ANTI HCV (01/23/2020 9:44 AM CDT) HEPATITIS C ANTIBODY Non-React perri Non-React perri 01/23/2020 4:57 PM CDT [facility] Comment:Antibodies to HCV no t detected; does not exclude the possibility of exposure to HCV. Blood BLOOD SPECIMEN / Unknown Venipuncture / Unknown 01/23/2020 9:44 AM CDT 01/23/2020 9:44 AM CDT us Cass Samayoa MD SEND OUTS Final R esult [facility] [address] [place] [address], [place] from Last 3 Months or Most Recently Relevant to Health Maintenance Additional Health Concerns Infection Onset Date Last Indicated CLOSTRIDIUM DIFFICILE Comment:Order Enteric Precautions + C diff test on 06/02/24 (at [facility]); patient to remain in Enteric Precautions [...] with C diff symptoms 06/07/2024 06/07/2024 Insurance [facility] [employer] [facility] [place] Advance Directives Documents on File Type Date Recorded Patient [place] Head Expl anation Healthcare Directive 06/25/2024 025 * [...] Code Status Discussion: Reviewed Preferences Care Teams Admitting Representative Relationship Specialty [place] [address] [place] [address] PCP - General Family Practice 02/22/21 Frederick Duran MD [address] [place] [address] Consulting Physician Cardiovascular Disease 02/20/15 [place] [address] [place] [address] Cardiovascular Disease 10/23/23 [facility] [address] [place], [place] [id number] 06/21/24
--- OUTSIDE RECORDS SUMMARY | 2024-07-06 09:37 | XMS_ITS | Continuity of Care Document ---
Author Organization [facility] Address [address] [place] [address] Phone Care Team Providers Care Heater Worker Name Role Phone Lucio Kapoor MD Unavailable [...] Copied on Encounter [facility], [address], [place], [id number] , [place] tel:[phone] [facility] No Information Jun-0 3-201 7 Antwon Valdes. [facility], [address] [place] [address], [address], [place], [id number] , [place]. tel: [phone] [facility], [address], [place], [id number] , [place] tel: [phone] [facility] Arthrodesis statusOverweight Antwon Valdes. [facility], [address], [address], [place], [place], [id number] , [place]. tel: [phone] [facility], [address], [place], [place], [id number] , [place] tel: [phone] [facility] No Information Antwon Valdes. [facility] [place], [facility] [address] [place] [address], [address], [place], [id number] , [place]. tel: [phone] Office/Outpa tient Visit,Est, Mod [facility], [address], [place], [id number] , [place] tel: [phone] [facility] OVERWEIGHTHyperte nsion, UnspecifiedLumbar HNPSpinal stenosis of lumbar region with neurogenic claudication Antwon Valdes. [facility], [address] [place] [address], [address], [place], [id number] , [place]. tel: [phone] Office/Outpa tient Visit,New, Mod [facility], [address], [place], [place], [id number] , [place] tel: [phone] [facility] Bulging lumbar discSpinal stenosis of lumbar region with neurogenic claudicationLumba r DDD 5 Panvica Jayden. [facility] [place], [facility] [address] [place] [address], [address], [place], [place], [id number] , [place]. tel: [phone] Family History Family Member Type Diagnosis Age At Onset No Information Payers Payer name Insurance type Covered constitution party ID Authoriza tion(s) No Information Social [...] Infor lori Weight Management Related to [facility] Weight management: R efer to Referral to General Practitioner timeframe: 1 Month. Related to Overweight Weight Management [facility] Exercise education Related to Un specified Essential Hypertension Assessments Type Assessment Date No Information Patient Care Teams Name Effective Dates (start - stop) Status Members No Information
[2024-07-06 09:58] LABS: Creatinine, Point-of-Care* 0.8 mg/dl (0.6-1.3)
[2024-07-06 09:58] LABS: Basophils Absolute Auto 0.01 K/uL (0.00-0.30); Basophils Percent Auto 0.1 % (0.0-3.0); Eosinophils Absolute Auto 0.06 K/uL (0.00-0.50); Eosinophils Percent Auto 0.8 % (0.0-7.0); Hematocrit 32.4 % (37.0-53.0); Immature Granulocytes Abs Auto 0.02 K/uL (0.00-0.30); Immature Granulocytes Pct Auto 0.3 %; Lymphocytes Percent Auto 5.5 % (20-44); Mean Corpuscular HGB Conc 34 gm/dL (32-36); Mean Corpuscular Hemoglobin 32 pg (26-34); Mean Corpuscular Volume 95 fL (80-100); Neutrophils Percent Auto 85.3 % (42.0-72.0); Platelet Count* 138 K/uL (140-440); RDW Coefficient of Variation % 13.2 % (11.5-15.5); White Blood Count* 7.99 K/uL (4.50-11.00)
--- NOTE | 2024-07-06 10:05 | ED.NAVMDI ---
HPI - Nausea/Vomiting/Diarrhea General Date Seen: 07/06/24 Chief complaint: Diarrhea Stated complaint: diarrhea Time Seen by Provider: 07/06/24 09:05 Source: patient Mode of arrival: ambulatory Limitations: no limitations History of Present Illness HPI Narrative: Patient is a 64-year-old male presenting to the emergency department for diarrhea. She was discharged from [place] on 06/21 after an extended hospitalization with sepsis leading to intubation. Was transferred from [facility] on 06/05/2024. He was initially admitted for sepsis and pneumonia and has been on multiple antibiotics. While he was in the ICU he develops C diff and was started on oral vancomycin. When he was discharged she was told the C diff was cleared. He states for the past week he has been having diarrhea again. Will also have diffuse abdominal cramping but is worse in the lower abdomen. Will have for about 14 watery stools every day. Unsure if this is similar to his previous C diff as at that time he was intubated and has no memory of it. He denies to his increasing shortness of breath could lightheadedness, dizziness, weakness, numbness, headache, vision changes, dysuria. Does state he has been eating and drinking less due to the abdominal cramping. Has not noticed any fevers. No other concerns noted. Related Data Home Medications ?Medication ?Instructions ?Recorded ?Confirmed clopidogrel 75 mg tablet 75 mg PO DAILY 12/08/22 06/02/24 empagliflozin 10 mg tablet 10 mg PO DAILY 12/08/22 06/02/24 (Jardiance) ferrous sulfate 325 mg (65 mg 325 mg PO Q OTHER DAY 12/08/22 06/02/24 iron) tablet (Feosol) fexofenadine 60 mg tablet (Lilia 60 mg PO DAILY 12/08/22 06/02/24 Allergy) gabapentin 300 mg capsule 300 mg PO BID 12/08/22 06/03/24 glipizide 10 mg tablet, extended 10 mg PO DAILY 12/08/22 06/02/24 release 24 hr lisinopril 20 mg tablet 20 mg PO DAILY 12/08/22 06/02/24 pravastatin 40 mg tablet 40 mg PO DAILY 12/08/22 06/02/24 rivaroxaban 2.5 mg tablet (Xarelto) 2.5 mg PO BID 12/08/22 06/02/24 omeprazole 20 mg capsule,delayed 20 mg PO DAILY 06/02/24 06/02/24 release Previous Rx's ?Medication ?Instructions ?Recorded fidaxomicin 200 mg tablet 200 mg PO BID 10 days #20 tabs 07/06/24 Allergies Allergy/AdvReac Type Severity Reaction Status Date / Time metformin AdvReac Intermediate Diarrhea Verified 07/06/24 10:14 Review of Systems Status of ROS: Reports: 10 or more systems reviewed and unremarkable except as noted in History and below [facility] Medical History Thrombocytopenia ?D69.6 - Thrombocytopenia, unspecified (ICD-10) Drug-induced hepatitis ?K71.6 - Toxic liver disease with hepatitis, not elsewhere classified (ICD-10) ?T50.905A - Adverse effect of unspecified drugs, medicaments and biological substances, initial encounter (ICD-10) Acute anterior wall OK ?I21.09 - ST elevation (STEMI) myocardial infarction involving other coronary artery of anterior wall (ICD-10) History of rhabdomyolysis due to statin ?Z87.39 - Personal history of other diseases of the musculoskeletal system and connective tissue (ICD-10) Tobacco use disorder ?F17.200 - Nicotine dependence, unspecified, uncomplicated (ICD-10) Displacement of lumbar intervertebral disc without myelopathy ?M51.26 - Other intervertebral disc displacement, lumbar region (ICD-10) Critical lower limb ischemia ?I70.229 - Atherosclerosis of [place] arteries of extremities with rest pain, unspecified extremity (ICD-10) Popliteal artery occlusion, left ?I70.202 - Unspecified atherosclerosis of [place] arteries of extremities, left leg (ICD-10) Abdominal aortic aneurysm ?I71.40 - Abdominal aortic aneurysm, without rupture, unspecified (ICD-10) Normocytic anemia ?D64.9 - Anemia, unspecified (ICD-10) Type 2 diabetes mellitus with peripheral angiopathy ?E11.51 - Type 2 diabetes mellitus with diabetic peripheral angiopathy without gangrene (ICD-10) Hypertension ?I10 - Essential (primary) hypertension (ICD-10) GERD (gastroesophageal reflux disease) ?K21.9 - Gastro-esophageal reflux disease without esophagitis (ICD-10) Hyperlipidemia ?E78.5 - Hyperlipidemia, unspecified (ICD-10) CAD (coronary artery disease) ?I25.10 - Atherosclerotic heart disease of [place] coronary artery without angina pectoris (ICD-10) Surgical History H/O vasectomy ?Z98.52 - Vasectomy status (ICD-10) History of cerebral angiography ?Z98.890 - Other specified postprocedural states (ICD-10) History of PTCA ?Z98.61 - Coronary angioplasty status (ICD-10) History of coronary artery stent placement ?Z95.5 - Presence of coronary angioplasty implant and graft (ICD-10) History of back surgery ?Z98.890 - Other specified postprocedural states (ICD-10) Family History Mother Dementia Father COPD (chronic obstructive pulmonary disease) Paternal Grandfather Myocardial infarction Social History Narrative: , , Kyra, is here with him. 30+ pack year smoking history, currently smoking just over a pack per day. Drinks at least 6 drinks daily, some beer, some hard liquor. Never had DUI/DWI. Never tried quitting or had a period of sobriety. Denies any problems from alcohol. Last drink was last night. Denies recreational drug use. What is your current living situation?: I presently have a place to live Problems where you live: no known problems Problems where you live details: no In the past 12 months, utilities in danger of being shut off: no In past 12 months, lack of transportation kept you from medical appts, meetings, work, or getting things needed for daily living: no In the past 12 mos, have been you worried that your food would run out before you had money to buy more?: never true In the past 12 mos, the food you bought just didn't last and you didn't have money to buy more?: never true Highest level of school completed/degree received: high school graduate Smoking Status: Current every day smoker What tobacco products do you use: cigarettes Do you use any of these nicotine containing products: None How often do you have a drink containing alcohol: 4 or more times a week How many standard drinks containing alcohol do you have on a typical day: 5 or 6 How often do you have six or more drinks on one occasion: Daily or almost daily AUDIT-C Alcohol total score: 10 Non-prescribed substance use: denies use Caffeine: No How often does anyone, including family, friends and others, physically hurt you: never How often does anyone, including family, friends and others, insult or talk down to you: never How often does anyone, including family, friends and others, threaten you with harm: never How often does anyone, including family, friends and others, scream or curse at you: never service: No Exam Narrative: Exam Narrative: Const: Well-nourished, Well-developed, in mild distress Eyes: PERRL, no conjunctival injection, and symmetrical lids HENT: Atraumatic external nose and ears. Moist mucous membranes. Neck: Symmetric, trachea midline, No thyromegaly. CVS: RRR, No murmurs or gallops. Peripheral pulses 2+ and equal in all extremities RESP: Unlabored respiratory effort. Clear to auscultation bilaterally. GI: Mild diffuse abdominal tenderness, Nondistended, No rebound or guarding. MSK:Extremities w/o deformity, Normal Active ROM Skin: Warm, Dry. No rashes or lesions. Neuro: Normal Muscle tone, No focal neurological deficits. Psych: Awake, Alert, & Oriented x3. Appropriate mood and affect. Const: Vital Signs, click to edit/add: Vital Signs - 24 hr 07/06/24 09:11 07/06/24 10:54 07/06/24 11:15 Temperature 98.7 F Pulse Rate 86 Pulse Rate [Pulse Oximeter] 98 87 Respiratory Rate 18 20 Blood Pressure Blood Pressure [Ri ght Upper Arm] 122/75 156/95 H Pulse Oximetry 97 100 100 Oxygen Delivery Me thod Room Air Room Air 07/06/24 13:02 07/06/24 13:03 Temperature Pulse Rate 88 Pulse Rate [Pulse Oximeter] Respiratory Rate Blood Pressure 141/85 H Blood Pressure [Ri ght Upper Arm] Pulse Oximetry 98 Oxygen Delivery Me thod Course Vital Signs Vital signs: Initial Vital Signs Temperature 98.7 F 07/06/24 09:11 Temperature Source Temporal Artery Scan 07/06/24 09:11 Pulse Rate 98 07/06/24 09:11 Respiratory Rate 18 07/06/24 09:11 Blood Pressure 122/75 07/06/24 09:11 Blood Pressure Mean 90 07/06/24 09:11 Pulse Oximetry 97 07/06/24 09:11 Oxygen Delivery Method Room Air 07/06/24 09:11 Vital Signs Temperature 98.7 F 07/06/24 09:11 Pulse Rate 98 07/06/24 09:11 Respiratory Rate 18 07/06/24 09:11 Blood Pressure 122/75 07/06/24 09:11 Pulse Oximetry 97 07/06/24 09:11 Oxygen Delivery Method Room Air 07/06/24 09:11 Temperature 98.7 F 07/06/24 09:11 Pulse Rate 88 07/06/24 13:02 Respiratory Rate 20 07/06/24 10:54 Blood Pressure 141/85 H 07/06/24 13:03 Pulse Oximetry 98 07/06/24 13:02 Oxygen Delivery Method Room Air 07/06/24 10:54 Medications Administered Medications: Discontinued Medications Generic Name Dose Route Start Last Admin Trade Name Freq PRN Reason Stop Dose Admin Lactated Ringer's 1,000 mls @ 1,000 mls/hr 07/06/24 09:28 07/06/24 11:44 Lactated Ringers 1000 Ml IV 07/06/24 10:27 Infused .Q1H ONE Infusion Potassium Bicarbonate 50 meq 07/06/24 10:23 07/06/24 10:53 Potassium Bicarb 25 Meq Effervescent Tab PO 07/06/24 10:24 50 meq ONCE ONE Administration MDM - Nausea/Vomiting/Diarrhea MDM Narrative Medical decision making narrative: Patient is a 64-year-old male presenting for diarrhea. Considering his recent hospitalizations I do have a high concern for C diff. Will test him again for C diff. will also do CBC, CMP, and a CT scan for better evaluation of his abdominal discomfort. States he is not needing anything for pain or nausea at this time. Will give him some IV fluids for his likely dehydration. Lab work shows slightly low potassium which would be expected with his diarrhea. This was replenished. Rest was lab work shows no concerning findings. He is C diff positive. CT scan returned showing diffuse colitis but no signs of toxic megacolon. Bottom of lungs in the CT scans abdomen shows possible infectious versus inflammatory process. Will do a dedicated chest CT. On dedicated chest CT they are more concerned about a chronic infection. With his history I did consider admission for this patient. I spoke to our hospitalist, Dr. abel, and explained that the patient overall looks well, his vital signs are stable, showing no signs of respiratory distress and overall I am not positive he would need admission versus just being sent home on his C diff treatment. She agrees with this plan and is wondering if this could be more likely inflammatory process. I will discharge him home with fidaxomicin. Would not treat this abnormalities seen in his lungs at this time as further antibiotics could worsen his C diff and I am not even sure he does have an acute infection. I did give the patient very strict return precautions and told if he needs to follow up this week with his primary care provider. He is agreeable to this plan. Lab Data Labs: Lab Results 07/06/24 07/06/24 07/06/24 Range/Units 09:28 09:40 10:10 WBC 7.99 (4.50-11.00) K/uL RBC 3.40 L (4.30-5.90) m/uL Hgb 11.0 L (13.5-17.5) gm/dL Hct 32.4 L (37.0-53.0) % MCV 95 (80-100) fL MCH 32 (26-34) pg MCHC 34 (32-36) gm/dL RDW Coeff of Douglas 13.2 (11.5-15.5) % Plt Count 138 L (140-440) K/uL Neut % (Auto) 85.3 H (42.0-72.0) % Lymph % (Auto) 5.5 L (20-44) % [place] % (Auto) 8.0 (0.0-11.0) % Eos % (Auto) 0.8 (0.0-7.0) % Baso % (Auto) 0.1 (0.0-3.0) % Neut # (Auto) 6.80 (1.7-7.0) K/uL Lymph # (Auto) 0.40 L (0.90-2.90) K/uL [place] # (Auto) 0.60 (0.00-0.90) K/UL Eos # (Auto) 0.06 (0.00-0.50) K/uL Baso # (Auto) 0.01 (0.00-0.30) K/uL Abs Immat Gran (auto) 0.02 (0.00-0.30) K/uL Imm/Tot Granulo (auto) 0.3 % Sodium 134 L (135-149) mmol/L Potassium 3.1 L (3.6-5.1) mmol/L Chloride 101 (96-114) mmol/L Carbon Dioxide 22 (20-32) mmol/L Anion Gap 11 (7-15) mEq/L BUN 5 L (7-30) mg/dL Creatinine 0.7 (0.5-1.5) mg/dL Estimated Creat Clear 68.30 Estimated GFR 104 ml/min Glucose 184 H (60-115) mg/dL Calcium 9.0 (8.4-10.6) mg/dL Magnesium 1.4 L (1.5-2.6) mg/dL Total Bilirubin 1.0 (0.1-1.5) mg/dL AST 20 (12-35) U/L ALT 12 (4-50) U/L Alkaline Phosphatase 154 H (40-150) U/L Total Protein 7.3 (6.0-8.3) g/dL Albumin 3.6 (3.3-5.0) g/dL Stl C. diff Tox B Gene (Negative) Stl C. diff 027-NAP1-BI (Negative) Lab Acknowledgement Test Added POC Creatinine 0.8 (0.6-1.3) mg/dl 07/06/24 Range/Units Unknown WBC (4.50-11.00) K/uL RBC (4.30-5.90) m/uL Hgb (13.5-17.5) gm/dL Hct (37.0-53.0) % MCV (80-100) fL MCH (26-34) pg MCHC (32-36) gm/dL RDW Coeff of Douglas (11.5-15.5) % Plt Count (140-440) K/uL Neut % (Auto) (42.0-72.0) % Lymph % (Auto) (20-44) % [place] % (Auto) (0.0-11.0) % Eos % (Auto) (0.0-7.0) % Baso % (Auto) (0.0-3.0) % Neut # (Auto) (1.7-7.0) K/uL Lymph # (Auto) (0.90-2.90) K/uL [place] # (Auto) (0.00-0.90) K/UL Eos # (Auto) (0.00-0.50) K/uL Baso # (Auto) (0.00-0.30) K/uL Abs Immat Gran (auto) (0.00-0.30) K/uL Imm/Tot Granulo (auto) % Sodium (135-149) mmol/L Potassium (3.6-5.1) mmol/L Chloride (96-114) mmol/L Carbon Dioxide (20-32) mmol/L Anion Gap (7-15) mEq/L BUN (7-30) mg/dL Creatinine (0.5-1.5) mg/dL Estimated Creat Clear Estimated GFR ml/min Glucose (60-115) mg/dL Calcium (8.4-10.6) mg/dL Magnesium (1.5-2.6) mg/dL Total Bilirubin (0.1-1.5) mg/dL AST (12-35) U/L ALT (4-50) U/L Alkaline Phosphatase (40-150) U/L Total Protein (6.0-8.3) g/dL Albumin (3.3-5.0) g/dL Stl C. diff Tox B Gene POSITIVE A* (Negative) Stl C. diff [id number] PRESUMPTIVE NEGATIVE (Negative) Lab Acknowledgement POC Creatinine (0.6-1.3) mg/dl Imaging Data CT scan abdomen and pelvis: Attestation: I have reviewed the pertinent imaging results. Radiologist's impression: 1. Diffuse colitis. No ischemia or obstruction. Given history of recent infections, recommend evaluation for C difficile colitis. No findings of toxic megacolon. 2. Bilateral lung base infectious or inflammatory distal airways disease. This finding is new/worse compared to prior. Please note that all CT scans at this facility use dose modulation, iterative reconstruction, and/or weight-based dosing when appropriate to reduce radiation dose to as low as reasonably achievable. Dictated by Princess Rosas MD @ 07/06/2024 10:32:[address] scan - chest: Radiologist's impression: 1. Evolving bilateral airspace opacities in both lungs most pronounced at the bases likely chronic infectious etiologies such as mycoplasma avium intracellulare or other atypical infection. Chronic inflammatory hypersensitivity reaction is less likely. 2. Mild chronic aneurysmal dilatation ascending aorta to 4 cm. 3. Minor emphysematous changes upper lobes, right greater than left. Please note that all CT scans at this facility use dose modulation, iterative reconstruction, and/or weight-based dosing when appropriate to reduce radiation dose to as low as reasonably achievable. Dictated by Mainor Hill MD @ 07/06/2024 1:58:25 PM Discharge Plan Discharge Clinical Impression: C. difficile colitis Patient Disposition: Home, Self-Care Condition: Stable Instructions: C. Diff (Clostridioides Difficile) Infection (DC) Additional Instructions: Make sure to have close follow-up with your primary care provider for symptoms and you possibly will need a repeat CT of your chest in 3 months. Take the fidaxomicin for your C diff. If you start developing fevers, chills, weakness, chest pain, shortness of breath or any other concerning symptoms return immediately for re-evaluation. I recommend a low threshold for re-evaluation. Prescriptions: New fidaxomicin 200 mg tablet 200 mg PO BID 10 Days Qty: 20 0RF No Action pravastatin 40 mg tablet 40 mg PO DAILY glipizide 10 mg tablet extended release 24hr 10 mg PO DAILY lisinopril 20 mg tablet 20 mg PO DAILY clopidogrel 75 mg tablet 75 mg PO DAILY gabapentin 300 mg capsule 300 mg PO BID Patient Comments: Twice on the days he works, once a day while not working Jardiance 10 mg tablet 10 mg PO DAILY Xarelto 2.5 mg tablet 2.5 mg PO BID fexofenadine [Lilia Allergy] 60 mg tablet 60 mg PO DAILY ferrous sulfate [Feosol] 325 mg (65 mg iron) tablet 325 mg PO Q OTHER DAY omeprazole 20 mg capsule,delayed release(DR/EC) 20 mg PO DAILY Follow Up/Referrals: David Alcala MD [Primary Care Provider] - Stand Alone Forms: Deem Info Instructions
[2024-07-06 10:08] LABS: Albumin* 3.6 g/dL (3.3-5.0)
[2024-07-06 10:09] LABS: Chloride* 101 mmol/L (96-114); Potassium* 3.1 mmol/L (3.6-5.1); Sodium* 134 mmol/L (135-149)
[2024-07-06 10:11] LABS: Alkaline Phosphatase* 154 U/L (40-150); Anion Gap 11 mEq/L (7-15); Aspartate Amino Transferase* 20 U/L (12-35); Blood Urea Nitrogen* 5 mg/dL (7-30); Carbon Dioxide* 22 mmol/L (20-32); Creatinine* 0.7 mg/dL (0.5-1.5); Estimated Glomerular Filt Rate 104 ml/min
[2024-07-06 10:12] LABS: Alanine Aminotransferase* 12 U/L (4-50); Glucose* 184 mg/dL (60-115); Magnesium* 1.4 mg/dL (1.5-2.6); Total Protein* 7.3 g/dL (6.0-8.3)
[2024-07-06 10:19] LABS: Slide Review Reflex No
[2024-07-06] MEDS: LACTATED RINGERS 1000 ML 1,000 ML IV (10:23)
[2024-07-06] MEDS: POTASSIUM BICARB 25 MEQ EFFERVESCENT TAB 50 MEQ PO (10:53)
[2024-07-06 10:54] VITALS: BP 156/95; PULSE 87; RESP 20; O2SAT 100
[2024-07-06 11:15] VITALS: PULSE 86; O2SAT 100
[2024-07-06 11:41] LABS: CDIFFEPI 027 PRESUMPTIVE NEGATIVE (Negative)
[2024-07-06 11:44] LABS: C.Difficile POSITIVE (Negative)
[2024-07-06 13:02] VITALS: PULSE 88; O2SAT 98
[2024-07-06 13:03] VITALS: BP 141/85
[2024-07-06 14:55] VITALS: BP 149/90; PULSE 83; RESP 16
[2024-07-06 15:08] LABS: Lipase* 117 U/L (23-300)
== END 2024-07-06 14:56 | disposition home or self-care (01) ==
PROVIDERS: Emergency Provider Student in an Organized Health Care Education/Training Program; PCP Family Medicine
DX: R19.7 Diarrhea, unspecified (principal); A04.72 Enterocolitis due to Clostridium difficile, not specified as recurrent
CPT/HCPCS: 36415; 71250; 74177; 80053; 82565; 83690; 83735; 85025; 87493; 99284; A9270; J7120; Q9967